=== PATIENT | female | born 1960 | race Caucasian/White ===

== ENCOUNTER 2016-07-23 17:23 | Emergency (ER) | payer MEDICARE, OTHER ==
[2016-07-23 17:39] VITALS: BP 138/80; PULSE 83; RESP 18; TEMP 99
--- NOTE | 2016-07-23 18:42 | ED ---
General Adult HPI - General Chief complaint: Back Pain/Injury Stated complaint: HEADACHE Time Seen by Provider: 07/23/16 18:29 Source: patient, RN notes reviewed Mode of arrival: ambulatory Limitations: no limitations - History of Present Illness Initial comments: This is a 56-year-old female presents with pain to the right side neck 3 days. Patient is requesting pain medication as she is out of her current prescriptions. Patient denies any fall or trauma to the head. Patient denies any headache, nausea/vomiting. Patient isn't on any anticoagulants. Patient states she is due for surgery on July 2015 to of the lumbar spine. Patient states pain is reproducible and constant. Patient denies any recent fever, chills, shortness breath, chest pain, abdominal pain, nausea/vomiting/ diarrhea, back pain, numbness, tingling, hematuria, or visual changes, or any other complaints. - Related Data Home Medications Medication Instructions Recorded Confirmed Gabapentin [Gabapentin] 800 mg PO Q8H 05/05/16 07/23/16 Hydrochlorothiazide [Hydrodiuril] 25 mg PO DAILY 05/05/16 07/23/16 QUEtiapine [SEROquel] 100 mg PO HS 05/05/16 07/23/16 oxyCODONE HCL 30 mg PO Q8H PRN 05/05/16 07/23/16 traMADol HCL [Tramadol HCl] 50 mg PO Q8H PRN 05/05/16 07/23/16 Previous Rx's Medication Instructions Recorded Hydrocortisone Cream 1 applic TOPICAL TID #1 cream..g. 05/17/16 [Hydrocortisone 1% Cream] Hydrocodone/Acetaminophen [[place] 1 each PO Q6HR PRN #20 tab 05/25/16 5-325] diphenhydrAMINE [Benadryl] 50 mg PO HS PRN #5 capsule 06/22/16 predniSONE 50 mg PO DAILY #5 tab 06/22/16 Allergies Allergy/AdvReac Type Severity Reaction Status Date / Time latex AdvReac Itching Verified 07/23/16 17:37 propoxyphene napsylate AdvReac Nausea Verified 07/23/16 17:37 [From Darvocet-N 100] Review of Systems ROS Statement: Those systems with pertinent positive or pertinent negative responses have been documented in the HPI. ROS Other: All systems not noted in ROS Statement are negative. Past Medical History Past Medical History: Hypertension, Liver Disease, Musculoskeletal Disorder, Neurologic Disorder Additional Past Medical History / Comment(s): hep c, back pain, sciatica, neuropathy, History of Any Multi-Drug Resistant Organisms: None Reported Date of last positivie culture/infection: 2006 MDRO Source:: face Past Surgical History: Orthopedic Surgery Additional Past Surgical History / Comment(s): lt ankle, D&C Past Anesthesia/Blood Transfusion Reactions: No Reported Reaction Past Psychological History: Anxiety, Bipolar, Depression, Schizoaffective Disorder, Schizophrenia Smoking Status: Current every day smoker Past Alcohol Use History: Occasional Additional Past Alcohol Use History / Comment(s): quit drinking due to new meds for Hep C Past Drug Use History: None Reported General Exam - General Exam Comments Initial Comments: General: The patient is awake and alert, in no distress, and does not appear acutely ill. Head: Normocephalic atraumatic. There is reproducible pain to the right side occipital aspect of the skull where the neck muscles insert. Eye: Pupils are equal, round and reactive to light, extra-ocular movements are intact. No nystagmus. There is normal conjunctiva bilaterally. No signs of icterus. Ears: TMs pink and pearly with intact cone of light bilaterally. Normal external ear canals Nose: Nasal turbinates are erythematous and edematous with dried blood present in the left turbinate due to epistaxis digitorum. Mouth and throat: There are moist mucous membranes and no oral lesions. Neck: The neck is supple, there is no tenderness or JVD. Cardiovascular: There is a regular rate and rhythm. No murmur, rub or gallop is appreciated. Respiratory: Lungs are clear to auscultation, respirations are non-labored, breath sounds are equal. No wheezes, stridor, rales, or rhonchi. Musculoskeletal: Normal ROM, no tenderness. Strength 5/5. Sensation intact. Radial pulses equal bilaterally 2+. Neurological: A&O x 3. CN II-XII intact, There are no obvious motor or sensory deficits. Coordination appears grossly intact. Speech is normal. Skin: Skin is warm and dry and no rashes or lesions are noted. Psychiatric: Cooperative, appropriate mood & affect, normal judgment. Limitations: no limitations Course Vital Signs 07/23/16 17:37 Temperature 99.0 F Pulse Rate 83 Respiratory 18 Rate Blood Pressure 138/80 O2 Sat by Pulse 97 Oximetry Medical Decision Making - Medical Decision Making This is a 56-year-old female presents with neck pain. Patient states she has chronic neck and back pain. Patient states she is due for surgery on July 2016 on the lumbar spine and she has run out of pain meds. On physical exam patient is neurologically intact. Head is Normocephalic atraumatic. There is reproducible pain to the right side occipital aspect of the skull where the neck muscles insert. Patient is requesting pain medications because she is currently out of her prescriptions. I discussed with the patient that Tylenol or Motrin [id number] can be used for pain along with heating pads. Discussed the patient is to follow-up with her family physician for these types of medications. At this time patient stated she would not stay for discharge instructions if she is not getting any stronger pain medication. Patient eloped. Disposition Clinical Impression: Chronic pain Disposition: Left Against Medical Advice Referrals: Efren Luong MD [Primary Care Provider] - 1-2 days Time of Disposition: 19:15
== END 2016-07-23 18:45 | disposition left against medical advice (07) ==
LOC: EC 17:23
DX: G89.29 Other chronic pain (principal); M54.5 Low back pain; M54.2 Cervicalgia; Z79.899 Other long term (current) drug therapy; Z88.5 Allergy status to narcotic agent; Z91.040 Latex allergy status; I10 Essential (primary) hypertension; F41.9 Anxiety disorder, unspecified; F31.9 Bipolar disorder, unspecified; F20.9 Schizophrenia, unspecified; F17.200 Nicotine dependence, unspecified, uncomplicated
CPT/HCPCS: 99282

== ENCOUNTER 2016-08-07 22:22 | Emergency (ER) | payer MEDICARE, OTHER ==
[2016-08-07 22:28] VITALS: BP 144/85; PULSE 95; RESP 20; TEMP 99
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
--- NOTE | 2016-08-07 22:58 | XR ---
EXAMINATION TYPE: XR forearm RT DATE OF EXAM: 08/07/2016 10:48 PM COMPARISON: NONE HISTORY: Forearm and elbow pain TECHNIQUE: 2 views FINDINGS: The radius appears intact. There is irregular coronary process of the ulna that is suspicio us for a nondisplaced evulsion 8mm chip fracture. There is no dislocation. Wrist joint is intact. IMPRESSION: Possible chip fracture of the coronoid process of the ulna. No dislocation.
--- NOTE | 2016-08-07 22:59 | XR ---
EXAMINATION TYPE: XR elbow complete RT DATE OF EXAM: 08/07/2016 10:48 PM COMPARISON: NONE HISTORY: Forearm and elbow pain TECHNIQUE: 3 views FINDINGS: I see no displaced fracture. There is no sign of elbow joint effusion. On the lateral view there is some lucency over the coronary process of the ulna. IMPRESSION: Possible nondisplaced chip fracture of the coronoid process of the ulna. If there is pers istent clinical indication recommend additional lateral views to project the coronoid process to mariann hudson.
== END 2016-08-07 23:32 | disposition home or self-care (01) ==
LOC: EC 22:22
DX: M25.521 Pain in right elbow (principal); W19.XXXA Unspecified fall, initial encounter; I10 Essential (primary) hypertension; G62.9 Polyneuropathy, unspecified; F20.9 Schizophrenia, unspecified; F32.9 Major depressive disorder, single episode, unspecified; F31.9 Bipolar disorder, unspecified; F17.200 Nicotine dependence, unspecified, uncomplicated; B19.20 Unspecified viral hepatitis C without hepatic coma; Z79.899 Other long term (current) drug therapy; Z88.5 Allergy status to narcotic agent; Z91.040 Latex allergy status
CPT/HCPCS: 29105; 99284

== ENCOUNTER 2016-09-10 21:24 | Emergency (ER) | payer MEDICARE, OTHER ==
[2016-09-10] MEDS ORDERED: HYDROcodone/APAP 5-325MG 1 EACH TAB PO STA (23:22)
[2016-09-10] MEDS ORDERED: diphenhydrAMINE 25 MG CAP PO STA (23:22)
--- NOTE | 2016-09-10 23:27 | ED ---
General Adult HPI - General Chief complaint: Skin/Abscess/Foreign Body Stated complaint: itchy skin Source: patient, RN notes reviewed, old records reviewed Mode of arrival: ambulatory Limitations: no limitations - History of Present Illness Initial comments: Chief complaint history of present is a 56-year-old female was called emergency room because of itchy skin, there is ongoing for several days. Appears to be scabies. - Related Data Home Medications Medication Instructions Recorded Confirmed Gabapentin [Gabapentin] 800 mg PO Q8H 05/05/16 09/10/16 Hydrochlorothiazide [Hydrodiuril] 25 mg PO DAILY 05/05/16 09/10/16 QUEtiapine [SEROquel] 100 mg PO HS 05/05/16 09/10/16 oxyCODONE HCL 30 mg PO Q8H PRN 05/05/16 09/10/16 predniSONE [Deltasone] 20 mg PO DAILY 09/10/16 09/10/16 Previous Rx's Medication Instructions Recorded diphenhydrAMINE [Benadryl] 50 mg PO HS PRN #5 capsule 06/22/16 Permethrin 5% Cream [Elimite] 1 applic TOPICAL ONCE #60 cream..g. 09/10/16 diphenhydrAMINE [Benadryl] 25 mg PO QID PRN #16 capsule 09/10/16 Allergies Allergy/AdvReac Type Severity Reaction Status Date / Time latex Allergy Itching Verified 09/10/16 22:52 tramadol Allergy Itching Verified 09/10/16 22:52 Review of Systems ROS Statement: Those systems with pertinent positive or pertinent negative responses have been documented in the HPI. Review of systems. No headache or chest pain or shortness of breath no GI/ problems. The patient complaining of itchiness to her skin. She has jacobs that appear to be typical of scabies on her hands arms abdomen and lower extremities. All systems reviewed Past medical problems significant for chronic liver disease, hep C, chronic back pain. Hypertension. She's had left ankle surgery and D&C. ALLERGIES latex and tramadol. Family history noncontributory. Patient advised not to smoke. ROS Other: All systems not noted in ROS Statement are negative. Past Medical History Past Medical History: Hypertension, Liver Disease, Musculoskeletal Disorder, Neurologic Disorder Additional Past Medical History / Comment(s): hep c, back pain, sciatica, neuropathy, History of Any Multi-Drug Resistant Organisms: None Reported Date of last positivie culture/infection: 2006 MDRO Source:: face Past Surgical History: Orthopedic Surgery Additional Past Surgical History / Comment(s): lt ankle, D&C Past Anesthesia/Blood Transfusion Reactions: No Reported Reaction Past Psychological History: Anxiety, Bipolar, Depression, Schizoaffective Disorder, Schizophrenia Smoking Status: Current every day smoker Past Alcohol Use History: Occasional Additional Past Alcohol Use History / Comment(s): quit drinking due to new meds for Hep C Past Drug Use History: None Reported General Exam - General Exam Comments Initial Comments: General: The patient is awake and alert, complains of having itchy skin. And a painful right elbow. Vital signs show temperature 98.2 pulse 86 respiratory rate 16 pulse ox 90% room air blood pressure 140/80. The patient's systolic of 140 was noted patient will be following up with her family physician in next 1-4 weeks. Eye: Pupils are equal, , extra-ocular movements are intact; there is normal conjunctiva bilaterally. No signs of icterus. Ears, nose, mouth and throat: There are moist mucous membranes Neck: The neck is supple, there is no tenderness Cardiovascular: No complaint chest pain. Heart rate 86 blood pressure 140/80. Plan of palpitations. Respiratory: Lungs are clear to auscultation, respirations are non-labored, breath sounds are equal. No wheezes, stridor, rales, or rhonchi. Gastrointestinal: Soft, non-distended, non-tender abdomen without masses or organomegaly noted. There is no rebound or guarding present. No CVA tenderness. Bowel sounds are unremarkable. Patient has what appears to be scabies on her lower abdomen. Back: There is no tenderness to palpation in the midline. There is no obvious deformity. No rashes noted. Patient has chronic back pain. States she had 4 injections in her low back in the past several weeks. Musculoskeletal: Normal ROM, no tenderness, There is no pedal edema. There is no calf tenderness or swelling. Sensation intact. Patient has tenderness to the right elbow. She has near normal range of motion she has a sling to use to support the arm and elbow. Advised to follow-up with family physician. Neurological: CN II-XII intact, There are no obvious motor or sensory deficits. Coordination appears grossly intact. Speech is normal. No focal or lateralizing findings. Skin: Patient is skin rash that appears to be scabies. Psychiatric: History of depression, schizophrenia. No complaints this time. Limitations: no limitations Course Vital Signs 09/10/16 21:51 Temperature 98.2 F Pulse Rate 86 Respiratory 16 Rate Blood Pressure 140/80 O2 Sat by Pulse 98 Oximetry Disposition Clinical Impression: Scabies Disposition: HOME SELF-CARE Condition: Stable Prescriptions: Permethrin 5% Cream [Elimite] 1 applic TOPICAL ONCE #60 cream..g. diphenhydrAMINE [Benadryl] 25 mg PO QID PRN #16 capsule PRN Reason: As needed for itch Time of Disposition: 23:36
[2016-09-10 23:49] VITALS: BP 154/88; PULSE 74; RESP 18; TEMP 98.6
== END 2016-09-10 23:49 | disposition home or self-care (01) ==
LOC: EC 21:24
DX: B86 Scabies (principal); Z79.899 Other long term (current) drug therapy; I10 Essential (primary) hypertension; B19.20 Unspecified viral hepatitis C without hepatic coma; G62.9 Polyneuropathy, unspecified; F20.9 Schizophrenia, unspecified; F32.9 Major depressive disorder, single episode, unspecified; Z79.52 Long term (current) use of systemic steroids; F17.200 Nicotine dependence, unspecified, uncomplicated; Z88.5 Allergy status to narcotic agent; Z91.040 Latex allergy status
CPT/HCPCS: 99282

== ENCOUNTER → 2016-10-20 | Outpatient (CLI) | payer MEDICARE, OTHER ==
--- NOTE | 2016-10-20 08:43 | CT ---
EXAMINATION TYPE: CT elbow RT wo con DATE OF EXAM: 10/20/2016 8:28 AM COMPARISON: Radiographs 08/07/2016 HISTORY: 56-year-old female with right elbow pain, fracture. TECHNIQUE: Contiguous axial scanning of the right elbow without IV contrast. Coronal and sagittal rec onstructions performed. 3-D reconstructions generated on a dedicated independent workstation. CT DLP: 126.5 mGycm Automated exposure control for dose reduction was used. FINDINGS: There is fracture with minimal to no displacement at the coronoid process. The coronoid process is ma rkedly comminuted with the largest fracture fragment measuring up to 1.7 x 0.7 cm but multiple additi onal smaller fracture fragments. Fracture margins are sclerotic and corticated suggesting chronic inj uries. There is degenerative spurring about the ulnotrochlear joint Slivers of bone are seen adjacent to the posterior margin of the lateral epicondyle measuring up to 4 mm. This is along the floor of the sulcus ulnaris. The overlying ulnar nerve is thickened measuring 21 sq mm, axial image 25 of series 11. An additional small corticated bone fragment measuring 3.4 mm in the soft tissues along the proximal common extensor tendon. Punctate 2 mm density at the olecranon process may represent enthesopathy. Tiny 2 mm loose bodies within the coronoid fossa. IMPRESSION: 1. MARKEDLY COMMINUTED NONDISPLACED TO MINIMALLY DISPLACED FRACTURE INVOLVING THE ULNAR CORONOID PROC ESS. THE FRACTURE MARGINS ARE CORTICATED COMPATIBLE WITH A NOW CHRONIC INJURY. 2. ADDITIONAL PARTIAL AVULSION FRACTURE ALONG THE POSTERIOR MARGIN OF THE COMMON FLEXOR ORIGIN AT THE MEDIAL EPICONDYLE. THIS FRACTURE IS ALONG THE FLOOR OF THE SULCUS ULNARIS AND THE OVERLYING ULNAR NE RVE IS THICKENED AND PROBABLY CONTUSED. 3. TINY 3 TO 4 MM REMOTE AVULSION FRACTURE FRAGMENT ALONG THE COMMON EXTENSOR TENDON. 4. MILD SECONDARY ULNAR TROCHLEAR OSTEOARTHROSIS AND TINY 2 MM ANTERIOR LOOSE BODIES.
== END | disposition home or self-care (01) ==
LOC: RADCTMAIN 07:32
PROVIDERS: ATTEND Orthopaedic Surgery Sports Medicine
DX: S52.091D Other fracture of upper end of right ulna, subsequent encounter for closed fracture with routine healing (principal); S52.044D Nondisplaced fracture of coronoid process of right ulna, subsequent encounter for closed fracture with routine healing

== ENCOUNTER 2016-11-09 18:42 | Emergency (ER) | payer MEDICARE, OTHER ==
[2016-11-09] MEDS ORDERED: KETOROLAC 60 MG/2 ML VIAL IM STA (19:46)
[2016-11-09] MEDS ORDERED: HYDROcodone/APAP 5-325MG 1 EACH TAB PO STA (20:05)
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
[2016-11-09 20:29] LABS: Appearance,Urine Cloudy (Clear); Bacteria,Urine Occasional /hpf; Bilirubin,Urine Negative (Negative); Glucose,Urine (UA) Negative (Negative); Ketones,Urine Negative (Negative); Leukocyte Esterase,Urine Moderate (Negative); Nitrite,Urine Negative (Negative); PH, Urine 7.5 (5.0-8.0); Particle Count 4352; Protein,Urine Negative (Negative); Specific Gravity,Urine 1.009 (1.001-1.035); Squamous Epithelial Cell,Urine 6 /hpf (0-4); UA Billing (MACRO vs. MICRO) MICRO; Urobilinogen,Urine <2.0 mg/dL (<2.0); WBC,Urine 4 /hpf (0-5)
[2016-11-10 02:19] VITALS: BP 133/96; PULSE 88; RESP 18; TEMP 99
== END 2016-11-09 21:00 | disposition home or self-care (01) ==
LOC: EC 18:42
DX: M25.521 Pain in right elbow (principal); M54.9 Dorsalgia, unspecified; G89.29 Other chronic pain; M79.605 Pain in left leg; I10 Essential (primary) hypertension; M79.9 Soft tissue disorder, unspecified; G62.9 Polyneuropathy, unspecified; F20.9 Schizophrenia, unspecified; F31.9 Bipolar disorder, unspecified; F41.9 Anxiety disorder, unspecified; F17.200 Nicotine dependence, unspecified, uncomplicated; Z79.891 Long term (current) use of opiate analgesic; Z79.52 Long term (current) use of systemic steroids; Z79.899 Other long term (current) drug therapy; Z91.040 Latex allergy status; Z88.6 Allergy status to analgesic agent
CPT/HCPCS: 81001; 99284

== ENCOUNTER → 2016-12-25 | Outpatient (CLI) | payer MEDICARE, OTHER ==
[2016-12-25 17:33] LABS: Basophils % (A) 0 %; CH 30.9; Eosinophils # (A) 0.1 k/uL (0-0.7); Eosinophils % (A) 1 %; HCT 44.5 % (34.0-46.0); HDW 2.42; HGB 15.2 gm/dL (11.4-16.0); Luc # (Auto) 0.15; Luc % (Auto) 1; Lymphocytes # (A) 2.8 k/uL (1.0-4.8); Lymphocytes % (A) 20 %; MCH 31.1 pg (25.0-35.0); MCHC 34.1 g/dL (31.0-37.0); MCV 91.1 fL (80.0-100.0); Mean Platelet Volume 7.4; Monocytes # (A) 0.7 k/uL (0-1.0); Monocytes % (A) 5 %; Neutrophils # (A) 10.1 k/uL (1.3-7.7); Neutrophils % (A) 73 %; RBC 4.89 m/uL (3.80-5.40); RDW 12.6 % (11.5-15.5); WBC 13.9 k/uL (3.8-10.6); WBC (Perox) 13.39
[2016-12-25 18:18] LABS: ALT 31 U/L (9-52); AST 22 U/L (14-36); Alkaline Phosphatase 81 U/L (38-126); Anion Gap 12 mmol/L; Blood Urea Nitrogen 11 mg/dL (7-17); Calcium 10.2 mg/dL (8.4-10.2); Carbon Dioxide 20 mmol/L (22-30); Chloride 109 mmol/L (98-107); Glucose 93 mg/dL (74-99); Non-African American GFR(MDRD) >60 (>60 ml/min/1.73 sqM); Potassium 4.2 mmol/L (3.5-5.1); Sodium 141 mmol/L (137-145); Total Bilirubin 1.2 mg/dL (0.2-1.3); Total Protein 7.7 g/dL (6.3-8.2)
[2016-12-26 14:57] LABS: Hepatits C Virus RNA, Quant <12 IU/mL (<12); LOG HCV IU/mL <1.08 (<1.08)
== END ==
LOC: LABWHC1 16:45
PROVIDERS: ATTEND Internal Medicine Gastroenterology
DX: B18.2 Chronic viral hepatitis C (principal)
CPT/HCPCS: 36415; 80053; 85025; 87522

== ENCOUNTER 2017-01-11 21:44 | Emergency (ER) | payer MEDICARE, OTHER ==
[2017-01-11 22:03] VITALS: BP 128/79; PULSE 87; RESP 20; TEMP 99.9
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
[2017-01-11] MEDS ORDERED: HYDROcodone/APAP 5-325MG 1 EACH TAB PO STA (22:28)
--- NOTE | 2017-01-11 22:35 | XR ---
EXAM: XR Lumbar Spine, 2 or 3 Views CLINICAL HISTORY: Reason: Pain TECHNIQUE: Frontal and lateral views of the lumbar spine. COMPARISON: None. FINDINGS: Vertebrae: Mild posterior facet hypertrophy seen predominantly involving the lower lumbar spine consistent with degenerative changes. Mild/moderate spondylosis involving the lower thoracic spine. No acute fracture. Normal alignment. Disc spaces: No acute findings. No significant narrowing. Soft tissues: Unremarkable. IMPRESSION: No acute findings. Degenerative changes, as above.
--- NOTE | 2017-01-11 22:47 | XR ---
EXAM: XR Left Hip With Pelvis When Performed, 2 or 3 Views CLINICAL HISTORY: Left hip pain. TECHNIQUE: Two or three views of the left hip, with pelvis when performed. COMPARISON: None FINDINGS: Bones/joints: Minimal narrowing of both femoroacetabular joints is seen with associated subchondral sclerosis, likely representing minimal osteoarthropathy of both hips. No evidence for acute fracture or dislocation. Soft tissues: Unremarkable. IMPRESSION: Minimal osteoarthropathy of both hips. No radiographic evidence of acute fracture or dislocation.
== END 2017-01-11 23:01 | disposition home or self-care (01) ==
LOC: EC 21:44
DX: S70.02XA Contusion of left hip, initial encounter (principal); I10 Essential (primary) hypertension; F32.9 Major depressive disorder, single episode, unspecified; F41.9 Anxiety disorder, unspecified; F20.9 Schizophrenia, unspecified; F17.200 Nicotine dependence, unspecified, uncomplicated; Z79.52 Long term (current) use of systemic steroids; Z79.891 Long term (current) use of opiate analgesic; Z79.899 Other long term (current) drug therapy; Z88.6 Allergy status to analgesic agent; Z91.040 Latex allergy status; V18.4XXA Pedal cycle driver injured in noncollision transport accident in traffic accident, initial encounter; Y93.55 Activity, bike riding; Y92.89 Other specified places as the place of occurrence of the external cause
CPT/HCPCS: 72100; 73502; 99283

== ENCOUNTER 2017-01-20 11:44 | Emergency (ER) | payer MEDICARE, OTHER ==
[2017-01-20 11:58] VITALS: BP 137/71; PULSE 76; RESP 18; TEMP 97.7
[2017-01-20] MEDS ORDERED: KETOROLAC 60 MG/2 ML VIAL IM STA (12:15)
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
== END 2017-01-20 12:21 | disposition left against medical advice (07) ==
LOC: EC 11:44
DX: S70.12XA Contusion of left thigh, initial encounter (principal); Z76.5 Malingerer [conscious simulation]; I10 Essential (primary) hypertension; F31.9 Bipolar disorder, unspecified; F25.9 Schizoaffective disorder, unspecified; F41.9 Anxiety disorder, unspecified; F17.200 Nicotine dependence, unspecified, uncomplicated; Z79.52 Long term (current) use of systemic steroids; Z91.040 Latex allergy status; Z53.29 Procedure and treatment not carried out because of patient's decision for other reasons; Z88.6 Allergy status to analgesic agent; Z79.891 Long term (current) use of opiate analgesic; Z79.899 Other long term (current) drug therapy; V18.4XXA Pedal cycle driver injured in noncollision transport accident in traffic accident, initial encounter
CPT/HCPCS: 99282

== ENCOUNTER 2017-01-28 15:08 | Emergency (ER) | payer MEDICARE, OTHER ==
[2017-01-28 15:13] VITALS: BP 117/65; PULSE 80; RESP 20; TEMP 99.5
[2017-01-28] MEDS ORDERED: HYDROcodone/APAP 5-325MG 1 EACH TAB PO STA (15:24)
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
== END 2017-01-28 15:40 | disposition home or self-care (01) ==
LOC: EC 15:08
DX: M54.5 Low back pain (principal); Z76.0 Encounter for issue of repeat prescription; F41.9 Anxiety disorder, unspecified; F31.9 Bipolar disorder, unspecified; F20.9 Schizophrenia, unspecified; I10 Essential (primary) hypertension; G62.9 Polyneuropathy, unspecified; F17.200 Nicotine dependence, unspecified, uncomplicated; Z88.5 Allergy status to narcotic agent; Z91.040 Latex allergy status; Z79.891 Long term (current) use of opiate analgesic; Z79.899 Other long term (current) drug therapy
CPT/HCPCS: 99283

== ENCOUNTER 2017-02-16 01:53 | Emergency (ER) | payer MEDICARE, OTHER ==
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
[2017-02-16] MEDS ORDERED: MORPHINE SULFATE 10 MG/ML SYRINGE IM STA (02:40)
[2017-02-16 03:00] VITALS: BP 124/80; PULSE 77; RESP 16; TEMP 97.3
== END 2017-02-16 03:00 | disposition home or self-care (01) ==
LOC: EC 01:53
DX: M54.5 Low back pain (principal); G89.29 Other chronic pain; I10 Essential (primary) hypertension; F31.9 Bipolar disorder, unspecified; F41.9 Anxiety disorder, unspecified; F17.200 Nicotine dependence, unspecified, uncomplicated; Z91.040 Latex allergy status; Z88.6 Allergy status to analgesic agent; Z79.891 Long term (current) use of opiate analgesic; Z79.52 Long term (current) use of systemic steroids; Z79.899 Other long term (current) drug therapy
CPT/HCPCS: 99283; 96372; J2270

== ENCOUNTER 2017-03-07 17:01 | Emergency (ER) | payer MEDICARE, OTHER ==
[2017-03-07 17:06] VITALS: BP 143/95; PULSE 78; RESP 20; TEMP 98.2
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
[2017-03-07] MEDS ORDERED: MORPHINE SULFATE 10 MG/ML SYRINGE IM STA (17:46)
== END 2017-03-07 18:00 | disposition home or self-care (01) ==
LOC: EC 17:01
DX: G89.29 Other chronic pain (principal); M54.9 Dorsalgia, unspecified; I10 Essential (primary) hypertension; G62.9 Polyneuropathy, unspecified; F31.9 Bipolar disorder, unspecified; F25.9 Schizoaffective disorder, unspecified; F41.9 Anxiety disorder, unspecified; F17.200 Nicotine dependence, unspecified, uncomplicated; Z88.5 Allergy status to narcotic agent; Z91.040 Latex allergy status; Z79.891 Long term (current) use of opiate analgesic; Z79.899 Other long term (current) drug therapy
CPT/HCPCS: 99283; 96372; J2270

== ENCOUNTER 2017-03-29 14:13 | Emergency (ER) | payer MEDICARE, OTHER ==
[2017-03-29 14:22] VITALS: BP 182/91; PULSE 73; RESP 18; TEMP 99.2
[2017-03-29] MEDS ORDERED: KETOROLAC 60 MG/2 ML VIAL IM STA (16:14)
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
== END 2017-03-29 16:34 | disposition home or self-care (01) ==
LOC: EC 14:13
DX: M54.5 Low back pain (principal); M79.605 Pain in left leg; G89.29 Other chronic pain; F31.9 Bipolar disorder, unspecified; F41.9 Anxiety disorder, unspecified; F25.9 Schizoaffective disorder, unspecified; I10 Essential (primary) hypertension; G62.9 Polyneuropathy, unspecified; F17.200 Nicotine dependence, unspecified, uncomplicated; Z98.890 Other specified postprocedural states; Z91.040 Latex allergy status; Z88.6 Allergy status to analgesic agent; Z79.891 Long term (current) use of opiate analgesic; Z79.899 Other long term (current) drug therapy
CPT/HCPCS: 99283 ×2; 96372 ×2; J1885

== ENCOUNTER 2017-04-09 21:47 | Emergency (ER) | payer MEDICARE, OTHER ==
[2017-04-09 21:59] VITALS: BP 132/79; PULSE 114; RESP 20; TEMP 100.6
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
== END 2017-04-09 22:54 | disposition left against medical advice (07) ==
LOC: EC 21:47
DX: G89.29 Other chronic pain (principal); M54.5 Low back pain; F20.9 Schizophrenia, unspecified; F31.9 Bipolar disorder, unspecified; F41.9 Anxiety disorder, unspecified; F17.200 Nicotine dependence, unspecified, uncomplicated; Z79.899 Other long term (current) drug therapy; Z88.5 Allergy status to narcotic agent; Z91.040 Latex allergy status
CPT/HCPCS: 99282

== ENCOUNTER 2017-08-03 14:01 | Emergency (ER) | payer MEDICARE, OTHER ==
[2017-08-03] MEDS ORDERED: KETOROLAC 60 MG/2 ML VIAL IM STA (15:54)
[2017-08-03] MEDS ORDERED: ORPHENADRINE 30 MG/ML 2 ML VIAL IM STA (15:54)
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
[2017-08-03 16:30] VITALS: BP 133/85; PULSE 72; RESP 18; TEMP 98.6
== END 2017-08-03 16:25 | disposition home or self-care (01) ==
LOC: EC 14:01
DX: G89.29 Other chronic pain (principal); Z76.5 Malingerer [conscious simulation]; Z76.0 Encounter for issue of repeat prescription; F41.9 Anxiety disorder, unspecified; F20.9 Schizophrenia, unspecified; F17.200 Nicotine dependence, unspecified, uncomplicated; Z79.899 Other long term (current) drug therapy; Z91.040 Latex allergy status; Z88.6 Allergy status to analgesic agent
CPT/HCPCS: 99283; 96372 ×2; J2360; J1885

== ENCOUNTER 2017-08-17 22:21 | Emergency (ER) | payer MEDICARE, OTHER ==
[2017-08-17 22:29] VITALS: BP 157/100; PULSE 84; RESP 18; TEMP 98.2
[2017-08-17] MEDS ORDERED: KETOROLAC 60 MG/2 ML VIAL IM STA (22:40)
--- NOTE | 2017-08-17 22:45 | ED ---
Back Pain HPI - General Chief Complaint: Back Pain/Injury Stated Complaint: Back Pain Time Seen by Provider: 08/17/17 22:35 Source: patient, RN notes reviewed Mode of arrival: ambulatory Limitations: no limitations - History of Present Illness Initial Comments: This is a 57 year old female who presents with a chief complaint of chronic back pain. She states she recently had her pain medications "taken away." She states that she wants her pain relieved. She denies any acute injury. Patient denies any bowel bladder retention. Denies any abdominal pain. Denies any injury. Patient states this is chronic pain in nature. - Related Data Home Medications Medication Instructions Recorded Confirmed QUEtiapine FUMARATE [SEROquel] 200 mg PO HS 03/29/17 08/03/17 Gabapentin 800 mg PO TID 08/03/17 08/03/17 Sertraline [Zoloft] 200 mg PO DAILY 08/03/17 08/03/17 traMADol HCL [Ultram] 50 mg PO QID 08/03/17 08/03/17 Allergies Allergy/AdvReac Type Severity Reaction Status Date / Time latex Allergy Itching Verified 08/17/17 22:29 Review of Systems ROS Statement: Those systems with pertinent positive or pertinent negative responses have been documented in the HPI. ROS Other: All systems not noted in ROS Statement are negative. Past Medical History Past Medical History: Hypertension, Liver Disease, Musculoskeletal Disorder, Neurologic Disorder Additional Past Medical History / Comment(s): hep c, back pain, sciatica, neuropathy, History of Any Multi-Drug Resistant Organisms: None Reported Date of last positivie culture/infection: 2006 MDRO Source:: face Past Surgical History: Orthopedic Surgery Additional Past Surgical History / Comment(s): lt ankle, D&C Past Anesthesia/Blood Transfusion Reactions: No Reported Reaction Past Psychological History: Anxiety, Bipolar, Depression, Schizoaffective Disorder, Schizophrenia Smoking Status: Current every day smoker Past Alcohol Use History: Occasional Past Drug Use History: None Reported General Exam Limitations: no limitations General appearance: alert, in no apparent distress Head exam: Present: atraumatic, normocephalic, normal inspection Eye exam: Present: normal appearance, PERRL, EOMI. Absent: scleral icterus, conjunctival injection, periorbital swelling Respiratory exam: Present: normal lung sounds bilaterally. Absent: respiratory distress, wheezes, rales, rhonchi, stridor Cardiovascular Exam: Present: regular rate, normal rhythm, normal heart sounds. Absent: systolic murmur, diastolic murmur, rubs, gallop, clicks Extremities exam: Present: normal inspection, full ROM, normal capillary refill. Absent: tenderness, pedal edema, joint swelling, calf tenderness Back exam: Present: normal inspection, full ROM. Absent: tenderness, paraspinal tenderness, vertebral tenderness Neurological exam: Present: alert, oriented X3, CN II-XII intact, reflexes normal. Absent: motor sensory deficit Psychiatric exam: Present: normal affect, normal mood Skin exam: Present: warm, dry, intact, normal color. Absent: rash Course Vital Signs 08/17/17 22:27 Temperature 98.2 F Pulse Rate 84 Respiratory 18 Rate Blood Pressure 157/100 O2 Sat by Pulse 98 Oximetry Medical Decision Making - Medical Decision Making This 57 year old female presented to the ED with a chief complaint of chronic pain that is no longer being treated. The patient requested medication to relieve her pain. I informed the patient that she will be given an injection of Toradol in the ED and she will not be receiving a prescription for any pain medication. The patient verbalized understanding. Patient has no red flag symptoms. Patient will be discharged Disposition Clinical Impression: Chronic pain, Chronic back pain, Drug-seeking behavior Disposition: HOME SELF-CARE Condition: Stable Instructions: Chronic Back Pain (ED) Additional Instructions: Please return to the emergency department if experiencing new or worsening symptoms. Referrals: None,Stated [Primary Care Provider] - 1-2 days Time of Disposition: 22:52
== END 2017-08-17 23:26 | disposition home or self-care (01) ==
LOC: EC 22:21
DX: M54.9 Dorsalgia, unspecified (principal); G89.29 Other chronic pain; Z76.5 Malingerer [conscious simulation]; F31.9 Bipolar disorder, unspecified; F41.9 Anxiety disorder, unspecified; F25.9 Schizoaffective disorder, unspecified; F17.200 Nicotine dependence, unspecified, uncomplicated; Z91.040 Latex allergy status; Z79.891 Long term (current) use of opiate analgesic; Z79.899 Other long term (current) drug therapy
CPT/HCPCS: 99283; 96372; J1885

== ENCOUNTER 2017-09-02 16:54 | Emergency (ER) | payer MEDICARE, OTHER ==
[2017-09-02] MEDS ORDERED: ACETAMINOPHEN TAB 500 MG TAB PO STA (18:28)
--- NOTE | 2017-09-02 18:31 | ED ---
Extremity Problem HPI - General Chief complaint: Extremity Problem,Nontraumatic Stated complaint: Cellulitis on arm Time Seen by Provider: 09/02/17 18:10 Source: patient, RN notes reviewed Mode of arrival: ambulatory Limitations: no limitations - History of Present Illness Initial comments: This a 57-year-old female presents emergency Department chief complaint of pain. Patient states that she had hepatitis a vaccination a few days ago and complains of discomfort to her left arm. She states is always happens after injections. Patient was noted have a fever today states that she's been having a cough, runny nose and congestion. Patient states she is sick. With left ear pain. Patient denies any headache, dizziness, neck pain. Denies nausea and diarrhea constipation. Patient is has chronic pain does not have any current pain medication. Patient states she is out of her medications from [facility] and orthopedics. - Related Data Home Medications Medication Instructions Recorded Confirmed QUEtiapine FUMARATE [SEROquel] 200 mg PO HS 03/29/17 09/02/17 Fluticasone Nasal [place] [Flonase 1 spr EA NOSTRIL DAILY 09/02/17 09/02/17 Nasal [place]] Previous Rx's Medication Instructions Recorded traMADol HCl [Ultram] 50 mg PO Q8HR PRN #10 tab 09/02/17 Allergies Allergy/AdvReac Type Severity Reaction Status Date / Time latex Allergy Itching Verified 09/02/17 18:13 Review of Systems ROS Statement: Those systems with pertinent positive or pertinent negative responses have been documented in the HPI. ROS Other: All systems not noted in ROS Statement are negative. Past Medical History Past Medical History: Hypertension, Liver Disease, Musculoskeletal Disorder, Neurologic Disorder Additional Past Medical History / Comment(s): hep c, back pain, sciatica, neuropathy, History of Any Multi-Drug Resistant Organisms: None Reported, MRSA Date of last positivie culture/infection: 2006 MDRO Source:: face Past Surgical History: Orthopedic Surgery Additional Past Surgical History / Comment(s): lt ankle, D&C Past Anesthesia/Blood Transfusion Reactions: No Reported Reaction Past Psychological History: Anxiety, Bipolar, Depression, Schizoaffective Disorder, Schizophrenia Smoking Status: Current every day smoker Past Alcohol Use History: Occasional Past Drug Use History: None Reported General Exam Limitations: no limitations General appearance: alert, in no apparent distress Head exam: Present: atraumatic, normocephalic, normal inspection Eye exam: Present: normal appearance, PERRL, EOMI. Absent: scleral icterus, conjunctival injection, periorbital swelling ENT exam: Present: normal exam, normal oropharynx, mucous membranes moist, TM's normal bilaterally, normal external ear exam Neck exam: Present: normal inspection, full ROM. Absent: tenderness, meningismus, lymphadenopathy Respiratory exam: Present: normal lung sounds bilaterally. Absent: respiratory distress, wheezes, rales, rhonchi, stridor Cardiovascular Exam: Present: regular rate, normal rhythm, normal heart sounds. Absent: systolic murmur, diastolic murmur, rubs, gallop, clicks GI/Abdominal exam: Present: soft, normal bowel sounds. Absent: distended, tenderness, guarding, rebound, rigid Extremities exam: Present: normal inspection, full ROM, normal capillary refill. Absent: tenderness, pedal edema, joint swelling, calf tenderness Back exam: Present: normal inspection, full ROM. Absent: tenderness Neurological exam: Present: alert, oriented X3, CN II-XII intact, reflexes normal. Absent: motor sensory deficit Skin exam: Present: warm, dry, intact, normal color. Absent: rash Course Vital Signs 09/02/17 09/02/17 17:25 19:17 Temperature 100.1 F H 98.7 F Pulse Rate 74 Respiratory 18 Rate Blood Pressure 181/65 O2 Sat by Pulse 97 Oximetry Medical Decision Making - Medical Decision Making 57-year-old female presented started for URI symptoms fever and chronic pain. Patient has no evidence of bacterial infection. Most likely viral infection. Patient be given Gen. for pain and discharged. - Lab Data Lab Results 09/02/17 Range/Units 18:40 Influenza Type A RNA Not Detected (Not Detectd) Influenza Type B (PCR) Not Detected (Not Detectd) Disposition Clinical Impression: Chronic pain, Pain at injection site, Viral infection Disposition: HOME SELF-CARE Condition: Stable Instructions: Chronic Pain (ED), Viral Syndrome (ED) Additional Instructions: Please return to the Emergency Department if symptoms worsen or any other concerns. Prescriptions: traMADol HCl [Ultram] 50 mg PO Q8HR PRN #10 tab PRN Reason: Pain Referrals: None,Stated [Primary Care Provider] - 1-2 days Time of Disposition: 19:33
--- NOTE | 2017-09-02 18:48 | XR ---
EXAMINATION TYPE: XR chest 2V DATE OF EXAM: 09/02/2017 COMPARISON: Prior chest x-ray March 06, 2015. HISTORY: Cough and fever. TECHNIQUE: Frontal and lateral views of the chest are obtained. FINDINGS: There is no focal air space opacity, pleural effusion, or pneumothorax seen. The cardiac silhouette size is within normal limits. The osseous structures are intact. IMPRESSION: No suspicious acute pulmonary process.
[2017-09-02 19:51] VITALS: BP 130/80; PULSE 75; RESP 20; TEMP 98.3
== END 2017-09-02 19:45 | disposition home or self-care (01) ==
LOC: EC 16:54
DX: G89.29 Other chronic pain (principal); M79.602 Pain in left arm; B34.9 Viral infection, unspecified; F20.9 Schizophrenia, unspecified; F31.9 Bipolar disorder, unspecified; F17.200 Nicotine dependence, unspecified, uncomplicated; Z79.51 Long term (current) use of inhaled steroids; Z79.899 Other long term (current) drug therapy; Z91.040 Latex allergy status; Z86.14 Personal history of Methicillin resistant Staphylococcus aureus infection
CPT/HCPCS: 71046; 87502; 99283

== ENCOUNTER 2017-09-18 23:05 | Emergency (ER) | payer MEDICARE, OTHER ==
[2017-09-19] MEDS ORDERED: ACET/COD 300 MG/30 MG STARTER PACK 6 TAB BTL PO STA (01:19)
--- NOTE | 2017-09-19 01:53 | XR ---
EXAMINATION TYPE: XR KUB DATE OF EXAM: 09/19/2017 COMPARISON: NONE HISTORY: Back pain TECHNIQUE: 2 views FINDINGS: Bowel gas pattern is normal. There is no sign of intestinal obstruction or pneumoperitoneum . There is some retained fecal material in the large bowel. There is no evidence of a mass. Lung base s are clear of consolidation. There are no pathologic calcifications over the kidneys. IMPRESSION: Nonacute abdomen. Mild constipation.
--- NOTE | 2017-09-19 01:55 | XR ---
EXAMINATION TYPE: XR lumbar spine 2 or 3V DATE OF EXAM: 09/19/2017 COMPARISON: 01/11/2017 HISTORY: Back pain TECHNIQUE: 3 views FINDINGS: The lumbar vertebra have fairly normal spacing and alignment. Posterior elements are intact . Abdominal aorta is atheromatous. There is no compression fracture. Posterior elements are intact. T here is minimal spurring of the endplates. IMPRESSION: Minimal spurring. Otherwise negative exam. No change.
[2017-09-19 02:18] LABS: Appearance,Urine Clear (Clear); Bilirubin,Urine Negative (Negative); Blood,Urine Negative (Negative); Color,Urine Light Yellow; Glucose,Urine (UA) Negative (Negative); Ketones,Urine Negative (Negative); Leukocyte Esterase,Urine Large (Negative); Mucus,Urine Rare /hpf; Nitrite,Urine Negative (Negative); PH, Urine 6.5 (5.0-8.0); Protein,Urine Negative (Negative); RBC,Urine 3 /hpf (0-5); Specific Gravity,Urine 1.009 (1.001-1.035); Squamous Epithelial Cell,Urine 5 /hpf (0-4); Urobilinogen,Urine <2.0 mg/dL (<2.0); WBC,Urine 11 /hpf (0-5)
[2017-09-19 02:28] LABS: Amphetamine Screen,Urine Not Detected (NotDetected); Barbiturate Screen,Urine Not Detected (NotDetected); Benzodiazepines Screen,Urine Not Detected (NotDetected); Cocaine Screen,Urine Detected (NotDetected); Methadone Screen, Urine Not Detected (NotDetected); Opiate Screen,Urine Not Detected (NotDetected); Oxycodone Screen, Urine Not Detected (NotDetected); Phencyclidine Screen,Urine Not Detected (NotDetected); Tricyclic Antidepressant,Urine Not Detected (NotDetected); Urn Cannabinoid Scrn Not Detected (NotDetected)
--- NOTE | 2017-09-19 02:28 | ED ---
Back Pain HPI - General Chief Complaint: Back Pain/Injury Stated Complaint: Leg Pain Time Seen by Provider: 09/19/17 00:49 Source: patient, RN notes reviewed, old records reviewed Limitations: no limitations - History of Present Illness Initial Comments: Pt is a 57 year old female, well known to ED presents with lower back pain radiating down left leg and buttock. One week onset. Denies falls and trauma. History of DDD. Denies saddle anesthesia, urinary symptoms. Worse with movement. She also reports little bowel movement and feels bloated. MD Complaint: back pain, other (down left leg and buttock) Onset/Timin -: week(s) Radiation: buttocks, left leg Severity: moderate Quality: sharp (with movement), tingling Improves With: immobilization Worsens With: sitting upright Context: turning/twisting, bending Associated Symptoms: denies other symptoms Treatments Prior to Arrival: cold therapy, heat therapy, acetaminophen - Related Data Home Medications Medication Instructions Recorded Confirmed QUEtiapine FUMARATE [SEROquel] 200 mg PO HS 03/29/17 09/02/17 Fluticasone Nasal [place] [Flonase 1 spr EA NOSTRIL DAILY 09/02/17 09/02/17 Nasal [place]] Previous Rx's Medication Instructions Recorded traMADol HCl [Ultram] 50 mg PO Q8HR PRN #10 tab 09/02/17 Cyclobenzaprine [Flexeril] 10 mg PO TID #12 tab 09/19/17 Naproxen 500 mg PO BID #15 tablet 09/19/17 Allergies Allergy/AdvReac Type Severity Reaction Status Date / Time latex Allergy Itching Verified 09/18/17 23:22 Review of Systems ROS Statement: Those systems with pertinent positive or pertinent negative responses have been documented in the HPI. ROS Other: All systems not noted in ROS Statement are negative. Past Medical History Past Medical History: Hypertension, Liver Disease, Musculoskeletal Disorder, Neurologic Disorder Additional Past Medical History / Comment(s): hep c, back pain, sciatica, neuropathy, History of Any Multi-Drug Resistant Organisms: None Reported, MRSA Date of last positivie culture/infection: 2006 MDRO Source:: face Past Surgical History: Orthopedic Surgery Additional Past Surgical History / Comment(s): lt ankle, D&C Past Anesthesia/Blood Transfusion Reactions: No Reported Reaction Past Psychological History: Anxiety, Bipolar, Depression, Schizoaffective Disorder, Schizophrenia Smoking Status: Current every day smoker Past Alcohol Use History: Occasional Past Drug Use History: None Reported General Exam - General Exam Comments Initial Comments: Well appearing 57 year old female, no distress. Limitations: no limitations General appearance: alert, in no apparent distress Head exam: Present: atraumatic, normocephalic, normal inspection Eye exam: Present: normal appearance, PERRL, EOMI. Absent: scleral icterus, conjunctival injection, periorbital swelling ENT exam: Present: normal exam, mucous membranes moist Neck exam: Present: normal inspection. Absent: tenderness, meningismus, lymphadenopathy Respiratory exam: Present: normal lung sounds bilaterally. Absent: respiratory distress, wheezes, rales, rhonchi, stridor GI/Abdominal exam: Present: soft, normal bowel sounds. Absent: distended, tenderness, guarding, rebound, rigid Extremities exam: Present: normal inspection, full ROM, normal capillary refill. Absent: tenderness, pedal edema, joint swelling, calf tenderness Back exam: Present: normal inspection, tenderness, paraspinal tenderness, vertebral tenderness (lumbar and left lumbar paraspinal tenderness) Neurological exam: Present: alert, oriented X3, CN II-XII intact Psychiatric exam: Present: normal affect, normal mood Course Vital Signs 09/18/17 09/19/17 23:18 03:00 Temperature 98.3 F 97.5 F L Pulse Rate 86 68 Respiratory 20 18 Rate Blood Pressure 131/74 168/81 O2 Sat by Pulse 100 99 Oximetry Medical Decision Making - Medical Decision Making Pt is a 57 year old female, well known to ED presents with lower back pain radiating down left leg and buttock. Patient also complains of constipation. KUB shows constipation. PAtietn is not acute tender on abdominal exam. Does have lumbar muscle spasm. Discharged with muscle relaxer and pain medicine. Discussed PCP follow up. - Lab Data Lab Results 09/19/17 Range/Units 01:58 Urine Color Light Yellow Urine Appearance Clear (Clear) Urine pH 6.5 (5.0-8.0) Ur Specific [place] 1.009 (1.001-1.035) Urine Protein Negative (Negative) Urine Glucose (UA) Negative (Negative) Urine Ketones Negative (Negative) Urine Blood Negative (Negative) Urine Nitrite Negative (Negative) Urine Bilirubin Negative (Negative) Urine Urobilinogen <2.0 (<2.0) mg/dL Ur Leukocyte Esterase Large H (Negative) Urine RBC 3 (0-5) /hpf Urine WBC 11 H (0-5) /hpf Ur Squamous Epith Cells 5 H (0-4) /hpf Urine Mucus Rare H (None) /hpf Urine Opiates Screen Not Detected (NotDetected) Ur Oxycodone Screen Not Detected (NotDetected) Urine Methadone Screen Not Detected (NotDetected) Ur Propoxyphene Screen Not Detected (NotDetected) Ur Barbiturates Screen Not Detected (NotDetected) U Tricyclic Antidepress Not Detected (NotDetected) Ur Phencyclidine Scrn Not Detected (NotDetected) Ur Amphetamines Screen Not Detected (NotDetected) U Methamphetamines Scrn Not Detected (NotDetected) U Benzodiazepines Scrn Not Detected (NotDetected) Urine Cocaine Screen Detected H (NotDetected) U Marijuana (THC) Screen Not Detected (NotDetected) - Radiology Data Radiology results: report reviewed KUB and lumbar spine are negative for acute disease. KUB shows constipation. Disposition Clinical Impression: Constipation, Sciatica, Chronic back pain Disposition: HOME SELF-CARE Condition: Good Instructions: Chronic Back Pain (ED) Additional Instructions: Patient advised to follow-up with primary care provider. Take the medications as prescribed. Return to the emergency department if any alarming signs or symptoms occur. Prescriptions: Cyclobenzaprine [Flexeril] 10 mg PO TID #12 tab Naproxen 500 mg PO BID #15 tablet Referrals: Naty Pickens MD [Primary Care Provider] - 1-2 days Time of Disposition: 02:26
[2017-09-19 03:03] VITALS: BP 168/81; PULSE 68; RESP 18; TEMP 97.5
== END 2017-09-19 03:00 | disposition home or self-care (01) ==
LOC: EC 23:05
DX: M54.40 Lumbago with sciatica, unspecified side (principal); K59.00 Constipation, unspecified; F31.9 Bipolar disorder, unspecified; F25.9 Schizoaffective disorder, unspecified; F41.9 Anxiety disorder, unspecified; F17.200 Nicotine dependence, unspecified, uncomplicated; Z86.14 Personal history of Methicillin resistant Staphylococcus aureus infection; Z86.19 Personal history of other infectious and parasitic diseases; Z79.51 Long term (current) use of inhaled steroids; Z79.899 Other long term (current) drug therapy; Z91.040 Latex allergy status
CPT/HCPCS: 72100; 74018; 80306; 81001; 99284

== ENCOUNTER 2017-09-23 13:08 | Emergency (ER) | payer MEDICARE, OTHER ==
--- NOTE | 2017-09-23 14:30 | ED ---
General Adult HPI - General Chief complaint: Back Pain/Injury Stated complaint: Back Pain Time Seen by Provider: 09/23/17 14:06 Source: patient, RN notes reviewed Mode of arrival: ambulatory Limitations: no limitations - History of Present Illness Initial comments: 57-year-old female presents the emergency department for a chief complaint of low back pain. Patient has been seen multiple times in the past month for the same complaint. Patient has not had a recent fall or injury to the low back. Patient states his pain is not new but has been ongoing for years. Patient is specifically asking for Tylenol 3 or Reyno. Patient refuses Toradol because she says it does not work. Patient also refuses x-ray. Patient says she just wants pain medications to get her through to see of primary care provider. She has no tenderness along the spine but states she has pain laterally on the low back. Patient is currently not seeing anyone else for this. Patient denies bladder or bowel dysfunction or any other acute changes. Patient states she has sciatica on the left leg. Patient denies any shooting pains through either leg.. - Related Data Home Medications Medication Instructions Recorded Confirmed QUEtiapine FUMARATE [SEROquel] 200 mg PO HS 03/29/17 09/02/17 Fluticasone Nasal [place] [Flonase 1 spr EA NOSTRIL DAILY 09/02/17 09/02/17 Nasal [place]] Previous Rx's Medication Instructions Recorded traMADol HCl [Ultram] 50 mg PO Q8HR PRN #10 tab 09/02/17 Cyclobenzaprine [Flexeril] 10 mg PO TID #12 tab 09/19/17 Naproxen 500 mg PO BID #15 tablet 09/19/17 Allergies Allergy/AdvReac Type Severity Reaction Status Date / Time latex Allergy Itching Verified 09/23/17 13:33 Review of Systems ROS Statement: Those systems with pertinent positive or pertinent negative responses have been documented in the HPI. ROS Other: All systems not noted in ROS Statement are negative. Past Medical History Past Medical History: Hypertension, Liver Disease, Musculoskeletal Disorder, Neurologic Disorder Additional Past Medical History / Comment(s): hep c, back pain, sciatica, neuropathy, History of Any Multi-Drug Resistant Organisms: None Reported, MRSA Date of last positivie culture/infection: 2006 MDRO Source:: face Past Surgical History: Orthopedic Surgery Additional Past Surgical History / Comment(s): lt ankle, D&C Past Anesthesia/Blood Transfusion Reactions: No Reported Reaction Past Psychological History: Anxiety, Bipolar, Depression, Schizoaffective Disorder, Schizophrenia Smoking Status: Current every day smoker Past Alcohol Use History: Occasional Past Drug Use History: None Reported General Exam Limitations: no limitations Head exam: Present: atraumatic, normocephalic, normal inspection Respiratory exam: Present: normal lung sounds bilaterally. Absent: respiratory distress, wheezes, rales, rhonchi, stridor Cardiovascular Exam: Present: regular rate, normal rhythm, normal heart sounds. Absent: systolic murmur, diastolic murmur, rubs, gallop, clicks Back exam: Present: normal inspection, full ROM. Absent: tenderness, CVA tenderness (R), CVA tenderness (L), muscle spasm, paraspinal tenderness, vertebral tenderness Neurological exam: Present: alert, oriented X3, CN II-XII intact Course Vital Signs 09/23/17 13:30 Temperature 98.2 F Pulse Rate 87 Respiratory 18 Rate Blood Pressure 125/73 O2 Sat by Pulse 98 Oximetry Medical Decision Making - Medical Decision Making 57-year-old female presents to the emergency department for chief complaint of lower back pain. Patient states this is a chronic problem and has been ongoing for years. Patient denies any acute injuries or changes. Patient has no changes in bladder or bowel function. Patient has no shooting pains or numbness in the extremities. Patient is walking in a normal gait. Exam is unremarkable and patient has full range of motion of the lower back. She has equal sensation in lower extremities bilaterally. Patient has been seen here 4 times in the past month for the same issue. Patient has drug-seeking behaviors and only wants Tylenol 3 or Reyno. I told her I cannot write her a prescription for that and she asked if I could give her a Reyno here in the ER. I told her I could give her Toradol or ibuprofen and she became irritated said that wouldn't work. Patient was given Flexeril 5 days ago when she was seen in the ER as well as naproxen script and patient is adamant she only wants Tylenol 3 or Reyno. After I told her she could not have these patient immediately left. Disposition Clinical Impression: Chronic back pain Disposition: HOME SELF-CARE Condition: Good Instructions: Chronic Back Pain (ED) Additional Instructions: Please return to the emergency department if you have any changes in bladder or bowel function. Please return if you notice any worsening symptoms. Please follow-up with a primary care provider in one to 2 days. Referrals: None,Stated [Primary Care Provider] - 1-2 days Time of Disposition: 14:48
[2017-09-23 14:52] VITALS: BP 129/70; PULSE 76; RESP 16; TEMP 97.8
== END 2017-09-23 14:50 | disposition home or self-care (01) ==
LOC: EC 13:08
DX: G89.29 Other chronic pain (principal); M54.5 Low back pain; Z76.5 Malingerer [conscious simulation]; F31.9 Bipolar disorder, unspecified; F20.9 Schizophrenia, unspecified; Z79.899 Other long term (current) drug therapy; Z86.69 Personal history of other diseases of the nervous system and sense organs; F17.200 Nicotine dependence, unspecified, uncomplicated; Z86.14 Personal history of Methicillin resistant Staphylococcus aureus infection
CPT/HCPCS: 99283

== ENCOUNTER → 2017-09-24 | Outpatient (CLI) | payer MEDICARE, OTHER ==
--- NOTE | 2017-09-25 08:37 | MM ---
Reason for exam: screening (asymptomatic). Last mammogram was performed 10 years and 1 month ago. History: Family history of premenopausal breast cancer in sister. Physical Findings: A clinical breast exam by your physician is recommended on an annual basis and results should be correlated with mammographic findings. MG 3D Screening Mammo W/Cad Bilateral CC and MLO view(s) were taken. Prior study comparison: August 18, 2007, workup left diagnostic mammogram. August 04, 2007, bilateral screening mammogram w/CAD. The breast tissue is heterogeneously dense. This may lower the sensitivity of mammography. Finding: There are typically benign round, regional calcifications in both breasts. There is no dominant lesion. Benign left axillary lymph nodes redemonstrated. ASSESSMENT: Benign, BI-RAD 2 RECOMMENDATION: Routine screening mammogram of both breasts in 1 year.
== END | disposition home or self-care (01) ==
LOC: RADMAMWWP 09:57
PROVIDERS: ATTEND Family Medicine
DX: Z12.31 Encounter for screening mammogram for malignant neoplasm of breast (principal)
CPT/HCPCS: 77063; 77067

== ENCOUNTER 2017-10-24 18:08 | Emergency (ER) | payer MEDICARE, OTHER ==
[2017-10-24 18:41] VITALS: BP 150/69; PULSE 81; RESP 18; TEMP 98.7
[2017-10-24] MEDS ORDERED: predniSONE 20 MG TAB PO STA (19:16)
[2017-10-24] MEDS ORDERED: KETOROLAC 30 MG/ML 1 ML VIAL IM STA (19:24)
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
== END 2017-10-24 20:03 | disposition home or self-care (01) ==
LOC: EC 18:08
DX: M54.32 Sciatica, left side (principal); F25.0 Schizoaffective disorder, bipolar type; F25.1 Schizoaffective disorder, depressive type; F17.200 Nicotine dependence, unspecified, uncomplicated; Z86.14 Personal history of Methicillin resistant Staphylococcus aureus infection; Z79.899 Other long term (current) drug therapy; Z79.51 Long term (current) use of inhaled steroids; Z91.040 Latex allergy status; Z53.29 Procedure and treatment not carried out because of patient's decision for other reasons
CPT/HCPCS: 99282; 96372; J1885; J7512

== ENCOUNTER 2017-10-28 02:24 | Emergency (ER) | payer MEDICARE, OTHER ==
--- NOTE | 2017-10-28 03:02 | ED ---
General Adult HPI - General Chief complaint: Extremity Injury, Lower Stated complaint: Leg injury Time Seen by Provider: 10/28/17 02:44 Source: patient, RN notes reviewed Mode of arrival: ambulatory Limitations: no limitations - History of Present Illness Initial comments: Patient is a pleasant 57-year-old female presenting to the emergency Department with right calf pain. Patient states onset was an hour or 2 ago. Patient walked down a step and felt a pop in her right calf. Patient is having discomfort in that area since that time. Patient has an walking on her tiptoes to help with discomfort. No history of similar symptoms previously. No other area of injury or concern. - Related Data Home Medications Medication Instructions Recorded Confirmed Gabapentin [Neurontin] 800 mg PO TID 10/28/17 10/28/17 Ziprasidone [Geodon] 40 mg PO HS 10/28/17 10/28/17 Previous Rx's Medication Instructions Recorded traMADol HCl [Ultram] 50 mg PO Q8HR PRN #10 tab 09/02/17 Allergies Allergy/AdvReac Type Severity Reaction Status Date / Time latex Allergy Itching Verified 10/24/17 18:42 Review of Systems ROS Statement: Those systems with pertinent positive or pertinent negative responses have been documented in the HPI. ROS Other: All systems not noted in ROS Statement are negative. Constitutional: Denies: fever Eyes: Denies: eye pain ENT: Denies: ear pain Respiratory: Denies: cough Cardiovascular: Denies: chest pain Endocrine: Denies: fatigue Gastrointestinal: Denies: abdominal pain Genitourinary: Denies: dysuria Musculoskeletal: Denies: back pain Skin: Denies: rash Neurological: Denies: weakness Past Medical History Past Medical History: Hypertension, Liver Disease, Musculoskeletal Disorder, Neurologic Disorder Additional Past Medical History / Comment(s): hep c, back pain, sciatica, neuropathy, History of Any Multi-Drug Resistant Organisms: None Reported, MRSA Date of last positivie culture/infection: 2006 MDRO Source:: face Past Surgical History: Orthopedic Surgery Additional Past Surgical History / Comment(s): lt ankle, D&C Past Anesthesia/Blood Transfusion Reactions: No Reported Reaction Past Psychological History: Anxiety, Bipolar, Depression, Schizoaffective Disorder, Schizophrenia Smoking Status: Current every day smoker Past Alcohol Use History: Occasional Past Drug Use History: None Reported General Exam Limitations: no limitations General appearance: alert, in no apparent distress Head exam: Present: atraumatic Eye exam: Present: normal appearance Neck exam: Present: normal inspection. Absent: tenderness Respiratory exam: Present: normal lung sounds bilaterally Cardiovascular Exam: Present: regular rate, normal rhythm Expanded Peripheral pulses: 2+: Posterior Tibialis (R), Dorsalis Pedis (R) GI/Abdominal exam: Present: soft. Absent: tenderness Extremities exam: Present: other (Patient does have some discomfort of the right With palpation. There is dorsiflexion of the foot with squeezing of the calf. Achilles tendon does appear intact. Distally the extremity is neurovascularly intact.) Neurological exam: Present: alert Psychiatric exam: Present: normal affect, normal mood Skin exam: Present: normal color. Absent: erythema Course Vital Signs 10/28/17 10/28/17 10/28/17 02:36 04:02 04:51 Temperature 97.9 F 97.8 F 97.8 F Pulse Rate 93 81 69 Respiratory 20 16 16 Rate Blood Pressure 177/105 133/67 130/76 O2 Sat by Pulse 98 98 97 Oximetry Procedures - Orthopedic Splinting/Casting Injury #1 Side: right Lower Extremity Injury Location: long leg Lower Extremity Immobilizer: posterior splint (Examined postplacement with good alignment and neurovascularly intact.) Medical Decision Making - Medical Decision Making Patient reevaluated and updated. OCL placed secondary to some risk of partial tear of the right calf. Patient is updated regarding concerns and need for follow-up with orthopedics. Prescription written for crutches. Patient recommended nonweightbearing - Radiology Data Radiology results: image reviewed (X-ray right tib-fib reveals no acute process) Disposition Clinical Impression: Strain of calf muscle Disposition: HOME SELF-CARE Condition: Stable Instructions: Muscle Strain (ED) Additional Instructions: Nonweightbearing right leg, prescription written for crutches. Please follow- up with primary care physician and orthopedics in the next day or 2 for recheck and further evaluation. [id number] Tylenol as needed. Ice to affected area. Is patient prescribed a controlled substance at d/c from ED?: No Referrals: Lisa Macdonald MD [STAFF PHYSICIAN] - 1-2 days Ralph Santana DO [Doctor of Osteopathic Medicine] - 1-2 days Time of Disposition: 05:15
--- NOTE | 2017-10-28 03:54 | XR ---
EXAMINATION TYPE: XR tibia fibula RT DATE OF EXAM: 10/28/2017 COMPARISON: NONE HISTORY: Leg pain TECHNIQUE: 2 views FINDINGS: Knee joint and ankle joint appear intact. I see no fracture nor dislocation. Joint spaces a re normal. IMPRESSION: Negative right tibia and fibula exam.
[2017-10-28 04:04] VITALS: RESP 16; TEMP 97.8
[2017-10-28 04:54] VITALS: BP 130/76; PULSE 69
== END 2017-10-28 05:27 | disposition home or self-care (01) ==
LOC: EC 02:24
DX: S86.911A Strain of unspecified muscle(s) and tendon(s) at lower leg level, right leg, initial encounter (principal); G62.9 Polyneuropathy, unspecified; F25.9 Schizoaffective disorder, unspecified; F31.9 Bipolar disorder, unspecified; F41.9 Anxiety disorder, unspecified; F17.200 Nicotine dependence, unspecified, uncomplicated; Z86.14 Personal history of Methicillin resistant Staphylococcus aureus infection; Z91.040 Latex allergy status; Z79.899 Other long term (current) drug therapy; X50.9XXA Other and unspecified overexertion or strenuous movements or postures, initial encounter; Y93.01 Activity, walking, marching and hiking
CPT/HCPCS: 29505; 99283

== ENCOUNTER 2017-11-01 19:10 | Emergency (ER) | payer MEDICARE, OTHER ==
[2017-11-01 19:23] VITALS: RESP 18
[2017-11-01] MEDS ORDERED: Acetaminophen-Codeine 300-30mg TAB PO STA (19:51)
--- NOTE | 2017-11-01 20:52 | US ---
EXAMINATION TYPE: US venous doppler duplex LE RT DATE OF EXAM: 11/01/2017 8:43 PM COMPARISON: NONE CLINICAL HISTORY: Pain. Edema right lower leg SIDE PERFORMED: right TECHNIQUE: The lower extremity deep venous system is examined utilizing real time linear array sonog loree with graded compression, doppler sonography and color-flow sonography. VESSELS IMAGED: External Iliac Vein (EIV) Common Femoral Vein Deep Femoral Vein Greater Saphenous Vein * Femoral Vein Popliteal Vein Small Saphenous Vein * Proximal Calf Veins (* superficial vessels) Right Leg: No evidence of DVT as visualized IMPRESSION: 1. Normal right lower extremity ultrasound. No evidence of deep venous thrombosis bilateral
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
[2017-11-01 21:25] VITALS: BP 126/79; PULSE 70; TEMP 98
== END 2017-11-01 21:24 | disposition home or self-care (01) ==
LOC: EC 19:10
DX: S86.911A Strain of unspecified muscle(s) and tendon(s) at lower leg level, right leg, initial encounter (principal); G62.9 Polyneuropathy, unspecified; Z86.14 Personal history of Methicillin resistant Staphylococcus aureus infection; Z86.19 Personal history of other infectious and parasitic diseases; F31.9 Bipolar disorder, unspecified; F41.9 Anxiety disorder, unspecified; F25.9 Schizoaffective disorder, unspecified; F17.200 Nicotine dependence, unspecified, uncomplicated; Z79.899 Other long term (current) drug therapy; Z91.040 Latex allergy status; X58.XXXA Exposure to other specified factors, initial encounter; Y93.01 Activity, walking, marching and hiking
CPT/HCPCS: 99283

== ENCOUNTER 2017-11-09 05:12 | Emergency (ER) | payer MEDICARE, OTHER ==
[2017-11-09 05:21] VITALS: BP 115/58; PULSE 73; RESP 20; TEMP 97.4
--- NOTE | 2017-11-09 05:32 | ED ---
General Adult HPI - General Chief complaint: Recheck/Abnormal Lab/Rx Stated complaint: Med refill Time Seen by Provider: 11/09/17 05:19 Source: patient, RN notes reviewed, old records reviewed Mode of arrival: ambulatory Limitations: no limitations - History of Present Illness Initial comments: 57 yo female presents for evaluation of right lower extremity pain. Patient does have chronic pain history. She is presenting today for medication refill. She states she is out of her gabapentin and tramadol. She has been taking these medications for chronic pain including chronic right lower extremity pain. She states she was in the emergency department approximately one week ago with some swelling in her right lower extremity. She did receive an ultrasound at that time. She states today her swelling is significantly improved compared to one week ago. No dyspnea. No chest pain. She states she has an appointment with a pain specialist in approximately one week. Her primary care physician will not refill her pain medications. Denies any new injury. Denies fever or chills. Denies chest pain or abdominal pain. - Related Data Home Medications Medication Instructions Recorded Confirmed Gabapentin [Neurontin] 800 mg PO TID 10/28/17 11/09/17 Ziprasidone [Geodon] 40 mg PO HS 10/28/17 11/09/17 predniSONE 40 mg PO DAILY 11/09/17 11/09/17 Previous Rx's Medication Instructions Recorded traMADol HCl [Ultram] 50 mg PO Q8HR PRN #10 tab 09/02/17 Ibuprofen [Motrin] 600 mg PO Q8HR PRN #20 tab 11/01/17 Gabapentin 800 mg PO TID #21 tab 11/09/17 traMADol HCL [Ultram] 50 mg PO Q8HR PRN 3 Days #21 tab 11/09/17 Allergies Allergy/AdvReac Type Severity Reaction Status Date / Time latex Allergy Itching Verified 11/09/17 05:20 Review of Systems ROS Statement: Those systems with pertinent positive or pertinent negative responses have been documented in the HPI. ROS Other: All systems not noted in ROS Statement are negative. Past Medical History Past Medical History: Hypertension, Liver Disease, Musculoskeletal Disorder, Neurologic Disorder Additional Past Medical History / Comment(s): hep c, back pain, sciatica, neuropathy, History of Any Multi-Drug Resistant Organisms: None Reported, MRSA Date of last positivie culture/infection: 2006 MDRO Source:: face Past Surgical History: Orthopedic Surgery Additional Past Surgical History / Comment(s): lt ankle, D&C Past Anesthesia/Blood Transfusion Reactions: No Reported Reaction Past Psychological History: Anxiety, Bipolar, Depression, Schizoaffective Disorder, Schizophrenia Smoking Status: Current every day smoker Past Alcohol Use History: Occasional Past Drug Use History: None Reported General Exam Limitations: no limitations General appearance: alert, in no apparent distress Head exam: Present: atraumatic, normocephalic Eye exam: Present: normal appearance, PERRL, EOMI ENT exam: Present: normal exam Neck exam: Present: normal inspection. Absent: tenderness, meningismus Respiratory exam: Present: normal lung sounds bilaterally. Absent: respiratory distress Cardiovascular Exam: Present: regular rate, normal rhythm GI/Abdominal exam: Present: soft. Absent: distended, tenderness Extremities exam: Present: tenderness, calf tenderness, other (Slight increase in calf circumference on the right compared to the left. Distal pulses intact. Range of motion at the ankle and knee are within normal limits. No external signs of trauma.) Course Vital Signs 11/09/17 05:17 Temperature 97.4 F L Pulse Rate 73 Respiratory 20 Rate Blood Pressure 115/58 O2 Sat by Pulse 97 Oximetry Medical Decision Making - Medical Decision Making 51 sexual female presenting for medication refill. Patient does have a discrepancy in calf circumference on the right compared to the left. Right is slightly increased. There is no signs of infection. No external signs of trauma. Range of motion at the knee and ankle is within normal limits. Distal pulses are intact. Patient states the swelling noted in her right leg is significantly improved from 1 week ago. At that time she did receive an ultrasound that was negative for DVT. Patient is prescribed one week of her pain medications including tramadol and gabapentin. She will maintain her appointment with her new pain specialist. Disposition Clinical Impression: Encounter for medication refill, Chronic pain Disposition: HOME SELF-CARE Condition: Good Instructions: Chronic Pain (ED) Prescriptions: Gabapentin 800 mg PO TID #21 tab traMADol HCL [Ultram] 50 mg PO Q8HR PRN 3 Days #21 tab PRN Reason: Pain Is patient prescribed a controlled substance at d/c from ED?: No Referrals: [facility] [Primary Care Provider] - 1-2 days Time of Disposition: 05:31
== END 2017-11-09 05:35 | disposition home or self-care (01) ==
LOC: EC 05:12
DX: G89.29 Other chronic pain (principal); M79.604 Pain in right leg; Z76.0 Encounter for issue of repeat prescription; M79.89 Other specified soft tissue disorders; G62.9 Polyneuropathy, unspecified; F20.9 Schizophrenia, unspecified; F31.9 Bipolar disorder, unspecified; F41.9 Anxiety disorder, unspecified; F17.200 Nicotine dependence, unspecified, uncomplicated; Z79.52 Long term (current) use of systemic steroids; Z79.899 Other long term (current) drug therapy; Z91.040 Latex allergy status; Z86.14 Personal history of Methicillin resistant Staphylococcus aureus infection; Z87.39 Personal history of other diseases of the musculoskeletal system and connective tissue
CPT/HCPCS: 99282

== ENCOUNTER 2017-11-28 19:15 | Emergency (ER) | payer MEDICARE, OTHER ==
--- NOTE | 2017-11-28 19:54 | ED ---
Psych HPI - General Chief Complaint: Psychiatric Symptoms Stated Complaint: Mental health Time Seen by Provider: 11/28/17 19:40 Source: patient, RN notes reviewed Mode of arrival: ambulatory - History of Present Illness Initial Comments: This is a 57-year-old female history depression who is here tonight with multiple complaints including feeling depressed he does admit to drinking alcohol yesterday but none today she states yesterday she is walking on a railroad track and yelling at anything and everything. Just states she has chronic left leg pain she ran her pain medication and is feeling shaky states she is low been short of breath she is a smoker. No other complaints or modifying factors at this time MD Complaint: feels depressed, other - Related Data Home Medications Medication Instructions Recorded Confirmed Gabapentin [Neurontin] 800 mg PO TID 10/28/17 11/09/17 Ziprasidone [Geodon] 40 mg PO HS 10/28/17 11/09/17 predniSONE 40 mg PO DAILY 11/09/17 11/09/17 Previous Rx's Medication Instructions Recorded traMADol HCl [Ultram] 50 mg PO Q8HR PRN #10 tab 09/02/17 Ibuprofen [Motrin] 600 mg PO Q8HR PRN #20 tab 11/01/17 Gabapentin 800 mg PO TID #21 tab 11/09/17 traMADol HCL [Ultram] 50 mg PO Q8HR PRN 3 Days #21 tab 11/09/17 Ibuprofen 800 mg PO Q6HR PRN #20 tablet 11/28/17 Allergies Allergy/AdvReac Type Severity Reaction Status Date / Time latex Allergy Itching Verified 11/28/17 19:27 Review of Systems ROS Statement: Those systems with pertinent positive or pertinent negative responses have been documented in the HPI. ROS Other: All systems not noted in ROS Statement are negative. Past Medical History Past Medical History: Hypertension, Liver Disease, Musculoskeletal Disorder, Neurologic Disorder Additional Past Medical History / Comment(s): hep c, back pain, sciatica, neuropathy, History of Any Multi-Drug Resistant Organisms: None Reported, MRSA Date of last positivie culture/infection: 2006 MDRO Source:: face Past Surgical History: Orthopedic Surgery Additional Past Surgical History / Comment(s): lt ankle, D&C Past Anesthesia/Blood Transfusion Reactions: No Reported Reaction Past Psychological History: Anxiety, Bipolar, Depression, Schizoaffective Disorder, Schizophrenia Smoking Status: Current every day smoker Past Alcohol Use History: Occasional Past Drug Use History: None Reported General Exam - General Exam Comments Initial Comments: This is a well-developed well-nourished awake alert oriented 3 female Limitations: no limitations General appearance: alert, in no apparent distress Head exam: Present: atraumatic, normocephalic, normal inspection Eye exam: Present: normal appearance, PERRL, EOMI. Absent: scleral icterus, conjunctival injection, periorbital swelling ENT exam: Present: normal exam, mucous membranes moist Neck exam: Present: normal inspection. Absent: tenderness, meningismus, lymphadenopathy Respiratory exam: Present: normal lung sounds bilaterally. Absent: respiratory distress, wheezes, rales, rhonchi, stridor Cardiovascular Exam: Present: regular rate, normal rhythm, normal heart sounds. Absent: systolic murmur, diastolic murmur, rubs, gallop, clicks GI/Abdominal exam: Present: soft, normal bowel sounds. Absent: distended, tenderness, guarding, rebound, rigid Extremities exam: Present: normal inspection, full ROM, normal capillary refill. Absent: tenderness, pedal edema, joint swelling, calf tenderness Back exam: Present: normal inspection Neurological exam: Present: alert, oriented X3, CN II-XII intact Psychiatric exam: Present: depressed, flat affect Skin exam: Present: warm, dry, intact, normal color. Absent: rash Course Vital Signs 11/28/17 19:23 Temperature 98.0 F Pulse Rate 74 Respiratory 20 Rate Blood Pressure 128/56 O2 Sat by Pulse 97 Oximetry Medical Decision Making - Medical Decision Making The patient was evaluated by psychiatric service and will be discharged. She currently is not a risk to herself or anyone else. She did get 1 shot of Toradol prior to discharge for her chronic pain. Disposition Clinical Impression: Adjustment reaction, Chronic back pain Disposition: HOME SELF-CARE Condition: Good Instructions: Anxiety (ED), Mood Disorders (ED), Chronic Back Pain (ED) Prescriptions: Ibuprofen 800 mg PO Q6HR PRN #20 tablet PRN Reason: Pain Is patient prescribed a controlled substance at d/c from ED?: No Referrals: [facility] [Primary Care Provider] - 1-2 days
[2017-11-28] MEDS ORDERED: KETOROLAC 60 MG/2 ML VIAL IM STA (21:40)
[2017-11-28] MEDS ORDERED: HYDROmorphone 0.5 MG/0.5 ML SYRINGE IM STA (21:40)
[2017-11-28] MEDS ORDERED: HYDROcodone/APAP 5-325MG 1 EACH TAB PO STA (21:48)
--- NOTE | 2017-11-28 21:59 | ED ---
Disposition Clinical Impression: Adjustment reaction, Chronic back pain Disposition: HOME SELF-CARE Condition: Good Instructions: Mood Disorders (ED), Chronic Back Pain (ED), Anxiety (ED) Prescriptions: Acetaminophen with Codeine [Tylenol w/codeine #3] 1 tab PO Q6H PRN 3 Days #12 tab PRN Reason: Pain Ibuprofen 800 mg PO Q6HR PRN #20 tablet PRN Reason: Pain Is patient prescribed a controlled substance at d/c from ED?: Yes When asked, does pt state using other controlled substances?: No If prescribed controlled substance>3 days was MAPS reviewed?: Prescribed <3 Days If Rx opioid, was Start Talking consent form obtained?: Yes Referrals: [facility] [Primary Care Provider] - 1-2 days
[2017-11-28 22:31] VITALS: BP 134/70; PULSE 78; RESP 18; TEMP 98.2
== END 2017-11-28 22:30 | disposition home or self-care (01) ==
LOC: EC 19:15
DX: F43.20 Adjustment disorder, unspecified (principal); G89.29 Other chronic pain; M54.9 Dorsalgia, unspecified; M79.605 Pain in left leg; G62.9 Polyneuropathy, unspecified; F25.0 Schizoaffective disorder, bipolar type; D25.1 Intramural leiomyoma of uterus; F17.200 Nicotine dependence, unspecified, uncomplicated; Z79.52 Long term (current) use of systemic steroids; Z79.899 Other long term (current) drug therapy; Z91.040 Latex allergy status; Z53.20 Procedure and treatment not carried out because of patient's decision for unspecified reasons
CPT/HCPCS: 82075; 99284

== ENCOUNTER 2017-12-03 22:25 | Emergency (ER) | payer MEDICARE, OTHER ==
--- NOTE | 2017-12-03 22:40 | ED ---
General Adult HPI - General Chief complaint: Headache Stated complaint: Headache Time Seen by Provider: 12/03/17 22:39 Source: patient Mode of arrival: ambulatory Limitations: no limitations - History of Present Illness Initial comments: Rachel is a 57-year-old female who presents the emergency department today for evaluation of headache as well as concern for urinary tract infection. The patient reports that a couple of weeks ago she can't recall the exact day she had a fall in which she struck the back of her head. She reports that since that time she's been having a mild headache. She states that over the past 2 days she's been feeling a more intense headache worse on the left than the right. She also describes a feeling of feeling that there is fluid in her ear and a sore throat. She denies any fevers, chills. She states that the headache began yesterday, she took a Tylenol 3 which she had at home. The headache resolved she was able to sleep through the night and felt well this morning. 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 When she discussed her symptoms with her friends they advised her to come to the ER for further evaluation. In addition the patient reports that she has had some vaginal discomfort and urinary frequency and urgency recently. Patient denies any chest pain, shortness breath or change in bowel habits. She reports a normal diet and normal activity level. She lives in a nursing home with multiple other people. She has no known sick contacts. - Related Data Home Medications Medication Instructions Recorded Confirmed Ziprasidone [Geodon] 40 mg PO HS 10/28/17 12/03/17 Albuterol Inhaler [Ventolin Hfa 1 - 2 puff INHALATION RT-Q6H PRN 12/03/17 Inhaler] Ergocalciferol [Vitamin D2] 50,000 unit PO MO 12/03/17 12/03/17 traMADol HCl [Ultram] 50 mg PO TID PRN 12/03/17 12/03/17 Previous Rx's Medication Instructions Recorded Sulfamethox-Tmp 800-160Mg [Bactrim 1 tab PO Q12HR #14 tab 12/04/17 DS 800-160 mg] Allergies Allergy/AdvReac Type Severity Reaction Status Date / Time ketorolac [From Toradol] Allergy Unknown Verified 12/03/17 22:46 latex Allergy Itching Verified 12/03/17 22:46 Review of Systems ROS Statement: Those systems with pertinent positive or pertinent negative responses have been documented in the HPI. ROS Other: All systems not noted in ROS Statement are negative. Constitutional: Denies: fever Eyes: Denies: vision change ENT: Reports: ear pain, throat pain Respiratory: Denies: cough, dyspnea Cardiovascular: Denies: chest pain, palpitations Endocrine: Denies: fatigue Gastrointestinal: Denies: abdominal pain Genitourinary: Reports: urgency, dysuria, frequency Musculoskeletal: Denies: back pain Skin: Denies: rash Neurological: Reports: headache. Denies: numbness, paresthesias, abnormal gait Past Medical History Past Medical History: Hypertension, Liver Disease, Musculoskeletal Disorder, Neurologic Disorder Additional Past Medical History / Comment(s): hep c, back pain, sciatica, neuropathy, History of Any Multi-Drug Resistant Organisms: MRSA Date of last positivie culture/infection: 2006 MDRO Source:: face Past Surgical History: Orthopedic Surgery Additional Past Surgical History / Comment(s): lt ankle, D&C Past Anesthesia/Blood Transfusion Reactions: No Reported Reaction Past Psychological History: Anxiety, Bipolar, Depression, Schizoaffective Disorder, Schizophrenia Smoking Status: Current every day smoker Past Alcohol Use History: Occasional Past Drug Use History: None Reported General Exam Limitations: no limitations General appearance: alert, in no apparent distress Head exam: Present: atraumatic, normocephalic Eye exam: Present: normal appearance, PERRL, EOMI ENT exam: Present: other (Intervention less, wearing upper dentures, no lower dentures, normal mucous membranes, noted to have some posterior nasal drip, TMs are bulging bilaterally with minimal erythema, consistent with fluid but no infection.) Neck exam: Present: normal inspection, full ROM. Absent: meningismus, lymphadenopathy, thyromegaly Respiratory exam: Present: normal lung sounds bilaterally. Absent: respiratory distress Cardiovascular Exam: Present: regular rate GI/Abdominal exam: Present: soft. Absent: distended, tenderness Extremities exam: Present: normal inspection Back exam: Present: normal inspection Neurological exam: Present: alert, oriented X3, CN II-XII intact Psychiatric exam: Present: normal affect Skin exam: Present: warm, dry, intact Course Vital Signs 12/03/17 22:25 Temperature 98.2 F Pulse Rate 75 Respiratory 18 Rate Blood Pressure 120/75 O2 Sat by Pulse 98 Oximetry Medical Decision Making - Medical Decision Making The patient was seen and evaluated, history was obtained from the patient Vital signs are no Sirs criteria Patient with recent head trauma and persistent headache as well as worsening headache over the past 24 hours. Imaging and labs were ordered. Patient asking for Pepsi and a sandwich immediately upon arrival - these were given to the patient CT head was unremarkable, labs are unremarkable, these results were discussed with the patient. Patient is tolerating by mouth intake and resting comfortably. She forgot to provide a urine sample, she is asking for another sandwich. She was given a sandwich and a glass of water. Patient was able to provide a urine sample which confirms a urinary tract infection, Rocephin was ordered as well as a urine culture. I will discharge the patient home on oral antibiotics. She was again reassessed, she reports feeling much better after eating and drinking and getting medications. She is resting comfortably and is agreeable to plan for discharge home with oral antibiotics for her urinary tract infection. All questions pertaining care were answered the best my ability patient was discharged home in stable condition. - Lab Data Result diagrams: 12/03/17 23:05 12/03/17 23:05 Lab Results 12/03/17 12/03/17 12/04/17 Range/Units 23:05 23:05 00:40 WBC 8.2 (3.8-10.6) k/uL RBC 4.55 (3.80-5.40) m/uL Hgb 14.0 (11.4-16.0) gm/dL Hct 41.7 (34.0-46.0) % MCV 91.7 (80.0-100.0) fL MCH 30.9 (25.0-35.0) pg MCHC 33.6 (31.0-37.0) g/dL RDW 12.3 (11.5-15.5) % Plt Count 292 (150-450) k/uL Neutrophils % 44 % Lymphocytes % 42 % Monocytes % 6 % Eosinophils % 5 % Basophils % 1 % Neutrophils # 3.6 (1.3-7.7) k/uL Lymphocytes # 3.5 (1.0-4.8) k/uL Monocytes # 0.5 (0-1.0) k/uL Eosinophils # 0.4 (0-0.7) k/uL Basophils # 0.1 (0-0.2) k/uL Sodium 144 (137-145) mmol/L Potassium 4.0 (3.5-5.1) mmol/L Chloride 106 (98-107) mmol/L Carbon Dioxide 24 (22-30) mmol/L Anion Gap 14 mmol/L BUN 15 (7-17) mg/dL Creatinine 0.70 (0.52-1.04) mg/dL Est GFR (CKD-EPI)AfAm >90 (>60 ml/min/1.73 sqM) Est GFR (CKD-EPI)NonAf >90 (>60 ml/min/1.73 sqM) Glucose 98 (74-99) mg/dL Calcium 9.3 (8.4-10.2) mg/dL Total Bilirubin 0.2 (0.2-1.3) mg/dL AST 22 (14-36) U/L ALT 31 (9-52) U/L Alkaline Phosphatase 88 (38-126) U/L Total Protein 6.5 (6.3-8.2) g/dL Albumin 4.2 (3.5-5.0) g/dL Urine Color Light Yellow Urine Appearance Cloudy H (Clear) Urine pH 6.0 (5.0-8.0) Ur Specific [place] 1.011 (1.001-1.035) Urine Protein Negative (Negative) Urine Glucose (UA) Negative (Negative) Urine Ketones Negative (Negative) Urine Blood Negative (Negative) Urine Nitrite Negative (Negative) Urine Bilirubin Negative (Negative) Urine Urobilinogen <2.0 (<2.0) mg/dL Ur Leukocyte Esterase Large H (Negative) Urine RBC 5 (0-5) /hpf Urine WBC 62 H (0-5) /hpf Ur Squamous Epith Cells 17 H (0-4) /hpf Urine Mucus Rare H (None) /hpf Disposition Clinical Impression: UTI (urinary tract infection), Headache Disposition: HOME SELF-CARE Condition: Good Instructions: Acute Headache (ED) Prescriptions: Sulfamethox-Tmp 800-160Mg [Bactrim DS 800-160 mg] 1 tab PO Q12HR #14 tab Is patient prescribed a controlled substance at d/c from ED?: No Referrals: [facility] [Primary Care Provider] - 1-2 days
[2017-12-03] MEDS ORDERED: SODIUM CHLORIDE 0.9% 1,000 ML IV ONE (22:52)
[2017-12-03] MEDS ORDERED: METOCLOPRAMIDE 5 MG/ML 2 ML VIAL IVP STA (22:52)
[2017-12-03] MEDS ORDERED: diphenhydrAMINE 50 MG/ML 1 ML VIAL IVP STA (22:52)
[2017-12-03 23:23] LABS: Basophils # (A) 0.1 k/uL (0-0.2); Basophils % (A) 1 %; Eosinophils # (A) 0.4 k/uL (0-0.7); Eosinophils % (A) 5 %; HCT 41.7 % (34.0-46.0); Lymphocytes # (A) 3.5 k/uL (1.0-4.8); Lymphocytes % (A) 42 %; MCH 30.9 pg (25.0-35.0); MCHC 33.6 g/dL (31.0-37.0); MCV 91.7 fL (80.0-100.0); Mean Platelet Volume 6.8; Monocytes # (A) 0.5 k/uL (0-1.0); Monocytes % (A) 6 %; Neutrophils # (A) 3.6 k/uL (1.3-7.7); Neutrophils % (A) 44 %; Platelet Count 292 k/uL (150-450); RBC 4.55 m/uL (3.80-5.40); RDW 12.3 % (11.5-15.5); WBC 8.2 k/uL (3.8-10.6)
[2017-12-03 23:42] LABS: ALT 31 U/L (9-52); AST 22 U/L (14-36); Albumin 4.2 g/dL (3.5-5.0); Alkaline Phosphatase 88 U/L (38-126); Anion Gap 14 mmol/L; Blood Urea Nitrogen 15 mg/dL (7-17); Calcium 9.3 mg/dL (8.4-10.2); Carbon Dioxide 24 mmol/L (22-30); Chloride 106 mmol/L (98-107); Glucose 98 mg/dL (74-99); Sodium 144 mmol/L (137-145); Total Bilirubin 0.2 mg/dL (0.2-1.3); Total Protein 6.5 g/dL (6.3-8.2)
--- NOTE | 2017-12-03 23:52 | CT ---
EXAMINATION TYPE: CT brain nona moore DATE OF EXAM: 12/03/2017 COMPARISON: Head CT scan 05/18/1716 HISTORY: DUMONT with nausea and vomiting for [address] DLP: 1436.50 mGycm Automated exposure control for dose reduction was used. TECHNIQUE: CT scan of the head and cervical spine are performed without contrast. FINDINGS: Ventricles and sulci appear normal. There is no mass effect nor midline shift. There is n o sign of intracranial hemorrhage. The calvarium is intact. There is mild straightening of the cervical vertebra. There is spurring of the endplates anteriorly f rom C3 to C7. Posterior elements are intact. There is no evidence of a fracture. Skull base is intact . IMPRESSION: Negative CT scan of the brain. No change. Mild spondylotic changes in the cervical spine. No fracture.
[2017-12-04 00:54] LABS: Appearance,Urine Cloudy (Clear); Bilirubin,Urine Negative (Negative); Blood,Urine Negative (Negative); Color,Urine Light Yellow; Glucose,Urine (UA) Negative (Negative); Ketones,Urine Negative (Negative); Leukocyte Esterase,Urine Large (Negative); Mucus,Urine Rare /hpf; Nitrite,Urine Negative (Negative); Protein,Urine Negative (Negative); RBC,Urine 5 /hpf (0-5); Specific Gravity,Urine 1.011 (1.001-1.035); Squamous Epithelial Cell,Urine 17 /hpf (0-4); Urobilinogen,Urine <2.0 mg/dL (<2.0); WBC,Urine 62 /hpf (0-5)
[2017-12-04 02:39] VITALS: BP 123/66; PULSE 70; RESP 16; TEMP 97.7
== END 2017-12-04 03:01 | disposition home or self-care (01) ==
LOC: EC 22:25
DX: N39.0 Urinary tract infection, site not specified (principal); R51 Headache; R11.10 Vomiting, unspecified; N89.8 Other specified noninflammatory disorders of vagina; F20.9 Schizophrenia, unspecified; F31.9 Bipolar disorder, unspecified; F41.9 Anxiety disorder, unspecified; F17.200 Nicotine dependence, unspecified, uncomplicated; Z86.14 Personal history of Methicillin resistant Staphylococcus aureus infection; Z86.19 Personal history of other infectious and parasitic diseases; Z79.899 Other long term (current) drug therapy; Z91.040 Latex allergy status; Z88.6 Allergy status to analgesic agent
CPT/HCPCS: 36415; 80053; 85025; 81001; 87086; 72125; 70450; 99284; 96374; 96375; 96361 ×3; J1200; J2765

== ENCOUNTER 2018-01-02 01:39 | Emergency (ER) | payer MEDICARE, OTHER ==
[2018-01-02 01:45] VITALS: BP 156/93; PULSE 72; RESP 18; TEMP 98.4
--- NOTE | 2018-01-02 02:07 | ED ---
ENT HPI - General Chief complaint: ENT Stated complaint: ear, jaw and back pain Time Seen by Provider: 01/02/18 01:54 Source: patient, RN notes reviewed Mode of arrival: ambulatory Limitations: no limitations - History of Present Illness Initial comments: This is a 57-year-old female who presents to the emergency department with chief complaint of mouth pain, left ear pain and chronic back pain. Patient states that "a while ago" she had a tooth removed. She states that she has been having left lower mouth and left ear pain. She also states that she has a history of scoliosis that has been causing her pain as well. Denies any recent falls, injuries or trauma. Denies any fevers or chills, chest pain or shortness of breath, abdominal pain, nausea or vomiting. Patient r states that she has been taking ibuprofen with minimal relief and requests to have Tylenol with Codeine. She states that she was taking Ultram, Creswell and Neurontin but that her doctor has no longer been filling them for her. - Related Data Home Medications Medication Instructions Recorded Confirmed Ziprasidone [Geodon] 40 mg PO HS 10/28/17 12/19/17 Albuterol Inhaler [Ventolin Hfa 1 - 2 puff INHALATION RT-Q6H PRN 12/03/17 Inhaler] Ergocalciferol [Vitamin D2] 50,000 unit PO MO 12/03/17 12/19/17 traMADol HCl [Ultram] 50 mg PO TID PRN 12/03/17 12/19/17 Lisinopril [Zestril] 5 mg PO DAILY 12/19/17 12/19/17 Previous Rx's Medication Instructions Recorded traMADol HCL [Ultram] 50 mg PO Q8H PRN 2 Days #5 tab 12/19/17 Allergies Allergy/AdvReac Type Severity Reaction Status Date / Time ketorolac [From Toradol] Allergy Unknown Verified 01/02/18 01:46 latex Allergy Itching Verified 01/02/18 01:46 Review of Systems ROS Statement: Those systems with pertinent positive or pertinent negative responses have been documented in the HPI. ROS Other: All systems not noted in ROS Statement are negative. Past Medical History Past Medical History: Hypertension, Liver Disease, Musculoskeletal Disorder, Neurologic Disorder Additional Past Medical History / Comment(s): hep c, back pain, sciatica, neuropathy, History of Any Multi-Drug Resistant Organisms: MRSA Date of last positivie culture/infection: 2006 MDRO Source:: face Past Surgical History: Orthopedic Surgery Additional Past Surgical History / Comment(s): lt ankle, D&C Past Anesthesia/Blood Transfusion Reactions: No Reported Reaction Past Psychological History: Anxiety, Bipolar, Depression, Schizoaffective Disorder, Schizophrenia Smoking Status: Current every day smoker Past Alcohol Use History: Occasional Past Drug Use History: None Reported General Exam - General Exam Comments Initial Comments: General: Awake and alert, well-developed; in no apparent distress. HEENT: Head atraumatic, normocephalic. Pupils are equal, round and reactive to light. Extraocular movements intact. Oropharynx moist without erythema or exudate. Entire lower dentition is missing. Gumline is non-tender on palpation. No masses or areas of fluctuance noted. Bilateral TMs are pearly without effusion. No tenderness along the jaw. No facial swelling. Neck: Supple. Normal ROM. Cardiovascular: Regular rate and rhythm. No murmurs, rubs or gallops. Chest symmetrical. Respiratory: Lungs clear to auscultation bilaterally. No wheezes, rales or rhonchi. Normal respiratory effort with no use of accessory muscles. Musculoskeletal: Normal ROM, no tenderness bilateral upper and lower extremities. Ambulating normally. Skin: [place], warm and dry without rashes or lesions. Neurological: Alert and oriented x3. CN II-XII grossly intact. Speech is fluent and answers are appropriate. No focal neuro deficits. Limitations: no limitations Course Vital Signs 01/02/18 01:41 Temperature 98.4 F Pulse Rate 72 Respiratory 18 Rate Blood Pressure 156/93 O2 Sat by Pulse 100 Oximetry Medical Decision Making - Medical Decision Making This is a 57-year-old female who presents to the emergency department with chief complaint of dental pain, ear pain and chronic back pain. Patient denies any recent falls, injuries or trauma. She states that "a while ago" she had a left lower molar removed and has been experiencing pain since then. She states that her doctor is no longer prescribing her Creswell, Ultram or Neurontin. She states that ibuprofen is not helping with the pain. On physical examination, bilateral TMs are pearly without effusion. Entire lower dentition is missing and no abscesses are noted. Tissue appears healthy. Vital signs are stable and patient is in no acute distress. Patient requests Tylenol with Codeine. Patient becomes very angry when I refused to write her a prescription for controlled substances. She will be discharged home at this time. Disposition Clinical Impression: Pain Disposition: HOME SELF-CARE Condition: Good Instructions: Chronic Pain (ED) Additional Instructions: Please follow up with primary care provider within 1-2 days. Return to emergency department if symptoms should worsen or any concerns arise. Is patient prescribed a controlled substance at d/c from ED?: No Referrals: [facility] [Primary Care Provider] - 1-2 days Time of Disposition: 02:07
== END 2018-01-02 02:21 | disposition home or self-care (01) ==
LOC: EC 01:39
DX: M54.9 Dorsalgia, unspecified (principal); H92.02 Otalgia, left ear; R68.84 Jaw pain; K08.89 Other specified disorders of teeth and supporting structures; I10 Essential (primary) hypertension; F20.9 Schizophrenia, unspecified; F31.9 Bipolar disorder, unspecified; F41.9 Anxiety disorder, unspecified; F17.200 Nicotine dependence, unspecified, uncomplicated; Z86.14 Personal history of Methicillin resistant Staphylococcus aureus infection; Z86.19 Personal history of other infectious and parasitic diseases; Z79.899 Other long term (current) drug therapy; Z88.6 Allergy status to analgesic agent; Z91.040 Latex allergy status
CPT/HCPCS: 99283

== ENCOUNTER 2018-01-17 20:55 | Emergency (ER) | payer MEDICARE, OTHER ==
[2018-01-17 21:02] VITALS: BP 137/73; PULSE 84; RESP 18; TEMP 98.6
[2018-01-17 21:43] LABS: Appearance,Urine Cloudy (Clear); Bacteria,Urine Occasional /hpf; Bilirubin,Urine Negative (Negative); Blood,Urine Trace (Negative); Color,Urine Yellow; Glucose,Urine (UA) Negative (Negative); Ketones,Urine Negative (Negative); Leukocyte Esterase,Urine Large (Negative); Mucus,Urine Rare /hpf; Nitrite,Urine Negative (Negative); Protein,Urine Negative (Negative); RBC,Urine 8 /hpf (0-5); Specific Gravity,Urine 1.011 (1.001-1.035); Squamous Epithelial Cell,Urine 3 /hpf (0-4); Urobilinogen,Urine <2.0 mg/dL (<2.0); WBC,Urine 114 /hpf (0-5)
[2018-01-17] MEDS ORDERED: Acetaminophen-Codeine 300-30mg TAB PO STA (21:57)
[2018-01-17] MEDS ORDERED: CIPROFLOXACIN HCL 500 MG TAB PO STA (21:58)
--- NOTE | 2018-01-17 22:14 | ED ---
General Adult HPI - General Chief complaint: Urogenital Stated complaint: Back Pain Time Seen by Provider: 01/17/18 21:32 Source: patient, RN notes reviewed Mode of arrival: ambulatory Limitations: no limitations - History of Present Illness Initial comments: 57-year-old female presents to the emergency department for a chief complaint of pain with urination times one week. Patient states the pain as a burning pain and she is urinating more frequently. Patient also complains of suprapubic pain. Patient denies any back pain besides her chronic sciatic pain. Patient denies any fevers or chills at home. Patient denies any nausea or vomiting. Patient has no other complaints at this time including shortness of breath, chest pain, abdominal pain, nausea or vomiting, headache, or visual changes. - Related Data Home Medications Medication Instructions Recorded Confirmed Ziprasidone [Geodon] 40 mg PO HS 10/28/17 12/19/17 Albuterol Inhaler [Ventolin Hfa 1 - 2 puff INHALATION RT-Q6H PRN 12/03/17 Inhaler] Ergocalciferol [Vitamin D2] 50,000 unit PO MO 12/03/17 12/19/17 traMADol HCl [Ultram] 50 mg PO TID PRN 12/03/17 12/19/17 Lisinopril [Zestril] 5 mg PO DAILY 12/19/17 12/19/17 Previous Rx's Medication Instructions Recorded traMADol HCL [Ultram] 50 mg PO Q8H PRN 2 Days #5 tab 12/19/17 Ciprofloxacin HCl [Cipro] 500 mg PO Q12HR #20 tablet 01/17/18 Allergies Allergy/AdvReac Type Severity Reaction Status Date / Time ketorolac [From Toradol] Allergy Unknown Verified 01/17/18 21:03 latex Allergy Itching Verified 01/17/18 21:03 Review of Systems ROS Statement: Those systems with pertinent positive or pertinent negative responses have been documented in the HPI. ROS Other: All systems not noted in ROS Statement are negative. Past Medical History Past Medical History: Hypertension, Liver Disease, Musculoskeletal Disorder, Neurologic Disorder Additional Past Medical History / Comment(s): hep c, back pain, sciatica, neuropathy, History of Any Multi-Drug Resistant Organisms: MRSA Date of last positivie culture/infection: 2006 MDRO Source:: face Past Surgical History: Orthopedic Surgery Additional Past Surgical History / Comment(s): lt ankle, D&C Past Anesthesia/Blood Transfusion Reactions: No Reported Reaction Past Psychological History: Anxiety, Bipolar, Depression, Schizoaffective Disorder, Schizophrenia Smoking Status: Current every day smoker Past Alcohol Use History: Occasional Past Drug Use History: None Reported General Exam Limitations: no limitations General appearance: alert, in no apparent distress Head exam: Present: atraumatic, normocephalic, normal inspection Eye exam: Present: normal appearance ENT exam: Present: normal exam, mucous membranes moist Neck exam: Present: normal inspection, full ROM. Absent: tenderness, meningismus, lymphadenopathy Respiratory exam: Present: normal lung sounds bilaterally. Absent: respiratory distress, wheezes, rales, rhonchi, stridor Cardiovascular Exam: Present: regular rate, normal rhythm, normal heart sounds. Absent: systolic murmur, diastolic murmur, rubs, gallop, clicks GI/Abdominal exam: Present: soft, tenderness (suprapubic tenderness), normal bowel sounds. Absent: distended, guarding, rebound, rigid Back exam: Absent: CVA tenderness (R), CVA tenderness (L) Course Vital Signs 01/17/18 21:00 Temperature 98.6 F Pulse Rate 84 Respiratory 18 Rate Blood Pressure 137/73 O2 Sat by Pulse 96 Oximetry Medical Decision Making - Medical Decision Making 57-year-old female since to the emergency department for a chief complaint of frequency and burning with urination. Patient denies back pain besides her chronic sciatic pain. Patient denies fevers or chills at home. On exam patient has suprapubic tenderness. Urine shows large leuk esterase with 114 white blood cells Culture was sent. Patient will be treated with Cipro per Dr. Lu. Patient was given a Tylenol 3 here for pain. She will take Motrin for pain at home. Patient will follow up with primary care in 1-2 days. She' ll return to the emergency Department if she has any worsening symptoms. - Lab Data Lab Results 01/17/18 Range/Units Unknown Urine Color Yellow Urine Appearance Cloudy H (Clear) Urine pH 6.0 (5.0-8.0) Ur Specific [place] 1.011 (1.001-1.035) Urine Protein Negative (Negative) Urine Glucose (UA) Negative (Negative) Urine Ketones Negative (Negative) Urine Blood Trace H (Negative) Urine Nitrite Negative (Negative) Urine Bilirubin Negative (Negative) Urine Urobilinogen <2.0 (<2.0) mg/dL Ur Leukocyte Esterase Large H (Negative) Urine RBC 8 H (0-5) /hpf Urine WBC 114 H (0-5) /hpf Ur Squamous Epith Cells 3 (0-4) /hpf Urine Bacteria Occasional H (None) /hpf Urine Mucus Rare H (None) /hpf Disposition Clinical Impression: Urinary tract infection Disposition: HOME SELF-CARE Condition: Good Instructions: Urinary Tract Infection in Women (ED) Additional Instructions: Please take antibiotic as directed. Take Motrin or Tylenol for pain. Follow up with primary care in 1-2 days. Return to the emergency department if you have any worsening symptoms. Prescriptions: Ciprofloxacin HCl [Cipro] 500 mg PO Q12HR #20 tablet Is patient prescribed a controlled substance at d/c from ED?: No Referrals: [facility] [Primary Care Provider] - 1-2 days Time of Disposition: 22:15
== END 2018-01-17 22:22 | disposition home or self-care (01) ==
LOC: EC 20:55
DX: N39.0 Urinary tract infection, site not specified (principal); R10.9 Unspecified abdominal pain; I10 Essential (primary) hypertension; F20.9 Schizophrenia, unspecified; F31.9 Bipolar disorder, unspecified; F41.9 Anxiety disorder, unspecified; F17.200 Nicotine dependence, unspecified, uncomplicated; Z86.19 Personal history of other infectious and parasitic diseases; Z86.14 Personal history of Methicillin resistant Staphylococcus aureus infection; Z79.899 Other long term (current) drug therapy; Z88.6 Allergy status to analgesic agent; Z91.040 Latex allergy status
CPT/HCPCS: 81001; 87086; 99283

== ENCOUNTER 2018-01-28 23:50 | Emergency (ER) | payer MEDICARE, OTHER ==
[2018-01-28 23:54] VITALS: TEMP 98.4
[2018-01-29] MEDS ORDERED: HYDROcodone/APAP 5-325MG 1 EACH TAB PO STA (02:18)
[2018-01-29] MEDS ORDERED: ORPHENADRINE 30 MG/ML 2 ML VIAL IM STA (02:18)
--- NOTE | 2018-01-29 02:20 | ED ---
Back Pain HPI - General Chief Complaint: Back Pain/Injury Stated Complaint: Back Pain, poss med refill Time Seen by Provider: 01/29/18 01:52 Source: patient Limitations: no limitations - History of Present Illness Initial Comments: 57 year-old female patient presents the emergency department today for evaluation of right lower back pain. Patient states that she has history of a torn muscle to the area and has had problems ever since. Patient states that she is out of her home pain medication and she is unable to control the pain with ibuprofen. Patient states that the pain does radiate down her right leg. Patient denies any saddle anesthesia, loss of bowel or bladder function, or numbness or tingling to the lower extremities. Denies any new symptoms, states this is her usual chronic pain. Denies any recent injury. Patient denies any recent rash, fever, chills, shortness breath, chest pain, abdominal pain, nausea , vomiting, diarrhea, constipation, dizziness, weakness, hematuria, dysuria, urinary urgency, urinary frequency, headache, visual changes, or any other complaints. - Related Data Home Medications Medication Instructions Recorded Confirmed Ziprasidone [Geodon] 40 mg PO HS 10/28/17 01/28/18 Ergocalciferol [Vitamin D2] 50,000 unit PO MO 12/03/17 01/28/18 Lisinopril [Zestril] 5 mg PO DAILY 12/19/17 01/28/18 Previous Rx's Medication Instructions Recorded Ciprofloxacin HCl [Cipro] 500 mg PO Q12HR #20 tablet 01/17/18 Clotrimazole Cream [Lotrimin Cream] 1 applic TOPICAL BID #15 gm 01/29/18 Allergies Allergy/AdvReac Type Severity Reaction Status Date / Time ketorolac [From Toradol] Allergy Unknown Verified 01/28/18 23:55 latex Allergy Itching Verified 01/28/18 23:55 Review of Systems ROS Statement: Those systems with pertinent positive or pertinent negative responses have been documented in the HPI. ROS Other: All systems not noted in ROS Statement are negative. Past Medical History Past Medical History: Hypertension, Liver Disease, Musculoskeletal Disorder, Neurologic Disorder Additional Past Medical History / Comment(s): hep c, back pain, sciatica, neuropathy, History of Any Multi-Drug Resistant Organisms: MRSA Date of last positivie culture/infection: 2006 MDRO Source:: face Past Surgical History: Orthopedic Surgery Additional Past Surgical History / Comment(s): lt ankle, D&C Past Anesthesia/Blood Transfusion Reactions: No Reported Reaction Past Psychological History: Anxiety, Bipolar, Depression, Schizoaffective Disorder, Schizophrenia Smoking Status: Current every day smoker Past Alcohol Use History: Occasional Past Drug Use History: None Reported General Exam Limitations: no limitations General appearance: alert, in no apparent distress, other (This is a well- developed, well-nourished adult female patient in no acute distress. Vital signs upon presentation are temperature 98.4F, pulse 76, respirations 18, blood pressure 177/77, pulse ox 100% on room air.) Eye exam: Present: normal appearance, PERRL, EOMI. Absent: scleral icterus, conjunctival injection, periorbital swelling ENT exam: Present: normal exam, normal oropharynx, mucous membranes moist Respiratory exam: Present: normal lung sounds bilaterally. Absent: respiratory distress, wheezes, rales, rhonchi, stridor Cardiovascular Exam: Present: regular rate, normal rhythm, normal heart sounds. Absent: systolic murmur, diastolic murmur, rubs, gallop, clicks GI/Abdominal exam: Present: soft, normal bowel sounds. Absent: distended, tenderness, guarding, rebound, rigid Back exam: Present: normal inspection, tenderness (Right lower back tenderness.) . Absent: vertebral tenderness Neurological exam: Present: alert, oriented X3, CN II-XII intact, other ( Strength in all 4 extremities is 5/5.) Psychiatric exam: Present: normal affect, normal mood Skin exam: Present: warm, dry, intact, normal color, rash (Patient has fungal infection noted around toes on the feet bilaterally.) Course Vital Signs 01/28/18 01/29/18 23:53 02:49 Temperature 98.4 F Pulse Rate 76 56 L Respiratory 18 20 Rate Blood Pressure 177/77 130/81 O2 Sat by Pulse 100 100 Oximetry Medical Decision Making - Medical Decision Making 57 year-old female patient presented to the emergency department today for evaluation of right lower back pain that is chronic for her. Physical examination is unremarkable other than she does have a fungal infection noted on the toes. We will give oral pain medication here in the department and an injection of nor flex. She will be discharged home to follow-up with her primary care physician for any further pain medication needs or prescriptions. She'll be given a prescription for Lotrimin for the feet. She is instructed to return here immediately for any new, worsening, or concerning symptoms. She verbalizes understanding and agrees this plan Disposition Clinical Impression: Chronic back pain Disposition: HOME SELF-CARE Condition: Good Instructions: Chronic Back Pain (ED) Additional Instructions: Follow-up with your primary care physician for recheck in 1-2 days. All further prescriptions and pain medications must come from them. Return for any new, worsening, or concerning symptoms. Prescriptions: Clotrimazole Cream [Lotrimin Cream] 1 applic TOPICAL BID #15 gm Is patient prescribed a controlled substance at d/c from ED?: No Referrals: [facility] [Primary Care Provider] - 1-2 days Time of Disposition: 02:19
[2018-01-29 02:50] VITALS: BP 130/81; PULSE 56; RESP 20
== END 2018-01-29 02:50 | disposition home or self-care (01) ==
LOC: EC 23:50
DX: G89.29 Other chronic pain (principal); M54.5 Low back pain; B35.3 Tinea pedis; M79.604 Pain in right leg; I10 Essential (primary) hypertension; F31.9 Bipolar disorder, unspecified; F20.9 Schizophrenia, unspecified; F17.200 Nicotine dependence, unspecified, uncomplicated; Z79.899 Other long term (current) drug therapy; Z88.6 Allergy status to analgesic agent; Z91.040 Latex allergy status; Z86.14 Personal history of Methicillin resistant Staphylococcus aureus infection
CPT/HCPCS: 99283; 96372; J2360

== ENCOUNTER 2018-02-20 15:49 | Emergency (ER) | payer MEDICARE, OTHER ==
[2018-02-20] MEDS ORDERED: IBUPROFEN 600 MG TAB PO STA (16:39)
[2018-02-20] MEDS ORDERED: ACETAMINOPHEN TAB 500 MG TAB PO STA (16:39)
--- NOTE | 2018-02-20 16:42 | ED ---
ENT HPI - General Chief complaint: ENT Stated complaint: throat pain Time Seen by Provider: 02/20/18 16:09 Source: patient, RN notes reviewed, old records reviewed Mode of arrival: ambulatory Limitations: no limitations - History of Present Illness Initial comments: Patient's age 7-year-old female well-known to the emergency department for chronic pain issues presents emergency department if she went sore throat, upper respiratory congestion and ear pain. She also states she's been having chronic pain in her back. She is requesting narcotics. Patient states that she has had no fevers or chills. She denies any nausea or vomiting. Denies any significant coughing or shortness of breath. Patient also reports she's had a rash over bilateral ankles, groin axil and hands. Patient states is pruritic. Worse at night. - Related Data Home Medications Medication Instructions Recorded Confirmed Ziprasidone [Geodon] 40 mg PO HS 10/28/17 02/20/18 Ergocalciferol [Vitamin D2] 50,000 unit PO MO 12/03/17 02/20/18 Lisinopril [Zestril] 5 mg PO DAILY 12/19/17 02/20/18 Previous Rx's Medication Instructions Recorded Clotrimazole Cream [Lotrimin Cream] 1 applic TOPICAL BID #15 gm 01/29/18 Fluticasone Nasal [place] [Flonase 1 spray EA NOSTRIL DAILY #1 bottle 02/20/18 Nasal [place]] Permethrin 5% Cream [Elimite] 1 applic TOPICAL ONCE #60 cream..g. 02/20/18 methylPREDNISolone Dose Pack 4 mg PO DIRECTED #21 package 02/20/18 [Medrol Dose Pack] Allergies Allergy/AdvReac Type Severity Reaction Status Date / Time ketorolac [From Toradol] Allergy Unknown Verified 02/20/18 15:53 latex Allergy Itching Verified 02/20/18 15:53 Review of Systems ROS Statement: Those systems with pertinent positive or pertinent negative responses have been documented in the HPI. ROS Other: All systems not noted in ROS Statement are negative. Past Medical History Past Medical History: Hypertension, Liver Disease, Musculoskeletal Disorder, Neurologic Disorder Additional Past Medical History / Comment(s): hep c, back pain, sciatica, neuropathy, History of Any Multi-Drug Resistant Organisms: MRSA Date of last positivie culture/infection: 2007 MDRO Source:: face Past Surgical History: Orthopedic Surgery Additional Past Surgical History / Comment(s): lt ankle, D&C Past Anesthesia/Blood Transfusion Reactions: No Reported Reaction Past Psychological History: Anxiety, Bipolar, Depression, Schizoaffective Disorder, Schizophrenia Smoking Status: Current every day smoker Past Alcohol Use History: Occasional Past Drug Use History: None Reported General Exam - General Exam Comments Initial Comments: 57-year-old female. Alert and oriented. No distress. Limitations: no limitations General appearance: alert, in no apparent distress Head exam: Present: atraumatic, normocephalic, normal inspection Eye exam: Present: normal appearance, PERRL, EOMI. Absent: scleral icterus, conjunctival injection, periorbital swelling ENT exam: Present: normal exam, mucous membranes moist. Absent: normal oropharynx (Erythematous oropharynx. No significant exudates noted.) Neck exam: Present: normal inspection. Absent: tenderness, meningismus, lymphadenopathy Extremities exam: Present: normal inspection Back exam: Present: normal inspection Neurological exam: Present: alert, oriented X3, CN II-XII intact Psychiatric exam: Present: normal affect, normal mood Skin exam: Present: warm, dry, intact, normal color, rash (Erythematous papules over hands, ankles and feet and groin. Excoriations. Papules and linear pattern consistent with scabies.) Course Vital Signs 02/20/18 02/20/18 15:51 16:53 Temperature 98.7 F 98.6 F Pulse Rate 61 64 Respiratory 18 16 Rate Blood Pressure 127/93 122/78 O2 Sat by Pulse 99 98 Oximetry Medical Decision Making - Medical Decision Making 7-year-old female presents with upper respiratory congestion, sore throat. Evidence of postnasal drainage. Patient was given Flonase nasal spray. Chest is complaining of a rash. Rashes linear excoriations and multiple erythematous papules over the ankles hands and groin. Consistent with scabies. She is living in a custodial at this time. Patient advised to apply permethrin cream sleep and change her sheets. Rinse in the cream off in the morning. Patient doesn't plane of extreme itching as well. We'll put the Patient on steroid Dosepak. Is also up with upper respiratory congestion. Discussed return parameters. Patient's history plan will comply. Return parameters were discussed. I also discussed I'll not write her for any narcotic pain medication. Given Motrin Tylenol this time for pain. Disposition Clinical Impression: Scabies, Drug-seeking behavior, Upper respiratory infection Disposition: HOME SELF-CARE Condition: Good Instructions: Scabies (ED), Upper Respiratory Infection (ED) Additional Instructions: Patient advised to apply the cream over her body from head to toe, where the cream overnight and sleeping clean sheets. Wash the sheets in the morning. Repeat treatment in one week to treat for scabies. Wash all clothing and bedding in hot water. Patient should take the steroids as prescribed help with itching as well as a upper respiratory infection. Also use the nasal spray to help with sinus congestion. Prescriptions: Fluticasone Nasal [place] [Flonase Nasal [place]] 1 spray EA NOSTRIL DAILY #1 bottle methylPREDNISolone Dose Pack [Medrol Dose Pack] 4 mg PO DIRECTED #21 package Permethrin 5% Cream [Elimite] 1 applic TOPICAL ONCE #60 cream..g. Is patient prescribed a controlled substance at d/c from ED?: No Referrals: [facility] [Primary Care Provider] - 1-2 days Time of Disposition: 16:40
[2018-02-20 16:54] VITALS: BP 122/78; PULSE 64; RESP 16; TEMP 98.6
== END 2018-02-20 16:53 | disposition home or self-care (01) ==
LOC: EC 15:49
DX: J06.9 Acute upper respiratory infection, unspecified (principal); B86 Scabies; Z76.5 Malingerer [conscious simulation]; I10 Essential (primary) hypertension; F31.9 Bipolar disorder, unspecified; F20.9 Schizophrenia, unspecified; F41.9 Anxiety disorder, unspecified; F17.200 Nicotine dependence, unspecified, uncomplicated; Z86.14 Personal history of Methicillin resistant Staphylococcus aureus infection; Z86.19 Personal history of other infectious and parasitic diseases; Z79.899 Other long term (current) drug therapy; Z91.040 Latex allergy status; Z88.6 Allergy status to analgesic agent
CPT/HCPCS: 99283

== ENCOUNTER → 2018-04-20 | Outpatient (CLI) | payer MEDICARE, OTHER ==
--- NOTE | 2018-04-20 14:53 | XR ---
EXAMINATION TYPE: XR spine complete AP and Lat DATE OF EXAM: 04/20/2018 COMPARISON: NONE HISTORY: Chronic back pain TECHNIQUE: Frontal and lateral views of the cervical, thoracic and lumbar spine. Odontoid view of the cervical spine was also obtained as well as swimmer's view of the thoracic spine. FINDINGS: Cervical spine: There is straightening of the usual cervical lordosis and slight reversal of the usua l lordotic cervical curvature. Intervertebral disc space narrowing is seen at C3-C4 and small anterio r osteophytes are seen throughout the cervical spine. Multilevel uncovertebral hypertrophy is also se en relating to moderate degenerative disc disease. Vertebral body heights and alignment are maintaine d. Thoracic spine: Moderate multilevel degenerative disc disease is also seen of the thoracic spine as t here is bridging anterior osteophytes, endplate sclerosis and multilevel intervertebral disc space na rrowing. No compression deformities are seen. Alignment is maintained. Visualized central portions of the ribs appear grossly unremarkable. Lumbar spine: Vertebral body heights and alignment are maintained of the lumbar spine. Mild multileve l degenerative changes are seen as small anterior osteophytes and multilevel facet arthropathy. Ather osclerosis is noted of the abdominal aorta incidentally. Facet arthropathy is most superior L5-S1. IMPRESSION: 1. Moderate arthropathy of the cervical and thoracic spine as well as at the lumbosacral junction wit h mild multilevel degenerative changes of the remainder of the lumbar spine. MR could assess for disc herniation or spinal canal stenosis and assess degree of neural foraminal narrowing. 2. No evidence of vertebral body height loss or malalignment.
== END | disposition home or self-care (01) ==
LOC: RADXRMAIN 14:11
PROVIDERS: ATTEND Nurse Practitioner
DX: M47.817 Spondylosis without myelopathy or radiculopathy, lumbosacral region (principal); M47.812 Spondylosis without myelopathy or radiculopathy, cervical region; M47.814 Spondylosis without myelopathy or radiculopathy, thoracic region; G89.4 Chronic pain syndrome
CPT/HCPCS: 72082

== ENCOUNTER 2018-05-23 16:06 | Emergency (ER) | payer MEDICARE, OTHER ==
[2018-05-23 16:10] VITALS: BP 149/87; PULSE 70; RESP 18; TEMP 98.2
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
[2018-05-23] MEDS ORDERED: traMADol 50 MG TAB PO STA (16:57)
== END 2018-05-23 17:02 | disposition home or self-care (01) ==
LOC: EC 16:06
DX: M54.42 Lumbago with sciatica, left side (principal); J06.9 Acute upper respiratory infection, unspecified; I10 Essential (primary) hypertension; G62.9 Polyneuropathy, unspecified; F31.9 Bipolar disorder, unspecified; F41.9 Anxiety disorder, unspecified; F20.9 Schizophrenia, unspecified; F17.200 Nicotine dependence, unspecified, uncomplicated; Z86.19 Personal history of other infectious and parasitic diseases; Z86.14 Personal history of Methicillin resistant Staphylococcus aureus infection; Z79.51 Long term (current) use of inhaled steroids; Z79.899 Other long term (current) drug therapy; Z91.040 Latex allergy status; Z88.6 Allergy status to analgesic agent
CPT/HCPCS: 99283

== ENCOUNTER 2018-06-08 16:11 | Emergency (ER) | payer MEDICARE, OTHER ==
[2018-06-08 16:32] VITALS: BP 143/89; PULSE 91; RESP 20; TEMP 99.1
[2018-06-08] MEDS ORDERED: Acetaminophen-Codeine 300-30mg TAB PO STA (16:53)
--- NOTE | 2018-06-08 16:54 | ED ---
General Adult HPI - General Chief complaint: Extremity Injury, Lower Stated complaint: LEFT LEG INJURY Source: patient, RN notes reviewed, old records reviewed Mode of arrival: ambulatory Limitations: no limitations - History of Present Illness Initial comments: 37 year old female patient with past medical history of hepatitis C, sciatica, chronic pain presents to ED with acute exacerbation of left-sided sciatica. Patient states that she has had a long history of back pain and sciatica related issues. Patient has an appointment with [facility] . She seek short-term analgesia until follow-up. Patient states that this pain is the same as pain she has had in the past. Patient denies acute fall, trauma. Patient states that the pain radiates down her left leg similar to her pain in the past. Patient denies any new symptoms. Patient denies IV drug use, back pain, nausea vomiting diarrhea. Systemic: Pt denies fatigue, myalgia, fever/chills, rash. Pt denies weakness, night sweats, weight loss. Neuro: Pt denies headache, visual disturbances, syncope or pre-syncope. HEENT: Pt denies ocular discharge or irritation, otalgia, rhinorrhea, pharyngitis or notable lymphadenopathy. Cardiopulmonary: Pt denies chest pain, SOB, heart palpitations, dyspnea on exertion. Abdominal/GI: Pt denies abdominal pain, n/v/d. : Pt denies dysuria, burning w/ urination, frequency/urgency. Denies new onset urinary or bowel incontinence. MSK: Pt denies myalgia, loss of strength or function in extremities. Neuro: Pt denies new onset weakness, paresthesias. - Related Data Home Medications Medication Instructions Recorded Confirmed Albuterol Inhaler [Ventolin Hfa 1 - 2 puff INHALATION RT-Q4H PRN 05/23/18 Inhaler] Budesonide [Pulmicort Flexhaler] 2 puff INHALATION RT-BID 05/23/18 05/23/18 Clotrimazole/Betamethasone Dip 1 applic TOPICAL BID 05/23/18 05/23/18 [Lotrisone Cream] Gabapentin [Neurontin] 400 mg PO TID 05/23/18 05/23/18 Lisinopril [Zestril] 10 mg PO DAILY 05/23/18 05/23/18 Loratadine [Claritin] 10 mg PO DAILY 05/23/18 05/23/18 Nystatin 100,000 Unit/gm Powd 1 applic TOPICAL BID 05/23/18 05/23/18 [Mycostatin Powder] QUEtiapine FUMARATE [SEROquel] 200 mg PO HS 05/23/18 05/23/18 Sertraline [Zoloft] 100 mg PO DAILY 05/23/18 05/23/18 Previous Rx's Medication Instructions Recorded Amoxicillin/Potassium Clav 1 each PO Q12HR #20 tab 05/23/18 [Augmentin 875-125 Tablet] traMADol HCL [Ultram] 50 mg PO Q6HR PRN 3 Days #12 tab 05/23/18 Acetaminophen Tab [Tylenol Tab] 500 mg PO Q6H 5 Days #20 tablet 06/08/18 Allergies Allergy/AdvReac Type Severity Reaction Status Date / Time ketorolac [From Toradol] Allergy Unknown Verified 06/07/18 17:50 latex Allergy Itching Verified 06/07/18 17:50 Review of Systems ROS Statement: Those systems with pertinent positive or pertinent negative responses have been documented in the HPI. ROS Other: All systems not noted in ROS Statement are negative. Past Medical History Past Medical History: Hypertension, Liver Disease, Musculoskeletal Disorder, Neurologic Disorder Additional Past Medical History / Comment(s): hep c, back pain, sciatica, neuropathy, History of Any Multi-Drug Resistant Organisms: MRSA Date of last positivie culture/infection: 2006 MDRO Source:: face Past Surgical History: Orthopedic Surgery Additional Past Surgical History / Comment(s): lt ankle, D&C Past Anesthesia/Blood Transfusion Reactions: No Reported Reaction Past Psychological History: Anxiety, Bipolar, Depression, Schizoaffective Disorder, Schizophrenia Smoking Status: Current every day smoker Past Alcohol Use History: Occasional Past Drug Use History: None Reported General Exam - General Exam Comments Initial Comments: Constitutional: NAD, AOX3, Pt has pleasant affect. HEENT: NC/AT, trachea midline, neck supple, no lymphadenopathy. Posterior pharynx non erythematous, without exudates. External ears appear normal, without discharge. Mucous membranes moist. Eyes PERRLA, EOM intact. There is no scleral icterus. No pallor noted. Cardiopulmonary: RRR, no murmurs, rubs or gallops, no JVD noted. Lungs CTAB in anterior and posterior carrillo. No peripheral edema. Abdominal exam: Abdomen soft and non-distended. Abdomen non-tender to palpation in all 4 quadrants. Bowel sounds active in LLQ. No hepatosplenomegaly. No ecchymosis Neuro: CN II-XII grossly intact. No nuchal rigidity. MSK: Sensation intact in lower extremities bilaterally. Psoas and quadriceps strength 5 out of 5 bilaterally. Positive left straight leg raise, sciatica pain reproducible. Right straight leg raise negative. Patellar and achillies reflexes 2 out of 4 bilaterally. No erythema, drainage, focal tenderness noted in lower extremities bilaterally, examined hips knees and ankles, long bones bilaterally. No posterior calf tenderness bilaterally, homans sign negative bilaterally. Posterior tibialis, dorsalis pedis and radial pulse +2 bilaterally. Sensation intact in upper and lower extremities. Full active ROM in upper and lower extremities. Patient ambulatory without difficulty, heel to toe walking intact. Limitations: no limitations Course Vital Signs 06/08/18 16:27 Temperature 99.1 F Pulse Rate 91 Respiratory 20 Rate Blood Pressure 143/89 O2 Sat by Pulse 99 Oximetry Medical Decision Making - Medical Decision Making 37 year old female patient with past medical history of hepatitis C, sciatica, chronic pain presents to ED with acute exacerbation of left-sided sciatica. Patient states that she has had a long history of back pain and sciatica related issues. Patient has an appointment with [facility] . She seek short-term analgesia until follow-up. Patient states that this pain is the same as pain she has had in the past. Patient denies acute fall, trauma. Patient is seen regularly at Hospital for this issue. Physical exam did not display any acute pathology. MSK exam displayed Sensation intact in lower extremities bilaterally. Psoas and quadriceps strength 5 out of 5 bilaterally. Positive left straight leg raise, sciatica pain reproducible. Right straight leg raise negative. Patellar and achillies reflexes 2 out of 4 bilaterally. No erythema, drainage, focal tenderness noted in lower extremities bilaterally, examined hips knees and ankles, long bones bilaterally. No posterior calf tenderness bilaterally, homans sign negative bilaterally. Posterior tibialis, dorsalis pedis and radial pulse +2 bilaterally. Sensation intact in upper and lower extremities. Full active ROM in upper and lower extremities. Patient ambulatory without difficulty, heel to toe walking intact. No acute pathology noted in Examination of neurologic, cardiopulmonary , HEENT, abdominal systems examined. Patient given 1 Tylenol 3 in ED for acute pain. Patient to be discharged with Tylenol for continued analgesic. Patient to follow up with [facility] orthopedics on as scheduled. Patient to follow-up with primary care provider in 1-2 days. Patient to return to ED if new signs or symptoms develop including worsening pain, nausea vomiting diarrhea , headache, changes, chest pain, shortness breath, any other new symptoms. Case discussed with Dr. Juarez. Pt not driving home. Disposition Clinical Impression: Chronic pain Disposition: HOME SELF-CARE Condition: Good Instructions: Sciatica (ED) Additional Instructions: Patient to adhere to previously discussed treatment plan and will take medication(s) as directed. Patient to follow up with PCP in 1-2 days. Patient to return to ED if symptoms do not improve. Prescriptions: Acetaminophen Tab [Tylenol Tab] 500 mg PO Q6H 5 Days #20 tablet Is patient prescribed a controlled substance at d/c from ED?: No Referrals: [facility] [Primary Care Provider] - 1-2 days Time of Disposition: 17:19
== END 2018-06-08 17:25 | disposition home or self-care (01) ==
LOC: EC 16:11
DX: G89.29 Other chronic pain (principal); M54.30 Sciatica, unspecified side; I10 Essential (primary) hypertension; G62.9 Polyneuropathy, unspecified; F41.9 Anxiety disorder, unspecified; F31.9 Bipolar disorder, unspecified; F25.9 Schizoaffective disorder, unspecified; F17.200 Nicotine dependence, unspecified, uncomplicated; Z79.51 Long term (current) use of inhaled steroids; Z79.899 Other long term (current) drug therapy; Z88.6 Allergy status to analgesic agent; Z91.040 Latex allergy status
CPT/HCPCS: 99283

== ENCOUNTER 2018-06-22 15:41 | Emergency (ER) | payer MEDICARE, OTHER ==
[2018-06-22 15:54] VITALS: BP 158/83; PULSE 85; RESP 18; TEMP 98.1
[2018-06-22] MEDS ORDERED: IBUPROFEN 600 MG STARTER PACK 4 TAB BTL PO STA (17:12)
[2018-06-22] MEDS ORDERED: predniSONE 50 MG TAB PO STA (17:12)
[2018-06-22] MEDS ORDERED: CYCLOBENZAPRINE 10MG STARTER 3 TAB BTL PO STA (17:12)
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
== END 2018-06-22 17:30 | disposition home or self-care (01) ==
LOC: EC 15:41
DX: G89.29 Other chronic pain (principal); M79.605 Pain in left leg; J39.8 Other specified diseases of upper respiratory tract; I10 Essential (primary) hypertension; F20.9 Schizophrenia, unspecified; F31.9 Bipolar disorder, unspecified; F41.9 Anxiety disorder, unspecified; F17.200 Nicotine dependence, unspecified, uncomplicated; Z86.14 Personal history of Methicillin resistant Staphylococcus aureus infection; Z86.19 Personal history of other infectious and parasitic diseases; Z79.51 Long term (current) use of inhaled steroids; Z79.899 Other long term (current) drug therapy; Z88.6 Allergy status to analgesic agent; Z91.040 Latex allergy status
CPT/HCPCS: 99283; J7512

== ENCOUNTER 2018-06-26 03:27 | Emergency (ER) | payer MEDICARE, OTHER ==
[2018-06-26 03:46] VITALS: RESP 16
[2018-06-26] MEDS ORDERED: IBUPROFEN 600 MG TAB PO STA (05:06)
[2018-06-26] MEDS ORDERED: DIPH,PERTUS(ACELL)TETVAC-LF 0.5 ML VIAL IM ONE (05:06)
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
--- NOTE | 2018-06-26 05:33 | CT ---
EXAM: CT Head Without Intravenous Contrast CLINICAL HISTORY: ITS.REASON CT Reason: Pain TECHNIQUE: Axial computed tomography images of the head/brain without intravenous contrast. This CT exam was performed using one or more of the following dose reduction techniques: automated exposure control, adjustment of the mA and/or kV according to patient size, and/or use of iterative reconstruction technique. COMPARISON: No relevant prior studies available. FINDINGS: Brain: No hemorrhage. No edema. Ventricles: Unremarkable. No ventriculomegaly. Bones/joints: No acute fracture. Soft tissues: Unremarkable. Sinuses: No fluid levels. Mastoid air cells: Unremarkable as visualized. No mastoid effusion. IMPRESSION: No acute intracranial findings
[2018-06-26] MEDS ORDERED: TOPICAL SKIN ADHESIVE 1 EACH AMP TOPICAL ONE (06:30)
[2018-06-26] MEDS ORDERED: HYDROcodone/APAP 5-325MG 1 EACH TAB PO STA (07:30)
[2018-06-26 07:41] VITALS: BP 148/82; PULSE 88; TEMP 97.3
== END 2018-06-26 07:41 | disposition home or self-care (01) ==
LOC: EC 03:27
DX: S01.111A Laceration without foreign body of right eyelid and periocular area, initial encounter (principal); S09.90XA Unspecified injury of head, initial encounter; I10 Essential (primary) hypertension; G62.9 Polyneuropathy, unspecified; F31.9 Bipolar disorder, unspecified; F41.9 Anxiety disorder, unspecified; F20.9 Schizophrenia, unspecified; F17.200 Nicotine dependence, unspecified, uncomplicated; Z86.19 Personal history of other infectious and parasitic diseases; Z86.14 Personal history of Methicillin resistant Staphylococcus aureus infection; Z23 Encounter for immunization; Z79.51 Long term (current) use of inhaled steroids; Z79.899 Other long term (current) drug therapy; Z88.6 Allergy status to analgesic agent; Z91.040 Latex allergy status; Y09 Assault by unspecified means; Y92.009 Unspecified place in unspecified non-institutional (private) residence as the place of occurrence of the external cause
CPT/HCPCS: 12011; 70450; 90471; 90715; 99284

== ENCOUNTER → 2018-08-02 | Outpatient (CLI) | payer MEDICARE, OTHER ==
[2018-08-03 15:44] LABS: C. trachomatis,PCR Negative (Neg,Equiv); Chlamydia trachomatis Source Urine; N. gonorrhoeae,PCR Negative (Neg,Equiv); Neisseria Source Urine
== END | disposition home or self-care (01) ==
LOC: LABWHC1 09:25
PROVIDERS: ATTEND Internal Medicine Infectious Disease
DX: A74.9 Chlamydial infection, unspecified (principal)
CPT/HCPCS: 87491; 87591

== ENCOUNTER 2018-08-04 20:47 | Emergency (ER) | payer MEDICARE, OTHER ==
[2018-08-04 20:59] VITALS: RESP 18
[2018-08-04] MEDS ORDERED: traMADol 50 MG TAB PO STA ×2 (21:26→23:16)
[2018-08-04] MEDS ORDERED: diphenhydrAMINE 50 MG/ML 1 ML VIAL IVP STA (21:26)
[2018-08-04] MEDS ORDERED: METOCLOPRAMIDE 5 MG/ML 2 ML VIAL IVP STA (21:26)
[2018-08-04] MEDS ORDERED: SODIUM CHLORIDE 0.9% 1,000 ML IV STA (21:26)
--- NOTE | 2018-08-04 22:37 | ED ---
General Adult HPI - General Source: patient, RN notes reviewed, old records reviewed Mode of arrival: ambulatory Limitations: no limitations <Natanael Cole - Last Filed: 08/04/18 23:22> <Dea Wilson - Last Filed: 08/05/18 01:07> - General Chief complaint: Recheck/Abnormal Lab/Rx Stated complaint: Dizzy, head pressure Time Seen by Provider: 08/04/18 21:09 - History of Present Illness Initial comments: 58-year-old female patient with past medical history of hypertension, chronic back pain, migraine headaches presents to ED with headache in occipital lobe waxing and waning for 4 days. Patient reports that this headache is typical the headache she has had in the past. Patient states that she is out of her pain medication, gabapentin, tramadol and will not be refilled for approximately 1 week. Patient states that this that is why she believes she is having a headache right now. Patient denies any trauma to head or neck. Patient denies thunderclap headache, worst headache of life, acute onset. Patient denies any changes in vision. Patient denies any neck stiffness or cervical spinal tenderness. Patient denies nausea vomiting diarrhea fever or chills. Pt denies any chest pain, shortness of breath or abdomial pain. Systemic: Pt denies fatigue, myalgia, fever/chills, rash. Pt denies weakness, night sweats, weight loss. Neuro: Pt denies visual disturbances, syncope or pre-syncope. HEENT: Pt denies ocular discharge or irritation, otalgia, rhinorrhea, pharyngitis or notable lymphadenopathy. Cardiopulmonary: Pt denies chest pain, SOB, heart palpitations, dyspnea on exertion. Abdominal/GI: Pt denies abdominal pain, n/v/d. : Pt denies dysuria, burning w/ urination, frequency/urgency. Denies new onset urinary or bowel incontinence. MSK: Pt denies myalgia, loss of strength or function in extremities. Neuro: Pt denies new onset weakness, paresthesias. (Natanael Cole) - Related Data Home Medications Medication Instructions Recorded Confirmed Albuterol Inhaler [Ventolin Hfa 1 - 2 puff INHALATION RT-Q4H PRN 05/23/18 Inhaler] Budesonide [Pulmicort Flexhaler] 2 puff INHALATION RT-BID 05/23/18 05/23/18 Clotrimazole/Betamethasone Dip 1 applic TOPICAL BID 05/23/18 05/23/18 [Lotrisone Cream] Gabapentin [Neurontin] 400 mg PO TID 05/23/18 05/23/18 Lisinopril [Zestril] 10 mg PO DAILY 05/23/18 05/23/18 Loratadine [Claritin] 10 mg PO DAILY 05/23/18 05/23/18 Nystatin 100,000 Unit/gm Powd 1 applic TOPICAL BID 05/23/18 05/23/18 [Mycostatin Powder] QUEtiapine FUMARATE [SEROquel] 200 mg PO HS 05/23/18 05/23/18 Sertraline [Zoloft] 100 mg PO DAILY 05/23/18 05/23/18 Previous Rx's Medication Instructions Recorded Amoxicillin/Potassium Clav 1 each PO Q12HR #20 tab 05/23/18 [Augmentin 875-125 Tablet] traMADol HCL [Ultram] 50 mg PO Q6HR PRN 3 Days #12 tab 05/23/18 Acetaminophen Tab [Tylenol Tab] 500 mg PO Q6H 5 Days #20 tablet 06/08/18 Cyclobenzaprine [Flexeril] 10 mg PO TID #15 tab 06/22/18 Ibuprofen [Motrin] 600 mg PO Q8HR PRN #30 tab 06/22/18 predniSONE 50 mg PO DAILY #5 tablet 06/22/18 Allergies Allergy/AdvReac Type Severity Reaction Status Date / Time ketorolac [From Toradol] Allergy Unknown Verified 08/04/18 21:00 latex Allergy Itching Verified 08/04/18 21:00 Review of Systems ROS Other: All systems not noted in ROS Statement are negative. <Natanael Cole - Last Filed: 08/04/18 23:22> ROS Other: All systems not noted in ROS Statement are negative. <Dea Wilson - Last Filed: 08/05/18 01:07> ROS Statement: Those systems with pertinent positive or pertinent negative responses have been documented in the HPI. Past Medical History Past Medical History: Hypertension, Liver Disease, Musculoskeletal Disorder, Neurologic Disorder Additional Past Medical History / Comment(s): hep c, back pain, sciatica, neuropathy, History of Any Multi-Drug Resistant Organisms: MRSA Date of last positivie culture/infection: 2006 MDRO Source:: face Past Surgical History: Orthopedic Surgery Additional Past Surgical History / Comment(s): lt ankle, D&C Past Anesthesia/Blood Transfusion Reactions: No Reported Reaction Past Psychological History: Anxiety, Bipolar, Depression, Schizoaffective Disorder, Schizophrenia Smoking Status: Current every day smoker Past Alcohol Use History: Abuse, Daily, Occasional Past Drug Use History: None Reported <Natanael Cole - Last Filed: 08/04/18 23:22> General Exam Limitations: no limitations <Natanael Cole - Last Filed: 08/04/18 23:22> <Dae Wilson - Last Filed: 08/05/18 01:07> - General Exam Comments Initial Comments: Constitutional: NAD, AOX3, Pt has pleasant affect. HEENT: NC/AT, trachea midline, neck supple, no lymphadenopathy. Posterior pharynx non erythematous, without exudates. External ears appear normal, without discharge. Mucous membranes moist. Eyes PERRLA, EOM intact. There is no scleral icterus. No pallor noted. Cardiopulmonary: RRR, no murmurs, rubs or gallops, no JVD noted. Lungs CTAB in anterior and posterior carrillo. No peripheral edema. Abdominal exam: Abdomen soft and non-distended. Abdomen non-tender to palpation in all 4 quadrants. Bowel sounds active in LLQ. No hepatosplenomegaly. No ecchymosis Neuro: CN II-XII intact. No nuchal rigidity. MSK: No posterior calf tenderness bilaterally, homans sign negative bilaterally. Posterior tibialis and radial pulse +2 bilaterally. Sensation intact in upper and lower extremities. Full active ROM in upper and lower extremities, 5/5 stregnth. (Natanael Cole) Vital Signs 08/04/18 08/04/18 20:56 23:22 Temperature 98.8 F 97.6 F Pulse Rate 86 64 Respiratory 18 18 Rate Blood Pressure 142/90 152/95 O2 Sat by Pulse 98 97 Oximetry Medical Decision Making <Natanael Cole - Last Filed: 08/04/18 23:22> <Dea Wilson - Last Filed: 08/05/18 01:07> - Medical Decision Making 58-year-old female patient with past medical history of hypertension, chronic back pain, migraine headaches presents to ED with headache in occipital lobe waxing and waning for 4 days. Patient denies any trauma to head or neck. Patient denies any neck stiffness or cervical spinal tenderness. Pt denies all other complaints. Patient vital signs stable, afebrile. Physical exam displayed no acute pathology. Normal neurologic exam. Headache resolved with administration of IV fluids, Benadryl, tramadol. Patient to follow with primary care provider in 1-2 days. Patient to return to ED if new signs symptoms develop or condition worsens in any way. Case discussed in depth with Dr. Wilson. (Natanael Cole) I was available for consultation in the emergency department. The history and physical exam were done by the midlevel provider. I was consulted for this patient's care. I reviewed the case with the midlevel provider and based on their presentation of the patient, I agree with the assessment, medical decision making and plan of care as documented. (Dea Wilson) Disposition Is patient prescribed a controlled substance at d/c from ED?: No Time of Disposition: 22:57 <Natanael Cole - Last Filed: 08/04/18 23:22> <Dea Wilson - Last Filed: 08/05/18 01:07> Clinical Impression: Headache Disposition: HOME SELF-CARE Condition: Stable Instructions (If sedation given, give patient instructions): Acute Headache (ED ) Additional Instructions: Patient to adhere to previously discussed treatment plan and will take medication(s) as directed. Patient to follow up with PCP in 1-2 days. Patient to return to ED if symptoms do not improve. Referrals: [facility] [Primary Care Provider] - 1-2 days
[2018-08-04 23:23] VITALS: BP 152/95; PULSE 64; TEMP 97.6
== END 2018-08-04 23:23 | disposition home or self-care (01) ==
LOC: EC 20:47
DX: R51 Headache (principal); I10 Essential (primary) hypertension; G62.9 Polyneuropathy, unspecified; F20.9 Schizophrenia, unspecified; F31.9 Bipolar disorder, unspecified; F41.9 Anxiety disorder, unspecified; F17.200 Nicotine dependence, unspecified, uncomplicated; Z88.6 Allergy status to analgesic agent; Z91.040 Latex allergy status; Z79.51 Long term (current) use of inhaled steroids; Z79.52 Long term (current) use of systemic steroids; Z79.899 Other long term (current) drug therapy; Z86.14 Personal history of Methicillin resistant Staphylococcus aureus infection
CPT/HCPCS: 99284; 96374; 96375; 96361; J1200; J2765

== ENCOUNTER 2018-08-22 11:18 | Emergency (ER) | payer MEDICARE, OTHER ==
[2018-08-22] MEDS ORDERED: DEXAMETHASONE SOD PHOSPHATE 10 MG/ML 1 ML VIAL IM STA (12:28)
[2018-08-22] MEDS ORDERED: Acetaminophen-Codeine 300-30mg TAB PO STA (12:28)
[2018-08-22] MEDS ORDERED: ACET/COD 300 MG/30 MG STARTER PACK 6 TAB BTL PO STA (12:28)
[2018-08-22 12:32] LABS: Amorphous Sediment,Urine Occasional /hpf; Appearance,Urine Cloudy (Clear); Bacteria,Urine Rare /hpf; Bilirubin,Urine Negative (Negative); Blood,Urine Negative (Negative); Color,Urine Yellow; Glucose,Urine (UA) Negative (Negative); Ketones,Urine Negative (Negative); Leukocyte Esterase,Urine Large (Negative); Mucus,Urine Occasional /hpf; Nitrite,Urine Negative (Negative); Protein,Urine Trace (Negative); RBC,Urine 2 /hpf (0-5); Squamous Epithelial Cell,Urine 10 /hpf (0-4); Urobilinogen,Urine <2.0 mg/dL (<2.0); WBC,Urine 8 /hpf (0-5)
[2018-08-22] MEDS ORDERED: cefTRIAXone 250 MG VIAL IM STA (13:23)
[2018-08-22] MEDS ORDERED: metroNIDAZOLE 500 MG TAB PO STA (13:23)
[2018-08-22] MEDS ORDERED: AZITHROMYCIN 500 MG TAB PO STA (13:23)
--- NOTE | 2018-08-22 13:23 | ED ---
Female Urogenital HPI - General Chief complaint: Urogenital Stated complaint: Pinched nerve Time Seen by Provider: 08/22/18 11:53 Source: patient, RN notes reviewed, old records reviewed Mode of arrival: ambulatory Limitations: no limitations - History of Present Illness Initial comments: This is a 58-year-old female the ER for evaluation with dysuria think she has STI STD. Patient also complaining of back pain history of chronic back pain. States she is having trouble seeing a pain management doctor. Patient has had multiple recent falls, or falls are always mechanical in nature she said most recently she did fall on the ice on her back to land on her back. No current fevers. Denies any nausea vomiting. Denies any recent IV drug abuse. No loss of bowel or bladder incontinence. No neurological complaints MD Complaint: dysuria, possible STD -: days(s) Location: suprapubic Radiation: suprapubic Severity: mild Severity scale (1-10): 2 Quality: cramping, aching Consistency: constant Improves with: none Worsens with: urination Patient : No Associated Symptoms: other (Back pain) - Related Data Home Medications Medication Instructions Recorded Confirmed Albuterol Inhaler [Ventolin Hfa 1 - 2 puff INHALATION RT-Q4H PRN 05/23/18 Inhaler] Budesonide [Pulmicort Flexhaler] 2 puff INHALATION RT-BID 05/23/18 05/23/18 Clotrimazole/Betamethasone Dip 1 applic TOPICAL BID 05/23/18 05/23/18 [Lotrisone Cream] Gabapentin [Neurontin] 400 mg PO TID 05/23/18 05/23/18 Lisinopril [Zestril] 10 mg PO DAILY 05/23/18 05/23/18 Loratadine [Claritin] 10 mg PO DAILY 05/23/18 05/23/18 Nystatin 100,000 Unit/gm Powd 1 applic TOPICAL BID 05/23/18 05/23/18 [Mycostatin Powder] QUEtiapine FUMARATE [SEROquel] 200 mg PO HS 05/23/18 05/23/18 Sertraline [Zoloft] 100 mg PO DAILY 05/23/18 05/23/18 Previous Rx's Medication Instructions Recorded Amoxicillin/Potassium Clav 1 each PO Q12HR #20 tab 05/23/18 [Augmentin 875-125 Tablet] traMADol HCL [Ultram] 50 mg PO Q6HR PRN 3 Days #12 tab 05/23/18 Acetaminophen Tab [Tylenol Tab] 500 mg PO Q6H 5 Days #20 tablet 06/08/18 Cyclobenzaprine [Flexeril] 10 mg PO TID #15 tab 06/22/18 Ibuprofen [Motrin] 600 mg PO Q8HR PRN #30 tab 06/22/18 predniSONE 50 mg PO DAILY #5 tablet 06/22/18 Allergies Allergy/AdvReac Type Severity Reaction Status Date / Time ketorolac [From Toradol] Allergy Unknown Verified 08/04/18 21:00 latex Allergy Itching Verified 08/04/18 21:00 Review of Systems ROS Statement: Those systems with pertinent positive or pertinent negative responses have been documented in the HPI. ROS Other: All systems not noted in ROS Statement are negative. Past Medical History Past Medical History: Hypertension, Liver Disease, Musculoskeletal Disorder, Neurologic Disorder Additional Past Medical History / Comment(s): hep c, back pain, sciatica, neuropathy, History of Any Multi-Drug Resistant Organisms: MRSA Date of last positivie culture/infection: 2006 MDRO Source:: face Past Surgical History: Orthopedic Surgery Additional Past Surgical History / Comment(s): lt ankle, D&C Past Anesthesia/Blood Transfusion Reactions: No Reported Reaction Past Psychological History: Anxiety, Bipolar, Depression, Schizoaffective Disorder, Schizophrenia Smoking Status: Current every day smoker Past Alcohol Use History: Abuse, Daily, Occasional Past Drug Use History: None Reported General Exam Limitations: no limitations General appearance: alert, in no apparent distress Head exam: Present: atraumatic, normocephalic, normal inspection Eye exam: Present: normal appearance, PERRL, EOMI. Absent: scleral icterus, conjunctival injection, periorbital swelling ENT exam: Present: normal exam, mucous membranes moist Neck exam: Present: normal inspection. Absent: tenderness, meningismus, lymphadenopathy Respiratory exam: Present: normal lung sounds bilaterally. Absent: respiratory distress, wheezes, rales, rhonchi, stridor Cardiovascular Exam: Present: regular rate, normal rhythm, normal heart sounds. Absent: systolic murmur, diastolic murmur, rubs, gallop, clicks GI/Abdominal exam: Present: soft, normal bowel sounds. Absent: distended, tenderness, guarding, rebound, rigid Extremities exam: Present: normal inspection, full ROM, normal capillary refill. Absent: tenderness, pedal edema, joint swelling, calf tenderness Back exam: Present: normal inspection Neurological exam: Present: alert, oriented X3, CN II-XII intact Psychiatric exam: Present: normal affect, normal mood Skin exam: Present: warm, dry, intact, normal color. Absent: rash Course Vital Signs 08/22/18 11:40 Temperature 98.4 F Pulse Rate 71 Respiratory 16 Rate Blood Pressure 148/71 O2 Sat by Pulse 97 Oximetry - Reevaluation(s) Reevaluation #1: 08/22/18 13:22 Medical records reviewed, patient well-known to this facility for multiple ER visits Reevaluation #2: 08/22/18 13:22 Patient has pain control currently Medical Decision Making - Medical Decision Making 58 female the ER for evaluation. Patient does have x-ray today which is negative. Urine does show possibility of UTI, we'll treat with antibiotics. Patient can be discharged home - Lab Data Lab Results 08/22/18 Range/Units 12:12 Urine Color Yellow Urine Appearance Cloudy H (Clear) Urine pH 7.0 (5.0-8.0) Ur Specific [place] 1.020 (1.001-1.035) Urine Protein Trace H (Negative) Urine Glucose (UA) Negative (Negative) Urine Ketones Negative (Negative) Urine Blood Negative (Negative) Urine Nitrite Negative (Negative) Urine Bilirubin Negative (Negative) Urine Urobilinogen <2.0 (<2.0) mg/dL Ur Leukocyte Esterase Large H (Negative) Urine RBC 2 (0-5) /hpf Urine WBC 8 H (0-5) /hpf Ur Squamous Epith Cells 10 H (0-4) /hpf Amorphous Sediment Occasional H (None) /hpf Urine Bacteria Rare H (None) /hpf Urine Mucus Occasional H (None) /hpf - Radiology Data Radiology results: report reviewed (X-ray LS-spine is negative for acute disease ), image reviewed Disposition Clinical Impression: Chronic back pain, Urinary tract infection, Vaginal Discharge Disposition: HOME SELF-CARE Condition: Good Instructions (If sedation given, give patient instructions): Urinary Tract Infection in Women (ED), Acute Low Back Pain (ED) Is patient prescribed a controlled substance at d/c from ED?: No Referrals: [facility] [Primary Care Provider] - 1-2 days
--- NOTE | 2018-08-22 14:04 | XR ---
EXAMINATION TYPE: XR lumbar spine 2 or 3V DATE OF EXAM: 08/22/2018 COMPARISON: 04/20/2018 HISTORY: Chronic low back pain TECHNIQUE: Three-view lumbar spine FINDINGS: There 5 lumbar-type vertebral bodies. The pedicles are intact. Mild posterior degenerative disc height loss is present L3-4 L4-5 and diffusely through L5-S1. Vertebral body heights are preserv ed. Vascular calcification is within the aorta. IMPRESSION: 1. Mild degenerative disc changes lower lumbar spine.
[2018-08-22 14:09] VITALS: BP 128/87; PULSE 67; RESP 18; TEMP 98.1
[2018-08-24 10:35] LABS: C. trachomatis,PCR Negative (Neg,Equiv); Chlamydia trachomatis Source Urine
[2018-08-24 15:58] LABS: N. gonorrhoeae,PCR Negative (Neg,Equiv); Neisseria Source Urine
== END 2018-08-22 14:08 | disposition home or self-care (01) ==
LOC: EC 11:18
DX: N39.0 Urinary tract infection, site not specified (principal); N89.8 Other specified noninflammatory disorders of vagina; G89.29 Other chronic pain; M54.9 Dorsalgia, unspecified; I10 Essential (primary) hypertension; G62.9 Polyneuropathy, unspecified; F31.9 Bipolar disorder, unspecified; F20.9 Schizophrenia, unspecified; F17.200 Nicotine dependence, unspecified, uncomplicated; Z79.51 Long term (current) use of inhaled steroids; Z79.899 Other long term (current) drug therapy; Z91.040 Latex allergy status; Z88.6 Allergy status to analgesic agent; W00.0XXA Fall on same level due to ice and snow, initial encounter
CPT/HCPCS: 81001; 87491; 87591; 87086; 72100; 99284; 96372 ×2; J1100; J0696

== ENCOUNTER 2018-10-09 13:01 | Emergency (ER) | payer MEDICARE, OTHER ==
[2018-10-09 13:42] LABS: Appearance,Urine Cloudy (Clear); Bacteria,Urine Rare /hpf; Bilirubin,Urine Negative (Negative); Blood,Urine Negative (Negative); Color,Urine Yellow; Glucose,Urine (UA) Negative (Negative); Ketones,Urine Negative (Negative); Leukocyte Esterase,Urine Moderate (Negative); Mucus,Urine Moderate /hpf; Nitrite,Urine Negative (Negative); PH, Urine 5.5 (5.0-8.0); Protein,Urine Trace (Negative); Specific Gravity,Urine 1.025 (1.001-1.035); Squamous Epithelial Cell,Urine 7 /hpf (0-4)
[2018-10-09] MEDS ORDERED: cefTRIAXone 1,000 MG VIAL (IM USE) IM STA (13:48)
[2018-10-09] MEDS ORDERED: traMADol 50 MG TAB PO STA (13:51)
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
--- NOTE | 2018-10-09 14:44 | XR ---
EXAMINATION TYPE: XR lumbar spine 2 or 3V DATE OF EXAM: 10/09/2018 COMPARISON: 08/22/2018 HISTORY: Back pain TECHNIQUE: 3 views FINDINGS: Vertebra have normal alignment. Posterior elements are intact. Abdominal aorta is atheromat ous. Sacroiliac joints appear intact. There is no compression fracture. There is minor spurring of the endplates. IMPRESSION: Minor degenerative disc changes. No fracture. No change compared to old exam.
[2018-10-09] MEDS ORDERED: AZITHROMYCIN 500 MG TAB PO STA (14:50)
[2018-10-09 15:07] VITALS: BP 141/70; PULSE 78; RESP 16; TEMP 97.6
== END 2018-10-09 15:06 | disposition home or self-care (01) ==
LOC: EC 13:01
DX: M54.5 Low back pain (principal); N39.0 Urinary tract infection, site not specified; G89.29 Other chronic pain; I10 Essential (primary) hypertension; G62.9 Polyneuropathy, unspecified; F41.9 Anxiety disorder, unspecified; F25.0 Schizoaffective disorder, bipolar type; F25.1 Schizoaffective disorder, depressive type; F17.200 Nicotine dependence, unspecified, uncomplicated; Z87.39 Personal history of other diseases of the musculoskeletal system and connective tissue; Z86.14 Personal history of Methicillin resistant Staphylococcus aureus infection; Z79.51 Long term (current) use of inhaled steroids; Z79.899 Other long term (current) drug therapy; Z88.6 Allergy status to analgesic agent; Z91.040 Latex allergy status; W50.1XXA Accidental kick by another person, initial encounter
CPT/HCPCS: 81001; 72100; 99284; 96372; J0696

== ENCOUNTER 2018-11-19 11:44 | Emergency (ER) | payer MEDICARE, OTHER ==
[2018-11-19 12:00] VITALS: RESP 18; TEMP 98.8
[2018-11-19] MEDS ORDERED: ONDANSETRON ODT 4 MG TAB PO STA (12:19)
[2018-11-19] MEDS ORDERED: ACETAMINOPHEN TAB 325 MG TAB PO STA (12:20)
--- NOTE | 2018-11-19 12:36 | ED ---
Female Urogenital HPI - General Chief complaint: Urogenital Stated complaint: Brown to urinate Time Seen by Provider: 11/19/18 12:02 Source: patient Mode of arrival: ambulatory Limitations: no limitations - History of Present Illness Initial comments: Patient is a 58-year-old female presents emergency department with vaginal irritation. Patient reports she was at the [facility] 2 weeks ago for similar symptoms and was prescribed Keflex for 10 days. Patient reports the symptoms have not improved in after finishing the antibiotic course. Patient reports but a great vaginal discharge with a "fishy" odor. Patient also reports irritation during urination. Patient also reports increased frequency and urgency as well as incomplete emptying. Patient reports mild suprapubic pain. Patient denies a fever, or CVA tenderness. Patient does report unprotected sex and is concerned about STIs. - Related Data Home Medications Medication Instructions Recorded Confirmed Albuterol Inhaler [Ventolin Hfa 1 - 2 puff INHALATION RT-Q4H PRN 05/23/18 05/23/18 Inhaler] Budesonide [Pulmicort Flexhaler] 2 puff INHALATION RT-BID 05/23/18 05/23/18 Clotrimazole/Betamethasone Dip 1 applic TOPICAL BID 05/23/18 05/23/18 [Lotrisone Cream] Gabapentin [Neurontin] 400 mg PO TID 05/23/18 05/23/18 Lisinopril [Zestril] 10 mg PO DAILY 05/23/18 05/23/18 Loratadine [Claritin] 10 mg PO DAILY 05/23/18 05/23/18 Nystatin 100,000 Unit/gm Powd 1 applic TOPICAL BID 05/23/18 05/23/18 [Mycostatin Powder] QUEtiapine FUMARATE [SEROquel] 200 mg PO HS 05/23/18 05/23/18 Sertraline [Zoloft] 100 mg PO DAILY 05/23/18 05/23/18 Previous Rx's Medication Instructions Recorded Amoxicillin/Potassium Clav 1 each PO Q12HR #20 tab 05/23/18 [Augmentin 875-125 Tablet] traMADol HCL [Ultram] 50 mg PO Q6HR PRN 3 Days #12 tab 05/23/18 Acetaminophen Tab [Tylenol Tab] 500 mg PO Q6H 5 Days #20 tablet 12/11/18 Cyclobenzaprine [Flexeril] 10 mg PO TID #15 tab 06/22/18 Ibuprofen [Motrin] 600 mg PO Q8HR PRN #30 tab 06/22/18 predniSONE 50 mg PO DAILY #5 tablet 06/22/18 Cephalexin [Keflex] 500 mg PO Q12HR 10 Days cap 10/09/18 predniSONE 50 mg PO DAILY #5 tab 10/09/18 metroNIDAZOLE [Flagyl] 500 mg PO BID #14 tab 11/19/18 Allergies Allergy/AdvReac Type Severity Reaction Status Date / Time ketorolac [From Toradol] Allergy Unknown Verified 10/09/18 13:11 latex Allergy Itching Verified 10/09/18 13:11 Review of Systems ROS Statement: Those systems with pertinent positive or pertinent negative responses have been documented in the HPI. ROS Other: All systems not noted in ROS Statement are negative. Past Medical History Past Medical History: Hypertension, Liver Disease, Musculoskeletal Disorder, Neurologic Disorder Additional Past Medical History / Comment(s): hep c, back pain, sciatica, neuropathy, History of Any Multi-Drug Resistant Organisms: MRSA Date of last positivie culture/infection: 2006 MDRO Source:: face Past Surgical History: Orthopedic Surgery Additional Past Surgical History / Comment(s): lt ankle, D&C Past Anesthesia/Blood Transfusion Reactions: No Reported Reaction Past Psychological History: Anxiety, Bipolar, Depression, Schizoaffective Disorder, Schizophrenia Smoking Status: Current every day smoker Past Alcohol Use History: Abuse, Daily, Occasional Past Drug Use History: None Reported General Exam Limitations: no limitations General appearance: alert, in no apparent distress Head exam: Present: atraumatic, normocephalic, normal inspection Eye exam: Present: normal appearance. Absent: scleral icterus, conjunctival injection Neck exam: Present: normal inspection Respiratory exam: Present: wheezes (Smoker's wheeze) Cardiovascular Exam: Present: regular rate GI/Abdominal exam: Present: soft, tenderness (Mild suprapubic) Speculum exam: Present: erythema, vaginal discharge (thin white discharge). Absent: vaginal bleeding, foreign body Back exam: Present: normal inspection. Absent: tenderness, CVA tenderness (R), CVA tenderness (L) Neurological exam: Present: alert, oriented X3 Psychiatric exam: Present: normal affect, normal mood Skin exam: Present: warm Course Vital Signs 11/19/18 11:58 Temperature 98.8 F Pulse Rate 78 Respiratory 18 Rate Blood Pressure 121/71 O2 Sat by Pulse 97 Oximetry Medical Decision Making - Medical Decision Making Patient is a 58-year-old female presenting to emergency Department with vaginal irritation. Based on physical examination I suspect the patient to have bacterial vaginosis and I will treat her with a 7 a course of Flagyl. Also patient was concerned for STIs's ongoing treat prophylactically for gonorrhea and chlamydia. I sent gonorrhea and chlamydia cultures, as well as Trichomonas. Patient advised to follow-up primary care. Patient advised to return to emergency department if symptoms worsen. Case discussed with physician. - Lab Data Lab Results 11/19/18 11/19/18 Range/Units 12:35 12:35 Urine Color Yellow Urine Appearance Cloudy H (Clear) Urine pH 6.0 (5.0-8.0) Ur Specific [place] 1.022 (1.001-1.035) Urine Protein 1+ H (Negative) Urine Glucose (UA) Negative (Negative) Urine Ketones Negative (Negative) Urine Blood Small H (Negative) Urine Nitrite Negative (Negative) Urine Bilirubin Negative (Negative) Urine Urobilinogen <2.0 (<2.0) mg/dL Ur Leukocyte Esterase Large H (Negative) Urine RBC 102 H (0-5) /hpf Urine WBC >182 H (0-5) /hpf Ur Squamous Epith Cells 2 (0-4) /hpf Urine Bacteria Occasional H (None) /hpf Urine Mucus Many H (None) /hpf Urine HCG, Qual Not Detected (Not Detectd) Disposition Clinical Impression: Bacterial vaginosis Disposition: HOME SELF-CARE Condition: Stable Instructions (If sedation given, give patient instructions): Urinary Tract Infection in Women (ED) Additional Instructions: Please take prescribed medication as directed. Please return to the emergency department if symptoms worsen. please follow up with primary care. Prescriptions: metroNIDAZOLE [Flagyl] 500 mg PO BID #14 tab Is patient prescribed a controlled substance at d/c from ED?: No Referrals: [facility] [Primary Care Provider] - 1-2 days Time of Disposition: 13:36
[2018-11-19 12:49] LABS: Appearance,Urine Cloudy (Clear); Bacteria,Urine Occasional /hpf; Bilirubin,Urine Negative (Negative); Blood,Urine Small (Negative); Color,Urine Yellow; Glucose,Urine (UA) Negative (Negative); Ketones,Urine Negative (Negative); Leukocyte Esterase,Urine Large (Negative); Mucus,Urine Many /hpf; Nitrite,Urine Negative (Negative); Protein,Urine 1+ (Negative); RBC,Urine 102 /hpf (0-5); Specific Gravity,Urine 1.022 (1.001-1.035); Squamous Epithelial Cell,Urine 2 /hpf (0-4); Urobilinogen,Urine <2.0 mg/dL (<2.0); WBC,Urine >182 /hpf (0-5)
[2018-11-19] MEDS ORDERED: cefTRIAXone 250 MG VIAL IM STA (13:10)
[2018-11-19] MEDS ORDERED: AZITHROMYCIN 250 MG TAB PO STA (13:10)
[2018-11-19 13:57] VITALS: BP 145/78; PULSE 81
[2018-11-21 14:23] LABS: C. trachomatis,PCR Negative (Neg,Equiv); Chlamydia trachomatis Source Vagina
[2018-11-21 14:29] LABS: N. gonorrhoeae,PCR Negative (Neg,Equiv); Neisseria Source Vagina
== END 2018-11-19 13:56 | disposition home or self-care (01) ==
LOC: EC 11:44
DX: N76.0 Acute vaginitis (principal); R35.0 Frequency of micturition; R10.9 Unspecified abdominal pain; I10 Essential (primary) hypertension; G62.9 Polyneuropathy, unspecified; F31.9 Bipolar disorder, unspecified; F20.9 Schizophrenia, unspecified; F41.9 Anxiety disorder, unspecified; F17.200 Nicotine dependence, unspecified, uncomplicated; Z86.19 Personal history of other infectious and parasitic diseases; Z86.14 Personal history of Methicillin resistant Staphylococcus aureus infection; Z79.51 Long term (current) use of inhaled steroids; Z79.899 Other long term (current) drug therapy; Z88.6 Allergy status to analgesic agent; Z91.040 Latex allergy status
CPT/HCPCS: 81001; 81025; 87808; 87491; 87591; 87070; 87205; 99283; 96372; J0696

== ENCOUNTER 2018-12-31 04:09 | Emergency (ER) | payer MEDICARE, OTHER ==
[2018-12-31] MEDS ORDERED: predniSONE 20 MG TAB PO STA (04:28)
[2018-12-31] MEDS ORDERED: DIAZEPAM 5 MG/ML 2 ML INJ IM ONE (04:28)
--- NOTE | 2018-12-31 05:03 | CT ---
EXAM: CT Head Without Intravenous Contrast CLINICAL HISTORY: Pain. TECHNIQUE: Axial computed tomography images of the head/brain without intravenous contrast. Coronal and sagittal reformations provided. CTDI is 49.27 mGy and DLP is 1070.4 mGy-cm. This CT exam was performed using one or more of the following dose reduction techniques: automated exposure control, adjustment of the mA and/or kV according to patient size, and/or use of iterative reconstruction technique. COMPARISON: CT dated 06/26/2018. FINDINGS: Brain: No evidence of acute infarct.. No acute intracranial hemorrhage. No significant white matter disease. No edema. No mass effect or midline shift. Ventricles: Unremarkable. No ventriculomegaly. Bones/joints: Unremarkable. No acute fracture. Soft tissues: Unremarkable. Sinuses: Opacity in a single small right posterior ethmoid air cell. Mild mucosal thickening in maxillary sinuses. Paranasal sinuses otherwise clear. Mastoid air cells: Unremarkable as visualized. No mastoid effusion. IMPRESSION: No evidence of acute intracranial abnormality.
--- NOTE | 2018-12-31 06:16 | ED ---
Back Pain [facility] - General Chief Complaint: Back Pain/Injury Stated Complaint: Lower Back Pain Time Seen by Provider: 12/31/18 04:28 Source: patient, family Limitations: no limitations - History of Present Illness Initial Comments: This patient is a 58-year-old woman with history of chronic sciatic type back pain. Patient states that over the past few days this is been flaring up, resulting in it being moderately severe tonight. In addition she has not been able sleep well. Patient states that her primary physician had recently stopped a number of her medications, including tramadol and gabapentin that she had been taking for this condition. MD Complaint: back pain -: days(s) Similar Symptoms Previously: Yes Place: home Severity: moderate Quality: burning, aching Consistency: constant Improves With: immobilization Worsens With: movement - Related Data Home Medications Medication Instructions Recorded Confirmed Albuterol Inhaler [Ventolin Hfa 1 - 2 puff INHALATION RT-Q4H PRN 05/23/18 05/23/18 Inhaler] Budesonide [Pulmicort Flexhaler] 2 puff INHALATION RT-BID 05/23/18 05/23/18 Clotrimazole/Betamethasone Dip 1 applic TOPICAL BID 05/23/18 05/23/18 [Lotrisone Cream] Gabapentin [Neurontin] 400 mg PO TID 05/23/18 05/23/18 Lisinopril [Zestril] 10 mg PO DAILY 05/23/18 05/23/18 Loratadine [Claritin] 10 mg PO DAILY 05/23/18 05/23/18 Nystatin 100,000 Unit/gm Powd 1 applic TOPICAL BID 05/23/18 05/23/18 [Mycostatin Powder] QUEtiapine FUMARATE [SEROquel] 200 mg PO HS 05/23/18 05/23/18 Sertraline [Zoloft] 100 mg PO DAILY 05/23/18 05/23/18 Previous Rx's Medication Instructions Recorded Amoxicillin/Potassium Clav 1 each PO Q12HR #20 tab 05/23/18 [Augmentin 875-125 Tablet] traMADol HCL [Ultram] 50 mg PO Q6HR PRN 3 Days #12 tab 05/23/18 Acetaminophen Tab [Tylenol Tab] 500 mg PO Q6H 5 Days #20 tablet 06/08/18 Cyclobenzaprine [Flexeril] 10 mg PO TID #15 tab 06/22/18 Ibuprofen [Motrin] 600 mg PO Q8HR PRN #30 tab 06/22/18 predniSONE 50 mg PO DAILY #5 tablet 06/22/18 Cephalexin [Keflex] 500 mg PO Q12HR 10 Days cap 10/09/18 predniSONE 50 mg PO DAILY #5 tab 10/09/18 metroNIDAZOLE [Flagyl] 500 mg PO BID #14 tab 11/19/18 Gabapentin [Neurontin] 300 mg PO TID #21 cap 12/31/18 predniSONE 20 mg PO BID #8 tab 12/31/18 Allergies Allergy/AdvReac Type Severity Reaction Status Date / Time ketorolac [From Toradol] Allergy Unknown Verified 12/31/18 04:14 latex Allergy Itching Verified 12/31/18 04:14 Review of Systems ROS Statement: Those systems with pertinent positive or pertinent negative responses have been documented in the HPI. ROS Other: All systems not noted in ROS Statement are negative. Constitutional: Denies: fever, chills Respiratory: Denies: cough, dyspnea Cardiovascular: Denies: chest pain, palpitations, edema Gastrointestinal: Denies: abdominal pain, nausea, vomiting Genitourinary: Denies: dysuria, hematuria Musculoskeletal: Reports: as per HPI, back pain Skin: Denies: rash Neurological: Denies: headache, weakness, numbness Psychiatric: Reports: anxiety. Denies: depression, homicidal thoughts, suicidal thoughts Past Medical History Past Medical History: Hypertension, Liver Disease, Musculoskeletal Disorder, Neurologic Disorder Additional Past Medical History / Comment(s): hep c, back pain, sciatica, neuropathy, History of Any Multi-Drug Resistant Organisms: MRSA Date of last positivie culture/infection: 2006 MDRO Source:: face Past Surgical History: Orthopedic Surgery Additional Past Surgical History / Comment(s): lt ankle, D&C Past Anesthesia/Blood Transfusion Reactions: No Reported Reaction Past Psychological History: Anxiety, Bipolar, Depression, Schizoaffective Disorder, Schizophrenia Smoking Status: Current every day smoker Past Alcohol Use History: Abuse, Daily, Occasional Past Drug Use History: None Reported General Exam Limitations: no limitations General appearance: alert, in no apparent distress, anxious Head exam: Present: atraumatic, normocephalic Eye exam: Present: normal appearance. Absent: scleral icterus, conjunctival injection ENT exam: Present: normal oropharynx Neck exam: Present: normal inspection, full ROM Respiratory exam: Present: normal lung sounds bilaterally. Absent: respiratory distress, wheezes, rales, rhonchi, stridor Cardiovascular Exam: Present: regular rate, normal rhythm, normal heart sounds. Absent: systolic murmur, diastolic murmur, rubs, gallop GI/Abdominal exam: Present: soft. Absent: distended, tenderness, guarding, rebound, rigid, mass Extremities exam: Present: normal inspection, normal capillary refill. Absent: pedal edema, calf tenderness Back exam: Present: normal inspection. Absent: CVA tenderness (R), CVA tenderness (L), paraspinal tenderness, vertebral tenderness Neurological exam: Present: alert, reflexes normal. Absent: motor sensory deficit Psychiatric exam: Present: anxious. Absent: homicidal ideation, suicidal ideation Skin exam: Present: warm, dry, intact, normal color. Absent: rash Course Vital Signs 12/31/18 12/31/18 04:10 06:25 Temperature 98.2 F 98.0 F Pulse Rate 58 L 70 Respiratory 20 18 Rate Blood Pressure 127/83 107/77 O2 Sat by Pulse 99 98 Oximetry Medical Decision Making - Medical Decision Making Patient is a 58-year-old woman presenting with exacerbation of chronic back pain. The patient also had a little bit of anxiety and I suspect that this pertains to stopping tramadol and gabapentin that she had been on for years. Given the symptoms, patient has received analgesia here which is helping a bit. Will also give a course of steroids and put the patient back briefly on gabapentin though at a lower dose to help to minimize withdrawal type symptoms. Patient to follow-up. Discussed return parameters Disposition Clinical Impression: Chronic back pain Disposition: HOME SELF-CARE Condition: Good Instructions (If sedation given, give patient instructions): Chronic Back Pain (DC) Prescriptions: Gabapentin [Neurontin] 300 mg PO TID #21 cap predniSONE 20 mg PO BID #8 tab Is patient prescribed a controlled substance at d/c from ED?: No Referrals: [facility] [Primary Care Provider] - 1-2 days
[2018-12-31 06:26] VITALS: BP 107/77; PULSE 70; RESP 18; TEMP 98
== END 2018-12-31 06:43 | disposition home or self-care (01) ==
LOC: EC 04:09
DX: M54.5 Low back pain (principal); G89.29 Other chronic pain; I10 Essential (primary) hypertension; F41.9 Anxiety disorder, unspecified; G62.9 Polyneuropathy, unspecified; F32.9 Major depressive disorder, single episode, unspecified; F20.9 Schizophrenia, unspecified; F17.200 Nicotine dependence, unspecified, uncomplicated; Z79.51 Long term (current) use of inhaled steroids; Z79.899 Other long term (current) drug therapy; Z88.6 Allergy status to analgesic agent; Z91.040 Latex allergy status; Z86.19 Personal history of other infectious and parasitic diseases; Z86.14 Personal history of Methicillin resistant Staphylococcus aureus infection
CPT/HCPCS: 99283; 96372; 70450; J3360; J7512

== ENCOUNTER 2019-01-20 19:59 | Emergency (ER) | payer MEDICARE, OTHER ==
[2019-01-20 20:06] VITALS: RESP 16; TEMP 98.3
[2019-01-20] MEDS ORDERED: traMADol 50 MG TAB PO STA (20:35)
[2019-01-20] MEDS ORDERED: diphenhydrAMINE 50 MG CAP PO STA (20:37)
[2019-01-20] MEDS ORDERED: ONDANSETRON ODT 4 MG TAB PO STA (20:39)
[2019-01-20 21:17] LABS: Appearance,Urine Clear (Clear); Bacteria,Urine Rare /hpf; Bilirubin,Urine Negative (Negative); Blood,Urine Negative (Negative); Color,Urine Yellow; Glucose,Urine (UA) Negative (Negative); Ketones,Urine Negative (Negative); Leukocyte Esterase,Urine Moderate (Negative); Mucus,Urine Occasional /hpf; Nitrite,Urine Negative (Negative); PH, Urine 5.5 (5.0-8.0); Protein,Urine Trace (Negative); Specific Gravity,Urine 1.029 (1.001-1.035); Squamous Epithelial Cell,Urine 5 /hpf (0-4); Urobilinogen,Urine <2.0 mg/dL (<2.0); WBC,Urine 6 /hpf (0-5)
[2019-01-20] MEDS ORDERED: ACETAMINOPHEN TAB 500 MG TAB PO STA (22:13)
[2019-01-20] MEDS ORDERED: cefTRIAXone 1,000 MG VIAL (IM USE) IM STA (22:13)
--- NOTE | 2019-01-20 22:46 | ED ---
General Adult HPI - General Chief complaint: Recheck/Abnormal Lab/Rx Stated complaint: Allergic reaction Time Seen by Provider: 01/20/19 20:07 Source: patient Mode of arrival: ambulatory Limitations: no limitations - History of Present Illness Initial comments: Patient is a 58-year-old female presenting to emergency department with multiple chief complaints. Patient reports chronic left hip pain that has exacerbated over the last 2-3 weeks. Patient reports the pain is exacerbated with ambulation and she is using a crutch for it. Patient states that she is using Neurontin and tramadol to control the pain and hip. Patient also reports a left-sided headache. Patient does report a history of chronic headaches. Patient reports dysuria but denies urgency or frequency. Patient also states that she has developed vaginal discharge with foul odor. Patient is concerned for STDs due to unprotected sex. Patient has not seen a casting wheel operator for an extended period of time. Patient also reports pruritus in bilateral eyes but denies any discharge or conjunctival injections. Patient reports a "popping"sensation in bilateral ears. Patient also reports exposure to multiple "bugs" which is causing her itching. Patient reports she is homeless and [facility]. Patient denies chest pain, chest tightness, shortness of breath, fever, abdominal pain, back pain, nausea or vomiting. Patient is a smoker. - Related Data Home Medications Medication Instructions Recorded Confirmed Albuterol Inhaler [Ventolin Hfa 1 - 2 puff INHALATION RT-Q4H PRN 05/23/18 05/23/18 Inhaler] Budesonide [Pulmicort Flexhaler] 2 puff INHALATION RT-BID 05/23/18 05/23/18 Clotrimazole/Betamethasone Dip 1 applic TOPICAL BID 05/23/18 05/23/18 [Lotrisone Cream] Gabapentin [Neurontin] 400 mg PO TID 05/23/18 05/23/18 Lisinopril [Zestril] 10 mg PO DAILY 05/23/18 05/23/18 Loratadine [Claritin] 10 mg PO DAILY 05/23/18 05/23/18 Nystatin 100,000 Unit/gm Powd 1 applic TOPICAL BID 05/23/18 05/23/18 [Mycostatin Powder] QUEtiapine FUMARATE [SEROquel] 200 mg PO HS 05/23/18 05/23/18 Sertraline [Zoloft] 100 mg PO DAILY 05/23/18 05/23/18 Previous Rx's Medication Instructions Recorded Amoxicillin/Potassium Clav 1 each PO Q12HR #20 tab 05/23/18 [Augmentin 875-125 Tablet] traMADol HCL [Ultram] 50 mg PO Q6HR PRN 3 Days #12 tab 05/23/18 Acetaminophen Tab [Tylenol Tab] 500 mg PO Q6H 5 Days #20 tablet 06/08/18 Cyclobenzaprine [Flexeril] 10 mg PO TID #15 tab 06/22/18 Ibuprofen [Motrin] 600 mg PO Q8HR PRN #30 tab 06/22/18 predniSONE 50 mg PO DAILY #5 tablet 06/22/18 Cephalexin [Keflex] 500 mg PO Q12HR 10 Days cap 10/09/18 predniSONE 50 mg PO DAILY #5 tab 10/09/18 metroNIDAZOLE [Flagyl] 500 mg PO BID #14 tab 11/19/18 Gabapentin [Neurontin] 300 mg PO TID #21 cap 12/31/18 predniSONE 20 mg PO BID #8 tab 12/31/18 Cetirizine HCl [Zyrtec] 10 mg PO DAILY #30 tab 01/20/19 Ketotifen 0.025% Ophth Soln 1 drop BOTH EYES BID #1 bottle 01/20/19 [Zaditor] metroNIDAZOLE [Flagyl] 500 mg PO TID #30 tab 01/20/19 Allergies Allergy/AdvReac Type Severity Reaction Status Date / Time ketorolac [From Toradol] Allergy Unknown Verified 01/20/19 20:00 latex Allergy Itching Verified 01/20/19 20:00 Review of Systems ROS Statement: Those systems with pertinent positive or pertinent negative responses have been documented in the HPI. ROS Other: All systems not noted in ROS Statement are negative. Past Medical History Past Medical History: Hypertension, Liver Disease, Musculoskeletal Disorder, Neurologic Disorder Additional Past Medical History / Comment(s): hep c, back pain, sciatica, neuropathy, History of Any Multi-Drug Resistant Organisms: MRSA Date of last positivie culture/infection: 2006 MDRO Source:: face Past Surgical History: Orthopedic Surgery Additional Past Surgical History / Comment(s): lt ankle, D&C Past Anesthesia/Blood Transfusion Reactions: No Reported Reaction Past Psychological History: Anxiety, Bipolar, Depression, Schizoaffective Disorder, Schizophrenia Smoking Status: Current every day smoker Past Alcohol Use History: Abuse, Daily, Occasional Past Drug Use History: None Reported General Exam Limitations: no limitations General appearance: alert, in no apparent distress, obese Head exam: Present: atraumatic, normocephalic, normal inspection Eye exam: Present: normal appearance, PERRL, EOMI. Absent: conjunctival injection Pupils: Present: normal accommodation ENT exam: Present: normal exam, normal oropharynx (No enlarged tonsils or exudates.), mucous membranes moist, TM's normal bilaterally, normal external ear exam Neck exam: Present: normal inspection Respiratory exam: Present: normal lung sounds bilaterally Cardiovascular Exam: Present: regular rate, normal rhythm, normal heart sounds GI/Abdominal exam: Present: soft Extremities exam: Present: normal inspection, normal capillary refill, other (+2 dorsalis pedis and posterior tibialis bilaterally). Absent: full ROM (Lateral range of motion in the left leg with hip flexion and extension.) Back exam: Present: normal inspection, full ROM Neurological exam: Present: alert, oriented X3 Psychiatric exam: Present: normal affect, normal mood Skin exam: Present: warm, intact, normal color. Absent: rash (The rashes or bug bites noted), urticaria Course Vital Signs 01/20/19 20:00 Temperature 98.3 F Pulse Rate 86 Respiratory 16 Rate Blood Pressure 158/91 O2 Sat by Pulse 97 Oximetry Medical Decision Making - Medical Decision Making Patient is a 58-year-old female presenting to emergency department with multiple chief complaint. Patient was given tramadol which alleviated her leg pain and headache. UA is indicative of a mild UTI. Lab results pending for Trichomonas, gonorrhea and chlamydia. Patient will be treated prophylactically for STDs. Patient was given Rocephin and azithromycin in the ED. Patient also given Benadryl for possible ALLERGIC reaction to bug exposure. Patient will be discharged with a 7 day course of Flagyl. Patient advised not to drink alcohol while taking the medication and advised to inform the other sex partner to get treated. Patient will also be discharged with said adore for possible ALLERGIC conjunctivitis. Patient is also going to be discharged with Zyrtec for possible ALLERGY like reactions causing her ear symptoms. Patient advised to follow-up with primary care and to follow-up with a casting wheel operator due to recurrent UTIs. Patient advised to follow-up with orthopedics for hip pain management. Smoking cessation discussed for over 5 minutes. Strict return parameters were thoroughly discussed with patient was understanding and agreeable. Case discussed with physician. - Lab Data Lab Results 01/20/19 Range/Units 21:00 Urine Color Yellow Urine Appearance Clear (Clear) Urine pH 5.5 (5.0-8.0) Ur Specific M[place]ie 1.029 (1.001-1.035) Urine Protein Trace H (Negative) Urine Glucose (UA) Negative (Negative) Urine Ketones Negative (Negative) Urine Blood Negative (Negative) Urine Nitrite Negative (Negative) Urine Bilirubin Negative (Negative) Urine Urobilinogen <2.0 (<2.0) mg/dL Ur Leukocyte Esterase Moderate H (Negative) Urine WBC 6 H (0-5) /hpf Ur Squamous Epith Cells 5 H (0-4) /hpf Urine Bacteria Rare H (None) /hpf Urine Mucus Occasional H (None) /hpf Disposition Clinical Impression: Hip pain, chronic, Drug-seeking behavior, Allergic conjunctivitis Disposition: HOME SELF-CARE Condition: Stable Instructions (If sedation given, give patient instructions): Cervicitis (ED), Chlamydia (ED), Sexually Transmitted Diseases (ED), Safe Sex (ED), Trichomoniasis (ED), Hip Pain (ED) Additional Instructions: Please take prescribed medication as directed. Please follow with primary care and gynecology. Please return to emergency department if symptoms worsen. Prescriptions: metroNIDAZOLE [Flagyl] 500 mg PO TID #30 tab Ketotifen 0.025% Ophth Soln [Zaditor] 1 drop BOTH EYES BID #1 bottle Cetirizine HCl [Zyrtec] 10 mg PO DAILY #30 tab Is patient prescribed a controlled substance at d/c from ED?: No Referrals: [facility] [Primary Care Provider] - 1-2 days Time of Disposition: 22:46
[2019-01-21 00:42] VITALS: BP 148/78; PULSE 71
== END 2019-01-20 23:35 | disposition home or self-care (01) ==
LOC: EC 19:59
DX: H10.10 Acute atopic conjunctivitis, unspecified eye (principal); M25.552 Pain in left hip; G89.29 Other chronic pain; M79.606 Pain in leg, unspecified; R51 Headache; I10 Essential (primary) hypertension; G62.9 Polyneuropathy, unspecified; F41.9 Anxiety disorder, unspecified; F25.9 Schizoaffective disorder, unspecified; F17.200 Nicotine dependence, unspecified, uncomplicated; Z71.6 Tobacco abuse counseling; Z76.5 Malingerer [conscious simulation]; Z79.51 Long term (current) use of inhaled steroids; Z79.899 Other long term (current) drug therapy; Z91.040 Latex allergy status; Z88.6 Allergy status to analgesic agent
CPT/HCPCS: 81001; 87491; 87591; 99283; 96372; J0696

== ENCOUNTER → 2019-05-31 | Outpatient (CLI) | payer MEDICARE, OTHER ==
--- NOTE | 2019-05-31 21:35 | MR ---
EXAMINATION TYPE: MR pelvis wo con DATE OF EXAM: 05/31/2019 COMPARISON: Correlation 09/19/2017 abdominal radiograph HISTORY: 58-year-old female with pain, Complete Proximal Hamstring Tendon Rupture, injury 2017 TECHNIQUE: Multiplanar, multisequence images of the pelvis were obtained without IV contrast. FINDINGS: There is a 2.8 cm wide by 1.0 cm thick and 3.5 cm craniocaudal oval lesion fragment from the left isc hial tuberosity. The left hamstrings tendon arises from this bone fragment. No significant retraction is identified. On the right, there is extensive partial tear of the conjoined tendon origin from the distal tuberosi ty and a smaller partial tear of the semimembranosus origin. No retracted tear. Rectus femoris origins are intact as are the gluteal and iliopsoas insertions. Uterus is visualized. No abnormal fluid collection in the pelvis or pelvic lymphadenopathy. The sacrum and bilateral SI joints as well as the pubic symphysis are intact. There is degenerative subchondral signal change within the roof of the acetabulum. No hip joint effus ion on either side. No evidence for hip fracture or AVN. The left sciatic nerve is slightly asymmetrically thickened compared to the right side as it courses directly adjacent to the chronic avulsion fragment from the left ischial tuberosity. IMPRESSION: 1. Chronic, avulsion fracture from the left ischial tuberosity corresponding to the attachment of the left hamstrings tendon. Given the lack of significant retraction, suspect a fibrous union. A degener ative pseudoarthrosis may be forming given interposed increased signal. 2. On the right, there is extensive partial tear of the conjoined tendon origin of the hamstrings and a smaller partial tear of the semimembranosus origin. 3. The left sciatic nerve shows minimal asymmetric thickening as it courses along the lateral aspect of the ischial tuberosity. Findings suggest some possible irritation due to the adjacent osseous frag ment. 4. At least mild bilateral hip OA which could be better evaluated radiographically.
== END | disposition home or self-care (01) ==
LOC: RADMRIMAIN 12:50
PROVIDERS: ATTEND Orthopaedic Surgery
DX: S72.8X2A Other fracture of left femur, initial encounter for closed fracture (principal); S76.812A Strain of other specified muscles, fascia and tendons at thigh level, left thigh, initial encounter; M16.0 Bilateral primary osteoarthritis of hip; T14.8XXA Other injury of unspecified body region, initial encounter; R93.7 Abnormal findings on diagnostic imaging of other parts of musculoskeletal system
CPT/HCPCS: 72195

== ENCOUNTER 2019-06-16 01:27 | Emergency (ER) | payer MEDICARE, OTHER ==
[2019-06-16 01:35] VITALS: BP 117/72; PULSE 95; RESP 16; TEMP 97.4
[2019-06-16] MEDS ORDERED: GABAPENTIN 300 MG CAP PO STA (01:45)
[2019-06-16] MEDS ORDERED: HYDROcodone/APAP 5-325MG 1 EACH TAB PO STA (01:46)
--- NOTE | 2019-06-16 01:51 | ED ---
General Adult HPI - General Chief complaint: Back Pain/Injury Stated complaint: pain Time Seen by Provider: 06/16/19 01:38 Source: patient, RN notes reviewed, old records reviewed Mode of arrival: ambulatory Limitations: no limitations - History of Present Illness Initial comments: 58-year-old female presenting for evaluation of left buttock pain. Patient has a known hamstring injury and is following with his local orthopedic physician and physicians at [facility]. She has been told she may possibly need a repair of this but does not have a scheduled surgery at this time. Patient denies any new injury or fall. States her pain is been chronic for greater than 1 year and unchanged from baseline. She normally takes gabapentin but she has been out of this medication for several days. She has an appointment with her primary care physician within the next week. She states she missed the bus and thought that she would come to the emergency department for evaluation and she did not have a ride home. - Related Data Home Medications Medication Instructions Recorded Confirmed Albuterol Inhaler [Ventolin Hfa 1 - 2 puff INHALATION RT-Q4H PRN 05/23/18 05/23/18 Inhaler] Budesonide [Pulmicort Flexhaler] 2 puff INHALATION RT-BID 05/23/18 05/23/18 Clotrimazole/Betamethasone Dip 1 applic TOPICAL BID 05/23/18 05/23/18 [Lotrisone Cream] Gabapentin [Neurontin] 400 mg PO TID 05/23/18 05/23/18 Lisinopril [Zestril] 10 mg PO DAILY 05/23/18 05/23/18 Loratadine [Claritin] 10 mg PO DAILY 05/23/18 05/23/18 Nystatin 100,000 Unit/gm Powd 1 applic TOPICAL BID 05/23/18 05/23/18 [Mycostatin Powder] QUEtiapine FUMARATE [SEROquel] 200 mg PO HS 05/23/18 05/23/18 Sertraline [Zoloft] 100 mg PO DAILY 05/23/18 05/23/18 Previous Rx's Medication Instructions Recorded Amoxicillin/Potassium Clav 1 each PO Q12HR #20 tab 05/23/18 [Augmentin 875-125 Tablet] traMADol HCL [Ultram] 50 mg PO Q6HR PRN 3 Days #12 tab 05/23/18 Acetaminophen Tab [Tylenol Tab] 500 mg PO Q6H 5 Days #20 tablet 06/08/18 Cyclobenzaprine [Flexeril] 10 mg PO TID #15 tab 06/22/18 Ibuprofen [Motrin] 600 mg PO Q8HR PRN #30 tab 06/22/18 predniSONE 50 mg PO DAILY #5 tablet 06/22/18 Cephalexin [Keflex] 500 mg PO Q12HR 10 Days cap 10/09/18 predniSONE 50 mg PO DAILY #5 tab 10/09/18 metroNIDAZOLE [Flagyl] 500 mg PO BID #14 tab 11/19/18 Gabapentin [Neurontin] 300 mg PO TID #21 cap 12/31/18 predniSONE 20 mg PO BID #8 tab 12/31/18 Cetirizine HCl [Zyrtec] 10 mg PO DAILY #30 tab 01/20/19 Ketotifen 0.025% Ophth Soln 1 drop BOTH EYES BID #1 bottle 01/20/19 [Zaditor] metroNIDAZOLE [Flagyl] 500 mg PO TID #30 tab 01/20/19 Allergies Allergy/AdvReac Type Severity Reaction Status Date / Time ketorolac [From Toradol] Allergy Unknown Verified 06/16/19 01:35 latex Allergy Itching Verified 06/16/19 01:35 Review of Systems ROS Statement: Those systems with pertinent positive or pertinent negative responses have been documented in the HPI. ROS Other: All systems not noted in ROS Statement are negative. Past Medical History Past Medical History: Hypertension, Liver Disease, Musculoskeletal Disorder, Neurologic Disorder Additional Past Medical History / Comment(s): hep c, back pain, sciatica, neuropathy, History of Any Multi-Drug Resistant Organisms: MRSA Date of last positivie culture/infection: 2006 MDRO Source:: face Past Surgical History: Orthopedic Surgery Additional Past Surgical History / Comment(s): lt ankle, D&C Past Anesthesia/Blood Transfusion Reactions: No Reported Reaction Past Psychological History: Anxiety, Bipolar, Depression, Schizoaffective Disorder, Schizophrenia Smoking Status: Current every day smoker Past Alcohol Use History: Abuse, Daily, Occasional Past Drug Use History: None Reported General Exam Limitations: no limitations General appearance: alert, in no apparent distress Head exam: Present: atraumatic, normocephalic Eye exam: Present: normal appearance, PERRL ENT exam: Present: normal exam Neck exam: Present: normal inspection. Absent: tenderness, meningismus Respiratory exam: Present: normal lung sounds bilaterally. Absent: respiratory distress, wheezes Cardiovascular Exam: Present: regular rate, normal rhythm GI/Abdominal exam: Present: soft. Absent: distended, tenderness, guarding Extremities exam: Present: normal inspection, full ROM (good range of motion both lower extremities, negative straight leg test bilaterally, 5 out of 5 strength), normal capillary refill. Absent: joint swelling Back exam: Present: normal inspection, full ROM Neurological exam: Present: alert, oriented X3 Psychiatric exam: Present: normal affect, normal mood Skin exam: Present: warm, dry, intact Course Vital Signs 06/16/19 01:31 Temperature 97.4 F L Pulse Rate 95 Respiratory 16 Rate Blood Pressure 117/72 O2 Sat by Pulse 95 Oximetry Medical Decision Making - Medical Decision Making 58-year-old female with chronic back pain and known hamstring injury, rupture with chronic unchanged pain complaint out of her medication. Given the gabapentin and [place] in the emergency department. Patient not driving, stable for outpatient follow-up Disposition Clinical Impression: Chronic back pain Disposition: HOME SELF-CARE Condition: Fair Instructions (If sedation given, give patient instructions): Hamstring Injury (ED), Chronic Pain (ED) Additional Instructions: please continue outpatient follow-up regarding chronic pain and hamstring injury. Is patient prescribed a controlled substance at d/c from ED?: No Referrals: [facility] [Primary Care Provider] - 1-2 days Time of Disposition: 01:50
== END 2019-06-16 02:10 | disposition home or self-care (01) ==
LOC: EC 01:27
DX: G89.29 Other chronic pain (principal); M54.9 Dorsalgia, unspecified; I10 Essential (primary) hypertension; F41.9 Anxiety disorder, unspecified; F31.9 Bipolar disorder, unspecified; F25.9 Schizoaffective disorder, unspecified; G62.9 Polyneuropathy, unspecified; F17.200 Nicotine dependence, unspecified, uncomplicated; Z79.51 Long term (current) use of inhaled steroids; Z79.899 Other long term (current) drug therapy; Z88.5 Allergy status to narcotic agent; Z91.040 Latex allergy status
CPT/HCPCS: 99283

== ENCOUNTER → 2019-08-16 | Outpatient (CLI) | payer MEDICARE, OTHER ==
--- NOTE | 2019-08-16 10:39 | CT ---
EXAMINATION TYPE: CT chest wo con DATE OF EXAM: 08/16/2019 COMPARISON: None HISTORY: wheezing, cough CT DLP: 308.7 mGycm. Automated Exposure Control for Dose Reduction was Utilized. TECHNIQUE: CT scan of the thorax is performed without IV contrast. FINDINGS: Lack of intravenous contrast could compromise sensitivity. LUNGS: The lungs are grossly clear, there is no concerning parenchymal mass or nodule identified. T here is no pleural effusion or pneumothorax seen. The tracheobronchial tree is patent. MEDIASTINUM: Lack of IV contrast is noted to limit evaluation for mediastinal and especially hilar ad enopathy. There are no definitive greater than 1 cm hilar or mediastinal lymph nodes. No cardiomega ly or pericardial effusion is seen. There are coronary artery calcifications. OTHER: Hypertrophic changes noted in the thoracic spine. IMPRESSION: Evan artery disease. Noncontrast exam. No evident pneumonia or significant air trapping , no bronchial wall thickening.
== END | disposition home or self-care (01) ==
LOC: RADCTMAIN 08:23
PROVIDERS: ATTEND Internal Medicine Pulmonary Disease
DX: I77.89 Other specified disorders of arteries and arterioles (principal); E66.9 Obesity, unspecified
CPT/HCPCS: 71250

== ENCOUNTER 2019-09-09 | Emergency (ER) | payer MEDICARE, OTHER | END 2019-09-09 07:10 | disposition home or self-care (01) | CPT/HCPCS: 99284 ==

== ENCOUNTER 2019-09-09 14:47 | Inpatient (IN) | payer MEDICARE, MEDICAID ==
--- NOTE | 2019-09-09 15:23 | ED ---
General Adult HPI - General Chief complaint: Psychiatric Symptoms Stated complaint: Mental health eval Time Seen by Provider: 09/09/19 14:53 Source: patient, RN notes reviewed Mode of arrival: ambulatory Limitations: no limitations - History of Present Illness Initial comments: Patient is a pleasant 59-year-old female presenting to the emergency Department with depression. Patient does have history of depression. Patient has had some suicidal and homicidal thoughts. Patient does have thoughts of getting a gun. Patient will not identify an exact person for homicidal thoughts. Patient does have history of similar symptoms previously. Patient occasionally drinks alcohol, none today. No street drug use. Patient does take opioids provided to her by [facility]. No new physical complaints. - Related Data Home Medications Medication Instructions Recorded Confirmed Albuterol Inhaler [Ventolin Hfa 1 - 2 puff INHALATION RT-Q4H PRN 05/23/18 05/23/18 Inhaler] Budesonide [Pulmicort Flexhaler] 2 puff INHALATION RT-BID 05/23/18 05/23/18 Clotrimazole/Betamethasone Dip 1 applic TOPICAL BID 05/23/18 05/23/18 [Lotrisone Cream] Gabapentin [Neurontin] 400 mg PO TID 05/23/18 05/23/18 Lisinopril [Zestril] 10 mg PO DAILY 05/23/18 05/23/18 Loratadine [Claritin] 10 mg PO DAILY 05/23/18 05/23/18 Nystatin 100,000 Unit/gm Powd 1 applic TOPICAL BID 05/23/18 05/23/18 [Mycostatin Powder] QUEtiapine FUMARATE [SEROquel] 200 mg PO HS 05/23/18 05/23/18 Sertraline [Zoloft] 100 mg PO DAILY 05/23/18 05/23/18 Previous Rx's Medication Instructions Recorded Amoxicillin/Potassium Clav 1 each PO Q12HR #20 tab 05/23/18 [Augmentin 875-125 Tablet] traMADol HCL [Ultram] 50 mg PO Q6HR PRN 3 Days #12 tab 05/23/18 Acetaminophen Tab [Tylenol Tab] 500 mg PO Q6H 5 Days #20 tablet 06/08/18 Cyclobenzaprine [Flexeril] 10 mg PO TID #15 tab 06/22/18 Ibuprofen [Motrin] 600 mg PO Q8HR PRN #30 tab 06/22/18 predniSONE 50 mg PO DAILY #5 tablet 06/22/18 Cephalexin [Keflex] 500 mg PO Q12HR 10 Days cap 10/09/18 predniSONE 50 mg PO DAILY #5 tab 10/09/18 metroNIDAZOLE [Flagyl] 500 mg PO BID #14 tab 11/19/18 Gabapentin [Neurontin] 300 mg PO TID #21 cap 12/31/18 predniSONE [Deltasone] 20 mg PO BID #8 tab 12/31/18 Cetirizine HCl [Zyrtec] 10 mg PO DAILY #30 tab 01/20/19 Ketotifen 0.025% Ophth Soln 1 drop BOTH EYES BID #1 bottle 01/20/19 [Zaditor] metroNIDAZOLE [Flagyl] 500 mg PO TID #30 tab 01/20/19 Allergies Allergy/AdvReac Type Severity Reaction Status Date / Time ketorolac [From Toradol] Allergy Unknown Verified 09/09/19 14:51 latex Allergy Itching Verified 09/09/19 14:51 Review of Systems ROS Statement: Those systems with pertinent positive or pertinent negative responses have been documented in the HPI. ROS Other: All systems not noted in ROS Statement are negative. Constitutional: Denies: fever Eyes: Denies: eye pain ENT: Denies: ear pain Respiratory: Denies: cough, dyspnea Cardiovascular: Denies: chest pain Endocrine: Denies: fatigue Gastrointestinal: Denies: abdominal pain Genitourinary: Denies: dysuria Musculoskeletal: Denies: back pain Skin: Denies: rash Psychiatric: Reports: depression, homicidal thoughts, suicidal thoughts. Denies: auditory hallucinations, visual hallucinations Past Medical History Past Medical History: Hypertension, Liver Disease, Musculoskeletal Disorder, Neurologic Disorder Additional Past Medical History / Comment(s): hep c, back pain, sciatica, neur opathy, History of Any Multi-Drug Resistant Organisms: MRSA Date of last positivie culture/infection: 2006 MDRO Source:: face Past Surgical History: Orthopedic Surgery Additional Past Surgical History / Comment(s): lt ankle, D&C Past Anesthesia/Blood Transfusion Reactions: No Reported Reaction Past Psychological History: Anxiety, Bipolar, Depression, Schizoaffective Disorder, Schizophrenia Smoking Status: Current every day smoker Past Alcohol Use History: Abuse, Daily, Occasional Past Drug Use History: Opiates General Exam Limitations: no limitations General appearance: alert, in no apparent distress Head exam: Present: normocephalic Eye exam: Present: normal appearance Neck exam: Present: normal inspection Respiratory exam: Present: normal lung sounds bilaterally Cardiovascular Exam: Present: regular rate, normal rhythm GI/Abdominal exam: Present: soft. Absent: tenderness Extremities exam: Present: normal inspection Neurological exam: Present: alert Psychiatric exam: Present: depressed Skin exam: Present: normal color Course Vital Signs 09/09/19 14:48 Temperature 98.0 F Pulse Rate 75 Respiratory 16 Rate Blood Pressure 149/84 O2 Sat by Pulse 98 Oximetry Medical Decision Making - Medical Decision Making Patient seen by mental health services, who will admit. - Lab Data Lab Results 09/09/19 Range/Units 15:35 Urine Opiates Screen Not Detected (NotDetected) Ur Oxycodone Screen Not Detected (NotDetected) Urine Methadone Screen Not Detected (NotDetected) Ur Propoxyphene Screen Not Detected (NotDetected) Ur Barbiturates Screen Not Detected (NotDetected) U Tricyclic Antidepress Not Detected (NotDetected) Ur Phencyclidine Scrn Not Detected (NotDetected) Ur Amphetamines Screen Not Detected (NotDetected) U Methamphetamines Scrn Not Detected (NotDetected) U Benzodiazepines Scrn Not Detected (NotDetected) Urine Cocaine Screen Detected H (NotDetected) U Marijuana (THC) Screen Not Detected (NotDetected) Disposition Clinical Impression: Depression, Suicidal ideation Disposition: TRANSFER TO PSYCH HOSP/UNIT Is patient prescribed a controlled substance at d/c from ED?: No Referrals: [facility] [Primary Care Provider] - 1-2 days Decision Time: 17:21
[2019-09-09 16:00] LABS: Amphetamine Screen,Urine Not Detected (NotDetected); Barbiturate Screen,Urine Not Detected (NotDetected); Benzodiazepines Screen,Urine Not Detected (NotDetected); Cocaine Screen,Urine Detected (NotDetected); Methadone Screen, Urine Not Detected (NotDetected); Opiate Screen,Urine Not Detected (NotDetected); Oxycodone Screen, Urine Not Detected (NotDetected); Phencyclidine Screen,Urine Not Detected (NotDetected); Tricyclic Antidepressant,Urine Not Detected (NotDetected); Urn Cannabinoid Scrn Not Detected (NotDetected)
[2019-09-09] MEDS ORDERED: ZIPRASIDONE 20 MG VIAL IM PRN (17:59)
[2019-09-09] MEDS ORDERED: LORazepam 1 MG TAB PO PRN (17:59)
[2019-09-09] MEDS ORDERED: MAGNESIUM HYDROXIDE 2,400 MG/10 ML CUP PO PRN (17:59)
[2019-09-09] MEDS ORDERED: ALBUTEROL INHALER 60 PUFF/8 GM INHALER INHALATION PRN (19:00)
[2019-09-09] MEDS: CYCLOBENZAPRINE 10 MG TAB PO SCH (20:36)
[2019-09-09] MEDS: GABAPENTIN 300 MG CAP PO SCH (20:37)
[2019-09-09] MEDS ORDERED: QUEtiapine 200 MG TAB PO SCH (21:00)
[2019-09-09] MEDS: NYSTATIN 100,000 UNIT/GM POWD 15 GM TOPICAL SCH (22:04)
[2019-09-09] MEDS: FLUTICASONE 110 MCG INHALER (BULK) INHALATION SCH (22:04)
--- NOTE | 2019-09-10 03:30 | P.PN ---
Progress Note - Text Progress Note Date: 09/10/19 patient was sleeping and could not be evaluated at this time 09/09/19 @[id number]
[2019-09-10] MEDS: FLUTICASONE 110 MCG INHALER (BULK) INHALATION SCH ×2 (08:44→21:03)
[2019-09-10] MEDS: NICOTINE 14MG/24HR PATCH TRANSDERM SCH (08:46)
[2019-09-10] MEDS: CYCLOBENZAPRINE 10 MG TAB PO SCH ×3 (08:46→21:05)
[2019-09-10] MEDS: LISINOPRIL 10 MG TAB PO SCH (08:46)
[2019-09-10] MEDS: GABAPENTIN 300 MG CAP PO SCH (08:46)
[2019-09-10] MEDS: LORATADINE 10 MG TAB PO SCH (08:46)
[2019-09-10] MEDS: NYSTATIN 100,000 UNIT/GM POWD 15 GM TOPICAL SCH ×2 (08:47→21:05)
[2019-09-10] MEDS ORDERED: SERTRALINE 100 MG TAB PO SCH (09:00)
[2019-09-10 09:15] LABS: Basophils % (A) 0 %; Eosinophils # (A) 0.3 k/uL (0-0.7); Eosinophils % (A) 4 %; HGB 14.2 gm/dL (11.4-16.0); Lymphocytes # (A) 3.1 k/uL (1.0-4.8); Lymphocytes % (A) 43 %; MCH 29.6 pg (25.0-35.0); MCHC 32.3 g/dL (31.0-37.0); MCV 91.7 fL (80.0-100.0); Mean Platelet Volume 7.5; Monocytes # (A) 0.3 k/uL (0-1.0); Monocytes % (A) 5 %; Neutrophils # (A) 3.4 k/uL (1.3-7.7); Neutrophils % (A) 46 %; Platelet Count 340 k/uL (150-450); WBC 7.2 k/uL (3.8-10.6)
[2019-09-10 09:25] LABS: Albumin 4.4 g/dL (3.5-5.0); Calcium 9.5 mg/dL (8.4-10.2); Potassium 3.9 mmol/L (3.5-5.1); Total Bilirubin 0.8 mg/dL (0.2-1.3)
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
[2019-09-10] MEDS ORDERED: CIPROFLOXACIN HCL 500 MG TAB PO STA (13:53)
[2019-09-10 19:02] LABS: Hemoglobin A1C 5.2 % (4.0-6.0)
[2019-09-10] MEDS: QUEtiapine 100 MG TAB PO SCH (21:03)
[2019-09-10] MEDS: GABAPENTIN 100 MG CAP PO SCH (21:03)
[2019-09-10] MEDS: CIPROFLOXACIN HCL 250 MG TAB PO SCH (21:03)
[2019-09-11] MEDS ORDERED: NITROGLYCERIN SL TABS 0.4 MG TAB SUBLINGUAL PRN (02:37)
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
[2019-09-11] MEDS ORDERED: SERTRALINE 50 MG TAB PO SCH (09:00)
[2019-09-11] MEDS ORDERED: NYSTAT-TRIAMCIN 100,000-0.1 UNIT/GM-% OINT 30 GM TUBE TOPICAL SCH (09:00)
--- NOTE | 2019-09-11 09:06 | XR ---
EXAM TYPE: LUMBAR SPINE X RAY SERIES COMPARISON: None HISTORY: Pain TECHNIQUE: 3 views are submitted. FINDINGS: Alignment is anatomic. The pedicles are intact. The transverse processes are intact. There is no s pondylolisthesis. Hypertrophic and degenerative change the spine. Multilevel facet arthropathy. Athe rosclerotic change aorta. IMPRESSION: 1. Multilevel degenerative disc disease..
--- NOTE | 2019-09-11 09:07 | XR ---
EXAMINATION TYPE: XR Hip Complete RT DATE OF EXAM: 09/11/2019 COMPARISON: 08/20/2019 HISTORY: Pain TECHNIQUE: 2 views submitted FINDINGS: There is no evidence of erosive change or acute fracture. Calcifications in the pelvis. Small spur al fátima the greater trochanter. IMPRESSION: 1. No evidence of acute fracture or dislocation. 2. Small spur along the greater trochanter can be associated with trochanteric bursitis. Correlate [facility] MRI as clinically warranted.
[2019-09-11] MEDS: NICOTINE 14MG/24HR PATCH TRANSDERM SCH (09:14)
[2019-09-11] MEDS: GABAPENTIN 100 MG CAP PO SCH ×2 (09:14→21:27)
[2019-09-11] MEDS: LISINOPRIL 10 MG TAB PO SCH (09:15)
[2019-09-11] MEDS: DULoxetine HCL 20 MG CAPSULE.DR PO SCH (09:16)
[2019-09-11] MEDS: CIPROFLOXACIN HCL 250 MG TAB PO SCH ×2 (09:16→21:27)
[2019-09-11] MEDS: FLUTICASONE 110 MCG INHALER (BULK) INHALATION SCH ×2 (09:17→21:26)
[2019-09-11] MEDS: CYCLOBENZAPRINE 10 MG TAB PO SCH ×3 (09:17→21:29)
[2019-09-11] MEDS: LORATADINE 10 MG TAB PO SCH (09:18)
[2019-09-11] MEDS: NYSTATIN 100,000 UNIT/GM OINT 30 GM TUBE TOPICAL SCH ×4 (09:20→21:29)
[2019-09-11] MEDS: TRIAMCINOLONE ACET 0.1% OINTMENT 15 GM TUBE TOPICAL SCH ×5 (09:23→21:29)
--- NOTE | 2019-09-11 13:50 | P.PN ---
Progress Note - Text Progress Note Date: 09/11/19 Interval history: Patient was seen wandering the hallways and was directable and agreeable to s jay jay with financial writer. Patient continues to be talkative and endorsing multiple complaints including pain and other medical problems. She spoke about falling on her hip down some stairs several weeks ago and was asking about pain medications. Patient was also speaking about her "STD" in referring to her bladder infection. She states that now she is on antibiotics. She also spoke about needing to get a sleep study done in the hospital. She claims that her mood has been mildly improving however appears to be anxious. She states that she slept throughout the night on her Seroquel. She states that she has been going to some groups and participate. At this time patient denies any suicidal or homicidal ideations intent or plan. Denies any Auditory or visual hallucinations. Patient denies any side effects from the medications and has been compliant with meds. Mental status exam: General Appearance: Patient appears to be overweight, stated age is alert, difficult to redirect and talkative. Mildly improving hygiene. Behavior: No agitated behavior. Patient is calm and directable Speech: Patient's speech is fluent and nonpressured. Soft tone and talkative. Mood/Affect: Mood is improving mildly, affect is congruent and constricted. Suicidality/Homicidality: Patient denies having any suicidal or homicidal ideation intent or plan. Perceptions: Patient denies any auditory or visual hallucinations. Though content/process: Distractible, tangential/circumstantial and rambles. Memory and concentration: AOX3, grossly intact for the purposes of this session Judgment and insight: improving mildly Assessment/Plan: Continue with current diagnosis. Patient continues to meet criteria for inpatient psychiatric admission for symptom stabilization and safety.Patient will be maintained on current psychotropic medication regimen. Monitor for medication compliance and for any psychotropic medication side effects. Will continue to monitor ongoing response to treatment. Encouraged p articipation in milieu.
[2019-09-11] MEDS: QUEtiapine 100 MG TAB PO SCH (21:27)
[2019-09-11 21:56] LABS: Appearance,Urine Clear (Clear); Bacteria,Urine Rare /hpf; Bilirubin,Urine Negative (Negative); Blood,Urine Negative (Negative); Color,Urine Colorless; Glucose,Urine (UA) Negative (Negative); Ketones,Urine Negative (Negative); Leukocyte Esterase,Urine Moderate (Negative); Nitrite,Urine Negative (Negative); Protein,Urine Negative (Negative); RBC,Urine 4 /hpf (0-5); Specific Gravity,Urine 1.006 (1.001-1.035); Squamous Epithelial Cell,Urine 5 /hpf (0-4); Urobilinogen,Urine <2.0 mg/dL (<2.0); WBC,Urine 8 /hpf (0-5)
[2019-09-11 22:05] LABS: Amphetamine Screen,Urine Not Detected (NotDetected); Barbiturate Screen,Urine Not Detected (NotDetected); Benzodiazepines Screen,Urine Not Detected (NotDetected); Cocaine Screen,Urine Not Detected (NotDetected); Methadone Screen, Urine Not Detected (NotDetected); Opiate Screen,Urine Not Detected (NotDetected); Oxycodone Screen, Urine Not Detected (NotDetected); Phencyclidine Screen,Urine Not Detected (NotDetected); Tricyclic Antidepressant,Urine Not Detected (NotDetected); Urn Cannabinoid Scrn Not Detected (NotDetected)
[2019-09-12] MEDS: ACETAMINOPHEN TAB 325 MG TAB PO PRN (06:35)
[2019-09-12] MEDS: DULoxetine HCL 20 MG CAPSULE.DR PO SCH (09:09)
[2019-09-12] MEDS: CIPROFLOXACIN HCL 250 MG TAB PO SCH ×2 (09:09→21:42)
[2019-09-12] MEDS: NICOTINE 14MG/24HR PATCH TRANSDERM SCH (09:09)
[2019-09-12] MEDS: CYCLOBENZAPRINE 10 MG TAB PO SCH ×3 (09:09→21:43)
[2019-09-12] MEDS: LISINOPRIL 10 MG TAB PO SCH (09:10)
[2019-09-12] MEDS: LORATADINE 10 MG TAB PO SCH (09:10)
[2019-09-12] MEDS: NYSTATIN 100,000 UNIT/GM OINT 30 GM TUBE TOPICAL SCH ×4 (09:10→21:43)
[2019-09-12] MEDS: TRIAMCINOLONE ACET 0.1% OINTMENT 15 GM TUBE TOPICAL SCH ×4 (09:11→21:43)
[2019-09-12] MEDS: GABAPENTIN 100 MG CAP PO SCH ×2 (09:11→21:43)
[2019-09-12] MEDS: FLUTICASONE 110 MCG INHALER (BULK) INHALATION SCH ×2 (10:41→21:40)
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
[2019-09-12] MEDS ORDERED: diphenhydrAMINE 25 MG CAP PO PRN (16:54)
[2019-09-12] MEDS: methylPREDNISolone 4 MG TAB TAPER PO SCH (17:26)
[2019-09-12] MEDS: QUEtiapine 100 MG TAB PO SCH (21:41)
[2019-09-13] MEDS: NICOTINE 14MG/24HR PATCH TRANSDERM SCH (08:51)
[2019-09-13] MEDS: FLUTICASONE 110 MCG INHALER (BULK) INHALATION SCH ×2 (08:52→20:59)
[2019-09-13] MEDS: CIPROFLOXACIN HCL 250 MG TAB PO SCH (08:52)
[2019-09-13] MEDS: DULoxetine HCL 20 MG CAPSULE.DR PO SCH (08:53)
[2019-09-13] MEDS: methylPREDNISolone 4 MG TAB TAPER PO SCH (08:53)
[2019-09-13] MEDS: CYCLOBENZAPRINE 10 MG TAB PO SCH ×3 (08:53→21:03)
[2019-09-13] MEDS: GABAPENTIN 100 MG CAP PO SCH ×2 (08:53→21:05)
[2019-09-13] MEDS: LISINOPRIL 10 MG TAB PO SCH (08:54)
[2019-09-13] MEDS: LORATADINE 10 MG TAB PO SCH (08:54)
[2019-09-13] MEDS: NYSTATIN 100,000 UNIT/GM OINT 30 GM TUBE TOPICAL SCH ×4 (08:54→21:03)
[2019-09-13] MEDS: TRIAMCINOLONE ACET 0.1% OINTMENT 15 GM TUBE TOPICAL SCH ×4 (09:39→22:30)
--- NOTE | 2019-09-13 14:55 | P.PN ---
Subjective Progress Note Date: 09/13/19 Principal diagnosis: Major depressive disorder, recurrent, without psychotic features, lack of housing, cocaine use disorder, alcohol disorder, opiate use disorder, tobacco use. I reviewed the medical record, interviewed the patient and discuss her treatment and treatment plan during team meeting. She was somatically preoccupied. She complained about pain in her foot, ankle and hip. She asked about treatment of her foot and back pain. She was ambivalent about returning to substance abuse treatment. She stated that she has been at [facility] "6 times". She also complained about the need to conduct a telephone interview with [facility]. She alleged that her caser up at [facility] performed screening for substance abuse treatment before she was admitted to the hospital. She believes that she would better served by obtaining treatment for her medical conditions rather than reentering ssubstance abuse treatment. She has no residential options other than a custodial but will be able to afford one once she receives a Social Security check. She talked about circumstances where she lost apartments; either because of her alcohol or drug use or that of her friends and acquaintances. Objective - Vital Signs Vital signs: Vital Signs Temp 98.3 F 09/13/19 05:50 Pulse 79 09/13/19 05:50 Resp 14 09/13/19 05:50 BP 121/82 09/13/19 05:50 Pulse Ox 95 09/12/19 09:06 - Exam She presented as a short casually groomed 59-year-old female who looked much older than her stated age. She made eye contact and attended to the interview. She had a distressed facial expression. She was alert and oriented to person, place and time. Showed psychomotor retardation but no abnormal movements. She walks slowly with the aid of a wheeled walker. Her speech was spontaneous with decreased rate and rhythm. Her affect was depressed and not reactive. She denied suicidal ideation or wishes. She denied homicidal ideation. She did not express clear feelings of hopelessness, helplessness or worthlessness. She ruminated about her medical conditions, chronic pain and residential problems. She did not express ideas reference, paranoid ideation or delusions. Her thinking was concrete but her associations were coherent and logical. She denied hallucinations did not appear to be responding to internal stimuli. - Labs CBC & Chem 7: 09/10/19 08:49 09/10/19 08:49 Assessment and Plan Assessment: She has subjective feelings of depression". I suicidality. She is somatically preoccupied and minimizes the need for substance abuse treatment. Plan: Continue current medications. Continue safety precautions. Continue discussion about residential substance abuse treatment. encourage participation in therapeutic groups and activities. Evaluate clinical status response to treatment daily basis.
[2019-09-13] MEDS: QUEtiapine 100 MG TAB PO SCH (21:03)
[2019-09-14] MEDS: IBUPROFEN 600 MG TAB PO PRN (03:09)
[2019-09-14] MEDS: GABAPENTIN 100 MG CAP PO SCH ×2 (08:28→20:34)
[2019-09-14] MEDS: NICOTINE 14MG/24HR PATCH TRANSDERM SCH (08:28)
[2019-09-14] MEDS: FLUTICASONE 110 MCG INHALER (BULK) INHALATION SCH ×2 (08:28→20:33)
[2019-09-14] MEDS: CYCLOBENZAPRINE 10 MG TAB PO SCH ×3 (08:28→17:23)
[2019-09-14] MEDS: methylPREDNISolone 4 MG TAB TAPER PO SCH (08:29)
[2019-09-14] MEDS: LISINOPRIL 10 MG TAB PO SCH (08:29)
[2019-09-14] MEDS: NYSTATIN 100,000 UNIT/GM OINT 30 GM TUBE TOPICAL SCH ×5 (08:29→17:23)
[2019-09-14] MEDS: LORATADINE 10 MG TAB PO SCH (08:29)
[2019-09-14] MEDS: TRIAMCINOLONE ACET 0.1% OINTMENT 15 GM TUBE TOPICAL SCH ×4 (08:30→17:23)
[2019-09-14] MEDS: DULoxetine HCL 30 MG CAPSULE.DR PO SCH (08:32)
--- NOTE | 2019-09-14 11:33 | P.PN ---
Subjective Progress Note Date: 09/14/19 Principal diagnosis: Major depressive disorder, recurrent, without psychotic features, lack of housing, cocaine use disorder, alcohol disorder, opiate use disorder, tobacco use. I reviewed the medical record, interviewed the patient and discuss her treatment and treatment plan during team meeting. She would not get out of bed for the interview. She is "considering" residential substance abuse treatment but will not call [facility]. She alleged that her centrifugal casting machine tender at [facility] completed the prescreening for substance abuse treatment. She also stated that if her centrifugal casting machine tender finds her a residence and she won't go to substance abuse treatment. We discuss his situation during treatment team and recommended the social problems specialist to contact her centrifugal casting machine tender to clarify with the treatment plan. Objective - Vital Signs Vital signs: Vital Signs Temp 98.8 F 09/14/19 03:08 Pulse 64 09/14/19 03:08 Resp 15 09/14/19 03:08 BP 127/75 09/14/19 03:08 Pulse Ox 95 09/12/19 09:06 - Exam She was casually groomed and dressed. She is walking slowly with the aid of a walker. She made intermittent eye contact. She had an angry facial expression. Her speech was spontaneous with normal rate, rhythm and volume. She did not express feelings of hopelessness, helplessness or worthlessness. She denied suicidal ideation or wishes. She was not paranoid did not express ideas reference or paranoid ideation or delusional thoughts. She denied hallucinations and did not appear to be responding to internal stimuli. - Labs CBC & Chem 7: 09/10/19 08:49 09/10/19 08:49 Assessment and Plan Assessment: She is angry and uncooperative. She is avoiding prescreening for substance abuse services. I suspect that she wants to remain in the hospital until she secures suitable housing rather than go to a custodial. Plan: Continue current medications. Continue safety precautions. Continue discussion about residential substance abuse treatment. drafting layout worker to clarify the services promise and/or recommended by her [facility] centrifugal casting machine tender. If she doesn't call [facility] today then I would recommend discharged to a custodial no later than Thursday.
[2019-09-14] MEDS: ACETAMINOPHEN TAB 325 MG TAB PO PRN (16:50)
[2019-09-14] MEDS: QUEtiapine 100 MG TAB PO SCH (20:33)
[2019-09-15] MEDS: LORATADINE 10 MG TAB PO SCH (08:41)
[2019-09-15] MEDS: CYCLOBENZAPRINE 10 MG TAB PO SCH ×3 (08:41→21:13)
[2019-09-15] MEDS: FLUTICASONE 110 MCG INHALER (BULK) INHALATION SCH ×2 (08:44→21:12)
[2019-09-15] MEDS: NICOTINE 14MG/24HR PATCH TRANSDERM SCH (08:44)
[2019-09-15] MEDS: GABAPENTIN 100 MG CAP PO SCH ×2 (08:45→21:13)
[2019-09-15] MEDS: LISINOPRIL 10 MG TAB PO SCH (08:45)
[2019-09-15] MEDS: DULoxetine HCL 30 MG CAPSULE.DR PO SCH (08:45)
[2019-09-15] MEDS: methylPREDNISolone 4 MG TAB TAPER PO SCH (08:45)
[2019-09-15] MEDS: TRIAMCINOLONE ACET 0.1% OINTMENT 15 GM TUBE TOPICAL SCH ×4 (08:47→21:13)
[2019-09-15] MEDS: NYSTATIN 100,000 UNIT/GM OINT 30 GM TUBE TOPICAL SCH ×4 (08:47→21:17)
--- NOTE | 2019-09-15 15:14 | P.PN ---
Subjective Progress Note Date: 09/15/19 Principal diagnosis: Major depressive disorder, recurrent, without psychotic features, lack of housing, cocaine use disorder, alcohol disorder, opiate use disorder, tobacco use. I reviewed the medical record, interviewed the patient and discuss her treatment and treatment plan during team meeting. She is feeling better that she has decided to enter substance abuse treatment. She told me that she has admission date scheduled for next Thursday. However, the social work administrator called [facility] who informed her that the admission date will be next Thursday. She attends most therapeutic groups and activities. She slept 6 hours last night (she consistently sleeps 6 hours per night). Objective - Vital Signs Vital signs: Vital Signs Temp 98.7 F 09/15/19 12:50 Pulse 62 09/15/19 08:49 Resp 16 09/15/19 08:49 BP 108/53 09/15/19 08:49 Pulse Ox 95 09/12/19 09:06 - Exam She was casually groomed and dressed. She was not using the walker today. She made eye contact. She had a blunted but bright facial expression. Her speech was spontaneous with normal rate, rhythm and volume. She did not express feelings of hopelessness, helplessness or worthlessness. She denied suicidal ideation or wishes. She was not paranoid did not express ideas reference or paranoid ideation or delusional thoughts. She denied hallucinations and did not appear to be responding to internal stimuli. - Labs CBC & Chem 7: 09/10/19 08:49 09/10/19 08:49 Assessment and Plan Assessment: She is much less angry and uncooperative than on admission. Her affect appears brighter and she is taking steps to engage in outpatient services. We will probably not be looking for inpatient until her admission to [facility]. Plan: Continue current medications. Continue safety precautions. Since we will not be able to keep him in hospital until her admission today to [facility], discuss where she would live in the interim. spout worker to clarify the services promise and/or recommended by her [facility] snowboard instructor. If she doesn't call [facility] today then I would recommend discharged to a jail no later than Thursday.
[2019-09-15] MEDS: ACETAMINOPHEN TAB 325 MG TAB PO PRN (15:46)
[2019-09-15] MEDS: QUEtiapine 100 MG TAB PO SCH (21:13)
[2019-09-16] MEDS: LISINOPRIL 10 MG TAB PO SCH (08:54)
[2019-09-16] MEDS: LORATADINE 10 MG TAB PO SCH (08:54)
[2019-09-16] MEDS: CYCLOBENZAPRINE 10 MG TAB PO SCH ×3 (08:54→20:48)
[2019-09-16] MEDS: DULoxetine HCL 30 MG CAPSULE.DR PO SCH (08:54)
[2019-09-16] MEDS: NICOTINE 14MG/24HR PATCH TRANSDERM SCH (08:54)
[2019-09-16] MEDS: NYSTATIN 100,000 UNIT/GM OINT 30 GM TUBE TOPICAL SCH ×4 (08:55→20:48)
[2019-09-16] MEDS: FLUTICASONE 110 MCG INHALER (BULK) INHALATION SCH ×3 (08:55→21:18)
[2019-09-16] MEDS: methylPREDNISolone 4 MG TAB TAPER PO SCH (08:55)
[2019-09-16] MEDS: TRIAMCINOLONE ACET 0.1% OINTMENT 15 GM TUBE TOPICAL SCH ×5 (08:55→20:48)
[2019-09-16] MEDS: GABAPENTIN 100 MG CAP PO SCH ×2 (08:56→20:47)
--- NOTE | 2019-09-16 13:06 | P.PN ---
Subjective Progress Note Date: 09/16/19 Principal diagnosis: Major depressive disorder, recurrent, without psychotic features, lack of housing, cocaine use disorder, alcohol disorder, opiate use disorder, tobacco use. I reviewed the medical record, interviewed the patient and discuss her treatment and treatment plan during team meeting. She was somatically preoccupied. She primarily complained about her medical problems the most distressing of which appears to be chronic hip pain. I redirected her during the interview to focus on the reason for this hospitalization. She was unaware that her admission today to [facility] was on 09/23/2019. When I informed her that we may not be a little keeper in the hospital until has missed days became distressed. She alleged that she has no housing alternatives and will not "return to the streets." Objective - Vital Signs Vital signs: Vital Signs Temp 98.7 F 09/16/19 01:31 Pulse 68 09/16/19 08:55 Resp 14 09/16/19 01:31 BP 121/58 09/16/19 08:55 Pulse Ox 97 09/15/19 15:43 - Exam She was casually groomed and dressed. She was using the walker today. She made eye contact. She had an eye blunted but angry facial expression. She smiled i nfrequently. Her speech was spontaneous with normal rate, rhythm and volume. She feels helpless about her housing situation. She denied suicidal ideation or wishes. She was not paranoid did not express ideas reference or paranoid ideation or delusional thoughts. She denied hallucinations and did not appear to be responding to internal stimuli. - Labs CBC & Chem 7: 09/10/19 08:49 09/10/19 08:49 Assessment and Plan Assessment: She remains somatically preoccupied but is able to be redirected towards the reasons for this hospitalization. She remains angry but cooperative. She is very concerned about her housing situation. Plan: Continue current medications. Continue safety precautions. tension worker to explore alternatives to remain in the hospital and termination date to [facility].
[2019-09-16 13:42] VITALS: BMI 33.5
[2019-09-16] MEDS: IBUPROFEN 600 MG TAB PO PRN (16:32)
[2019-09-16] MEDS: QUEtiapine 100 MG TAB PO SCH (20:48)
[2019-09-17] MEDS: FLUTICASONE 110 MCG INHALER (BULK) INHALATION SCH ×2 (08:38→21:19)
[2019-09-17] MEDS: CYCLOBENZAPRINE 10 MG TAB PO SCH ×3 (08:41→21:17)
[2019-09-17] MEDS: GABAPENTIN 100 MG CAP PO SCH ×2 (08:42→21:21)
[2019-09-17] MEDS: LORATADINE 10 MG TAB PO SCH (08:42)
[2019-09-17] MEDS: DULoxetine HCL 30 MG CAPSULE.DR PO SCH (08:42)
[2019-09-17] MEDS: LISINOPRIL 10 MG TAB PO SCH (08:42)
[2019-09-17] MEDS: methylPREDNISolone 4 MG TAB TAPER PO SCH (08:43)
[2019-09-17] MEDS: NICOTINE 14MG/24HR PATCH TRANSDERM SCH (08:44)
[2019-09-17] MEDS: NYSTATIN 100,000 UNIT/GM OINT 30 GM TUBE TOPICAL SCH ×3 (08:44→16:53)
[2019-09-17] MEDS: TRIAMCINOLONE ACET 0.1% OINTMENT 15 GM TUBE TOPICAL SCH ×4 (08:44→21:18)
--- NOTE | 2019-09-17 11:13 | P.PN ---
Progress Note - Text Interval history: The patient is found in the hallway she refuses to speak with me. She indicates that Dr. Flores is her doctor and she does not wish to have any change medications. I informed her that I do not need to change her medications but simply wanted to meet with her to assess her clinical status. She again refused. At that point she walked away and return to her room. Mental status exam: The patient is an overweight female she has a disheveled appearance she is dressed in her own clothing she was uncooperative with the interview she made brief eye contact she has spontaneous speech. She maintained a constricted affect. She does not appear irritable or aggressive. She would not tolerate any questions. She demonstrates no physical impairment or distress. She was ambulating without use of implement. She demonstrated no involuntary movements. Plan: The patient will continue on her current medication. It's likely that the Cymbalta will be titrated during the course of the hospitalization. I did review the previous progress notes it appears that she is awaiting placement at [facility] and is homeless. She is encouraged to participate in the milieu vital signs reviewed.
[2019-09-17] MEDS: IBUPROFEN 600 MG TAB PO PRN (14:55)
[2019-09-17] MEDS: QUEtiapine 100 MG TAB PO SCH (21:21)
[2019-09-17] MEDS: MAG HYDROX/AL HYDROX/SIMETH 30 ML CUP PO PRN (21:21)
[2019-09-18] MEDS: CYCLOBENZAPRINE 10 MG TAB PO SCH ×3 (08:55→20:19)
[2019-09-18] MEDS: FLUTICASONE 110 MCG INHALER (BULK) INHALATION SCH ×2 (08:55→20:58)
[2019-09-18] MEDS: GABAPENTIN 100 MG CAP PO SCH ×3 (08:56→21:40)
[2019-09-18] MEDS: TRIAMCINOLONE ACET 0.1% OINTMENT 15 GM TUBE TOPICAL SCH ×4 (08:56→21:40)
[2019-09-18] MEDS: NYSTATIN 100,000 UNIT/GM OINT 30 GM TUBE TOPICAL SCH ×4 (08:56→21:40)
[2019-09-18] MEDS: LORATADINE 10 MG TAB PO SCH (08:56)
[2019-09-18] MEDS: NICOTINE 14MG/24HR PATCH TRANSDERM SCH (08:56)
[2019-09-18] MEDS: LISINOPRIL 10 MG TAB PO SCH (08:57)
[2019-09-18] MEDS: DULoxetine HCL 30 MG CAPSULE.DR PO SCH (08:57)
[2019-09-18] MEDS: methylPREDNISolone 4 MG TAB TAPER PO SCH (08:57)
--- NOTE | 2019-09-18 11:15 | P.PN ---
Progress Note - Text Interval history: The patient is found in the [facility] she follows me to an interview room. She indicates that her mood is better. She states things have improve while she is in the hospital. She is somatically preoccupied and is concerned about where she will go if discharge prior to her placement date at [facility]. She requests that the Neurontin be titrated as she used to take a much higher dose in the past. We reviewed the Cymbalta and she is amenable to having me titrate the dose of that medication further. During the course of the conversation she denies having any auditory or visual hallucinations but states sometimes when she watches the TV she feels that the person is staring at her waiting for her to do something. She states that has been a phenomenon for several years and not a new finding. She indicates that she slept last night appetite is stable. Mental status exam: The patient is an overweight female appearing her stated age. She is dressed in her own clothing she has a disheveled appearance hygiene is adequate. She is ambulating with a walker. She demonstrates no ataxia as she ambulates down the hallway using the walker. Eye contact is appropriate speech is fluent spontaneous she is verbose she is preoccupied with her current and previous somatic issues. She is reporting no suicidal or homicidal ideation intent or plan. She is endorsing possible ideas of reference. She endorses no auditory or visual hallucination specifically she denies having any command auditory hallucinations. She does not appear tangential and she demonstrates no loose associations or flight of ideas in conversation. She is directable area she demonstrates no verbal or physical aggressiveness she demonstrates no involuntary repetitive movements. Insight and judgment limited. Plan: The patient will continue on her current medication however I will titrate the Cymbalta to 60 mg daily starting tomorrow we will titrate her Neurontin to 200 mg 3 times daily at her request for pain management. We will monitor for any symptoms of psychosis specifically ideas of reference. She is on 100 mg of Seroquel we'll consider titrating this further she states that she has been on higher doses the past but was sedating. Vital signs reviewed. She is encouraged to participate in the milieu.
[2019-09-18] MEDS: IBUPROFEN 600 MG TAB PO PRN (13:28)
[2019-09-18 14:55] LABS: Appearance,Urine Clear (Clear); Bacteria,Urine Rare /hpf; Bilirubin,Urine Negative (Negative); Blood,Urine Negative (Negative); Color,Urine Light Yellow; Glucose,Urine (UA) Negative (Negative); Ketones,Urine Negative (Negative); Leukocyte Esterase,Urine Trace (Negative); Mucus,Urine Rare /hpf; Nitrite,Urine Negative (Negative); PH, Urine 5.5 (5.0-8.0); Protein,Urine Negative (Negative); RBC,Urine 1 /hpf (0-5); Specific Gravity,Urine 1.015 (1.001-1.035); Squamous Epithelial Cell,Urine 1 /hpf (0-4); Urobilinogen,Urine <2.0 mg/dL (<2.0); WBC,Urine <1 /hpf (0-5)
[2019-09-18] MEDS: QUEtiapine 100 MG TAB PO SCH (21:39)
[2019-09-19] MEDS: FLUTICASONE 110 MCG INHALER (BULK) INHALATION SCH ×2 (08:24→21:44)
[2019-09-19] MEDS: CYCLOBENZAPRINE 10 MG TAB PO SCH ×3 (08:24→21:45)
[2019-09-19] MEDS: NICOTINE 14MG/24HR PATCH TRANSDERM SCH (08:24)
[2019-09-19] MEDS: LISINOPRIL 10 MG TAB PO SCH ×2 (08:25→08:28)
[2019-09-19] MEDS: NYSTATIN 100,000 UNIT/GM OINT 30 GM TUBE TOPICAL SCH ×4 (08:25→23:12)
[2019-09-19] MEDS: GABAPENTIN 100 MG CAP PO SCH ×3 (08:25→21:45)
[2019-09-19] MEDS: LORATADINE 10 MG TAB PO SCH (08:25)
[2019-09-19] MEDS: DULoxetine HCL 60 MG CAPSULE.DR PO SCH (08:25)
[2019-09-19] MEDS: TRIAMCINOLONE ACET 0.1% OINTMENT 15 GM TUBE TOPICAL SCH ×4 (08:25→23:12)
--- NOTE | 2019-09-19 13:08 | P.PN ---
Subjective Progress Note Date: 09/19/19 Principal diagnosis: Major depressive disorder, recurrent, without psychotic features, lack of housing, cocaine use disorder, alcohol disorder, opiate use disorder, tobacco use. I reviewed the medical record, interviewed the patient and discuss her treatment and treatment plan during team meeting. She feels that her head is "foggy" since we increased the dose of Cymbalta and Neurontin. She is frustrated by her continued hospitalization. She understands that under normal circumstances we would have discharged her to a custodial pending her admission to [facility]. She no longer feels comfortable on the unit and complained about behavior of the more disturbed patients. She again complained of hip and leg pain that is moderately from the current medications. She is also concerned about her low blood pressure. Objective - Vital Signs Vital signs: Vital Signs Temp 98.3 F 09/19/19 07:18 Pulse 63 09/19/19 07:18 Resp 18 09/19/19 07:18 BP 124/56 09/19/19 07:18 Pulse Ox 97 09/19/19 07:18 Intake & Output 09/18/19 09/19/19 09/19/19 18:59 06:59 18:59 Weight 84.8 kg - Exam She presented as a moderately obese 59-year-old female who was guarded but pleasant. She made eye contact and attended to the interview. She had a sad facial expression. He was alert and oriented to person, place and time. She made eye contact and attended to the interview. She showed no abnormality of psychomotor activity. Her gait was slow and she walked with the aid of a wheeled walker. She had no abnormal movements. Her affect was depressed. She denied suicidal ideation, wishes or homicidal ideation. She denied feeling hopeless or worthless but feels helpless over her continued hospitalization. She did not express paranoid ideation, ideas reference or delusional thoughts. She denied hallucinations did not appear to be responding to internal stimuli. Her thinking was concrete but organized and goal directed. - Labs CBC & Chem 7: 09/10/19 08:49 09/10/19 08:49 Labs: Abnormal Lab Results - Last 24 Hours (Table) 09/18/19 Range/Units 13:45 Ur Leukocyte Esterase Trace H (Negative) Urine Bacteria Rare H (None) /hpf Urine Mucus Rare H (None) /hpf Assessment and Plan Assessment: She remains somatically preoccupied but is able to be redirected towards the reasons for this hospitalization. She was much less angry than on admission. She is very concerned about her housing situation. Plan: Continue duloxetine 60 mg daily, Neurontin 200 mg 3 times a day, Seroquel 100 mg at bedtime. Discontinue Zestril blood pressure remains normal to low. safety precautions. Since the shelters are full she remained in hospital until admission to [facility].
[2019-09-19] MEDS: MAG HYDROX/AL HYDROX/SIMETH 30 ML CUP PO PRN (16:14)
[2019-09-19] MEDS: QUEtiapine 100 MG TAB PO SCH (21:45)
[2019-09-20] MEDS: GABAPENTIN 100 MG CAP PO SCH ×3 (07:39→20:56)
[2019-09-20] MEDS: NICOTINE 14MG/24HR PATCH TRANSDERM SCH (07:39)
[2019-09-20] MEDS: DULoxetine HCL 60 MG CAPSULE.DR PO SCH (07:40)
[2019-09-20] MEDS: LORATADINE 10 MG TAB PO SCH (07:40)
[2019-09-20] MEDS: FLUTICASONE 110 MCG INHALER (BULK) INHALATION SCH ×2 (08:48→20:53)
[2019-09-20] MEDS: CYCLOBENZAPRINE 10 MG TAB PO SCH ×3 (08:49→20:53)
[2019-09-20] MEDS: LISINOPRIL 10 MG TAB PO SCH (08:52)
[2019-09-20] MEDS: NYSTATIN 100,000 UNIT/GM OINT 30 GM TUBE TOPICAL SCH ×4 (08:56→20:53)
[2019-09-20] MEDS: TRIAMCINOLONE ACET 0.1% OINTMENT 15 GM TUBE TOPICAL SCH ×4 (08:56→20:53)
[2019-09-20 08:58] VITALS: RESP 16
--- NOTE | 2019-09-20 13:22 | P.PN ---
Subjective Progress Note Date: 09/20/19 Principal diagnosis: Major depressive disorder, recurrent, without psychotic features, lack of housing, cocaine use disorder, alcohol use disorder severe, opiate use disorder, tobacco use. I reviewed the medical record, interviewed the patient and discuss her treatment and treatment plan during team meeting. She learned that [facility] is not accepting new admissions due to the COVID 19 epidemic. With much encouragement by the social worker assistant, she spoke to [facility] and scheduled admission to [facility] for alcohol rehabilitation treatment. She is scheduled to be admitted to [facility] tomorrow and [facility]. She remains somatically preoccupied and was only concerned about health problems including her chronic hip pain and urinary symptoms. I declined her request to prescribe her another course of antibiotics for her self diagnosed urinary tract infection. A urine sample from 09/18/2019 was negative for WBC and had rare urine bacteria. Objective - Vital Signs Vital signs: Vital Signs Temp 98.7 F 09/20/19 06:05 Pulse 77 09/20/19 08:57 Resp 16 09/20/19 08:57 BP 101/59 09/20/19 08:57 Pulse Ox 97 09/19/19 07:18 - Exam She presented as an angry appearing 59-year-old woman who walks slowly with a differential a walker. She made eye contact and attended to the interview. She had no prominent physical abnormalities. She had a angry appearing facial expression. She was alert and oriented to person, place and time. She showed psychomotor retardation but no abnormal pump and's. Her gait was slow but steady. His speech was spontaneous with normal rate, rhythm and volume. She had no articulation difficulties. Affect was dysphoric but stable and appropriate. She denied suicidal ideation and wishes. She denied homicidal ideation. She denied feeling hopeless, helpless or worthless. She was not ruminative a did not express obsessions, paranoid ideation, ideas reference or delusions. Her thinking was concrete. Associations were coherent and logical. She she did not appear to be responding to internal stimuli. - Labs CBC & Chem 7: 09/10/19 08:49 09/10/19 08:49 Assessment and Plan Assessment: She is much less distressed admission and remains angry about her social situation. She is ambivalent about substance abuse treatment. Plan: Continue current treatment and treatment plan. Continue current medications. Discharge tomorrow morning.
[2019-09-20] MEDS: IBUPROFEN 600 MG TAB PO PRN (16:26)
[2019-09-20] MEDS: QUEtiapine 100 MG TAB PO SCH ×3 (20:56→23:33)
[2019-09-20 23:36] VITALS: TEMP 97.7
[2019-09-21] MEDS: LISINOPRIL 10 MG TAB PO SCH (07:51)
[2019-09-21] MEDS: IBUPROFEN 600 MG TAB PO PRN (07:51)
[2019-09-21] MEDS: GABAPENTIN 100 MG CAP PO SCH (07:51)
[2019-09-21] MEDS: DULoxetine HCL 60 MG CAPSULE.DR PO SCH (07:51)
[2019-09-21] MEDS: NICOTINE 14MG/24HR PATCH TRANSDERM SCH (07:51)
[2019-09-21] MEDS: NYSTATIN 100,000 UNIT/GM OINT 30 GM TUBE TOPICAL SCH (07:55)
[2019-09-21] MEDS: LORATADINE 10 MG TAB PO SCH (07:55)
[2019-09-21] MEDS: FLUTICASONE 110 MCG INHALER (BULK) INHALATION SCH (07:55)
[2019-09-21] MEDS: TRIAMCINOLONE ACET 0.1% OINTMENT 15 GM TUBE TOPICAL SCH (07:55)
[2019-09-21] MEDS: CYCLOBENZAPRINE 10 MG TAB PO SCH (07:55)
[2019-09-21 08:03] VITALS: BP 123/68; PULSE 64
--- NOTE | 2019-09-21 11:03 | P.DS ---
Providers Date of admission: 09/09/19 17:52 Attending physician: Rian Flores MD Consults: 09/09/19 17:59 Consult Physician Routine Consulting Provider: [facility] Consult Reason/Comments: medical management Do you want consulting provider notified?: Yes Primary care physician: [facility] Diagnosis(es) (1) Suicidal ideation Status: Resolved Priority: Low (2) Depression Status: Chronic Priority: Low (3) Alcohol use disorder, severe, dependence Status: Chronic Priority: High (4) Cocaine use disorder, severe, dependence Status: Chronic Priority: Medium (5) Opioid use disorder Status: Chronic Priority: Medium (6) Tobacco use He is not interested in smoking cessation. He declined a prescription for nicotine replacement therapy. Brief intervention provided Status: Chronic Priority: Medium (7) Unspecified personality disorder Status: Chronic Priority: Medium Hospital Course: She is a 51-year-old single female who was a history of alcohol, cocaine and opiate use disorder. She presented to unit with nonspecific suicidal and homicidal ideation in the contents of homelessness. She was dismissed from the [facility] where she lived for 8 months due to her alcohol use problems. She lived briefly in a prison afterwards but was again dismissed from the program because her substance use problems. She complained that the evictions were unjustified. She really presented to the emergency room she alleged that she had thoughts of buying a gun and shooting herself. She minimized probate and use of alcohol and crack cocaine. Her UDS was positive for cocaine and her breath alcohol was 0.00. She reported several psychiatric hospitalizations in the past. This is the first admission to this facility. She used to follow up with Dr. Castle at [facility] but has not kept her appointments. She alleged she had 1 suicide attempt in the past by overdose indications. We admitted her to psychiatric unit under care of this va underwriter. We provided the comprehensive biopsychosocial assessment. The sr. consultant mapping supervisor completed initial physical exam and medical history and diagnosis right hip pain, UTI prior partially treated as an outpatient, and a history of liver disease and hepatitis C. The sr. consultant recommended use of a walker, Motrin for pain control, UA and culture, continue Cipro prescribed outpatient and nystatin ointment. She participated intermittently in therapeutic groups and activities. She posed no management problem had no episodes of behavioral dyscontrol. We continued to Cymbalta 20 mg daily and titrated to to 60 mg per day. We continued Seroquel 100 mg at bedtime for sleep and depression augmentation. At her request we restarted and increased Neurontin to 200 mg 3 times a day. She was ambivalent about substance abuse treatment until she recognized that there are no other residential options in the community at the present time. She was somatically preoccupied throughout the hospitalization and complained of various physical ailments more than her psychological concerns. She eventually contacted [facility] and arrange for admission to [facility]. However, because of the COVID 19 epidemic [facility] is not accepting admissions at the present time. She recently spoke with [facility] and arrange admission to [facility]. The mental health social worker assisted her with transportation to [facility]. At the time of discharge she presented as a short moderately obese 59-year-old female who walked with the aid of a wheeled walker. She made eye contact and attended to the interview. She had no distinguishing features or prominent physical maladies. She had an angry facial expression. She was alert and oriented to person, place and time. She showed no abnormality of psychomotor activity. Her speech was spontaneous with decreased rate but normal volume and rhythm. She had no articulation difficulties. Her affect was blunted, angry but not inappropriate. She denied suicidal ideation, homicidal ideation or wishes. She denied feeling hopeless, helpless or worthless. She did not express ideas reference, paranoid ideation or delusions. Her thinking was concrete. Associations were coherent and logical. She denied hallucinations and did not appear to be responding to internal stimuli. Patient Condition at Discharge: Stable Plan - Discharge Summary New Discharge Prescriptions: New DULoxetine HCL [Cymbalta] 60 mg PO DAILY #30 capsule. Fluticasone Propionate 110 Mcg [Flovent 110 Mcg Inhaler (Bulk)] 2 puff INHALATION RT-BID 30 Days #1 puff Ibuprofen [Motrin] 600 mg PO TID PRN tab PRN Reason: Breakthrough Pain Gabapentin [Neurontin] 200 mg PO TID #180 cap QUEtiapine [SEROquel] 100 mg PO HS #30 tab Lisinopril [Zestril] 10 mg PO DAILY #30 tab Continue Cholecalciferol [Vitamin D3 (25 Mcg = 1000 Iu)] 1,000 unit PO DAILY Discontinued QUEtiapine FUMARATE [SEROquel] 200 mg PO HS predniSONE [Deltasone] 20 mg PO DAILY Nystatin 100,000 Unit/gm Powd [Mycostatin Powder] 1 applic TOPICAL BID Ketoconazole 2% Shampoo [Nizoral] 1 applic TOPICAL Q3D amLODIPine [Norvasc] 10 mg PO DAILY Gabapentin [Gralise] 600 mg PO TID Ciprofloxacin HCl [Cipro] 250 mg PO Q12HR Discharge Medication List Cholecalciferol [Vitamin D3 (25 Mcg = 1000 Iu)] 1,000 unit PO DAILY 09/10/19 [History] DULoxetine HCL [Cymbalta] 60 mg PO DAILY #30 capsule. 09/20/19 [Rx] Fluticasone Propionate 110 Mcg [Flovent 110 Mcg Inhaler (Bulk)] 2 puff INHALATION RT-BID 30 Days #1 puff 09/20/19 [Rx] Gabapentin [Neurontin] 200 mg PO TID #180 cap 09/20/19 [Rx] Ibuprofen [Motrin] 600 mg PO TID PRN tab 09/20/19 [Rx] Lisinopril [Zestril] 10 mg PO DAILY #30 tab 09/20/19 [Rx] QUEtiapine [SEROquel] 100 mg PO HS #30 tab 09/20/19 [Rx] Follow up Appointment(s)/Referral(s): [facility] [NON-STAFF] - 09[facility]21/19 9:00 am [facility] [address] [place] [id number] ) [facility] [Primary Care Provider] - 1-2 days Patient Instructions/Handouts: How to Stop Smoking (DC), Depression (DC), Generalized Anxiety Disorder (GEN) Activity/Diet/Wound Care/Special Instructions: Activity and diet as tolerated. Avoid the use of street drugs and alcohol. Take all medications as prescribed. When you are in need of refills on your medications please contact your medical provider and/or outpatient psychiatrist to have this done. Please go to scheduled outpatient appointment for aftercare treatment. If symptoms return or become worse, call the crisis line at and/or go to the nearest emergency room for evaluation. Discharge Disposition: HOME SELF-CARE
== END 2019-09-21 08:20 | disposition home or self-care (01) | DRG 885 ==
LOC: EC 14:47 → 3MHU 17:52
PROVIDERS: ADMIT Psychiatry & Neurology Psychiatry; ATTEND Psychiatry & Neurology Psychiatry
DX: F33.2 Major depressive disorder, recurrent severe without psychotic features (principal); F14.20 Cocaine dependence, uncomplicated; R45.851 Suicidal ideations; T74.21XA Adult sexual abuse, confirmed, initial encounter; F11.10 Opioid abuse, uncomplicated; E66.9 Obesity, unspecified; Z68.33 Body mass index [BMI] 33.0-33.9, adult; F10.20 Alcohol dependence, uncomplicated; F17.210 Nicotine dependence, cigarettes, uncomplicated; F41.9 Anxiety disorder, unspecified; F60.9 Personality disorder, unspecified; G89.29 Other chronic pain; I10 Essential (primary) hypertension; J45.909 Unspecified asthma, uncomplicated; N30.90 Cystitis, unspecified without hematuria; R45.850 Homicidal ideations; Z59.0 Homelessness; Z79.899 Other long term (current) drug therapy; Z91.5 Personal history of self-harm; B35.3 Tinea pedis; Z86.14 Personal history of Methicillin resistant Staphylococcus aureus infection; M54.30 Sciatica, unspecified side
CPT/HCPCS: 72100; 73502; 80053; 80061; 80306; 81001; 82075; 82105; 83036; 84443; 85025; 99284

== ENCOUNTER 2019-10-07 01:39 | Emergency (ER) | payer MEDICARE, OTHER ==
[2019-10-07 01:48] VITALS: TEMP 97.6
[2019-10-07] MEDS ORDERED: SODIUM CHLORIDE 0.9% 1,000 ML IV STA (01:57)
[2019-10-07] MEDS ORDERED: ONDANSETRON 4 MG/2 ML VIAL IVP STA (01:57)
--- NOTE | 2019-10-07 02:33 | ED ---
General Adult HPI - General Source: patient Mode of arrival: wheelchair Limitations: no limitations <Heike Lynch - Last Filed: 10/07/19 02:48> <Josué Juarez - Last Filed: 10/07/19 03:57> - General Chief complaint: Shortness of Breath Stated complaint: Shortness of Breath Time Seen by Provider: 10/07/19 01:52 - History of Present Illness Initial comments: 59-year-old female patient presents to the emergency department today for evaluation of shortness of breath, nausea, vomiting, and diarrhea. Patient states she's had symptoms for the last 2-3 days. States that she did "smoke something I shouldn't have". She believes she was poisoned. Patient does admit to drinking alcohol on a daily basis. States she has had a few beers today. Patient denies any chest pain but states that she is having some trouble breathing. States she does have a cough but this is chronic for her. Denies any sputum production or hemoptysis. She denies any abdominal pain or back pain. States that she's had several episodes of diarrhea and a lot of gas today. Denies any hematochezia or melena. Patient denies any recent rash, fever, chills, cough, chest pain, numbness, tingling, dizziness, weakness, hematuria, dysuria, urinary urgency, urinary frequency, headache, visual changes, or any other complaints. (Heike Lynch) - Related Data Home Medications Medication Instructions Recorded Confirmed Cholecalciferol [Vitamin D3 (25 1,000 unit PO DAILY 09/10/19 09/10/19 Mcg = 1000 Iu)] Previous Rx's Medication Instructions Recorded DULoxetine HCL [Cymbalta] 60 mg PO DAILY #30 capsule. 09/20/19 Fluticasone Propionate 110 Mcg 2 puff INHALATION RT-BID 30 Days 09/20/19 [Flovent 110 Mcg Inhaler (Bulk)] #1 puff Gabapentin [Neurontin] 200 mg PO TID #180 cap 09/20/19 Ibuprofen [Motrin] 600 mg PO TID PRN tab 09/20/19 Lisinopril [Zestril] 10 mg PO DAILY #30 tab 09/20/19 QUEtiapine [SEROquel] 100 mg PO HS #30 tab 09/20/19 Allergies Allergy/AdvReac Type Severity Reaction Status Date / Time ketorolac [From Toradol] Allergy Unknown Verified 10/07/19 01:47 latex Allergy Itching Verified 10/07/19 01:47 Review of Systems ROS Other: All systems not noted in ROS Statement are negative. <Hekie Lynch - Last Filed: 10/07/19 02:48> ROS Other: All systems not noted in ROS Statement are negative. <Josué Juarez - Last Filed: 10/07/19 03:57> ROS Statement: Those systems with pertinent positive or pertinent negative responses have been documented in the HPI. Past Medical History Past Medical History: Hypertension, Liver Disease, Musculoskeletal Disorder, Neurologic Disorder Additional Past Medical History / Comment(s): hep c, back pain, sciatica, neuro kavin, History of Any Multi-Drug Resistant Organisms: MRSA Date of last positivie culture/infection: 2006 MDRO Source:: face Past Surgical History: Orthopedic Surgery Additional Past Surgical History / Comment(s): lt ankle, D&C Past Anesthesia/Blood Transfusion Reactions: No Reported Reaction Past Psychological History: Anxiety, Bipolar, Depression, Schizoaffective Disorder, Schizophrenia Smoking Status: Current every day smoker Past Alcohol Use History: Abuse, Daily, Occasional Past Drug Use History: Opiates <SyedHeike M - Last Filed: 10/07/19 02:48> General Exam Limitations: no limitations General appearance: alert, in no apparent distress, other (This is a well- developed, well-nourished adult female patient in no acute distress. Vital sig ns upon presentation are temperature 97.6F, pulse 94, respirations 20, blood pressure 122/78, pulse ox 97% on room air.) Eye exam: Present: normal appearance, PERRL, EOMI. Absent: scleral icterus, conjunctival injection, periorbital swelling ENT exam: Present: normal exam, normal oropharynx, mucous membranes moist Respiratory exam: Present: normal lung sounds bilaterally. Absent: respiratory distress, wheezes, rales, rhonchi, stridor Cardiovascular Exam: Present: regular rate, normal rhythm, normal heart sounds. Absent: systolic murmur, diastolic murmur, rubs, gallop, clicks GI/Abdominal exam: Present: soft, normal bowel sounds. Absent: distended, tenderness, guarding, rebound, rigid Neurological exam: Present: alert, oriented X3, CN II-XII intact Psychiatric exam: Present: normal affect, normal mood Skin exam: Present: warm, dry, intact, normal color. Absent: rash <Heike Lynch - Last Filed: 10/07/19 02:48> Course Vital Signs 10/07/19 01:43 Temperature 97.6 F Pulse Rate 94 Respiratory 20 Rate Blood Pressure 122/78 O2 Sat by Pulse 97 Oximetry EKG Findings - EKG Comments: EKG Findings:: EKG obtained at 02 100 shows normal sinus rhythm with a left bundle branch block. Ventricular rate of 76, VA interval 152, QR bahai 134, QT 478, QTC 537. <Heike Lynch - Last Filed: 10/07/19 02:48> Medical Decision Making - Lab Data Result diagrams: 10/07/19 02:25 <Heike Lynch - Last Filed: 10/07/19 02:48> - Lab Data Result diagrams: 10/07/19 02:25 10/07/19 02:25 <Josué Juarez - Last Filed: 10/07/19 03:57> - Medical Decision Making Care signed out to Dr. Juarez @ 0300. (Heike Lynch) - Lab Data Lab Results 10/07/19 10/07/19 10/07/19 Range/Units 02:25 02:25 02:25 WBC 11.3 H (3.8-10.6) k/uL RBC 5.29 (3.80-5.40) m/uL Hgb 16.0 (11.4-16.0) gm/dL Hct 47.2 H (34.0-46.0) % MCV 89.3 (80.0-100.0) fL MCH 30.3 (25.0-35.0) pg MCHC 33.9 (31.0-37.0) g/dL RDW 12.1 (11.5-15.5) % Plt Count 375 (150-450) k/uL Neutrophils % 69 % Lymphocytes % 20 % Monocytes % 6 % Eosinophils % 3 % Basophils % 0 % Neutrophils # 7.8 H (1.3-7.7) k/uL Lymphocytes # 2.3 (1.0-4.8) k/uL Monocytes # 0.7 (0-1.0) k/uL Eosinophils # 0.3 (0-0.7) k/uL Basophils # 0.0 (0-0.2) k/uL Sodium 134 L (137-145) mmol/L Potassium 3.7 (3.5-5.1) mmol/L Chloride 97 L (98-107) mmol/L Carbon Dioxide 26 (22-30) mmol/L Anion Gap 11 mmol/L BUN 10 (7-17) mg/dL Creatinine 0.82 (0.52-1.04) mg/dL Est GFR (CKD-EPI)AfAm >90 (>60 ml/min/1.73 sqM) Est GFR (CKD-EPI)NonAf 79 (>60 ml/min/1.73 sqM) Glucose 126 H (74-99) mg/dL Calcium 10.6 H (8.4-10.2) mg/dL Total Bilirubin 1.1 (0.2-1.3) mg/dL AST 39 H (14-36) U/L ALT 33 (4-34) U/L Alkaline Phosphatase 86 (38-126) U/L Troponin I <0.012 (0.000-0.034) ng/mL Total Protein 8.0 (6.3-8.2) g/dL Albumin 5.0 (3.5-5.0) g/dL Amylase 55 (30-110) U/L Lipase 79 (23-300) U/L Serum Alcohol <10 mg/dL Disposition <Heike Lynch - Last Filed: 10/07/19 02:48> Is patient prescribed a controlled substance at d/c from ED?: No <Josué Juarez - Last Filed: 10/07/19 03:57> Clinical Impression: Acute bronchitis, Gastroenteritis Disposition: HOME SELF-CARE Condition: Good Instructions (If sedation given, give patient instructions): Acute Bronchitis (ED), Gastroenteritis (ED) Referrals: [facility] [Primary Care Provider] - 1-2 days
[2019-10-07 02:38] LABS: Basophils % (A) 0 %; Eosinophils # (A) 0.3 k/uL (0-0.7); Eosinophils % (A) 3 %; HCT 47.2 % (34.0-46.0); Lymphocytes # (A) 2.3 k/uL (1.0-4.8); Lymphocytes % (A) 20 %; MCH 30.3 pg (25.0-35.0); MCHC 33.9 g/dL (31.0-37.0); MCV 89.3 fL (80.0-100.0); Mean Platelet Volume 7.5; Monocytes # (A) 0.7 k/uL (0-1.0); Monocytes % (A) 6 %; Neutrophils # (A) 7.8 k/uL (1.3-7.7); Neutrophils % (A) 69 %; Platelet Count 375 k/uL (150-450); RBC 5.29 m/uL (3.80-5.40); RDW 12.1 % (11.5-15.5); WBC 11.3 k/uL (3.8-10.6)
[2019-10-07 02:49] LABS: ALT 33 U/L (4-34); AST 39 U/L (14-36); African American GFR (CKD) >90 (>60 ml/min/1.73 sqM); Alcohol <10 mg/dL; Alkaline Phosphatase 86 U/L (38-126); Amylase 55 U/L (30-110); Anion Gap 11 mmol/L; Blood Urea Nitrogen 10 mg/dL (7-17); Calcium 10.6 mg/dL (8.4-10.2); Carbon Dioxide 26 mmol/L (22-30); Chloride 97 mmol/L (98-107); Glucose 126 mg/dL (74-99); Non-African American GFR(CKD) 79 (>60 ml/min/1.73 sqM); Potassium 3.7 mmol/L (3.5-5.1); Sodium 134 mmol/L (137-145); Total Bilirubin 1.1 mg/dL (0.2-1.3)
--- NOTE | 2019-10-07 03:49 | XR ---
EXAMINATION TYPE: XR chest 1V DATE OF EXAM: 10/07/2019 COMPARISON: NONE HISTORY: Cough and short of breath TECHNIQUE: FINDINGS: Heart and mediastinum are normal. Lungs are clear. Diaphragm is normal. Bony thorax appears normal. Pulmonary vascularity is normal. IMPRESSION Normal chest.
[2019-10-07 03:59] VITALS: BP 94/45; PULSE 67; RESP 17
[2019-10-07] MEDS ORDERED: LORazepam 2 MG/ML INJ IV STA (04:00)
== END 2019-10-07 05:01 | disposition home or self-care (01) ==
LOC: EC 01:39
DX: J20.9 Acute bronchitis, unspecified (principal); K52.9 Noninfective gastroenteritis and colitis, unspecified; I10 Essential (primary) hypertension; F17.200 Nicotine dependence, unspecified, uncomplicated; Z88.5 Allergy status to narcotic agent; Z91.040 Latex allergy status
CPT/HCPCS: 36415; 93005; 80053; 82150; 83690; 84484; 85025; 71045; 99285; 96374; 96375; 96361 ×2; G0480; J2060; J2405; 80320

== ENCOUNTER 2019-10-24 20:28 | Emergency (ER) | payer MEDICARE, OTHER ==
[2019-10-24] MEDS ORDERED: FLUCONAZOLE 150 MG TAB PO STA (21:05)
[2019-10-24] MEDS ORDERED: NYSTATIN 100,000UNIT/GM CREAM 30 GM TUBE TOPICAL STA (21:06)
--- NOTE | 2019-10-24 21:06 | ED ---
Female Urogenital HPI - General Chief complaint: Urogenital Stated complaint: Urogenital Time Seen by Provider: 10/24/19 20:48 Source: patient, RN notes reviewed, old records reviewed Mode of arrival: ambulatory Limitations: no limitations - History of Present Illness Initial comments: This is a 51-year-old female DF for evaluation recurrent Maureen vulvovaginal for secondary recurrent urinary tract infections placed on antibiotics. Patient also has promiscuous sexual history concern for STD. No bowel pain no fevers no nausea vomiting or diarrhea no other complaints MD Complaint: dysuria, pelvic pain, possible STD -: week(s) Location: labia, perineum Radiation: non-radiating Severity: moderate Severity scale (1-10): 7 Quality: burning Consistency: constant Improves with: none Worsens with: urination, intercourse, movement Patient : No Associated Symptoms: vaginal discharge, rash - Related Data Home Medications Medication Instructions Recorded Confirmed Cholecalciferol [Vitamin D3 (25 1,000 unit PO DAILY 09/10/19 09/10/19 Mcg = 1000 Iu)] Previous Rx's Medication Instructions Recorded DULoxetine HCL [Cymbalta] 60 mg PO DAILY #30 capsule. 09/20/19 Fluticasone Propionate 110 Mcg 2 puff INHALATION RT-BID 30 Days 09/20/19 [Flovent 110 Mcg Inhaler (Mhu)] #1 puff Gabapentin [Neurontin] 200 mg PO TID #180 cap 09/20/19 Ibuprofen [Motrin] 600 mg PO TID PRN tab 09/20/19 Lisinopril [Zestril] 10 mg PO DAILY #30 tab 09/20/19 QUEtiapine [SEROquel] 100 mg PO HS #30 tab 09/20/19 Fluconazole [Diflucan] 150 mg PO DAILY #1 tab 10/24/19 Allergies Allergy/AdvReac Type Severity Reaction Status Date / Time ketorolac [From Toradol] Allergy Unknown Verified 10/24/19 20:46 latex Allergy Itching Verified 10/24/19 20:46 Review of Systems ROS Statement: Those systems with pertinent positive or pertinent negative responses have been documented in the HPI. ROS Other: All systems not noted in ROS Statement are negative. Past Medical History Past Medical History: Hypertension, Liver Disease, Musculoskeletal Disorder, Neurologic Disorder Additional Past Medical History / Comment(s): hep c, back pain, sciatica, neuropathy, History of Any Multi-Drug Resistant Organisms: MRSA Date of last positivie culture/infection: 2006 MDRO Source:: face Past Surgical History: Orthopedic Surgery Additional Past Surgical History / Comment(s): lt ankle, D&C Past Anesthesia/Blood Transfusion Reactions: No Reported Reaction Past Psychological History: Anxiety, Bipolar, Depression, Schizoaffective Disorder, Schizophrenia Smoking Status: Current every day smoker Past Alcohol Use History: Daily, Occasional Past Drug Use History: Opiates General Exam Limitations: no limitations General appearance: alert, in no apparent distress Head exam: Present: atraumatic, normocephalic, normal inspection Eye exam: Present: normal appearance, PERRL, EOMI. Absent: scleral icterus, conjunctival injection, periorbital swelling ENT exam: Present: normal exam, mucous membranes moist Neck exam: Present: normal inspection. Absent: tenderness, meningismus, lymphadenopathy Respiratory exam: Present: normal lung sounds bilaterally. Absent: respiratory distress, wheezes, rales, rhonchi, stridor Cardiovascular Exam: Present: regular rate, normal rhythm, normal heart sounds. Absent: systolic murmur, diastolic murmur, rubs, gallop, clicks GI/Abdominal exam: Present: soft, normal bowel sounds. Absent: distended, tenderness, guarding, rebound, rigid External exam: Present: erythema, swelling Extremities exam: Present: normal inspection, full ROM, normal capillary refill. Absent: tenderness, pedal edema, joint swelling, calf tenderness Back exam: Present: normal inspection Neurological exam: Present: alert, oriented X3, CN II-XII intact Psychiatric exam: Present: normal affect, normal mood Skin exam: Present: warm, dry, intact, normal color. Absent: rash Course Vital Signs 10/24/19 10/24/19 20:40 22:20 Temperature 98.3 F 98.5 F Pulse Rate 71 60 Respiratory 18 17 Rate Blood Pressure 135/91 114/63 O2 Sat by Pulse 97 96 Oximetry - Reevaluation(s) Reevaluation #1: medical record is reveiwed patient given appropriate medicaiton Medical Decision Making - Medical Decision Making 59 female DF for evaluation. Patient presents today for evaluation regards to vaginosis vaginitis candidiasis of the vagina. Patient given appropriate treatment at the [facility] and patient can be discharged home - Lab Data Lab Results 10/24/19 10/24/19 Range/Units 21:26 21:26 Urine Color Yellow Urine Appearance Clear (Clear) Urine pH 6.0 (5.0-8.0) Ur Specific [place] 1.030 (1.001-1.035) Urine Protein Negative (Negative) Urine Glucose (UA) Negative (Negative) Urine Ketones Negative (Negative) Urine Blood Negative (Negative) Urine Nitrite Negative (Negative) Urine Bilirubin Negative (Negative) Urine Urobilinogen <2.0 (<2.0) mg/dL Ur Leukocyte Esterase Moderate H (Negative) Urine RBC 2 (0-5) /hpf Urine WBC 3 (0-5) /hpf Ur Squamous Epith Cells 6 H (0-4) /hpf Urine Mucus Rare H (None) /hpf Chlamydia Source Urine Chlamydia DNA (PCR) Negative (Neg,Equiv) N. gonorrhoeae Source Urine N.gonorrhoeae DNA Probe Negative (Neg,Equiv) Disposition Clinical Impression: Candidiasis of vagina Disposition: HOME SELF-CARE Condition: Good Instructions (If sedation given, give patient instructions): Yeast Infection (ED), Vaginitis (ED) Prescriptions: Fluconazole [Diflucan] 150 mg PO DAILY #1 tab Is patient prescribed a controlled substance at d/c from ED?: No Referrals: [facility] [Primary Care Provider] - 1-2 days
[2019-10-24 21:36] LABS: Appearance,Urine Clear (Clear); Bilirubin,Urine Negative (Negative); Blood,Urine Negative (Negative); Color,Urine Yellow; Glucose,Urine (UA) Negative (Negative); Ketones,Urine Negative (Negative); Leukocyte Esterase,Urine Moderate (Negative); Mucus,Urine Rare /hpf; Nitrite,Urine Negative (Negative); Protein,Urine Negative (Negative); RBC,Urine 2 /hpf (0-5); Squamous Epithelial Cell,Urine 6 /hpf (0-4); Urobilinogen,Urine <2.0 mg/dL (<2.0); WBC,Urine 3 /hpf (0-5)
[2019-10-24] MEDS ORDERED: ACETAMINOPHEN TAB 325 MG TAB PO STA (21:47)
[2019-10-24 22:23] VITALS: BP 114/63; PULSE 60; RESP 17; TEMP 98.5
[2019-10-24] MEDS ORDERED: IBUPROFEN 600 MG TAB PO STA (22:25)
[2019-10-26 14:55] LABS: C. trachomatis,PCR Negative (Neg,Equiv); Chlamydia trachomatis Source Urine; N. gonorrhoeae,PCR Negative (Neg,Equiv); Neisseria Source Urine
== END 2019-10-24 22:32 | disposition home or self-care (01) ==
LOC: EC 20:28
DX: B37.3 Candidiasis of vulva and vagina (principal); I10 Essential (primary) hypertension; F17.200 Nicotine dependence, unspecified, uncomplicated; Z91.040 Latex allergy status; Z88.6 Allergy status to analgesic agent
CPT/HCPCS: 81001; 87491; 87591; 99284

== ENCOUNTER 2020-03-07 23:56 | Emergency (ER) | payer MEDICARE, OTHER ==
[2020-03-08 00:05] VITALS: BP 148/86; PULSE 77; RESP 20; TEMP 98.2
[2020-03-08] MEDS ORDERED: methylPREDNISolone SOD SUCCI 125 MG/2 ML VIAL IM ONE (00:25)
[2020-03-08] MEDS ORDERED: CEPHALEXIN 500MG STARTER PACK 4 CAP BTL PO STA (00:26)
[2020-03-08] MEDS ORDERED: diphenhydrAMINE 50 MG CAP PO STA (00:26)
--- NOTE | 2020-03-08 00:36 | ED ---
General Adult HPI - General Chief complaint: Skin/Abscess/Foreign Body Stated complaint: Rash on groin, big toe infection Time Seen by Provider: 03/08/20 00:10 Source: patient, RN notes reviewed, old records reviewed Mode of arrival: ambulatory Limitations: no limitations - History of Present Illness Initial comments: Patient is a 59-year-old female who presents emergency department today for evaluation for concern for infected left great toenail. She reports she's noticed some redness and swelling to this toenail the past week. Patient reports that she's had been treated for chlamydia infection and was given a dose of azithromycin. She states that she thinks that she's having a reaction to this antibiotic she has pruritic rash over her back and groin. She states that she's not had any Benadryl. Patient reports no recent fevers or chills. - Related Data Home Medications Medication Instructions Recorded Confirmed Cholecalciferol [Vitamin D3 (25 1,000 unit PO DAILY 09/10/19 09/10/19 Mcg = 1000 Iu)] Previous Rx's Medication Instructions Recorded DULoxetine HCL [Cymbalta] 60 mg PO DAILY #30 capsule. 09/20/19 Fluticasone Propionate 110 Mcg 2 puff INHALATION RT-BID 30 Days 09/20/19 [Flovent 110 Mcg Inhaler (Mhu)] #1 puff Gabapentin [Neurontin] 200 mg PO TID #180 cap 09/20/19 Ibuprofen [Motrin] 600 mg PO TID PRN tab 09/20/19 QUEtiapine [SEROquel] 100 mg PO HS #30 tab 09/20/19 lisinopriL [Zestril] 10 mg PO DAILY #30 tab 09/20/19 Fluconazole [Diflucan] 150 mg PO DAILY #1 tab 10/24/19 Cephalexin [Keflex] 500 mg PO Q6HR 7 Days #28 cap 03/08/20 Permethrin 5% Cream [Elimite] 1 applic TOPICAL WEEKLY #1 tube 03/08/20 diphenhydrAMINE [Benadryl] 25 mg PO TID PRN #20 capsule 03/08/20 Allergies Allergy/AdvReac Type Severity Reaction Status Date / Time ketorolac [From Toradol] Allergy Unknown Verified 03/08/20 00:05 latex Allergy Itching Verified 09/10/20 00:05 Review of Systems ROS Statement: Those systems with pertinent positive or pertinent negative responses have been documented in the HPI. ROS Other: All systems not noted in ROS Statement are negative. Past Medical History Past Medical History: Hypertension, Liver Disease, Musculoskeletal Disorder, Neurologic Disorder Additional Past Medical History / Comment(s): hep c, back pain, sciatica, neuropathy, History of Any Multi-Drug Resistant Organisms: MRSA Date of last positivie culture/infection: 2006 MDRO Source:: face Past Surgical History: Orthopedic Surgery Additional Past Surgical History / Comment(s): lt ankle, D&C Past Anesthesia/Blood Transfusion Reactions: No Reported Reaction Past Psychological History: Anxiety, Bipolar, Depression, Schizoaffective Disorder, Schizophrenia Smoking Status: Never smoker Past Alcohol Use History: Daily, Occasional Past Drug Use History: Opiates General Exam - General Exam Comments Initial Comments: 51-year-old female presents return to a alert and oriented 3. No acute distress. Limitations: no limitations General appearance: alert, in no apparent distress Head exam: Present: atraumatic, normocephalic, normal inspection Eye exam: Present: normal appearance ENT exam: Present: normal exam, mucous membranes moist Neck exam: Present: normal inspection. Absent: tenderness, meningismus, lymphadenopathy Respiratory exam: Present: normal lung sounds bilaterally. Absent: respiratory distress, wheezes, rales, rhonchi, stridor Cardiovascular Exam: Present: regular rate, normal rhythm, normal heart sounds. Absent: systolic murmur, diastolic murmur, rubs, gallop, clicks GI/Abdominal exam: Present: soft, normal bowel sounds. Absent: distended, tenderness, guarding, rebound, rigid Extremities exam: Present: normal inspection, full ROM, normal capillary refill, other (Patient has evidence of an infected erythematous left great toenail on the medial portion. There is induration and erythema surrounding the nail.). Absent: tenderness, pedal edema, joint swelling, calf tenderness Back exam: Present: normal inspection Neurological exam: Present: alert, oriented X3, CN II-XII intact Psychiatric exam: Present: normal affect, normal mood Skin exam: Present: warm, dry, intact, normal color, rash (Patient has macular papular rash over her back. She also has evidence of small papule-like lesions over her hand and feet. Some of this is consistent with scabies versus drug eruption.) Course Vital Signs 03/07/20 23:57 Temperature 98.2 F Pulse Rate 77 Respiratory 20 Rate Blood Pressure 148/86 O2 Sat by Pulse 98 Oximetry Medical Decision Making - Medical Decision Making 51-year-old female presents return today for multiple complaints me complaints are concerning for left great toenail infection which she has evidence of an ingrown toenail. There is a small amount of pus that was draining from the site. Patient will be started on Keflex. Discussed using Epsom salts soaks. She also reportedly was treated for chlamydia and started on azithromycin antibiotic. Patient rash's has some mild appearance of hives on her back. She also has evidence of pruritic papular lesions on hands and feet and an hairline MS concern for possible scabies infection. I discussed with the Patient needs to be treated this time with Benadryl helped stop itching. The Patient on Keflex for the toe infection. She is given IM Solu-Medrol in the ER. Discussed using Benadryl, and will start the Patient to use permethrin cream in one week if symptoms continue to persist. Disposition Clinical Impression: Acute maculopapular rash, Pruritic erythematous rash, Ingrown toenail Disposition: HOME SELF-CARE Condition: Good Instructions (If sedation given, give patient instructions): Ingrown Nail (ED), Scabies (ED), Urticaria (ED) Additional Instructions: Please use medication as discussed. Please follow up with family doctor if symptoms have not improved over the next two days. Please return to the emergency room if your symptoms increase or worsen or for any other concerns. Patient should do Epsom salt soaks of the toe. Also recommended washing all bedding and clothing in hot water. Apply permethrin cream at night before bed and sleeping clean sheets. Wash this off in the morning. repeat treatment in one week. Prescriptions: diphenhydrAMINE [Benadryl] 25 mg PO TID PRN #20 capsule PRN Reason: Itching Permethrin 5% Cream [Elimite] 1 applic TOPICAL WEEKLY #1 tube Cephalexin [Keflex] 500 mg PO Q6HR 7 Days #28 cap Is patient prescribed a controlled substance at d/c from ED?: No Referrals: [facility] [Primary Care Provider] - 1-2 days Time of Disposition: 00:35
== END 2020-03-08 01:01 | disposition home or self-care (01) ==
LOC: EC 23:56
DX: L60.0 Ingrowing nail (principal); L29.8 Other pruritus; R21 Rash and other nonspecific skin eruption; I10 Essential (primary) hypertension; Z91.040 Latex allergy status; Z88.6 Allergy status to analgesic agent
CPT/HCPCS: 99283; 96372; J2930

== ENCOUNTER 2020-04-17 09:38 | Emergency (ER) | payer MEDICARE, OTHER ==
[2020-04-17] MEDS ORDERED: ASPIRIN-ACET-CAFF 250-250-65MG 1 EACH TAB PO STA (09:55)
--- NOTE | 2020-04-17 09:55 | ED ---
General Adult HPI - General Chief complaint: Fever Stated complaint: fever/body aches Time Seen by Provider: 04/17/20 09:45 Source: patient, RN notes reviewed, old records reviewed Mode of arrival: ambulatory Limitations: no limitations - History of Present Illness Initial comments: This is a 59-year-old female who presents emergency Department complaining that last night she thinks she had a fever. Patient states she has a mild headache and has body aches. Patient states she has not taken any medicine for she has never to home. Patient states she has no chest pain no shortness of breath. Patient denies any cough. Patient denies any back pain. Patient is abdominal pain patient denies nausea vomiting diarrhea. Patient has no other complaints at this time. - Related Data Home Medications Medication Instructions Recorded Confirmed Gabapentin 600 mg PO TID 04/17/20 04/17/20 Ketoconazole 2% Shampoo [Nizoral] 1 applic TOPICAL Q3D 04/17/20 04/17/20 Oxybutynin Chloride [Ditropan] 5 mg PO BID 04/17/20 04/17/20 amLODIPine [Norvasc] 10 mg PO DAILY 04/17/20 04/17/20 predniSONE [Deltasone] 20 mg PO DAILY 04/17/20 04/17/20 Previous Rx's Medication Instructions Recorded QUEtiapine [SEROquel] 100 mg PO HS #30 tab 09/20/19 Allergies Allergy/AdvReac Type Severity Reaction Status Date / Time ketorolac [From Toradol] Allergy Unknown Verified 04/17/20 10:28 latex Allergy Itching Verified 04/17/20 10:28 Review of Systems ROS Statement: Those systems with pertinent positive or pertinent negative responses have been documented in the HPI. ROS Other: All systems not noted in ROS Statement are negative. Past Medical History Past Medical History: Hypertension, Liver Disease, Musculoskeletal Disorder, Neurologic Disorder Additional Past Medical History / Comment(s): hep c, back pain, sciatica, neuropathy, History of Any Multi-Drug Resistant Organisms: MRSA Date of last positivie culture/infection: 2006 MDRO Source:: face Past Surgical History: Orthopedic Surgery Additional Past Surgical History / Comment(s): lt ankle, D&C Past Anesthesia/Blood Transfusion Reactions: No Reported Reaction Past Psychological History: Anxiety, Bipolar, Depression, Schizoaffective Disorder, Schizophrenia Smoking Status: Never smoker Past Alcohol Use History: Daily, Occasional Past Drug Use History: Opiates General Exam - General Exam Comments Initial Comments: GENERAL: Patient is well-developed and well-nourished. Patient is nontoxic and well- hydrated and is in no acute distress. ENT: Neck is soft and supple. No significant lymphadenopathy is noted. Oropharynx is clear. Moist mucous membranes. Neck has full range of motion without eliciting any pain. EYES: The sclera were anicteric and conjunctiva were pink and moist. Extraocular movements were intact and pupils were equal round and reactive to light. Eyelids were unremarkable. PULMONARY: Unlabored respirations. Good breath sounds bilaterally. No audible rales rhonchi or wheezing was noted. CARDIOVASCULAR: There is a regular rate and rhythm without any murmurs gallops or rubs. ABDOMEN: Soft and nontender with normal bowel sounds. SKIN: Skin is clear with no lesions or rashes and otherwise unremarkable. NEUROLOGIC: Patient is alert and oriented x3. Cranial nerves II through XII are grossly intact. Motor and sensory are also intact. Normal speech, volume and content. Symmetrical smile. MUSCULOSKELETAL: Normal extremities with adequate strength and full range of motion. LYMPHATICS: No significant lymphadenopathy is noted PSYCHIATRIC: Normal psychiatric evaluation. Limitations: no limitations Course Vital Signs 04/17/20 04/17/20 04/17/20 09:43 09:51 10:28 Temperature 98.4 F 98.1 F Pulse Rate 91 72 Respiratory 16 14 14 Rate Blood Pressure 135/89 115/84 O2 Sat by Pulse 99 98 Oximetry Medical Decision Making - Lab Data Lab Results 04/17/20 Range/Units 09:59 Urine Color Light Yellow Urine Appearance Cloudy H (Clear) Urine pH 6.5 (5.0-8.0) Ur Specific [place] 1.011 (1.001-1.035) Urine Protein Negative (Negative) Urine Glucose (UA) Negative (Negative) Urine Ketones Negative (Negative) Urine Blood Negative (Negative) Urine Nitrite Negative (Negative) Urine Bilirubin Negative (Negative) Urine Urobilinogen <2.0 (<2.0) mg/dL Ur Leukocyte Esterase Small H (Negative) Urine RBC 1 (0-5) /hpf Urine WBC 2 (0-5) /hpf Ur Squamous Epith Cells 7 H (0-4) /hpf Urine Mucus Rare H (None) /hpf Disposition Clinical Impression: Myalgia Disposition: HOME SELF-CARE Instructions (If sedation given, give patient instructions): Fever in Adults (ED) Is patient prescribed a controlled substance at d/c from ED?: No Referrals: [facility] [Primary Care Provider] - 1-2 days Time of Disposition: 10:57
[2020-04-17 09:58] VITALS: RESP 14
[2020-04-17 10:21] LABS: Appearance,Urine Cloudy (Clear); Bilirubin,Urine Negative (Negative); Blood,Urine Negative (Negative); Color,Urine Light Yellow; Glucose,Urine (UA) Negative (Negative); Ketones,Urine Negative (Negative); Leukocyte Esterase,Urine Small (Negative); Mucus,Urine Rare /hpf; Nitrite,Urine Negative (Negative); PH, Urine 6.5 (5.0-8.0); Protein,Urine Negative (Negative); RBC,Urine 1 /hpf (0-5); Specific Gravity,Urine 1.011 (1.001-1.035); Squamous Epithelial Cell,Urine 7 /hpf (0-4); Urobilinogen,Urine <2.0 mg/dL (<2.0); WBC,Urine 2 /hpf (0-5)
[2020-04-17 10:32] VITALS: BP 115/84; PULSE 72; TEMP 98.1
== END 2020-04-17 11:07 | disposition home or self-care (01) ==
LOC: EC 09:38
DX: M79.10 Myalgia, unspecified site (principal); Z20.828 Contact with and (suspected) exposure to other viral communicable diseases; R50.9 Fever, unspecified; I10 Essential (primary) hypertension; B19.20 Unspecified viral hepatitis C without hepatic coma; G62.9 Polyneuropathy, unspecified; Z79.899 Other long term (current) drug therapy; Z79.52 Long term (current) use of systemic steroids; Z91.040 Latex allergy status; Z88.6 Allergy status to analgesic agent; Z86.14 Personal history of Methicillin resistant Staphylococcus aureus infection
CPT/HCPCS: 99284 ×2; 81001; U0003

== ENCOUNTER 2020-05-22 01:27 | Emergency (ER) | payer MEDICARE, OTHER ==
[2020-05-22 01:41] VITALS: BP 122/76; PULSE 84; RESP 18; TEMP 98.4
--- NOTE | 2020-05-22 03:14 | ED ---
General Adult HPI <Josué Juarez Bobo - Last Filed: 05/22/20 07:33> - General Source: police, EMS, RN notes reviewed, old records reviewed Mode of arrival: EMS Limitations: no limitations <Natanael Cole - Last Filed: 05/22/20 19:15> - General Chief complaint: Psychiatric Symptoms Stated complaint: ETOH Time Seen by Provider: 05/22/20 01:28 - History of Present Illness Initial comments: 59-year-old female patient to ED for psychiatric complaints. Patient reports that she has been doing drugs today alcohol crack cocaine is having some suicidal ideations. Denies any other acute complaints. Systemic: Pt denies fatigue, fever/chills, rash. Pt denies weakness, night sweats, weight loss. Neuro: Pt denies headache, visual disturbances, syncope or pre-syncope. HEENT: Pt denies ocular discharge or irritation, otalgia, rhinorrhea, pharyngitis or notable lymphadenopathy. Cardiopulmonary: Pt denies chest pain, SOB, heart palpitations, dyspnea on exertion. Abdominal/GI: Pt denies abdominal pain, n/v/d. : Pt denies dysuria, burning w/ urination, frequency/urgency. Denies new onset urinary or bowel incontinence. MSK: Pt denies loss of strength or function in extremities. Neuro: Pt denies new onset weakness, paresthesias. (Natanael Cole) - Related Data Home Medications Medication Instructions Recorded Confirmed Gabapentin 600 mg PO TID 04/17/20 04/17/20 Ketoconazole 2% Shampoo [Nizoral] 1 applic TOPICAL Q3D 04/17/20 04/17/20 Oxybutynin Chloride [Ditropan] 5 mg PO BID 04/17/20 04/17/20 amLODIPine [Norvasc] 10 mg PO DAILY 04/17/20 04/17/20 predniSONE [Deltasone] 20 mg PO DAILY 04/17/20 04/17/20 Previous Rx's Medication Instructions Recorded QUEtiapine [SEROquel] 100 mg PO HS #30 tab 09/20/19 Allergies Allergy/AdvReac Type Severity Reaction Status Date / Time ketorolac [From Toradol] Allergy Unknown Verified 04/17/20 10:28 latex Allergy Itching Verified 04/17/20 10:28 Review of Systems ROS Other: All systems not noted in ROS Statement are negative. <YoselynsimónrafiJosué Bobo - Last Filed: 05/22/20 07:33> ROS Other: All systems not noted in ROS Statement are negative. <Natanael Cole - Last Filed: 05/22/20 19:15> ROS Statement: Those systems with pertinent positive or pertinent negative responses have been documented in the HPI. Past Medical History Past Medical History: Hypertension, Liver Disease, Musculoskeletal Disorder, Neurologic Disorder Additional Past Medical History / Comment(s): hep c, back pain, sciatica, neuropathy, History of Any Multi-Drug Resistant Organisms: MRSA Date of last positivie culture/infection: 2006 MDRO Source:: face Past Surgical History: Orthopedic Surgery Additional Past Surgical History / Comment(s): lt ankle, D&C Past Anesthesia/Blood Transfusion Reactions: No Reported Reaction Past Psychological History: Anxiety, Bipolar, Depression, Schizoaffective Disorder, Schizophrenia Smoking Status: Never smoker Past Alcohol Use History: Daily, Occasional Past Drug Use History: Cocaine, Heroin, Marijuana, Methamphetamine, Opiates <Natanael Cole - Last Filed: 05/22/20 19:15> General Exam Limitations: no limitations <Natanael Cole - Last Filed: 05/22/20 19:15> - General Exam Comments Initial Comments: Constitutional: NAD, AOX3, Pt has pleasant affect. HEENT: NC/AT, trachea midline, neck supple, no lymphadenopathy. External ears appear normal, without discharge. Mucous membranes moist. Eyes PERRLA, EOM intact. There is no scleral icterus. No pallor noted. Cardiopulmonary: RRR, no murmurs, rubs or gallops, no JVD noted. Lungs CTAB in anterior and posterior carrillo. No peripheral edema. Abdominal exam: Abdomen soft and non-distended. Abdomen non-tender to palpation in all 4 quadrants. Bowel sounds active in LLQ. No hepatosplenomegaly. No ecchymosis Neuro: CN II-XII grossly intact. No nuchal rigidity. MSK: Full active ROM in upper and lower extremities, 5/5 stregnth. (Natanael Cole) Course Vital Signs 05/22/20 01:35 Temperature 98.4 F Pulse Rate 84 Respiratory 18 Rate Blood Pressure 122/76 O2 Sat by Pulse 95 Oximetry Medical Decision Making <Natanael Cole - Last Filed: 05/22/20 19:15> - Medical Decision Making 59 year old female patient to ED for drug and alcohol intoxication, suicidal ideation. Patient is denying acute complaints. Signed out to Dr. Juarez pending EPS evaluation (Natanael Cole) - Lab Data Lab Results 05/22/20 Range/Units 05:22 Urine Color Light Yellow Urine Appearance Clear (Clear) Urine pH 5.5 (5.0-8.0) Ur Specific [place] 1.005 (1.001-1.035) Urine Protein Negative (Negative) Urine Glucose (UA) Negative (Negative) Urine Ketones Negative (Negative) Urine Blood Negative (Negative) Urine Nitrite Negative (Negative) Urine Bilirubin Negative (Negative) Urine Urobilinogen <2.0 (<2.0) mg/dL Ur Leukocyte Esterase Negative (Negative) Urine Opiates Screen Not Detected (NotDetected) Ur Oxycodone Screen Not Detected (NotDetected) Urine Methadone Screen Not Detected (NotDetected) Ur Propoxyphene Screen Not Detected (NotDetected) Ur Barbiturates Screen Not Detected (NotDetected) U Tricyclic Antidepress Not Detected (NotDetected) Ur Phencyclidine Scrn Not Detected (NotDetected) Ur Amphetamines Screen Detected H (NotDetected) U Methamphetamines Scrn Detected H (NotDetected) U Benzodiazepines Scrn Not Detected (NotDetected) Urine Cocaine Screen Detected H (NotDetected) U Marijuana (THC) Screen Not Detected (NotDetected) Disposition Is patient prescribed a controlled substance at d/c from ED?: No <Josué Juarez - Last Filed: 05/22/20 07:33> <Natanael Cole - Last Filed: 05/22/20 19:15> Clinical Impression: Drug-seeking behavior, Depression Disposition: HOME SELF-CARE Condition: Good Instructions (If sedation given, give patient instructions): Depression (ED) Referrals: [facility] [Primary Care Provider] - 1-2 days
[2020-05-22 05:28] LABS: Appearance,Urine Clear (Clear); Bilirubin,Urine Negative (Negative); Blood,Urine Negative (Negative); Color,Urine Light Yellow; Glucose,Urine (UA) Negative (Negative); Ketones,Urine Negative (Negative); Leukocyte Esterase,Urine Negative (Negative); Nitrite,Urine Negative (Negative); PH, Urine 5.5 (5.0-8.0); Protein,Urine Negative (Negative); Specific Gravity,Urine 1.005 (1.001-1.035); Urobilinogen,Urine <2.0 mg/dL (<2.0)
[2020-05-22 05:48] LABS: Amphetamine Screen,Urine Detected (NotDetected); Barbiturate Screen,Urine Not Detected (NotDetected); Benzodiazepines Screen,Urine Not Detected (NotDetected); Cocaine Screen,Urine Detected (NotDetected); Methadone Screen, Urine Not Detected (NotDetected); Opiate Screen,Urine Not Detected (NotDetected); Oxycodone Screen, Urine Not Detected (NotDetected); Phencyclidine Screen,Urine Not Detected (NotDetected); Tricyclic Antidepressant,Urine Not Detected (NotDetected); Urn Cannabinoid Scrn Not Detected (NotDetected)
== END 2020-05-22 07:37 | disposition home or self-care (01) ==
LOC: EC 01:27
DX: F32.9 Major depressive disorder, single episode, unspecified (principal); Z76.5 Malingerer [conscious simulation]; F10.129 Alcohol abuse with intoxication, unspecified; I10 Essential (primary) hypertension; Z79.899 Other long term (current) drug therapy; Z88.6 Allergy status to analgesic agent; Z91.040 Latex allergy status; Z86.14 Personal history of Methicillin resistant Staphylococcus aureus infection; Y90.9 Presence of alcohol in blood, level not specified
CPT/HCPCS: 80306; 81003; 82075; 99285

== ENCOUNTER 2020-05-24 06:31 | Inpatient (IN) | payer MEDICARE, OTHER ==
--- NOTE | 2020-05-24 07:07 | ED ---
Psych HPI - General Source: patient, RN notes reviewed Mode of arrival: ambulatory Limitations: no limitations <Ralph Thibodeaux - Last Filed: 05/24/20 07:05> <Arnaldo Marx - Last Filed: 05/24/20 17:05> - General Chief Complaint: Psychiatric Symptoms Stated Complaint: Mental Health, Female Time Seen by Provider: 05/24/20 06:43 - History of Present Illness Initial Comments: This a 59-year-old female presents emergency Department chief complaint of depression, possible urinary tract infection. Patient states that she is currently homeless, depressed has been off her psychiatric medications. She's had some thoughts of suicide but no present thoughts denies any plan to harm herself. Patient does admit to alcohol abuse, recent crack use. Patient states that she has some urinary frequency, dysuria she has no vaginal symptoms including vaginal discharge (Ralph Thibodeaux) - Related Data Home Medications Medication Instructions Recorded Confirmed Gabapentin 600 mg PO TID 04/17/20 04/17/20 Ketoconazole 2% Shampoo [Nizoral] 1 applic TOPICAL Q3D 04/17/20 04/17/20 Oxybutynin Chloride [Ditropan] 5 mg PO BID 04/17/20 04/17/20 amLODIPine [Norvasc] 10 mg PO DAILY 04/17/20 04/17/20 predniSONE [Deltasone] 20 mg PO DAILY 04/17/20 04/17/20 Previous Rx's Medication Instructions Recorded QUEtiapine [SEROquel] 100 mg PO HS #30 tab 09/20/19 Allergies Allergy/AdvReac Type Severity Reaction Status Date / Time ketorolac [From Toradol] Allergy Unknown Verified 05/24/20 06:42 latex Allergy Itching Verified 05/24/20 06:42 Review of Systems ROS Other: All systems not noted in ROS Statement are negative. <Ralph Thibodeaux - Last Filed: 05/24/20 07:05> ROS Other: All systems not noted in ROS Statement are negative. <Arnaldo Marx - Last Filed: 05/24/20 17:05> ROS Statement: Those systems with pertinent positive or pertinent negative responses have been documented in the HPI. Past Medical History Past Medical History: Hypertension, Liver Disease, Musculoskeletal Disorder, Neurologic Disorder Additional Past Medical History / Comment(s): hep c, back pain, sciatica, neuropathy, History of Any Multi-Drug Resistant Organisms: MRSA Date of last positivie culture/infection: 2006 MDRO Source:: face Past Surgical History: Orthopedic Surgery Additional Past Surgical History / Comment(s): lt ankle, D&C Past Anesthesia/Blood Transfusion Reactions: No Reported Reaction Past Psychological History: Anxiety, Bipolar, Depression, Schizoaffective Disorder, Schizophrenia Smoking Status: Never smoker Past Alcohol Use History: Daily, Occasional Past Drug Use History: Cocaine, Heroin, Marijuana, Methamphetamine, Opiates <Ralph Thibodeaux - Last Filed: 05/24/20 07:05> General Exam Limitations: no limitations General appearance: alert, in no apparent distress Head exam: Present: atraumatic, normocephalic, normal inspection Eye exam: Present: normal appearance, PERRL, EOMI. Absent: scleral icterus, conjunctival injection, periorbital swelling ENT exam: Present: normal exam, normal oropharynx, mucous membranes moist, TM's normal bilaterally Neck exam: Present: normal inspection, full ROM. Absent: tenderness, meningismus, lymphadenopathy Respiratory exam: Present: normal lung sounds bilaterally. Absent: respiratory distress, wheezes, rales, rhonchi, stridor Cardiovascular Exam: Present: regular rate, normal rhythm, normal heart sounds. Absent: systolic murmur, diastolic murmur, rubs, gallop, clicks GI/Abdominal exam: Present: soft, normal bowel sounds. Absent: distended, tenderness, guarding, rebound, rigid Back exam: Absent: CVA tenderness (R), CVA tenderness (L) Neurological exam: Present: alert, oriented X3 Psychiatric exam: Present: depressed <Ralph Thibodeaux - Last Filed: 05/24/20 07:05> Course <Arnaldo Marx - Last Filed: 05/24/20 17:05> Vital Signs 05/24/20 05/24/20 05/24/20 06:40 07:42 08:42 Temperature 98.1 F Pulse Rate 79 Respiratory 18 18 18 Rate Blood Pressure 122/58 O2 Sat by Pulse 99 Oximetry 05/24/20 05/24/20 05/24/20 09:00 10:00 11:00 Temperature 98.1 F Pulse Rate 62 Respiratory 18 18 18 Rate Blood Pressure 110/61 O2 Sat by Pulse 100 Oximetry 05/24/20 05/24/20 12:00 13:00 Temperature Pulse Rate Respiratory 18 18 Rate Blood Pressure O2 Sat by Pulse Oximetry - Reevaluation(s) Reevaluation #1: 05/24/20 16:53 I was notified by the ED EPS nurse that she has found psychiatric placement for the patient. She recommends discharge from the ED at this time. Patient is medically stable. (Arnaldo Marx) Medical Decision Making - Lab Data Lab Results 05/24/20 05/24/20 Range/Units 07:05 14:59 Urine Color Yellow Urine Appearance Cloudy H (Clear) Urine pH 6.0 (5.0-8.0) Ur Specific [place] 1.031 (1.001-1.035) Urine Protein Trace H (Negative) Urine Glucose (UA) Negative (Negative) Urine Ketones Negative (Negative) Urine Blood Negative (Negative) Urine Nitrite Negative (Negative) Urine Bilirubin Negative (Negative) Urine Urobilinogen 3.0 (<2.0) mg/dL Ur Leukocyte Esterase Moderate H (Negative) Urine RBC 1 (0-5) /hpf Urine WBC 3 (0-5) /hpf Ur Squamous Epith Cells 7 H (0-4) /hpf Hyaline Casts 1 (0-2) /lpf Urine Mucus Moderate H (None) /hpf Urine Opiates Screen Not Detected (NotDetected) Ur Oxycodone Screen Not Detected (NotDetected) Urine Methadone Screen Not Detected (NotDetected) Ur Propoxyphene Screen Not Detected (NotDetected) Ur Barbiturates Screen Not Detected (NotDetected) U Tricyclic Antidepress Not Detected (NotDetected) Ur Phencyclidine Scrn Not Detected (NotDetected) Ur Amphetamines Screen Detected H (NotDetected) U Methamphetamines Scrn Detected H (NotDetected) U Benzodiazepines Scrn Not Detected (NotDetected) Urine Cocaine Screen Detected H (NotDetected) U Marijuana (THC) Screen Not Detected (NotDetected) Coronavirus (PCR) Not Detected (Not Detectd) Disposition <Ralph Thibodeaux - Last Filed: 05/24/20 07:05> Is patient prescribed a controlled substance at d/c from ED?: No Time of Disposition: 16:54 <Khanpara,Arnaldo - Last Filed: 05/24/20 17:05> Clinical Impression: Depression Disposition: TRANSFER TO PSYCH HOSP/UNIT Condition: Stable
[2020-05-24 07:31] LABS: Appearance,Urine Cloudy (Clear); Bilirubin,Urine Negative (Negative); Blood,Urine Negative (Negative); Color,Urine Yellow; Glucose,Urine (UA) Negative (Negative); Hyaline Casts,Urine 1 /lpf (0-2); Ketones,Urine Negative (Negative); Leukocyte Esterase,Urine Moderate (Negative); Mucus,Urine Moderate /hpf; Nitrite,Urine Negative (Negative); Protein,Urine Trace (Negative); RBC,Urine 1 /hpf (0-5); Specific Gravity,Urine 1.031 (1.001-1.035); Squamous Epithelial Cell,Urine 7 /hpf (0-4); WBC,Urine 3 /hpf (0-5)
[2020-05-24 07:57] LABS: Cocaine Screen,Urine Detected (NotDetected); Phencyclidine Screen,Urine Not Detected (NotDetected); Urn Cannabinoid Scrn Not Detected (NotDetected)
[2020-05-24 07:58] LABS: Amphetamine Screen,Urine Detected (NotDetected); Barbiturate Screen,Urine Not Detected (NotDetected); Benzodiazepines Screen,Urine Not Detected (NotDetected); Methadone Screen, Urine Not Detected (NotDetected); Opiate Screen,Urine Not Detected (NotDetected); Oxycodone Screen, Urine Not Detected (NotDetected); Tricyclic Antidepressant,Urine Not Detected (NotDetected)
[2020-05-24] MEDS ORDERED: MAG HYDROX/AL HYDROX/SIMETH 30 ML CUP PO PRN (16:52)
[2020-05-24] MEDS ORDERED: HALOPERIDOL LACTATE 5 MG/ML 1 ML VIAL IM PRN (16:58)
[2020-05-24] MEDS ORDERED: diphenhydrAMINE 50 MG/ML 1 ML VIAL IM PRN (16:59)
[2020-05-24] MEDS: ACETAMINOPHEN TAB 325 MG TAB PO PRN (17:40)
[2020-05-24] MEDS: NICOTINE 21MG/24HR PATCH TRANSDERM SCH (17:54)
[2020-05-24] MEDS ORDERED: hydrOXYzine pamoate 25 MG CAP PO PRN (22:00)
[2020-05-24] MEDS ORDERED: hydrOXYzine HCL 50 MG/ML 1 ML VIAL IM PRN (22:00)
[2020-05-24] MEDS: MAGNESIUM HYDROXIDE 2,400 MG/10 ML CUP PO PRN (22:28)
--- NOTE | 2020-05-25 03:15 | P.CONS ---
History of Present Illness - Reason for Consult Consult date: 05/25/20 - History of Present Illness The patient was seen and examined with the rehabilitation psychologist. I was never alone with the patient. Patient is a 51-year-old homeless female with a PMH of polysubstance abuse and hypertension who had presented to the emergency room with complaints of depression and suicidal ideation. Patient was admitted to the mental health unit where she was seen and evaluated. The patient reports that she had been walking all day and she is homeless and that her entire body hurts. She also reports vaginal pruritus and burning. She denied chest pain, shortness of breath, fever, chills, nausea, vomiting. Review of Systems Pertinent positives and negatives as discussed in HPI, a complete review of systems was performed and all other systems are negative. Past Medical History Past Medical History: Hypertension, Liver Disease, Musculoskeletal Disorder, Neurologic Disorder Additional Past Medical History / Comment(s): hep c, back pain, sciatica, neuropathy, History of Any Multi-Drug Resistant Organisms: MRSA Year Discovered:: 2006 MDRO Source:: face Past Surgical History: Orthopedic Surgery Additional Past Surgical History / Comment(s): lt ankle, D&C Past Anesthesia/Blood Transfusion Reactions: No Reported Reaction Past Psychological History: Anxiety, Bipolar, Depression, Schizoaffective Disorder, Schizophrenia Smoking Status: Never smoker Past Alcohol Use History: Daily, Occasional Additional Past Alcohol Use History / Comment(s): quit drinking due to new meds for Hep C Past Drug Use History: Cocaine, Heroin, Marijuana, Methamphetamine, Opiates Medications and Allergies Home Medications Medication Instructions Recorded Confirmed Type QUEtiapine [SEROquel] 100 mg PO HS #30 tab 09/20/19 04/17/20 Rx Gabapentin 600 mg PO TID 04/17/20 04/17/20 History Ketoconazole 2% Shampoo [Nizoral] 1 applic TOPICAL Q3D 04/17/20 04/17/20 History Oxybutynin Chloride [Ditropan] 5 mg PO BID 04/17/20 04/17/20 History amLODIPine [Norvasc] 10 mg PO DAILY 04/17/20 04/17/20 History predniSONE [Deltasone] 20 mg PO DAILY 04/17/20 04/17/20 History Allergies Allergy/AdvReac Type Severity Reaction Status Date / Time ketorolac [From Toradol] Allergy Unknown Verified 05/24/20 17:59 latex Allergy Itching Verified 05/24/20 17:59 Physical Exam Vitals: Vital Signs Temp Pulse Pulse Resp BP BP Pulse Ox 05/24/20 18:02 98.1 F 61 20 109/67 05/24/20 16:59 98.1 F 62 18 110/61 100 05/24/20 16:00 18 05/24/20 15:00 18 05/24/20 13:00 18 05/24/20 12:00 18 05/24/20 11:00 98.1 F 62 18 110/61 100 05/24/20 10:00 18 05/24/20 09:00 18 05/24/20 08:42 18 05/24/20 07:42 18 05/24/20 06:40 98.1 F 79 18 122/58 99 Intake and Output 05/24/20 05/24/20 05/25/20 14:59 22:59 06:59 Other: Weight 84.83 kg General: non toxic, no distress, appears at stated age, overweight Derm: no unusual rashes/lesions no unusual ecchymoses, warm, dry Head: atraumatic, normocephalic, symmetric Eyes: EOMI, no lid lag, anicteric sclera, pupils equal round reactive to light ENT: Nose and ears atraumatic, no thrush, no pharyngeal erythema Neck: No thyromegaly, no cervical lymphadenopathy, trachea midline, supple Mouth: no lip lesion, mucus membranes moist Cardiovascular: S1S2 reg, no murmur, positive posterior tibial pulse bilateral, no edema, capillary refill less than 2 seconds Lungs: CTA bilateral, no rhonchi, no rales , no accessory muscle use Abdominal: soft, nontender to palpation, no guarding, no appreciable organomegaly, normal bowel sounds Ext: no gross muscle atrophy, muscle strength 5 out of 5 in all 4 extremities grossly, no contractures, Neuro: CN II-XI grossly intact, light touch intact all 4 extremities, finger to nose within normal limits, Psych: Alert, oriented, appropriate affect Results Labs: Abnormal Lab Results - Last 24 Hours (Table) 05/24/20 Range/Units 07:05 Urine Appearance Cloudy H (Clear) Urine Protein Trace H (Negative) Ur Leukocyte Esterase Moderate H (Negative) Ur Squamous Epith Cells 7 H (0-4) /hpf Urine Mucus Moderate H (None) /hpf Ur Amphetamines Screen Detected H (NotDetected) U Methamphetamines Scrn Detected H (NotDetected) Urine Cocaine Screen Detected H (NotDetected) Assessment and Plan Plan: Vaginal pruritus and dysuria -UA unremarkable -Obtain MEDIA RECONCILIATION SPECIALIST consult Polysubstance abuse -Advised on the importance of cessation Depression and suicidal ideation -As per psychiatry HTN -C/w home meds
[2020-05-25] MEDS: ACETAMINOPHEN TAB 325 MG TAB PO PRN (08:15)
[2020-05-25] MEDS: NICOTINE 21MG/24HR PATCH TRANSDERM SCH (08:43)
[2020-05-25] MEDS: MAGNESIUM HYDROXIDE 2,400 MG/10 ML CUP PO PRN (10:27)
[2020-05-25] MEDS ORDERED: LORazepam 1 MG TAB PO PRN (11:00)
[2020-05-25] MEDS ORDERED: hydrOXYzine pamoate 25 MG CAP PO PRN (11:04)
--- NOTE | 2020-05-25 11:13 | P.HP ---
Psychiatric H&P - . H&P Date: 05/25/20 History & Physical: Allergies Allergy/AdvReac Type Severity Reaction Status Date / Time ketorolac [From Toradol] Allergy Unknown Verified 05/24/20 17:59 latex Allergy Itching Verified 05/24/20 17:59 Vital Signs Temp 97.2 F L 05/25/20 05:49 Pulse 68 05/25/20 05:49 Resp 16 05/25/20 05:49 BP 148/69 05/25/20 05:49 Pulse Ox 100 05/25/20 05:49 Intake & Output 05/24/20 05/25/20 05/25/20 18:59 06:59 18:59 Weight 84.83 kg Laboratory Last Values Urine Color Yellow 05/24/20 07:05 Urine Appearance Cloudy (Clear) H 05/24/20 07:05 Urine pH 6.0 (5.0-8.0) 05/24/20 07:05 Ur Specific Bells 1.031 (1.001-1.035) 05/24/20 07:05 Urine Protein Trace (Negative) H 05/24/20 07:05 Urine Glucose (UA) Negative (Negative) 05/24/20 07:05 Urine Ketones Negative (Negative) 05/24/20 07:05 Urine Blood Negative (Negative) 05/24/20 07:05 Urine Nitrite Negative (Negative) 05/24/20 07:05 Urine Bilirubin Negative (Negative) 05/24/20 07:05 Urine Urobilinogen 3.0 mg/dL (<2.0) 05/24/20 07:05 Ur Leukocyte Esterase Moderate (Negative) H 05/24/20 07:05 Urine RBC 1 /hpf (0-5) 05/24/20 07:05 Urine WBC 3 /hpf (0-5) 05/24/20 07:05 Ur Squamous Epith Cells 7 /hpf (0-4) H 05/24/20 07:05 Hyaline Casts 1 /lpf (0-2) 05/24/20 07:05 Urine Mucus Moderate /hpf (None) H 05/24/20 07:05 Urine Opiates Screen Not Detected (NotDetected) 05/24/20 07:05 Ur Oxycodone Screen Not Detected (NotDetected) 05/24/20 07:05 Urine Methadone Screen Not Detected (NotDetected) 05/24/20 07:05 Ur Propoxyphene Screen Not Detected (NotDetected) 05/24/20 07:05 Ur Barbiturates Screen Not Detected (NotDetected) 05/24/20 07:05 U Tricyclic Antidepress Not Detected (NotDetected) 05/24/20 07:05 Ur Phencyclidine Scrn Not Detected (NotDetected) 05/24/20 07:05 Ur Amphetamines Screen Detected (NotDetected) H 05/24/20 07:05 U Methamphetamines Scrn Detected (NotDetected) H 05/24/20 07:05 U Benzodiazepines Scrn Not Detected (NotDetected) 05/24/20 07:05 Urine Cocaine Screen Detected (NotDetected) H 05/24/20 07:05 U Marijuana (THC) Screen Not Detected (NotDetected) 05/24/20 07:05 Coronavirus (PCR) Not Detected (Not Detectd) 05/24/20 14:59 05/25/20 10:29 IDENTIFYING DATA: Patient is a 59-year-old female who is currently homeless, has 2 kids and collects Social Security disability HPI: Patient presented to the hospital yesterday with thoughts of suicide ideations with no specific plans along with depression and UTI sx including dysuria and frequency. She claimed in the ER that she feeling depressed, is homeless and has been off of her psychiatric medications. Patient also admitted in the ER that she recently had been using alcohol and crack and UDS was positive for methamphetamine and cocaine. Patient was last admitted to the mental health unit in 08/2019. Patient claims the she was hanging out with the wrong people who were giving her "bad drugs". She states that the drugs did not sit well with her and she had a bad reaction to them. She also claims that she has been walking out in the cold and has been feeling more joint pain. She states that she has been drinking heavily approximately 2X 22 ounce cans of beer per day and also claims that she has been using crack regularly for the past few weeks. She states that she tried methamphetamine on Thursday and states that "I'll never do that again". She also claims that she has stopped her medications a few months ago referring to her Cymbalta and her Seroquel. She claims that she left [facility] early and relapsed afterwards. She states that she's been sleeping poorly sleepy and has had nightmares. She admits to minor withdrawal symptoms including anxiety at this time and some tremors. She denies any history of withdrawal seizures or delirium tremens. She does claim that she hears quiet voices however and they are not telling her to do anything. Patient denies any suicidal or homicidal ideations intent or plan. At this time patient denies any visual hallucinations. Patient denies any flight of ideas racing thoughts and increased in goal directed behavior. Patient admits to using cigarettes as well. UDS was positive for cocaine and methamphetamine as mentioned above. PAST PSYCHIATRIC HISTORY: Patient states that she is a history of depression and polysubstance abuse. Her last MHU admission was in 08/2019. She claims that she used to follow up with Dr. Castle at [facility] however has not gone in months. She claims to have 1 overdose in the past when asked about suicide attempts. PMH: Chronic hip pain, hepatitis C, asthma. ALLERGIES: as per EMR CHEMICAL DEPENDENCY HISTORY: as per HPI FAMILY PSYCHIATRIC/SUBSTANCE USE HISTORY: States that her sister and brother were depressed and parents were alcoholics. SOCIAL HISTORY: Patient was born and raised in [place] and currently is residing in [place] and is homeless. She states that she completed up to the 10th grade in school. She states that she is currently collecting Social Security and homeless. She states that she has 2 kids and is currently single. MENTAL STATUS EXAM: General Appearance: Patient appears to be disheveled, stated age is alert, directable, and guarded/evasive. Patient appears to have poor hygiene and grooming Behavior: Patient is seated without any agitated behavior. Speech: Patient's speech is fluent and nonpressured. Soft tone of voice Mood/Affect: Patient reports their mood is depressed, affect is congruent and constricted. Suicidality/Homicidality: Patient denies having any homicidal ideation intent or plan. Denies any suicidal ideations intent or plan Perceptions: Patient denies any visual hallucinations, admits to mild auditory hallucinations. Though content/process: There is no evidence of any delusional thought content and thought process is linear and goal-directed. Rambles at times. Multiple complaints, somatically preoccupied. Memory and concentration: AOX3, grossly intact for the purposes of this session. Can spell "WORLD" backwards Judgment and insight: poor STRENGTHS/WEAKNESSES: strength is that patient is resilient. Weakness is that patient has poor judgment and has poor insight INTELLECT: average IMPRESSIONS: Major depressive disorder, recurrent, severe with psychotic features. Methamphetamine abuse Cocaine use disorder Alcohol abuse Nicotine dependence PLAN: -Patient is admitted under voluntary status to MHU for stabilization of psychiatric symptoms and safety. -Medications : Will start Cymbalta 30 mg daily for mood with plan to titrate up, Seroquel 50 mg daily at bedtime for mood stabilization/insomnia with plan to titrate up as needed. Patient requested to have her Neurontin restarted 200 mg three times a day. -Ativan and Haldol IM PRN for agitation/aggression. Vistaril when necessary for anxiety. -CIWA protocol with Ativan when necessary for alcoholic withdrawal -Thiamine, folic acid and multivitamin for chronic etoh use. -Patient was counselled on substance abuse and desired to cut back on use -Patient was informed of the risks, benefits and side effects of the medication and patient verbally consented to taking the medications. -Internal Medicine consult to perform medical evaluation and physical. Patient has multiple medical conditions and complains of pain in her hip. BOX LOADER consult for vaginal pruritus and dysuria. -NRT - nicotine patch -SW on board for discharge planning. Encourage patient to participate in groups to work on coping skills. Patient states that she is interested in going to rehab upon discharge, specifically to [place]. 05/25/20 11:08
[2020-05-25] MEDS: GABAPENTIN 100 MG CAP PO SCH ×3 (11:43→21:09)
[2020-05-25] MEDS: FOLIC ACID 1 MG TAB PO SCH (11:43)
[2020-05-25] MEDS: MULTIVITAMINS, THERA 1 EACH TAB PO SCH (11:43)
[2020-05-25] MEDS: THIAMINE 100 MG TAB PO SCH (11:44)
[2020-05-25] MEDS: DULoxetine HCL 30 MG CAPSULE.DR PO SCH (11:44)
[2020-05-25] MEDS: CHOLECALCIFEROL 1,000 UNIT TAB PO SCH (11:44)
[2020-05-25 18:18] LABS: Amorphous Sediment,Urine Moderate /hpf; Appearance,Urine Turbid (Clear); Bilirubin,Urine Negative (Negative); Blood,Urine Negative (Negative); Color,Urine Yellow; Glucose,Urine (UA) Negative (Negative); Ketones,Urine Negative (Negative); Leukocyte Esterase,Urine Trace (Negative); Mucus,Urine Rare /hpf; Nitrite,Urine Negative (Negative); PH, Urine 7.5 (5.0-8.0); Protein,Urine Trace (Negative); Specific Gravity,Urine 1.029 (1.001-1.035); Squamous Epithelial Cell,Urine 6 /hpf (0-4); Urobilinogen,Urine <2.0 mg/dL (<2.0); WBC,Urine 2 /hpf (0-5)
[2020-05-25] MEDS ORDERED: SIMETHICONE 80 MG CHEWABLE PO PRN (20:02)
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
[2020-05-25] MEDS: polyethylene glycoL 3350 17 GM POWD.PACK PO SCH (20:33)
[2020-05-25] MEDS: QUEtiapine 50 MG TAB PO SCH (21:06)
[2020-05-25] MEDS: TERCONAZOLE 0.8% VAGINAL CREAM 20 GM TUBE VAGINAL SCH (21:07)
[2020-05-26] MEDS: CHOLECALCIFEROL 1,000 UNIT TAB PO SCH (07:57)
[2020-05-26] MEDS: THIAMINE 100 MG TAB PO SCH (07:57)
[2020-05-26] MEDS: FOLIC ACID 1 MG TAB PO SCH (07:57)
[2020-05-26] MEDS: MULTIVITAMINS, THERA 1 EACH TAB PO SCH (07:57)
[2020-05-26] MEDS: DULoxetine HCL 30 MG CAPSULE.DR PO SCH (07:57)
[2020-05-26] MEDS: GABAPENTIN 100 MG CAP PO SCH ×3 (07:58→21:06)
--- NOTE | 2020-05-26 08:23 | P.PN ---
Subjective Progress Note Date: 05/26/20 As previously noted, the patient complains of vaginal discomfort with itching and burning. Objective - Vital Signs Vital signs: Vital Signs Temp 98.0 F 05/25/20 23:45 Pulse 63 05/25/20 23:45 Resp 18 05/25/20 23:45 BP 93/51 05/25/20 23:45 Pulse Ox 97 05/25/20 16:45 - Exam Exam is deferred - Labs Labs: Abnormal Lab Results - Last 24 Hours (Table) 05/25/20 Range/Units 18:01 Urine Appearance Turbid H (Clear) Urine Protein Trace H (Negative) Ur Leukocyte Esterase Trace H (Negative) Ur Squamous Epith Cells 6 H (0-4) /hpf Amorphous Sediment Moderate H (None) /hpf Urine Mucus Rare H (None) /hpf Assessment and Plan (1) Vaginal discomfort Current Visit: Yes Status: Acute Code(s): N94.9 - UNSP COND ASSOC W FEMALE GENITAL ORGANS AND MENSTRUAL CYCLE SNOMED Code(s): 891078923 (2) Urinary urgency Current Visit: Yes Status: Acute Code(s): R39.15 - URGENCY OF URINATION SNOMED Code(s): 41435508 Plan: Urinalysis is negative for any obvious signs of urinary tract infection. Culture is likely pending but likely also to be negative. I suspect all of her urinary symptoms are secondary to the vaginal irritation for which she has been prescribed Terazol cream. The remainder of the laboratory workup for STDs is pending at this time.
[2020-05-26] MEDS: NICOTINE 21MG/24HR PATCH TRANSDERM SCH ×2 (08:32→17:23)
[2020-05-26 09:48] LABS: ALT 25 U/L (4-34); AST 27 U/L (14-36); African American GFR (CKD) >90 (>60 ml/min/1.73 sqM); Albumin 3.6 g/dL (3.5-5.0); Alkaline Phosphatase 61 U/L (38-126); Anion Gap 7 mmol/L; Blood Urea Nitrogen 14 mg/dL (7-17); Calcium 8.7 mg/dL (8.4-10.2); Carbon Dioxide 25 mmol/L (22-30); Chloride 108 mmol/L (98-107); Cholesterol 154 mg/dL (<200); Glucose 75 mg/dL (74-99); HDL Cholesterol 51 mg/dL (40-60); LDL Cholesterol,Calculated 84 mg/dL (0-99); Non-African American GFR(CKD) 84 (>60 ml/min/1.73 sqM); Potassium 4.4 mmol/L (3.5-5.1); Sodium 140 mmol/L (137-145); Total Bilirubin 0.3 mg/dL (0.2-1.3); Total Protein 6.2 g/dL (6.3-8.2); Triglycerides 95 mg/dL (<150)
[2020-05-26 09:50] LABS: Basophils # (A) 0.1 k/uL (0-0.2); Basophils % (A) 1 %; Eosinophils # (A) 0.6 k/uL (0-0.7); Eosinophils % (A) 9 %; HCT 41.3 % (34.0-46.0); HGB 13.6 gm/dL (11.4-16.0); Lymphocytes % (A) 29 %; MCH 31.1 pg (25.0-35.0); MCHC 32.8 g/dL (31.0-37.0); MCV 94.6 fL (80.0-100.0); Mean Platelet Volume 7.9; Monocytes # (A) 0.4 k/uL (0-1.0); Monocytes % (A) 6 %; Neutrophils # (A) 3.7 k/uL (1.3-7.7); Neutrophils % (A) 53 %; Platelet Count 270 k/uL (150-450); RBC 4.36 m/uL (3.80-5.40); RDW 11.9 % (11.5-15.5)
[2020-05-26] MEDS: MAGNESIUM HYDROXIDE 2,400 MG/10 ML CUP PO PRN (11:36)
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
[2020-05-26 17:21] LABS: Hepatitis A Antibody IgM Non-Reactive (Non-Reactive); Hepatitis B Core IgM Non-Reactive (Non-Reactive); Hepatitis B Surface Antigen Non-Reactive (Non-Reactive); Hepatitis C IgG Antibody Reactive (Non-Reactive)
[2020-05-26] MEDS: ACETAMINOPHEN TAB 325 MG TAB PO PRN (17:21)
[2020-05-26] MEDS: IBUPROFEN 600 MG TAB PO PRN (20:14)
[2020-05-26] MEDS: TERCONAZOLE 0.8% VAGINAL CREAM 20 GM TUBE VAGINAL SCH (21:03)
[2020-05-26] MEDS: polyethylene glycoL 3350 17 GM POWD.PACK PO SCH (21:05)
[2020-05-26] MEDS: OXYBUTYNIN CHLORIDE 5 MG TAB PO SCH (21:06)
[2020-05-26] MEDS: QUEtiapine 50 MG TAB PO SCH (21:06)
[2020-05-27] MEDS: IBUPROFEN 600 MG TAB PO PRN (05:48)
[2020-05-27] MEDS: CHOLECALCIFEROL 1,000 UNIT TAB PO SCH (08:08)
[2020-05-27] MEDS: NICOTINE 21MG/24HR PATCH TRANSDERM SCH (08:08)
[2020-05-27] MEDS: DULoxetine HCL 30 MG CAPSULE.DR PO SCH (08:08)
[2020-05-27] MEDS: FOLIC ACID 1 MG TAB PO SCH (08:08)
[2020-05-27] MEDS: MULTIVITAMINS, THERA 1 EACH TAB PO SCH (08:08)
[2020-05-27] MEDS: GABAPENTIN 100 MG CAP PO SCH ×3 (08:08→21:21)
[2020-05-27] MEDS: OXYBUTYNIN CHLORIDE 5 MG TAB PO SCH ×2 (08:08→22:50)
[2020-05-27] MEDS: THIAMINE 100 MG TAB PO SCH (08:10)
[2020-05-27 13:13] LABS: C. trachomatis,PCR Negative (Neg,Equiv); Chlamydia trachomatis Source Urine; N. gonorrhoeae,PCR Negative (Neg,Equiv); Neisseria Source Urine
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
[2020-05-27] MEDS: MAGNESIUM HYDROXIDE 2,400 MG/10 ML CUP PO PRN (14:55)
[2020-05-27] MEDS: TERCONAZOLE 0.8% VAGINAL CREAM 20 GM TUBE VAGINAL SCH (21:18)
[2020-05-27] MEDS: polyethylene glycoL 3350 17 GM POWD.PACK PO SCH (21:19)
[2020-05-27] MEDS: QUEtiapine 50 MG TAB PO SCH ×3 (21:21→23:52)
[2020-05-28] MEDS: NICOTINE 21MG/24HR PATCH TRANSDERM SCH (08:50)
[2020-05-28] MEDS: CHOLECALCIFEROL 1,000 UNIT TAB PO SCH (08:50)
[2020-05-28] MEDS: GABAPENTIN 100 MG CAP PO SCH ×3 (08:51→20:43)
[2020-05-28] MEDS: OXYBUTYNIN CHLORIDE 5 MG TAB PO SCH ×2 (08:51→20:44)
[2020-05-28] MEDS: DULoxetine HCL 30 MG CAPSULE.DR PO SCH (08:51)
[2020-05-28] MEDS: IBUPROFEN 600 MG TAB PO PRN (08:51)
[2020-05-28] MEDS: FOLIC ACID 1 MG TAB PO SCH (08:51)
[2020-05-28] MEDS: MULTIVITAMINS, THERA 1 EACH TAB PO SCH (08:51)
[2020-05-28] MEDS: THIAMINE 100 MG TAB PO SCH (08:51)
[2020-05-28] MEDS ORDERED: DULoxetine HCL 30 MG CAPSULE.DR PO ONE (10:45)
[2020-05-28] MEDS ORDERED: SALINE NASAL GEL 14.1 GM TUBE TOPICAL PRN (11:30)
--- NOTE | 2020-05-28 11:35 | P.PN ---
Progress Note - Text Progress Note Date: 05/28/20 Interval History: Patient was seen laying down in her bed today and was directable and agreeable to speak with pattern chart writer in the office. She appeared mildly improved hygiene and grooming. She continues to be fairly somatically preoccupied and spoke about her pain and also feelings of constipation and vaginal irritation. She does state that the vaginal cream has been helping thus far was asking about her test results. She states that she is continuing to feel anger and resentment towards the people that she was with prior to coming into the hospital. She states that she is still feeling pain in her body from all of the walking and being outside in the cold. She claims that she has been eating better and states that she is still dealing with the constipation. She claims that her mood has mildly been improving and reports some anxiety today. She claims that she did not sleep well last night.. At this time patient denies any suicidal or homical ideations, intent or plan. Patient denies any auditory, visual hallucinations. Patient denies any side effects from the medications and has been compliant with meds. Mental Status Exam: General Appearance: Patient appears to be disheveled, stated age is alert, directable, and guarded/evasive. Patient appears to have improving hygiene and grooming Behavior: Patient is seated without any agitated behavior. Speech: Patient's speech is fluent and nonpressured. Soft tone of voice Mood/Affect: Patient reports their mood is depressed, improving mildly, affect is congruent and constricted. Suicidality/Homicidality: Patient denies having any homicidal ideation intent or plan. Denies any suicidal ideations intent or plan Perceptions: Patient denies any visual hallucinations, admits to mild auditory hallucinations. Though content/process: There is no evidence of any delusional thought content and thought process is goal-directed. Somatically preoccupied. Memory and concentration: AOX3, grossly intact for the purposes of this session Judgment and insight: poor, improving mildly Assessment Major depressive disorder, recurrent, severe with psychotic features. Methamphetamine abuse Cocaine use disorder Alcohol abuse Nicotine dependence Plan: -Patient continues to meet criteria for inpatient psychiatric admission for symp juana stabilization and safety. Patient has signed adult voluntary form and medication consent and was placed in patient's chart. -Medications: Increase Cymbalta to 60 mg daily for mood with plan to titrate up as needed. Increase Seroquel to 75 mg daily at bedtime for mood stabilization/insomnia. Continue with Neurontin as prescribed. -When necessary Ativan and Haldol for agitation/aggression. -CIWA protocol with Ativan when necessary for alcoholic withdrawal -Appreciate internal medicine and BAND SAW OPERATOR consult and recommendations per patient's vaginal pruritus and also dysuria. continue with Terazol cream as perscribed. chlamydia, gonorrhea and ua are all negative. HCV antibody is positive. -NRT - nicotine patch -SW on board for discharge planning. Encouraged the patient to participate in milieu. Patient states that she is interested in going to rehab upon discharge, specifically to [facility], will ask SW to give patient the number for access line.
[2020-05-28] MEDS: SENNOSIDES-DOCUSATE SODIUM 1 EACH TAB PO SCH ×2 (11:43→20:43)
[2020-05-28 13:34] LABS: HIV 2 AB Non-Reactive (Non-Reactive); HIV AB P24 Non-Reactive (Non-Reactive); HIV P24 AG Non-Reactive (Non-Reactive)
[2020-05-28] MEDS: TERCONAZOLE 0.8% VAGINAL CREAM 20 GM TUBE VAGINAL SCH (20:45)
[2020-05-29] MEDS: polyethylene glycoL 3350 17 GM POWD.PACK PO SCH ×3 (00:03→21:04)
[2020-05-29 06:01] VITALS: RESP 16
[2020-05-29] MEDS: NICOTINE 21MG/24HR PATCH TRANSDERM SCH (07:52)
[2020-05-29] MEDS: GABAPENTIN 100 MG CAP PO SCH (07:53)
[2020-05-29] MEDS: FOLIC ACID 1 MG TAB PO SCH (07:53)
[2020-05-29] MEDS: CHOLECALCIFEROL 1,000 UNIT TAB PO SCH (07:53)
[2020-05-29] MEDS: THIAMINE 100 MG TAB PO SCH (07:53)
[2020-05-29] MEDS: DULoxetine HCL 60 MG CAPSULE.DR PO SCH (07:53)
[2020-05-29] MEDS: OXYBUTYNIN CHLORIDE 5 MG TAB PO SCH (07:54)
[2020-05-29] MEDS: MULTIVITAMINS, THERA 1 EACH TAB PO SCH (07:54)
[2020-05-29] MEDS: SENNOSIDES-DOCUSATE SODIUM 1 EACH TAB PO SCH ×2 (07:55→21:07)
[2020-05-29] MEDS: IBUPROFEN 600 MG TAB PO PRN ×2 (09:04→15:42)
[2020-05-29] MEDS ORDERED: SENNOSIDES-DOCUSATE SODIUM 1 EACH TAB PO STA (09:23)
--- NOTE | 2020-05-29 09:37 | P.PN ---
Progress Note - Text Progress Note Date: 05/29/20 Interval History: Patient was seen wandering near the nurse's desk this morning and was directable and agreeable to speak with parts data writer in the office. She appeared to have improved hygiene and grooming. Patient continues to be somatically preoccupied however claims that she was able to have 2 bowel movements since yesterday and feels less constipated however continues to complain of vague abdominal symptoms. She claims that she has been working on her anger issues and also her impulse contr ol and reflecting back on her substance use. She states that she was drinking fairly heavily prior to coming in the hospital. She states that her mood has gradually been improving on the medications. She states that she did not receive her Seroquel last night and did not sleep well. She states that she is continuing to feel anger and resentment towards the people that she was with prior to coming into the hospital. She claims that she would be willing to go to [facility] for inpatient rehab however believes that [facility] has a spot there. At this time patient denies any suicidal or homical ideations, intent or plan. Patient denies any auditory, visual hallucinations. Patient denies any side effects from the medications and has been compliant with meds. Mental Status Exam: General Appearance: Patient appears to be disheveled, stated age is alert, directable, and attempts to be cooperative. Patient appears to have improving hygiene and grooming Behavior: Patient is seated without any agitated behavior. Speech: Patient's speech is fluent and nonpressured. Soft tone of voice Mood/Affect: Patient reports their mood is depressed, improving mildly, affect is congruent and constricted. Suicidality/Homicidality: Patient denies having any homicidal ideation intent or plan. Denies any suicidal ideations intent or plan Perceptions: Patient denies any visual hallucinations, admits to mild auditory hallucinations. Though content/process: There is no evidence of any delusional thought content and thought process is goal-directed. Somatically preoccupied. Memory and concentration: AOX3, grossly intact for the purposes of this session Judgment and insight: poor, improving mildly Assessment Major depressive disorder, recurrent, severe with psychotic features. Methamphetamine abuse Cocaine use disorder Alcohol abuse Nicotine dependence Plan: -Patient continues to meet criteria for inpatient psychiatric admission for symptom stabilization and safety. Patient has signed adult voluntary form and medication consent and was placed in patient's chart. -Medications: Continue with Cymbalta to 60 mg daily for mood with plan to titrate up as needed. Continue with Seroquel to 75 mg daily at bedtime for mood stabilization/insomnia. Continue with Neurontin as prescribed. -When necessary Ativan and Haldol for agitation/aggression. -CIWA protocol with Ativan when necessary for alcoholic withdrawal -Appreciate internal medicine and CULVERT INSTALLER consult and recommendations per patient's vaginal pruritus and also dysuria. continue with Terazol cream as perscribed. chlamydia, gonorrhea and ua are all negative. HCV antibody is positive. -NRT - nicotine patch -SW on board for discharge planning. Encouraged the patient to participate in milieu. Patient states that she is interested in going to rehab upon discharge, specifically to [facility], will ask PETERSON to follow-up with [facility] to see if patient has a confirmed intake date. Likely discharge tomorrow.
[2020-05-29] MEDS: GABAPENTIN 300 MG CAP PO SCH ×2 (15:42→21:04)
[2020-05-29] MEDS ORDERED: QUEtiapine 25 MG TAB PO SCH (21:00)
[2020-05-29] MEDS: TERCONAZOLE 0.8% VAGINAL CREAM 20 GM TUBE VAGINAL SCH (21:07)
[2020-05-30] MEDS: OXYBUTYNIN CHLORIDE 5 MG TAB PO SCH ×2 (06:23→08:31)
[2020-05-30 07:10] VITALS: BP 103/57; PULSE 58; TEMP 97.4
--- NOTE | 2020-05-30 08:08 | P.DS ---
Providers Date of admission: 05/24/20 16:48 Expected date of discharge: 05/30/20 Attending physician: Chauncey Chen MD Consults: 05/24/20 16:52 Consult Physician Routine Consulting Provider: Peter Mueller Consult Reason/Comments: medical management Do you want consulting provider notified?: Yes 05/25/20 03:01 Consult Physician Routine Consulting Provider: Nikos Lopez Consult Reason/Comments: vaginal pruritis and dysuria Do you want consulting provider notified?: Yes Primary care physician: [facility] Diagnosis(es) (1) Major depressive disorder with psychotic features Current Visit: Yes Status: Acute Priority: High (2) Methamphetamine abuse Current Visit: Yes Status: Acute Priority: Medium (3) Cocaine abuse Current Visit: Yes Status: Acute Priority: Medium (4) Alcohol abuse Current Visit: Yes Status: Acute Priority: Medium (5) Nicotine dependence Current Visit: Yes Status: Acute Priority: Low Hospital Course: Admission HPI: Patient is a 59-year-old female who is currently homeless, has 2 kids and collects Social Security disability. Patient presented to the hospital yesterday with thoughts of suicide ideations with no specific plans along with depression and UTI sx including dysuria and frequency. She claimed in the ER that she feeling depressed, is homeless and has been off of her psychiatric medications. Patient also admitted in the ER that she recently had been using alcohol and crack and UDS was positive for methamphetamine and cocaine. Patient was last admitted to the mental health unit in 08/2019. Patient claims the she was hanging out with the wrong people who were giving her "bad drugs". She states that the drugs did not sit well with her and she had a bad reaction to them. She also claims that she has been walking out in the cold and has been feeling more joint pain. She states that she has been drinking heavily approximately 2X 22 ounce cans of beer per day and also claims that she has been using crack regularly for the past few weeks. She states that she tried methamphetamine on Thursday and states that "I'll never do that again". She also claims that she has stopped her medications a few months ago referring to her Cymbalta and her Seroquel. She claims that she left [facility] early and relapsed afterwards. She states that she's been sleeping poorly sleepy and has had nightmares. She admits to minor withdrawal symptoms including anxiety at this time and some tremors. She denies any history of withdrawal seizures or delirium tremens. She does claim that she hears quiet voices however and they are not telling her to do anything. Patient denies any suicidal or homicidal ideations intent or plan. At this time patient denies any visual hallucinations. Patient denies any flight of ideas racing thoughts and increased in goal directed behavior. Patient admits to using cigarettes as well. UDS was positive for cocaine and methamphetamine as mentioned above. Hospital course: Upon admission to the unit patient was initially irritable, depressed and hearing voices. Patient was however directable and agreeable to commence treatment and signed adult voluntary form. Patient got along well with other patients on the unit and followed unit protocol. Patient was compliant with the medications and denied any side effects throughout hospital course. Patient was started on Seroquel and titrate up the dose of 75 mg daily at bedtime for mood stabilization/insomnia/psychosis. Patient was also started on Cymbalta and titrate up the dose to 60 mg daily for mood. Patient spoke of her stressors and engaged in therapy both group and individual. Patient was also seen by medical team for history and physical exam. Patient was fairly somatically preoccupied throughout hospitalization and complaint of constipation and vaginal pruritus. Patient had chlamydia, gonorrhea and other STD checked and urine analysis which were negative. ASSEMBLER INSTALLER GENERAL consultation recommended Terazol cream for a vaginal pruritus. Patient was also placed on laxatives and Senokot for constipation which improved. Patient was hep C positive for antibodies. Throughout the course of the hospitalization patient gradually improved with regards to mood, anxiety, irritability, sleep and became more future oriented with improved insight and judgment. On the day of discharge patient denied any suicidal or homicidal ideations intent or plan denied any auditory or visual hallucinations. Patient endorsed wanting to live for her health and her future. The patient denied any access to guns or weapons. Patient denied any paranoia and did not endorse any delusions. Patient does have a significant history of substance abuse and was counseled on abstaining from all substances including alcohol and marijuana. Patient was offered rehab and was accepted at [facility], to be dropped off by [facility] after discharge from the hospital. Patient was also counseled on the medications and need for regular compliance and was encouraged to follow-up with their outpatient appointment for mental health and also for primary care. Mental status exam: General Appearance: Patient appears to be overweight, stated age is alert, directable, and cooperative. Patient is in no acute distress and has improved hygiene and grooming Behavior: Patient is calmly seated without any agitated behavior. Speech: Patient's speech is fluent and nonpressured. Mood/Affect: Patient reports their mood is "better", affect is congruent Suicidality/Homicidality: Patient denies having any suicidal or homicidal ideation intent or plan. Perceptions: Patient denies any auditory or visual hallucinations. Though content/process: There is no evidence of any delusional thought content and thought process is linear and goal-directed. Memory and concentration: AOX3, grossly intact for the purposes of this session. Can spell "WORLD" backwards correctly. Judgment and insight: chronically poor, however has improved with guarded prognosis Impression: Major depressive disorder, recurrent, severe with psychotic features Methamphetamine abuse Cocaine abuse Alcohol abuse Nicotine dependence Plan: -Continue with discharge today as patient has improved and stabilized psychiatrically and is not currently an imminent threat to herself and/or others. Patient will remain at chronically elevated risk for harm to self and/or others due to her impulsivity and chronic substance abuse. -Continue medications: Continue with Cymbalta 60 mg daily for mood/anxiety, Seroquel 75 mg daily at bedtime for mood stabilization/insomnia. -Patient was counseled on the need for medication compliance and appropriate follow-up at mental health and also primary care for medical issues. Patient verbalized understanding and agreed. -Social work to help arrange patient's discharge/disposition to [facility] as she will get picked up by [facility] from the hospital. Social work also to arrange for patients follow up appointments with [facility] for psychiatric care along with follow up with primary care provider. Patient will need to follow-up with her ASSEMBLER INSTALLER GENERAL for her vaginal pruritus and also her primary care physician for her hepatitis C positive blood work. -Patient counseled on abstaining from recreational drugs and marijuana and a lcohol. Was informed/educated on the adverse effects on their physical and mental health. Patient verbally agreed and understood. Patient will be going to [facility] for inpatient substance rehab, intake date on the day of discharge from the hospital. -Patient was instructed to return to the hospital or seek immediate medical care if their psychiatric or medical symptoms do worsen or reoccur. Allergies Allergy/AdvReac Type Severity Reaction Status Date / Time ketorolac [From Toradol] Allergy Unknown Verified 05/24/20 17:59 latex Allergy Itching Verified 05/24/20 17:59 Laboratory Results WBC 7.0 k/uL (3.8-10.6) 05/26/20 08:55 RBC 4.36 m/uL (3.80-5.40) 05/26/20 08:55 Hgb 13.6 gm/dL (11.4-16.0) 05/26/20 08:55 Hct 41.3 % (34.0-46.0) 05/26/20 08:55 MCV 94.6 fL (80.0-100.0) 05/26/20 08:55 MCH 31.1 pg (25.0-35.0) 05/26/20 08:55 MCHC 32.8 g/dL (31.0-37.0) 05/26/20 08:55 RDW 11.9 % (11.5-15.5) 05/26/20 08:55 Plt Count 270 k/uL (150-450) 05/26/20 08:55 MPV 7.9 05/26/20 08:55 Neutrophils % 53 % 05/26/20 08:55 Lymphocytes % 29 % 05/26/20 08:55 Monocytes % 6 % 05/26/20 08:55 Eosinophils % 9 % 05/26/20 08:55 Basophils % 1 % 05/26/20 08:55 Neutrophils # 3.7 k/uL (1.3-7.7) 05/26/20 08:55 Lymphocytes # 2.0 k/uL (1.0-4.8) 05/26/20 08:55 Monocytes # 0.4 k/uL (0-1.0) 05/26/20 08:55 Eosinophils # 0.6 k/uL (0-0.7) 05/26/20 08:55 Basophils # 0.1 k/uL (0-0.2) 05/26/20 08:55 Sodium 140 mmol/L (137-145) 05/26/20 08:55 Potassium 4.4 mmol/L (3.5-5.1) 05/26/20 08:55 Chloride 108 mmol/L (98-107) H 05/26/20 08:55 Carbon Dioxide 25 mmol/L (22-30) 05/26/20 08:55 Anion Gap 7 mmol/L 05/26/20 08:55 BUN 14 mg/dL (7-17) 05/26/20 08:55 Creatinine 0.78 mg/dL (0.52-1.04) 05/26/20 08:55 Est GFR (CKD-EPI)AfAm >90 (>60 ml/min/1.73 sqM) 05/26/20 08:55 Est GFR (CKD-EPI)NonAf 84 (>60 ml/min/1.73 sqM) 05/26/20 08:55 Glucose 75 mg/dL (74-99) 05/26/20 08:[address] Glu mg/dL 97 05/26/20 08:55 Hemoglobin A1c 5.0 % (4.0-6.0) 05/26/20 08:55 Calcium 8.7 mg/dL (8.4-10.2) 05/26/20 08:55 Total Bilirubin 0.3 mg/dL (0.2-1.3) 05/26/20 08:55 AST 27 U/L (14-36) 05/26/20 08:55 ALT 25 U/L (4-34) 05/26/20 08:55 Alkaline Phosphatase 61 U/L (38-126) 05/26/20 08:55 Total Protein 6.2 g/dL (6.3-8.2) L 05/26/20 08:55 Albumin 3.6 g/dL (3.5-5.0) 05/26/20 08:55 Triglycerides 95 mg/dL (<150) 05/26/20 08:55 Cholesterol 154 mg/dL (<200) 05/26/20 08:55 LDL Cholesterol, Calc 84 mg/dL (0-99) 05/26/20 08:55 HDL Cholesterol 51 mg/dL (40-60) 05/26/20 08:55 TSH 1.380 mIU/L (0.465-4.680) 05/26/20 08:55 Urine Color Yellow 05/25/20 18:01 Urine Appearance Turbid (Clear) H 05/25/20 18:01 Urine pH 7.5 (5.0-8.0) 05/25/20 18:01 Ur Specific [place] 1.029 (1.001-1.035) 05/25/20 18:01 Urine Protein Trace (Negative) H 05/25/20 18:01 Urine Glucose (UA) Negative (Negative) 05/25/20 18:01 Urine Ketones Negative (Negative) 05/25/20 18:01 Urine Blood Negative (Negative) 05/25/20 18:01 Urine Nitrite Negative (Negative) 05/25/20 18:01 Urine Bilirubin Negative (Negative) 05/25/20 18:01 Urine Urobilinogen <2.0 mg/dL (<2.0) 05/25/20 18:01 Ur Leukocyte Esterase Trace (Negative) H 05/25/20 18:01 Urine RBC 1 /hpf (0-5) 05/24/20 07:05 Urine WBC 2 /hpf (0-5) 05/25/20 18:01 Ur Squamous Epith Cells 6 /hpf (0-4) H 05/25/20 18:01 Amorphous Sediment Moderate /hpf (None) H 05/25/20 18:01 Hyaline Casts 1 /lpf (0-2) 05/24/20 07:05 Urine Mucus Rare /hpf (None) H 05/25/20 18:01 Urine HCG, Qual Not Detected (Not Detectd) 05/25/20 07:05 Urine Opiates Screen Not Detected (NotDetected) 05/24/20 07:05 Ur Oxycodone Screen Not Detected (NotDetected) 05/24/20 07:05 Urine Methadone Screen Not Detected (NotDetected) 05/24/20 07:05 Ur Propoxyphene Screen Not Detected (NotDetected) 05/24/20 07:05 Ur Barbiturates Screen Not Detected (NotDetected) 05/24/20 07:05 U Tricyclic Antidepress Not Detected (NotDetected) 05/24/20 07:05 Ur Phencyclidine Scrn Not Detected (NotDetected) 05/24/20 07:05 Ur Amphetamines Screen Detected (NotDetected) H 05/24/20 07:05 U Methamphetamines Scrn Detected (NotDetected) H 05/24/20 07:05 U Benzodiazepines Scrn Not Detected (NotDetected) 05/24/20 07:05 Urine Cocaine Screen Detected (NotDetected) H 05/24/20 07:05 U Marijuana (THC) Screen Not Detected (NotDetected) 05/24/20 07:05 Chlamydia Source Urine 05/25/20 07:05 Chlamydia DNA (PCR) Negative (Neg,Equiv) 05/25/20 07:05 Coronavirus (PCR) Not Detected (Not Detectd) 05/24/20 14:59 Hepatitis A IgM Ab Non-Reactive (Non-Reactive) 05/26/20 08:55 Hep Bs Antigen Non-Reactive (Non-Reactive) 05/26/20 08:55 Hep Bs Antigen Non-Reactive (Non-Reactive) 05/26/20 08:55 Hep B Core IgM Ab Non-Reactive (Non-Reactive) 05/26/20 08:55 Hep C IgG Ab Reactive (Non-Reactive) A 05/26/20 08:55 Hep C IgG Ab Reactive (Non-Reactive) A 05/26/20 08:55 HIV-1 Antibody Non-Reactive (Non-Reactive) 05/26/20 08:55 HIV Ag/Ab Interpret 05/26/20 08:55 HIV p24 Antibody Non-Reactive (Non-Reactive) 05/26/20 08:55 HIV-2 Antibody Non-Reactive (Non-Reactive) 05/26/20 08:55 HIV P24 Antigen Non-Reactive (Non-Reactive) 05/26/20 08:55 N. gonorrhoeae Source Urine 05/25/20 07:05 N.gonorrhoeae DNA Probe Negative (Neg,Equiv) 05/25/20 07:05 Vital Signs Temp 97.4 F L 05/30/20 06:49 Pulse 58 L 05/30/20 06:49 Resp 16 05/30/20 06:49 BP 103/57 05/30/20 06:49 Pulse Ox 97 05/25/20 16:45 Patient Condition at Discharge: Stable Plan - Discharge Summary Discharge Rx Participant: No New Discharge Prescriptions: New Saline Nasal Gel [[place] Nasal Gel] 1 applic TOPICAL Q4HR PRN gm PRN Reason: Dry Nasal Passages DULoxetine HCL [Cymbalta] 60 mg PO DAILY 30 Days capsule. Oxybutynin Chloride [Ditropan] 5 mg PO BID 30 Days tab Folic Acid 1 mg PO DAILY 30 Days tab Nicotine 21Mg/24Hr Patch [Habitrol] 1 patch TRANSDERM DAILY 14 Days patch Magnesium Hydroxide [Milk of Magnesia Concentrate] 2,400 mg PO DAILY PRN ml PRN Reason: Constipation polyethylene glycoL 3350 [Miralax] 17 gm PO HS 5 Days powd.pack Ibuprofen [Motrin] 600 mg PO TID PRN 14 Days tab PRN Reason: Pain Multivitamins, Thera [Multivitamin (formulary)] 1 each PO DAILY 30 Days tab Sennosides-Docusate Sodium [Senokot-S] 2 each PO BID PRN 30 Days tab PRN Reason: Constipation QUEtiapine [SEROquel] 75 mg PO HS 30 Days tab Terconazole 0.8% Vaginal Cream [Terazol 3] 1 applic VAGINAL HS #2 applic Acetaminophen Tab [Tylenol] 650 mg PO Q4HR PRN 30 Days tab PRN Reason: Pain/Discomfort Thiamine [Vitamin B-1] 100 mg PO DAILY 30 Days tab Cholecalciferol [Vitamin D3 (25 Mcg = 1000 Iu)] 2,000 unit PO DAILY 30 Days tab Continue Gabapentin 600 mg PO TID 14 Days tab Discontinued QUEtiapine [SEROquel] 100 mg PO HS #30 tab predniSONE [Deltasone] 20 mg PO DAILY Oxybutynin Chloride [Ditropan] 5 mg PO BID amLODIPine [Norvasc] 10 mg PO DAILY Ketoconazole 2% Shampoo [Nizoral] 1 applic TOPICAL Q3D Discharge Medication List Acetaminophen Tab [Tylenol] 650 mg PO Q4HR PRN 30 Days tab 05/29/20 [Rx] Cholecalciferol [Vitamin D3 (25 Mcg = 1000 Iu)] 2,000 unit PO DAILY 30 Days tab 05/29/20 [Rx] DULoxetine HCL [Cymbalta] 60 mg PO DAILY 30 Days winifred. 05/29/20 [Rx] Folic Acid 1 mg PO DAILY 30 Days tab 05/29/20 [Rx] Gabapentin 600 mg PO TID 14 Days tab 05/29/20 [Rx] Ibuprofen [Motrin] 600 mg PO TID PRN 14 Days tab 05/29/20 [Rx] Magnesium Hydroxide [Milk of Magnesia Concentrate] 2,400 mg PO DAILY PRN ml 05/29/20 [Rx] Multivitamins, Thera [Multivitamin (formulary)] 1 each PO DAILY 30 Days tab 05/29/20 [Rx] Nicotine 21Mg/24Hr Patch [Habitrol] 1 patch TRANSDERM DAILY 14 Days patch 05/29/20 [Rx] Oxybutynin Chloride [Ditropan] 5 mg PO BID 30 Days tab 05/29/20 [Rx] QUEtiapine [SEROquel] 75 mg PO HS 30 Days tab 05/29/20 [Rx] Saline Nasal Gel [[place] Nasal Gel] 1 applic TOPICAL Q4HR PRN gm 05/29/20 [Rx] Sennosides-Docusate Sodium [Senokot-S] 2 each PO BID PRN 30 Days tab 05/29/20 [Rx] Terconazole 0.8% Vaginal Cream [Terazol 3] 1 applic VAGINAL HS #2 applic 05/29/20 [Rx] Thiamine [Vitamin B-1] 100 mg PO DAILY 30 Days tab 05/29/20 [Rx] polyethylene glycoL 3350 [Miralax] 17 gm PO HS 5 Days powd.pack 05/29/20 [Rx] Follow up Appointment(s)/Referral(s): intake,intake [Other] - 05/30/20 12:00 pm [facility] [Primary Care Provider] - 1-2 days Patient Instructions/Handouts: Depression (DC), Abuse of Alcohol (DC) Activity/Diet/Wound Care/Special Instructions: Activity and diet as tolerated. Avoid the use of street drugs and alcohol. Take all medications as prescribed. When you are in need of refills on your medications please contact your medical provider and/or outpatient psychiatrist to have this done. Please go to scheduled outpatient appointment for aftercare t reatment. If symptoms return or become worse, call the crisis line at and/or go to the nearest emergency room for evaluation. Discharge Disposition: OTHER INSTITUTION NOT DEFINED
[2020-05-30] MEDS: DULoxetine HCL 60 MG CAPSULE.DR PO SCH (08:30)
[2020-05-30] MEDS: SENNOSIDES-DOCUSATE SODIUM 1 EACH TAB PO SCH ×2 (08:30→08:39)
[2020-05-30] MEDS: THIAMINE 100 MG TAB PO SCH (08:30)
[2020-05-30] MEDS: NICOTINE 21MG/24HR PATCH TRANSDERM SCH (08:30)
[2020-05-30] MEDS: CHOLECALCIFEROL 1,000 UNIT TAB PO SCH (08:30)
[2020-05-30] MEDS: FOLIC ACID 1 MG TAB PO SCH (08:30)
[2020-05-30] MEDS: MULTIVITAMINS, THERA 1 EACH TAB PO SCH (08:30)
[2020-05-30] MEDS: GABAPENTIN 300 MG CAP PO SCH (08:31)
== END 2020-05-30 08:35 | DRG 885 ==
LOC: EC 06:31 → 3MHU 16:48
PROVIDERS: ADMIT Psychiatry & Neurology Psychiatry; ATTEND Psychiatry & Neurology Psychiatry
DX: F33.3 Major depressive disorder, recurrent, severe with psychotic symptoms (principal); R45.851 Suicidal ideations; G47.00 Insomnia, unspecified; K59.00 Constipation, unspecified; N89.8 Other specified noninflammatory disorders of vagina; L29.8 Other pruritus; F41.9 Anxiety disorder, unspecified; F17.210 Nicotine dependence, cigarettes, uncomplicated; I10 Essential (primary) hypertension; F14.10 Cocaine abuse, uncomplicated; F15.10 Other stimulant abuse, uncomplicated; F10.10 Alcohol abuse, uncomplicated; F11.11 Opioid abuse, in remission; T43.96XA Underdosing of unspecified psychotropic drug, initial encounter; Z91.128 Patient's intentional underdosing of medication regimen for other reason; Z59.0 Homelessness; Z79.899 Other long term (current) drug therapy; Z20.828 Contact with and (suspected) exposure to other viral communicable diseases; J45.909 Unspecified asthma, uncomplicated; B19.20 Unspecified viral hepatitis C without hepatic coma; M25.559 Pain in unspecified hip; G89.29 Other chronic pain; M54.30 Sciatica, unspecified side; Z86.14 Personal history of Methicillin resistant Staphylococcus aureus infection; G62.9 Polyneuropathy, unspecified; E66.3 Overweight; Z68.34 Body mass index [BMI] 34.0-34.9, adult; R39.15 Urgency of urination; Z88.8 Allergy status to other drugs, medicaments and biological substances; Z91.040 Latex allergy status
CPT/HCPCS: 80053; 80061; 80074; 80306; 81001; 81003; 81025; 82075; 83036; 84443; 85025; 86803; 87340; 87390; 87491; 87591; 87635; 99285

== ENCOUNTER 2020-06-22 10:57 | Inpatient (IN) | payer MEDICARE, MEDICAID ==
[2020-06-22] MEDS ORDERED: ONDANSETRON 4 MG/2 ML VIAL IVP STA (11:10)
[2020-06-22] MEDS ORDERED: SODIUM CHLORIDE 0.9% 1,000 ML IV ONE (11:10)
[2020-06-22] MEDS ORDERED: LORazepam 2 MG/ML INJ IV STA (11:10)
[2020-06-22 11:32] LABS: Basophils # (A) 0.1 k/uL (0-0.2); Basophils % (A) 1 %; Eosinophils # (A) 0.4 k/uL (0-0.7); Eosinophils % (A) 5 %; HCT 46.2 % (34.0-46.0); HGB 15.3 gm/dL (11.4-16.0); Lymphocytes # (A) 1.4 k/uL (1.0-4.8); Lymphocytes % (A) 17 %; MCH 30.3 pg (25.0-35.0); MCHC 33.2 g/dL (31.0-37.0); MCV 91.4 fL (80.0-100.0); Mean Platelet Volume 6.8; Monocytes # (A) 0.4 k/uL (0-1.0); Monocytes % (A) 5 %; Neutrophils # (A) 5.7 k/uL (1.3-7.7); Neutrophils % (A) 71 %; Platelet Count 311 k/uL (150-450); RBC 5.05 m/uL (3.80-5.40); RDW 11.9 % (11.5-15.5); WBC 8.1 k/uL (3.8-10.6)
[2020-06-22 11:42] LABS: ALT 28 U/L (4-34); AST 31 U/L (14-36); African American GFR (CKD) >90 (>60 ml/min/1.73 sqM); Albumin 4.7 g/dL (3.5-5.0); Alkaline Phosphatase 76 U/L (38-126); Anion Gap 8 mmol/L; Blood Urea Nitrogen 11 mg/dL (7-17); Calcium 9.9 mg/dL (8.4-10.2); Carbon Dioxide 23 mmol/L (22-30); Chloride 109 mmol/L (98-107); Glucose 124 mg/dL (74-99); Non-African American GFR(CKD) >90 (>60 ml/min/1.73 sqM); Potassium 4.1 mmol/L (3.5-5.1); Sodium 140 mmol/L (137-145); Total Bilirubin 1.1 mg/dL (0.2-1.3); Total Protein 7.8 g/dL (6.3-8.2)
--- NOTE | 2020-06-22 12:32 | XR ---
EXAMINATION TYPE: AP view pelvis and 2 views right hip DATE OF EXAM: 06/22/2020 COMPARISON: NONE HISTORY: 60-year-old female with pain FINDINGS: Degenerative change in the lower lumbar spine. Mild marginal spurring at the right hip. SI joints appear symmetric and intact as does the pubic symp hysis. No acute fracture, subluxation, dislocation. There is some ossification seen along the inferior aspect of the left hip that is a chronic appearanc e, suspect a sequela of remote injury. This should be correlated clinically. IMPRESSION: 1. Right hip without acute osseous abnormality seen. 2. Some ossification seen along the inferior aspect of the left hip. Suspect sequela of remote injury . This should be corroborated clinically.
--- NOTE | 2020-06-22 13:06 | ED ---
Nausea/Vomiting/Diarrhea HPI - General Source: patient Mode of arrival: ambulatory Limitations: no limitations <Geneva Yu - Last Filed: 06/22/20 13:00> <Sumit Smith - Last Filed: 06/22/20 15:30> - General Chief complaint: Nausea/Vomiting/Diarrhea Stated complaint: DRANK ALCHOL, HIP PAIN R SIDE. Time Seen by Provider: 06/22/20 11:06 - History of Present Illness Initial comments: 10-year-old female recently got out of rehab for alcohol abuse she states she drank after and she would had been given vivitrol. pt states she has had nausea, vomiting since. pt denies abdominal pain, chest pain, dyspnea, fever, cough, congestion or back pain. Denies urinary symptoms. pt states she had right hip pain. pt states that she has no injury but it has been hurting her for month especially with the cold waether. pt denies falls. patient denies knee, back or lower leg pain. patient denies leg swelling. pt states that she is also suicidal because of being homeless. patient has no additional complaints. upon arrival she appears well nontoxic-not actively vomiting. (Geneva Yu) - Related Data Home Medications Medication Instructions Recorded Confirmed Albuterol Inhaler [Ventolin Hfa 2 puff INHALATION RT-QID PRN 06/22/20 06/22/20 Inhaler] Multivitamins, Thera [Multivitamin 1 tab PO DAILY 06/22/20 06/22/20 (formulary)] Nicotine 21Mg/24Hr Patch [Habitrol] 1 patch TRANSDERM DAILY PRN 06/22/20 06/22/20 Sennosides-Docusate Sodium 2 tab PO BID PRN 06/22/20 06/22/20 [Senokot-S] polyethylene glycoL 3350 [Miralax] 17 gm PO DAILY PRN 06/22/20 06/22/20 Previous Rx's Medication Instructions Recorded Acetaminophen Tab [Tylenol] 650 mg PO Q4HR PRN 30 Days tab 05/29/20 Cholecalciferol [Vitamin D3 (25 2,000 unit PO DAILY 30 Days tab 05/29/20 Mcg = 1000 Iu)] DULoxetine HCL [Cymbalta] 60 mg PO DAILY 30 Days capsule. 05/29/20 Folic Acid 1 mg PO DAILY 30 Days tab 05/29/20 Gabapentin 600 mg PO TID 14 Days tab 05/29/20 Ibuprofen [Motrin] 600 mg PO TID PRN 14 Days tab 05/29/20 Magnesium Hydroxide [Milk of 2,400 mg PO DAILY PRN ml 05/29/20 Magnesia Concentrate] Oxybutynin Chloride [Ditropan] 5 mg PO BID 30 Days tab 05/29/20 QUEtiapine [SEROquel] 75 mg PO HS 30 Days tab 05/29/20 Saline Nasal Gel [[place] Nasal Gel] 1 applic TOPICAL Q4HR PRN gm 05/29/20 Thiamine [Vitamin B-1] 100 mg PO DAILY 30 Days tab 05/29/20 Allergies Allergy/AdvReac Type Severity Reaction Status Date / Time ketorolac [From Toradol] Allergy Unknown Verified 06/22/20 11:35 latex Allergy Itching Verified 06/22/20 11:35 Review of Systems ROS Other: All systems not noted in ROS Statement are negative. <Geneva Yu - Last Filed: 06/22/20 13:00> ROS Other: All systems not noted in ROS Statement are negative. <Sumit Smith - Last Filed: 06/22/20 15:30> ROS Statement: Those systems with pertinent positive or pertinent negative responses have been documented in the HPI. Past Medical History Past Medical History: Hypertension, Liver Disease, Musculoskeletal Disorder, Neurologic Disorder Additional Past Medical History / Comment(s): hep c, back pain, sciatica, neuropathy, History of Any Multi-Drug Resistant Organisms: MRSA Date of last positivie culture/infection: 2006 MDRO Source:: face Past Surgical History: Orthopedic Surgery Additional Past Surgical History / Comment(s): lt ankle, D&C Past Anesthesia/Blood Transfusion Reactions: No Reported Reaction Past Psychological History: Anxiety, Bipolar, Depression, Schizoaffective Disorder, Schizophrenia Smoking Status: Never smoker Past Alcohol Use History: Daily, Occasional Past Drug Use History: Cocaine, Heroin, Marijuana, Methamphetamine, Opiates <Geneva Yu - Last Filed: 06/22/20 13:00> General Exam Limitations: no limitations <Geneva Yu - Last Filed: 06/22/20 13:00> - General Exam Comments Initial Comments: General: The patient is awake and alert, in no distress Eye: +3 mm pupils are equal, round and reactive to light, extra-ocular movements are intact. No nystagmus. There is normal conjunctiva bilaterally. No signs of icterus. Ears, nose, mouth and throat: There are moist mucous membranes and no oral lesions. Neck: The neck is supple, there is no tenderness or JVD. Cardiovascular: There is a regular rate and rhythm. No murmur, rub or gallop is appreciated. Respiratory: Lungs are clear to auscultation, respirations are non-labored, breath sounds are equal. No wheezes, stridor, rales, or rhonchi. Gastrointestinal: Soft, non-distended, non-tender abdomen without masses or organomegaly noted. There is no rebound or guarding present. NO CVA tenderness. Musculoskeletal: normal hip inspection, no redness/swelling. can weight bear and ambulate. Normal ROM, no tenderness of knees/ankles. Strength 5/5. Sensation intact. Radial pulses equal bilaterally 2+. Neurological: A&O x 3. CN II-XII intact grossly, There are no obvious motor or sensory deficits. Coordination appears grossly intact. Speech is normal. Skin: Skin is warm and dry and no rashes or lesions are noted. Psychiatric: Cooperative, appropriate mood & affect, normal judgment. (Geneva Yu) Course <Sumit Smith - Last Filed: 06/22/20 15:30> Vital Signs 06/22/20 06/22/20 06/22/20 10:59 12:42 13:30 Temperature 97.8 F 97.3 F L Pulse Rate 74 71 65 Respiratory 18 16 16 Rate Blood Pressure 172/82 125/81 129/62 O2 Sat by Pulse 100 98 97 Oximetry - Reevaluation(s) Reevaluation #1: 06/22/20 15:28 The patient has been evaluated by the EPS service and will be admitted for inpatient treatment of depression and suicidal ideation. (Sumit Smith) Medical Decision Making - Lab Data Result diagrams: 06/22/20 11:19 06/22/20 11:19 <Geneva Yu - Last Filed: 06/22/20 13:00> - Lab Data Result diagrams: 06/22/20 11:19 06/22/20 11:19 <Sumit Smith - Last Filed: 06/22/20 15:30> - Medical Decision Making no abdominal pain. LFTS wnl. vomiting controlled. pt hydrated. complains of suic idal ideations. after labs/imaging. pt vascularly intact. pt clear for EPS evaluation. (Geneva Yu) - Lab Data Lab Results 06/22/20 06/22/20 06/22/20 Range/Units 11:19 11:19 14:39 WBC 8.1 (3.8-10.6) k/uL RBC 5.05 (3.80-5.40) m/uL Hgb 15.3 (11.4-16.0) gm/dL Hct 46.2 H (34.0-46.0) % MCV 91.4 (80.0-100.0) fL MCH 30.3 (25.0-35.0) pg MCHC 33.2 (31.0-37.0) g/dL RDW 11.9 (11.5-15.5) % Plt Count 311 (150-450) k/uL MPV 6.8 Neutrophils % 71 % Lymphocytes % 17 % Monocytes % 5 % Eosinophils % 5 % Basophils % 1 % Neutrophils # 5.7 (1.3-7.7) k/uL Lymphocytes # 1.4 (1.0-4.8) k/uL Monocytes # 0.4 (0-1.0) k/uL Eosinophils # 0.4 (0-0.7) k/uL Basophils # 0.1 (0-0.2) k/uL Sodium 140 (137-145) mmol/L Potassium 4.1 (3.5-5.1) mmol/L Chloride 109 H (98-107) mmol/L Carbon Dioxide 23 (22-30) mmol/L Anion Gap 8 mmol/L BUN 11 (7-17) mg/dL Creatinine 0.72 (0.52-1.04) mg/dL Est GFR (CKD-EPI)AfAm >90 (>60 ml/min/1.73 sqM) Est GFR (CKD-EPI)NonAf >90 (>60 ml/min/1.73 sqM) Glucose 124 H (74-99) mg/dL Calcium 9.9 (8.4-10.2) mg/dL Total Bilirubin 1.1 (0.2-1.3) mg/dL AST 31 (14-36) U/L ALT 28 (4-34) U/L Alkaline Phosphatase 76 (38-126) U/L Total Protein 7.8 (6.3-8.2) g/dL Albumin 4.7 (3.5-5.0) g/dL Urine Opiates Screen Not Detected (NotDetected) Ur Oxycodone Screen Not Detected (NotDetected) Urine Methadone Screen Not Detected (NotDetected) Ur Propoxyphene Screen Not Detected (NotDetected) Ur Barbiturates Screen Not Detected (NotDetected) U Tricyclic Antidepress Not Detected (NotDetected) Ur Phencyclidine Scrn Not Detected (NotDetected) Ur Amphetamines Screen Not Detected (NotDetected) U Methamphetamines Scrn Not Detected (NotDetected) U Benzodiazepines Scrn Detected H (NotDetected) Urine Cocaine Screen Detected H (NotDetected) U Marijuana (THC) Screen Not Detected (NotDetected) Coronavirus (PCR) (Not Detectd) 06/22/20 Range/Units 14:39 WBC (3.8-10.6) k/uL RBC (3.80-5.40) m/uL Hgb (11.4-16.0) gm/dL Hct (34.0-46.0) % MCV (80.0-100.0) fL MCH (25.0-35.0) pg MCHC (31.0-37.0) g/dL RDW (11.5-15.5) % Plt Count (150-450) k/uL MPV Neutrophils % % Lymphocytes % % Monocytes % % Eosinophils % % Basophils % % Neutrophils # (1.3-7.7) k/uL Lymphocytes # (1.0-4.8) k/uL Monocytes # (0-1.0) k/uL Eosinophils # (0-0.7) k/uL Basophils # (0-0.2) k/uL Sodium (137-145) mmol/L Potassium (3.5-5.1) mmol/L Chloride (98-107) mmol/L Carbon Dioxide (22-30) mmol/L Anion Gap mmol/L BUN (7-17) mg/dL Creatinine (0.52-1.04) mg/dL Est GFR (CKD-EPI)AfAm (>60 ml/min/1.73 sqM) Est GFR (CKD-EPI)NonAf (>60 ml/min/1.73 sqM) Glucose (74-99) mg/dL Calcium (8.4-10.2) mg/dL Total Bilirubin (0.2-1.3) mg/dL AST (14-36) U/L ALT (4-34) U/L Alkaline Phosphatase (38-126) U/L Total Protein (6.3-8.2) g/dL Albumin (3.5-5.0) g/dL Urine Opiates Screen (NotDetected) Ur Oxycodone Screen (NotDetected) Urine Methadone Screen (NotDetected) Ur Propoxyphene Screen (NotDetected) Ur Barbiturates Screen (NotDetected) U Tricyclic Antidepress (NotDetected) Ur Phencyclidine Scrn (NotDetected) Ur Amphetamines Screen (NotDetected) U Methamphetamines Scrn (NotDetected) U Benzodiazepines Scrn (NotDetected) Urine Cocaine Screen (NotDetected) U Marijuana (THC) Screen (NotDetected) Coronavirus (PCR) Not Detected (Not Detectd) Disposition <Geneva Yu - Last Filed: 06/22/20 13:00> <Sumit Smith - Last Filed: 06/22/20 15:30> Clinical Impression: Depression, Suicidal ideation Disposition: TRANSFER TO PSYCH HOSP/UNIT Condition: Fair Referrals: [facility] [Primary Care Provider] - 1-2 days
[2020-06-22] MEDS: SODIUM CHLORIDE 0.9% 1,000 ML IV SCH ×2 (13:15→20:07)
[2020-06-22 15:03] LABS: Amphetamine Screen,Urine Not Detected (NotDetected); Barbiturate Screen,Urine Not Detected (NotDetected); Benzodiazepines Screen,Urine Detected (NotDetected); Cocaine Screen,Urine Detected (NotDetected); Methadone Screen, Urine Not Detected (NotDetected); Opiate Screen,Urine Not Detected (NotDetected); Oxycodone Screen, Urine Not Detected (NotDetected); Phencyclidine Screen,Urine Not Detected (NotDetected); Tricyclic Antidepressant,Urine Not Detected (NotDetected); Urn Cannabinoid Scrn Not Detected (NotDetected)
[2020-06-22] MEDS ORDERED: HYDROmorphone 0.5 MG/0.5 ML SYRINGE IVP STA (15:17)
[2020-06-22] MEDS ORDERED: MAG HYDROX/AL HYDROX/SIMETH 30 ML CUP PO PRN (15:26)
[2020-06-22] MEDS ORDERED: LORazepam 1 MG TAB PO PRN (15:26)
[2020-06-22] MEDS ORDERED: MAGNESIUM HYDROXIDE 2,400 MG/10 ML CUP PO PRN (15:26)
[2020-06-22] MEDS ORDERED: SENNOSIDES-DOCUSATE SODIUM 1 EACH TAB PO PRN (15:32)
[2020-06-22] MEDS ORDERED: ALBUTEROL HFA INHALER INHALATION PRN (15:32)
[2020-06-22] MEDS ORDERED: LORazepam 2 MG/ML INJ IM PRN (15:40)
[2020-06-22] MEDS ORDERED: ONDANSETRON ODT 4 MG TAB PO PRN (16:32)
[2020-06-22] MEDS: OXYBUTYNIN CHLORIDE 5 MG TAB PO SCH (20:06)
[2020-06-22] MEDS: GABAPENTIN 300 MG CAP PO SCH (20:06)
[2020-06-22] MEDS: IBUPROFEN 600 MG TAB PO PRN (20:08)
[2020-06-22] MEDS ORDERED: QUEtiapine 200 MG TAB PO SCH (21:00)
--- NOTE | 2020-06-22 23:19 | P.PN ---
Progress Note - Text Progress Note Date: 06/22/20 patient refused evaluation at this time please reach out to [facility], if there is any medical concerns
[2020-06-23] MEDS: SODIUM CHLORIDE 0.9% 1,000 ML IV SCH (06:40)
[2020-06-23] MEDS: NICOTINE 21MG/24HR PATCH TRANSDERM SCH (08:37)
[2020-06-23] MEDS: GABAPENTIN 300 MG CAP PO SCH ×3 (08:38→20:56)
[2020-06-23] MEDS: OXYBUTYNIN CHLORIDE 5 MG TAB PO SCH ×2 (08:38→20:56)
[2020-06-23] MEDS: THIAMINE 100 MG TAB PO SCH (08:38)
[2020-06-23] MEDS: MULTIVITAMINS, THERA 1 EACH TAB PO SCH (08:38)
[2020-06-23] MEDS: FOLIC ACID 1 MG TAB PO SCH (08:40)
[2020-06-23] MEDS ORDERED: DULoxetine HCL 60 MG CAPSULE.DR PO SCH (09:00)
[2020-06-23] MEDS: IBUPROFEN 600 MG TAB PO PRN (10:22)
[2020-06-23] MEDS: SALINE NASAL GEL 14.1 GM TUBE TOPICAL PRN (13:27)
[2020-06-23] MEDS: OLANZapine 5 MG TAB PO SCH ×2 (16:48→20:56)
[2020-06-23] MEDS: IBUPROFEN 800 MG TAB PO SCH ×2 (16:49→20:56)
[2020-06-24] MEDS: SALINE NASAL GEL 14.1 GM TUBE TOPICAL PRN ×2 (06:02→16:32)
[2020-06-24] MEDS: FOLIC ACID 1 MG TAB PO SCH (07:35)
[2020-06-24] MEDS: THIAMINE 100 MG TAB PO SCH (07:39)
[2020-06-24] MEDS: IBUPROFEN 800 MG TAB PO SCH ×3 (07:39→20:57)
[2020-06-24] MEDS: OLANZapine 5 MG TAB PO SCH ×3 (07:39→20:57)
[2020-06-24] MEDS: MULTIVITAMINS, THERA 1 EACH TAB PO SCH (07:39)
[2020-06-24] MEDS: GABAPENTIN 300 MG CAP PO SCH ×3 (07:39→20:57)
[2020-06-24] MEDS: NICOTINE 21MG/24HR PATCH TRANSDERM SCH (07:39)
[2020-06-24] MEDS: OXYBUTYNIN CHLORIDE 5 MG TAB PO SCH ×2 (07:41→20:56)
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
--- NOTE | 2020-06-24 16:56 | PN ---
PROGRESS NOTE DATE OF SERVICE: 06/24/2020 CHIEF COMPLAINT: The patient was admitted for depression and relapse to substance abuse including alcohol and cocaine. INTERVAL HISTORY: Patient has been doing fair. She had a quiet day yesterday. She comes out on the unit. She wandered about. She interacted with others and seemed to have some positive situations in relating to others. She attended groups yesterday and seemed to be open and able to share with others. She said she slept fair last night. Today she has been up. She again has been out on the unit quite a bit. She has been attending groups and seems to gain from that experience. She said her mood is improved and she has a little better outlook today compared to when she first came into the hospital. It is noted that she seemed to have less pain complaints today, whereas on admission, she seemed to be very focused on physical issues as the major contributing factors to her high level of distress. It is noted that she seems to be showing some improvement with the addition of Motrin. When I talked to her today, mostly she was focused on what she needs to do to get through the holidays without regressing into grief issues. We again talked about withdrawal issues. The patient tolerates her psychotropic medications. MENTAL STATUS: Patient sat with some restlessness. She gave fairly good eye contact. She answered questions with brief responses. Her thoughts were clear. Her affect was anxious. Her mood depressed, though she seemed to show a little improvement in her mood overall. She was somewhat distressed. There was no indication of thought disorder. She voiced no thoughts of harm. Cognition was clear. ASSESSMENT: I will continue the current diagnosis and treatment plan. I will continue psychotropic medications the same. I again reviewed withdrawal issues with the patient as the most critical issue that she needs to focus on over the next 6-8 weeks. We will focus on stabilization and discharge planning. MMODL / IJN: [id number] /
[2020-06-24] MEDS: ACETAMINOPHEN TAB 325 MG TAB PO PRN (19:17)
[2020-06-25] MEDS: SALINE NASAL GEL 14.1 GM TUBE TOPICAL PRN (03:49)
[2020-06-25] MEDS: ACETAMINOPHEN TAB 325 MG TAB PO PRN ×2 (03:50→20:03)
[2020-06-25] MEDS: NICOTINE 21MG/24HR PATCH TRANSDERM SCH (08:47)
[2020-06-25] MEDS: IBUPROFEN 800 MG TAB PO SCH ×3 (08:48→21:03)
[2020-06-25] MEDS: GABAPENTIN 300 MG CAP PO SCH ×3 (08:48→21:04)
[2020-06-25] MEDS: FOLIC ACID 1 MG TAB PO SCH (08:48)
[2020-06-25] MEDS: MULTIVITAMINS, THERA 1 EACH TAB PO SCH (08:49)
[2020-06-25] MEDS: OLANZapine 5 MG TAB PO SCH (08:49)
[2020-06-25] MEDS: OXYBUTYNIN CHLORIDE 5 MG TAB PO SCH ×2 (08:50→21:04)
[2020-06-25] MEDS: THIAMINE 100 MG TAB PO SCH (08:50)
--- NOTE | 2020-06-25 10:16 | P.PN ---
Progress Note - Text Progress Note Date: 06/25/20 Interval History: Patient was seen attending group this morning and was directable and agreeable to speak with senior copywriter in the office. Patient appears to have improved hygiene today and grooming. She was rambling on and was fairly somatically preoccupied today. She spoke about coming in feeling nauseous and vomiting hospital after she relapsed back on alcohol. She states that she wanted to "green party with some of the old people" and states that after she left rehab she started drinking on the vivitrol. She states that she is still having cravings for alcohol however denies any withdrawal symptoms at this time. She states that she was feeling depressed and the Zyprexa has been helping her and did not want to be placed back on Cymbalta at this time. She states that she was having poor sleep last night approximately 3 hours of sleep. She states that her appetite is fair. At this time patient denies any suicidal or homical ideations, intent or plan. Patient denies any auditory, visual hallucinations and denies any paranoia or delusions. Patient denies any side effects from the medications and has been compliant with meds. She claims that she has been going to groups and try to work on her coping skills. She states that she did finish rehab, 3 weeks of it and would be willing to go back at this point. Mental Status Exam: General Appearance: Patient appears to be overweight, older than stated age is alert, directable. Improving hygiene and grooming. Behavior: Patient is calmly seated without any agitated behavior. Speech: Patient's speech is fluent and nonpressured. Talkative. Rambling Mood/Affect: Mood is depressed however is improving mildly, affect is congruent and constricted. Suicidality/Homicidality: Patient denies having any suicidal or homicidal ideation intent or plan. Perceptions: Patient denies any visual hallucinations and denies any auditory mederos llucinations Though content/process: Rambles at times, tangential/circumstantial. No delusions or paranoia. Memory and concentration: AOX3, grossly intact for the purposes of this session Judgment and insight: Chronically poor, Improving mildly Assessment Major depressive disorder, chronic, recurrent and severe. Alcohol use disorder Cocaine abuse Nicotine dependence Plan: -Patient continues to meet criteria for inpatient psychiatric admission for symptom stabilization and safety. Patient has signed adult voluntary form and medication consent and was placed in patient's chart. -Medications: Change Zyprexa dosing to 5 mg daily +10 mg daily at bedtime for mood stabilization/insomnia. Patient is refusing to take an antidepressant at this time and wants to remain on the Zyprexa. Added acamprosate 333 mg 3 times a day for alcohol cravings. -Thiamine, multivitamin and folic acid for chronic alcohol use. -When necessary Ativan and Haldol for agitation/aggression. -NRT - nicotine patch -SW on board for discharge planning. Encouraged the patient to participate in milieu. 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 Likely discharge in 2-3 days.
[2020-06-25] MEDS: ACAMPROSATE CALCIUM 333 MG TABLET.DR PO SCH ×3 (11:34→21:04)
[2020-06-25] MEDS: polyethylene glycoL 3350 17 GM POWD.PACK PO PRN (21:01)
[2020-06-25] MEDS: OLANZapine 10 MG TAB PO SCH (21:04)
[2020-06-26] MEDS: NICOTINE 21MG/24HR PATCH TRANSDERM SCH (07:50)
[2020-06-26] MEDS: ACAMPROSATE CALCIUM 333 MG TABLET.DR PO SCH ×3 (07:50→20:40)
[2020-06-26] MEDS: MULTIVITAMINS, THERA 1 EACH TAB PO SCH (07:51)
[2020-06-26] MEDS: FOLIC ACID 1 MG TAB PO SCH ×2 (07:51)
[2020-06-26] MEDS: THIAMINE 100 MG TAB PO SCH (07:51)
[2020-06-26] MEDS: IBUPROFEN 800 MG TAB PO SCH ×3 (07:53→20:41)
[2020-06-26] MEDS: OXYBUTYNIN CHLORIDE 5 MG TAB PO SCH ×2 (07:53→20:42)
[2020-06-26] MEDS: OLANZapine 5 MG TAB PO SCH (07:53)
[2020-06-26] MEDS: GABAPENTIN 300 MG CAP PO SCH ×3 (07:53→20:40)
[2020-06-26] MEDS: SALINE NASAL GEL 14.1 GM TUBE TOPICAL PRN (09:48)
--- NOTE | 2020-06-26 11:16 | P.PN ---
Progress Note - Text Progress Note Date: 06/26/20 Interval History: Patient was seen wandering the hallways this morning and was directable and ag reeable to speak with news writer in the office. Patient claims that she is doing better with regard to her mood however she continues to be preoccupied with her hip pain. She states that she was seen by a medical doctor yesterday however was still not prescribed her prednisone. She states that she had several awakenings last night due to pain from her hip. She was rambling on and was fairly somatically preoccupied today. She claims that her alcohol cravings have been gradually improving. She spoke significantly about wanting to go back to rehab however states that she will have nowhere to go afterwards. She states that her appetite is fair. At this time patient denies any suicidal or homical ideations, intent or plan. Patient denies any auditory, visual hallucinations and denies any paranoia or delusions. Patient denies any side effects from the medications and has been compliant with meds. She claims that she has been going to groups and try to work on her coping skills Mental Status Exam: General Appearance: Patient appears to be overweight, older than stated age is alert, directable. Improving hygiene and grooming. Behavior: Patient is calmly seated without any agitated behavior. Speech: Patient's speech is fluent and nonpressured. Rambling Mood/Affect: Mood is depressed however is improving mildly, affect is congruent and constricted. Suicidality/Homicidality: Patient denies having any suicidal or homicidal ideation intent or plan. Perceptions: Patient denies any visual hallucinations and denies any auditory hallucinations Though content/process: Rambles at times, tangential/circumstantial. No delusions or paranoia. Somatically preoccupied. Memory and concentration: AOX3, grossly intact for the purposes of this session Judgment and insight: Chronically poor, Improving mildly Assessment Major depressive disorder, chronic, recurrent and severe. Alcohol use disorder Cocaine abuse Nicotine dependence Plan: -Patient continues to meet criteria for inpatient psychiatric admission for symptom stabilization and safety. Patient has signed adult voluntary form and medication consent and was placed in patient's chart. -Medications: Continue Zyprexa 5 mg daily +10 mg daily at bedtime for mood stabilization/insomnia. Increased acamprosate 666 mg 3 times a day for alcohol cravings. Added melatonin 5 mg daily at bedtime for insomnia. -Thiamine, multivitamin and folic acid for chronic alcohol use. -When necessary Ativan and Haldol for agitation/aggression. -NRT - nicotine patch -SW on board for discharge planning. Encouraged the patient to participate in milieu. Patient apparently has an intake date at [facility] on June 29, we'll discharge directly to rehab.
[2020-06-26] MEDS: predniSONE 20 MG TAB PO SCH (13:48)
[2020-06-26] MEDS: OLANZapine 10 MG TAB PO SCH (20:41)
[2020-06-26] MEDS: MELATONIN 5 MG TABLET PO SCH (20:41)
[2020-06-27] MEDS: NICOTINE 21MG/24HR PATCH TRANSDERM SCH (08:38)
[2020-06-27] MEDS: IBUPROFEN 800 MG TAB PO SCH ×3 (08:42→21:15)
[2020-06-27] MEDS: OLANZapine 5 MG TAB PO SCH (08:43)
[2020-06-27] MEDS: predniSONE 20 MG TAB PO SCH (08:43)
[2020-06-27] MEDS: THIAMINE 100 MG TAB PO SCH (08:43)
[2020-06-27] MEDS: FLUoxetine HCL 20 MG CAP PO SCH (08:43)
[2020-06-27] MEDS: GABAPENTIN 300 MG CAP PO SCH ×3 (08:43→21:18)
[2020-06-27] MEDS: ACAMPROSATE CALCIUM 333 MG TABLET.DR PO SCH ×3 (08:44→21:14)
[2020-06-27] MEDS: OXYBUTYNIN CHLORIDE 5 MG TAB PO SCH ×2 (08:44→21:15)
[2020-06-27] MEDS: FOLIC ACID 1 MG TAB PO SCH (08:44)
--- NOTE | 2020-06-27 08:44 | P.PN ---
Progress Note - Text Progress Note Date: 06/27/20 Interval History: Patient was seen wandering the hallways this morning and was directable and ag reeable to speak with technical document writer in the office. Today patient appears to be fairly irritable and very upset. She was crying and accusing other people on the unit of aggravating her. She states that she does not feel ready to go to rehab today as she feels "unstable". She claims that she has been having thoughts of wanting to harm other people today. She continues to be somatically preoccupied and speak about her nose and also the pain in her hip. She also spoke about the lack of treatment that she has been receiving from orthopedic doctors that operated on her hip in the past. She claims that she had poor sleep last night approximately 3-4 hours. She claims that her alcohol cravings have been gradually improving. She states that her appetite is fair. At this time patient denies any suicidal ideations intent or plan. Patient denies any auditory, visual hallucinations and denies any paranoia or delusions. Patient denies any side effects from the medications and has been compliant with meds. Mental Status Exam: General Appearance: Patient appears to be overweight, older than stated age is alert, directable. Upset and aggravated. Improving hygiene and grooming. Behavior: Patient is calmly seated without any agitated behavior. Appears to be upset. Speech: Patient's speech is fluent and nonpressured. Rambling Mood/Affect: Mood is depressed however is improving mildly, affect is congruent and labile. Suicidality/Homicidality: Patient denies having any suicidal or homicidal ideation intent or plan. Perceptions: Patient denies any visual hallucinations and denies any auditory hallucinations Though content/process: Rambles at times, tangential/circumstantial. No delusions or paranoia. Somatically preoccupied. Memory and concentration: AOX3, grossly intact for the purposes of this session Judgment and insight: Chronically poor, Improving mildly Assessment Major depressive disorder, chronic, recurrent and severe. Alcohol use disorder Cocaine abuse Nicotine dependence Plan: -Patient continues to meet criteria for inpatient psychiatric admission for symptom stabilization and safety. Patient has signed adult voluntary form and medication consent and was placed in patient's chart. -Medications: Increased Zyprexa 5 mg daily +15 mg daily at bedtime for mood stabilization/insomnia. I added Prozac 20 mg daily for mood/anxiety. Continue acamprosate 666 mg 3 times a day for alcohol cravings. Continue with melatonin 5 mg daily at bedtime for insomnia. -Thiamine, multivitamin and folic acid for chronic alcohol use. -When necessary Ativan and Haldol for agitation/aggression. -NRT - nicotine patch -SW on board for discharge planning. Encouraged the patient to participate in milieu. Patient continues to want to go to rehab however is not suitable for d ischarge today. We'll work with patient to attempt discharge later on this week.
[2020-06-27] MEDS: MULTIVITAMINS, THERA 1 EACH TAB PO SCH (08:46)
[2020-06-27] MEDS: SODIUM CHLORIDE 0.65% NASAL SPRAY 44 ML BTL NASAL PRN ×2 (10:04→15:44)
[2020-06-27] MEDS: NICOTINE POLACRILEX 2 MG GUM BUCCAL PRN ×2 (14:50→21:18)
[2020-06-27] MEDS ORDERED: OLANZapine 5 MG TAB PO SCH (21:00)
[2020-06-27] MEDS: OLANZapine 7.5 MG TAB PO SCH (21:15)
[2020-06-27] MEDS: MELATONIN 5 MG TABLET PO SCH (21:15)
[2020-06-27] MEDS: polyethylene glycoL 3350 17 GM POWD.PACK PO PRN (22:15)
[2020-06-28] MEDS: SODIUM CHLORIDE 0.65% NASAL SPRAY 44 ML BTL NASAL PRN (05:16)
[2020-06-28] MEDS: ACAMPROSATE CALCIUM 333 MG TABLET.DR PO SCH ×3 (08:39→20:07)
[2020-06-28] MEDS: GABAPENTIN 300 MG CAP PO SCH ×3 (08:39→20:06)
[2020-06-28] MEDS: FLUoxetine HCL 20 MG CAP PO SCH (08:39)
[2020-06-28] MEDS: FOLIC ACID 1 MG TAB PO SCH (08:39)
[2020-06-28] MEDS: MULTIVITAMINS, THERA 1 EACH TAB PO SCH (08:39)
[2020-06-28] MEDS: OLANZapine 5 MG TAB PO SCH (08:40)
[2020-06-28] MEDS: NICOTINE 21MG/24HR PATCH TRANSDERM SCH (08:40)
[2020-06-28] MEDS: predniSONE 20 MG TAB PO SCH (08:41)
[2020-06-28] MEDS: OXYBUTYNIN CHLORIDE 5 MG TAB PO SCH ×2 (08:41→20:08)
[2020-06-28] MEDS: THIAMINE 100 MG TAB PO SCH (08:41)
[2020-06-28] MEDS: IBUPROFEN 800 MG TAB PO SCH ×3 (08:41→20:06)
--- NOTE | 2020-06-28 09:42 | P.PN ---
Progress Note - Text Progress Note Date: 06/28/20 Interval History: Patient was seen wandering the hallways this morning and was directable and ag reeable to speak with specification writer in the office. Patient appears to be less irritable today and more appropriately with specification writer. She continues to be somatically preoccupied and speaking about her hip pain. She continues to request to have her pain medications increased including her prednisone. She also claims that she does not have a place to live. She claims that she was able to sleep better last night. She is endorsing some mild improvement in her mood. She made vague statements of passive suicidal thoughts threatening if she was discharged today which she would do to herself. Patient continues to be fairly manipulative. She states that she was able to sleep better last night. She claims that her alcohol cravings have been gradually improving. She states that her appetite is fair. At this time patient denies any homicidal ideations intent or plan. Patient denies any auditory, visual hallucinations and denies any paranoia or delusions. Patient denies any side effects from the medications and has been compliant with meds. Mental Status Exam: General Appearance: Patient appears to be overweight, older than stated age is alert, directable. Improving hygiene and grooming. Behavior: Patient is calmly seated without any agitated behavior. Manipulative today. Speech: Patient's speech is fluent and nonpressured. Rambling Mood/Affect: Mood is depressed however is improving mildly, affect is congruent Suicidality/Homicidality: Patient denies having any suicidal or homicidal ideation intent or plan. Perceptions: Patient denies any visual hallucinations and denies any auditory hallucinations Though content/process: Rambles at times. No delusions or paranoia. Somatically preoccupied. Memory and concentration: AOX3, grossly intact for the purposes of this session Judgment and insight: Chronically poor, Improving mildly Assessment Major depressive disorder, chronic, recurrent and severe. Alcohol use disorder Cocaine abuse Nicotine dependence Plan: -Patient continues to meet criteria for inpatient psychiatric admission for symptom stabilization and safety. Patient has signed adult voluntary form and medication consent and was placed in patient's chart. -Medications: Continue with Zyprexa 5 mg daily +15 mg daily at bedtime for mood stabilization/insomnia. Increased Prozac 20 mg daily for mood/anxiety. Continue acamprosate 666 mg 3 times a day for alcohol cravings. Continue with melatonin 5 mg daily at bedtime for insomnia. -Thiamine, multivitamin and folic acid for chronic alcohol use. -When necessary Ativan and Haldol for agitation/aggression. -NRT - nicotine patch -SW on board for discharge planning. Encouraged the patient to participate in milieu. Patient continues to want to go to rehab however does not have an intake date to [place] until next week. Patient will likely be discharged tomorrow to half-way and then to rehab next week. Will attempt to call [facility] to have patient's pain medications reevaluated and possibly increased prior to discharge. Patient will need a orthopedics appointment prior to discharge tomorrow.
[2020-06-28] MEDS: NICOTINE POLACRILEX 2 MG GUM BUCCAL PRN (12:14)
[2020-06-28] MEDS: methocarbamoL 750 MG TAB PO PRN (16:22)
[2020-06-28] MEDS: MELATONIN 5 MG TABLET PO SCH (20:07)
[2020-06-28] MEDS: OLANZapine 7.5 MG TAB PO SCH (20:07)
[2020-06-28] MEDS: polyethylene glycoL 3350 17 GM POWD.PACK PO PRN (22:56)
[2020-06-29 02:56] VITALS: BP 149/86; PULSE 65; RESP 17
[2020-06-29] MEDS: SODIUM CHLORIDE 0.65% NASAL SPRAY 44 ML BTL NASAL PRN (07:11)
[2020-06-29] MEDS: NICOTINE 21MG/24HR PATCH TRANSDERM SCH (08:32)
[2020-06-29] MEDS: MULTIVITAMINS, THERA 1 EACH TAB PO SCH (08:33)
[2020-06-29] MEDS: FOLIC ACID 1 MG TAB PO SCH (08:33)
[2020-06-29] MEDS: GABAPENTIN 300 MG CAP PO SCH (08:33)
[2020-06-29] MEDS: predniSONE 20 MG TAB PO SCH (08:34)
[2020-06-29] MEDS: IBUPROFEN 800 MG TAB PO SCH (08:34)
[2020-06-29] MEDS: OLANZapine 5 MG TAB PO SCH (08:34)
[2020-06-29] MEDS: THIAMINE 100 MG TAB PO SCH (08:34)
[2020-06-29] MEDS: ACAMPROSATE CALCIUM 333 MG TABLET.DR PO SCH (08:34)
[2020-06-29] MEDS: OXYBUTYNIN CHLORIDE 5 MG TAB PO SCH (08:34)
[2020-06-29] MEDS: methocarbamoL 750 MG TAB PO PRN (08:52)
[2020-06-29] MEDS ORDERED: FLUoxetine HCL 20 MG CAP PO SCH (09:00)
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
[2020-06-29 13:22] VITALS: TEMP 98.5
== END 2020-06-29 14:05 | disposition home or self-care (01) | DRG 885 ==
LOC: EC 10:57 → 3MHU 15:34
PROVIDERS: ADMIT Psychiatry & Neurology Psychiatry; ATTEND Psychiatry & Neurology Psychiatry
DX: F33.2 Major depressive disorder, recurrent severe without psychotic features (principal); R45.851 Suicidal ideations; F41.9 Anxiety disorder, unspecified; G47.00 Insomnia, unspecified; G89.29 Other chronic pain; I10 Essential (primary) hypertension; M54.30 Sciatica, unspecified side; R45.850 Homicidal ideations; F25.9 Schizoaffective disorder, unspecified; Z59.0 Homelessness; Z20.828 Contact with and (suspected) exposure to other viral communicable diseases; E66.9 Obesity, unspecified; F10.10 Alcohol abuse, uncomplicated; F14.10 Cocaine abuse, uncomplicated; F15.10 Other stimulant abuse, uncomplicated; F17.210 Nicotine dependence, cigarettes, uncomplicated; Z79.899 Other long term (current) drug therapy; Z91.410 Personal history of adult physical and sexual abuse; Z86.19 Personal history of other infectious and parasitic diseases
CPT/HCPCS: 36415; 73502; 80053; 80306; 82075; 85025; 87635; 96361; 96374; 96375; 99285

== ENCOUNTER 2020-07-27 14:54 | Inpatient (IN) | payer MEDICARE, MEDICAID ==
[2020-07-27] MEDS ORDERED: IBUPROFEN 600 MG TAB PO STA (15:07)
--- NOTE | 2020-07-27 15:22 | ED ---
Psych HPI - General Chief Complaint: Psychiatric Symptoms Stated Complaint: Mental Health Time Seen by Provider: 07/27/20 15:03 Source: patient, RN notes reviewed Mode of arrival: ambulatory Limitations: no limitations - History of Present Illness Initial Comments: 60-year-old female presents emergency Department with chief complaint depression, suicidal ideation. Patient states that she's been increasingly depressed states that she started using methamphetamine and alcohol again. Patient states she has sick from alcohol secondary to her Glucotrol shot. Patient denies any self-harm at this time. She states she is currently staying at [facility] and otherwise homeless. Patient denies any abdominal pain. Patient has chronic back pain which is not new. She denies any bowel bladder incontinence or retention of saddle anesthesias. - Related Data Home Medications Medication Instructions Recorded Confirmed OLANZapine [ZyPREXA] 15 mg PO HS 07/27/20 07/27/20 Sennosides-Docusate Sodium 2 tab PO BID PRN 07/27/20 07/27/20 [Senokot-S] Previous Rx's Medication Instructions Recorded Ibuprofen [Motrin] 600 mg PO TID PRN 14 Days tab 05/29/20 Acamprosate Calcium [Campral] 666 mg PO TID 30 Days tablet. 06/29/20 Acetaminophen Tab [Tylenol] 650 mg PO Q4HR PRN 20 Days tab 06/29/20 Albuterol Inhaler [Ventolin Hfa 2 puff INHALATION RT-QID PRN #2 06/29/20 Inhaler] puff FLUoxetine HCL [PROzac] 40 mg PO DAILY 30 Days cap 06/29/20 Folic Acid 1 mg PO DAILY 30 Days tab 06/29/20 Gabapentin 600 mg PO TID 10 Days tab 06/29/20 Melatonin 5 mg PO HS 30 Days tablet 06/29/20 Multivitamins, Thera [Multivitamin 1 tab PO DAILY 30 Days tab 06/29/20 (formulary)] Nicotine 21Mg/24Hr Patch [Habitrol] 1 patch TRANSDERM DAILY 14 Days 06/29/20 patch Nicotine Polacrilex [Nicorette] 2 mg BUCCAL Q4HR PRN 30 Days gum 06/29/20 OLANZapine [ZyPREXA] 5 mg PO DAILY 30 Days tab 06/29/20 Oxybutynin Chloride [Ditropan] 5 mg PO BID 30 Days tab 06/29/20 Sodium Chloride 0.65% Nasal [Deep 2 spray NASAL QID PRN #1 spray 06/29/20 Sea (Saline)] Thiamine [Vitamin B-1] 100 mg PO DAILY 30 Days tab 06/29/20 methocarbamoL [Robaxin] 750 mg PO QID PRN 30 Days tab 06/29/20 polyethylene glycoL 3350 [Miralax] 17 gm PO DAILY PRN 30 Days 06/29/20 powd.pack predniSONE [Deltasone] 20 mg PO DAILY 30 Days tab 06/29/20 Allergies Allergy/AdvReac Type Severity Reaction Status Date / Time ketorolac [From Toradol] Allergy Unknown Verified 07/27/20 15:02 latex Allergy Itching Verified 07/27/20 15:02 Review of Systems ROS Statement: Those systems with pertinent positive or pertinent negative responses have been documented in the HPI. ROS Other: All systems not noted in ROS Statement are negative. Past Medical History Past Medical History: Hypertension, Liver Disease, Musculoskeletal Disorder, Neurologic Disorder Additional Past Medical History / Comment(s): hep c, back pain, sciatica, neuropathy, History of Any Multi-Drug Resistant Organisms: MRSA Date of last positivie culture/infection: 2006 MDRO Source:: face Past Surgical History: Orthopedic Surgery Additional Past Surgical History / Comment(s): lt ankle, D&C Past Anesthesia/Blood Transfusion Reactions: No Reported Reaction Past Psychological History: Anxiety, Bipolar, Depression, Schizoaffective Disorder, Schizophrenia Smoking Status: Current every day smoker Past Alcohol Use History: Daily Past Drug Use History: Methamphetamine General Exam Limitations: no limitations General appearance: alert, in no apparent distress Head exam: Present: atraumatic, normocephalic, normal inspection Eye exam: Present: normal appearance, PERRL, EOMI. Absent: scleral icterus, conjunctival injection, periorbital swelling ENT exam: Present: normal exam, normal oropharynx, mucous membranes moist Neck exam: Present: normal inspection, full ROM. Absent: tenderness, meningismus, lymphadenopathy Respiratory exam: Present: normal lung sounds bilaterally. Absent: respiratory distress, wheezes, rales, rhonchi, stridor Cardiovascular Exam: Present: regular rate, normal rhythm, normal heart sounds. Absent: systolic murmur, diastolic murmur, rubs, gallop, clicks GI/Abdominal exam: Present: soft, normal bowel sounds. Absent: distended, tenderness, guarding, rebound, rigid Neurological exam: Present: alert, oriented X3 Skin exam: Present: warm, dry, intact, normal color. Absent: rash Course Vital Signs 07/27/20 14:58 Temperature 97.9 F Pulse Rate 73 Respiratory 18 Rate Blood Pressure 124/57 O2 Sat by Pulse 98 Oximetry Medical Decision Making - Medical Decision Making Patient was evaluated by EPS. Patient be admitted for psychiatric treatment. - Lab Data Lab Results 07/27/20 07/27/20 Range/Units 15:19 15:33 Urine Opiates Screen Not Detected (NotDetected) Ur Oxycodone Screen Not Detected (NotDetected) Urine Methadone Screen Not Detected (NotDetected) Ur Propoxyphene Screen Not Detected (NotDetected) Ur Barbiturates Screen Not Detected (NotDetected) U Tricyclic Antidepress Not Detected (NotDetected) Ur Phencyclidine Scrn Not Detected (NotDetected) Ur Amphetamines Screen Detected H (NotDetected) U Methamphetamines Scrn Detected H (NotDetected) U Benzodiazepines Scrn Not Detected (NotDetected) Urine Cocaine Screen Detected H (NotDetected) U Marijuana (THC) Screen Not Detected (NotDetected) Coronavirus (PCR) Not Detected (Not Detectd) Disposition Clinical Impression: Methamphetamine abuse, Cocaine abuse, Alcohol abuse, Depression Disposition: TRANSFER TO PSYCH HOSP/UNIT Referrals: [facility] [Primary Care Provider] - 1-2 days
[2020-07-27 16:07] LABS: Amphetamine Screen,Urine Detected (NotDetected); Barbiturate Screen,Urine Not Detected (NotDetected); Benzodiazepines Screen,Urine Not Detected (NotDetected); Cocaine Screen,Urine Detected (NotDetected); Methadone Screen, Urine Not Detected (NotDetected); Opiate Screen,Urine Not Detected (NotDetected); Oxycodone Screen, Urine Not Detected (NotDetected); Phencyclidine Screen,Urine Not Detected (NotDetected); Tricyclic Antidepressant,Urine Not Detected (NotDetected); Urn Cannabinoid Scrn Not Detected (NotDetected)
[2020-07-27] MEDS ORDERED: MAG HYDROX/AL HYDROX/SIMETH 30 ML CUP PO PRN (19:08)
[2020-07-27] MEDS ORDERED: MAGNESIUM HYDROXIDE 2,400 MG/10 ML CUP PO PRN (19:08)
[2020-07-27] MEDS ORDERED: LORazepam 2 MG/ML INJ IM PRN (19:14)
[2020-07-27] MEDS ORDERED: HALOPERIDOL LACTATE 5 MG/ML 1 ML VIAL IM PRN (19:17)
[2020-07-27 22:42] LABS: Appearance,Urine Cloudy (Clear); Bilirubin,Urine Negative (Negative); Blood,Urine Negative (Negative); Calcium Oxalate Crystals,Urine Few /hpf; Color,Urine Yellow; Glucose,Urine (UA) Negative (Negative); Ketones,Urine Trace (Negative); Leukocyte Esterase,Urine Moderate (Negative); Mucus,Urine Many /hpf; Nitrite,Urine Negative (Negative); PH, Urine 5.5 (5.0-8.0); Protein,Urine 1+ (Negative); RBC,Urine 2 /hpf (0-5); Specific Gravity,Urine 1.033 (1.001-1.035); Squamous Epithelial Cell,Urine 16 /hpf (0-4); WBC,Urine 7 /hpf (0-5)
[2020-07-27] MEDS: LORazepam 1 MG TAB PO PRN (23:36)
[2020-07-28] MEDS ORDERED: ALBUTEROL HFA INHALER INHALATION PRN (01:15)
--- NOTE | 2020-07-28 01:16 | P.CONS ---
History of Present Illness - Reason for Consult Consult date: 07/28/20 - History of Present Illness Patient is a 60-year-old homeless female with a PMH of hypertension, polysubstance abuse, tobacco abuse, and hepatitis C who presented to the emergency room with depression and suicidal ideation. She reported that due to her living condition, she has been feeling poorly about her life. She was admitted to the mental health unit where she was seen and evaluated. She noted a chronic right-sided hip pain, for which she was scheduled to see an orthopedic surgeon as an outpatient though missed that appointment. She also reported chronic vaginal itching and discomfort. Denied additional complaints. He denied chest discomfort, shortness of breath, fever, chills, cough, nausea, vomiting, abdominal pain, diarrhea, headaches. The patient's laboratory evaluation from the emergency room was reviewed in detail. Review of Systems Pertinent positives and negatives as discussed in HPI, a complete review of systems was performed and all other systems are negative. Past Medical History Past Medical History: Hypertension, Liver Disease, Musculoskeletal Disorder, Neurologic Disorder Additional Past Medical History / Comment(s): hep c, back pain, sciatica, neuropathy, History of Any Multi-Drug Resistant Organisms: MRSA Year Discovered:: 2006 MDRO Source:: face Past Surgical History: Orthopedic Surgery Additional Past Surgical History / Comment(s): lt ankle, D&C Past Anesthesia/Blood Transfusion Reactions: No Reported Reaction Past Psychological History: Anxiety, Bipolar, Depression, Schizoaffective Disorder, Schizophrenia Smoking Status: Current every day smoker Past Alcohol Use History: Daily Past Drug Use History: Methamphetamine Medications and Allergies Home Medications Medication Instructions Recorded Confirmed Type Ibuprofen [Motrin] 600 mg PO TID PRN 14 Days tab 05/29/20 07/27/20 Rx Acamprosate Calcium [Campral] 666 mg PO TID 30 Days tablet. 06/29/20 07/27/20 Rx Acetaminophen Tab [Tylenol] 650 mg PO Q4HR PRN 20 Days tab 06/29/20 07/27/20 Rx Albuterol Inhaler [Ventolin Hfa 2 puff INHALATION RT-QID PRN #2 06/29/20 07/27/20 Rx Inhaler] puff FLUoxetine HCL [PROzac] 40 mg PO DAILY 30 Days cap 06/29/20 07/27/20 Rx Folic Acid 1 mg PO DAILY 30 Days tab 06/29/20 07/27/20 Rx Gabapentin 600 mg PO TID 10 Days tab 06/29/20 07/27/20 Rx Melatonin 5 mg PO HS 30 Days tablet 06/29/20 07/27/20 Rx Multivitamins, Thera [Multivitamin 1 tab PO DAILY 30 Days tab 06/29/20 07/27/20 Rx (formulary)] Nicotine 21Mg/24Hr Patch [Habitrol] 1 patch TRANSDERM DAILY 14 Days 06/29/20 07/27/20 Rx patch Nicotine Polacrilex [Nicorette] 2 mg BUCCAL Q4HR PRN 30 Days gum 06/29/20 07/27/20 Rx OLANZapine [ZyPREXA] 5 mg PO DAILY 30 Days tab 06/29/20 07/27/20 Rx Oxybutynin Chloride [Ditropan] 5 mg PO BID 30 Days tab 06/29/20 07/27/20 Rx Sodium Chloride 0.65% Nasal [Deep 2 spray NASAL QID PRN #1 spray 06/29/20 07/27/20 Rx Sea (Saline)] Thiamine [Vitamin B-1] 100 mg PO DAILY 30 Days tab 06/29/20 07/27/20 Rx methocarbamoL [Robaxin] 750 mg PO QID PRN 30 Days tab 06/29/20 07/27/20 Rx polyethylene glycoL 3350 [Miralax] 17 gm PO DAILY PRN 30 Days 06/29/20 07/27/20 Rx powd.pack predniSONE [Deltasone] 20 mg PO DAILY 30 Days tab 06/29/20 07/27/20 Rx OLANZapine [ZyPREXA] 15 mg PO HS 07/27/20 07/27/20 History Sennosides-Docusate Sodium 2 tab PO BID PRN 07/27/20 07/27/20 History [Senokot-S] Allergies Allergy/AdvReac Type Severity Reaction Status Date / Time ketorolac [From Toradol] Allergy Unknown Verified 07/27/20 15:02 latex Allergy Itching Verified 07/27/20 15:02 Physical Exam Vitals: Vital Signs Temp Pulse Pulse Resp BP BP Pulse Ox 07/27/20 20:47 97.7 F 73 18 127/58 96 07/27/20 19:20 98.4 F 88 20 138/68 98 07/27/20 14:58 97.9 F 73 18 124/57 98 Intake and Output 07/27/20 07/27/20 07/28/20 14:59 22:59 06:59 Other: Weight 90.718 kg 87.09 kg General: non toxic, no distress, appears at stated age, obese Derm: no unusual rashes/lesions no unusual ecchymoses, warm, dry Head: atraumatic, normocephalic, symmetric Eyes: EOMI, no lid lag, anicteric sclera, pupils equal round reactive to light ENT: Nose and ears atraumatic, no thrush, no pharyngeal erythema Neck: No thyromegaly, no cervical lymphadenopathy, trachea midline, supple Mouth: no lip lesion, mucus membranes moist Cardiovascular: S1S2 reg, no murmur, positive posterior tibial pulse bilateral, no edema, capillary refill less than 2 seconds Lungs: CTA bilateral, no rhonchi, no rales , no accessory muscle use Abdominal: soft, nontender to palpation, no guarding, no appreciable organomegaly, normal bowel sounds Ext: no gross muscle atrophy, muscle strength 5 out of 5 in all 4 extremities grossly, no contractures, Neuro: CN II-XI grossly intact, light touch intact all 4 extremities, finger to nose within normal limits, Psych: Alert, oriented, appropriate affect Results Labs: Abnormal Lab Results - Last 24 Hours (Table) 07/27/20 07/27/20 Range/Units 15:33 22:00 Urine Appearance Cloudy H (Clear) Urine Protein 1+ H (Negative) Urine Ketones Trace H (Negative) Ur Leukocyte Esterase Moderate H (Negative) Urine WBC 7 H (0-5) /hpf Ur Squamous Epith Cells 16 H (0-4) /hpf Calcium Oxalate Crystal Few H (None) /hpf Urine Mucus Many H (None) /hpf Ur Amphetamines Screen Detected H (NotDetected) U Methamphetamines Scrn Detected H (NotDetected) Urine Cocaine Screen Detected H (NotDetected) Assessment and Plan Plan: Polysubstance abuse and tobacco abuse -Strongly advised on the importance of cessation Vaginal pruritus and discomfort -Previously seen by [facility] for similar complaints -We'll order Terazole 3 topical Chronic hip pain -Advised patient to follow-up with orthopedic surgery as an outpatient -Reports no pain at the time of interview Thank you for allowing us to participate in the care of this patient. We will follow peripherally. Do not hesitate to contact us with questions. Someone can be reached from the [facility] hospitalist group at all hours of the day at [phone].
[2020-07-28 07:13] LABS: Basophils # (A) 0.1 k/uL (0-0.2); Basophils % (A) 1 %; Eosinophils # (A) 0.5 k/uL (0-0.7); Eosinophils % (A) 8 %; HCT 42.2 % (34.0-46.0); Lymphocytes # (A) 2.7 k/uL (1.0-4.8); Lymphocytes % (A) 43 %; MCH 30.6 pg (25.0-35.0); MCHC 33.2 g/dL (31.0-37.0); MCV 91.9 fL (80.0-100.0); Mean Platelet Volume 7.5; Monocytes # (A) 0.4 k/uL (0-1.0); Monocytes % (A) 6 %; Neutrophils # (A) 2.5 k/uL (1.3-7.7); Neutrophils % (A) 40 %; Platelet Count 305 k/uL (150-450); RBC 4.59 m/uL (3.80-5.40); RDW 12.2 % (11.5-15.5); WBC 6.2 k/uL (3.8-10.6)
[2020-07-28 07:39] LABS: ALT 30 U/L (4-34); AST 31 U/L (14-36); African American GFR (CKD) >90 (>60 ml/min/1.73 sqM); Albumin 3.8 g/dL (3.5-5.0); Alkaline Phosphatase 68 U/L (38-126); Anion Gap 10 mmol/L; Bilirubin, Delta 0.3 mg/dL (0.0-0.2); Bilirubin,Unconjugated 0.2 mg/dL (0.0-1.1); Blood Urea Nitrogen 11 mg/dL (7-17); Carbon Dioxide 21 mmol/L (22-30); Chloride 107 mmol/L (98-107); Cholesterol 163 mg/dL (<200); Glucose 90 mg/dL (74-99); HDL Cholesterol 48 mg/dL (40-60); LDL Cholesterol,Calculated 96 mg/dL (0-99); Non-African American GFR(CKD) >90 (>60 ml/min/1.73 sqM); Potassium 4.4 mmol/L (3.5-5.1); Sodium 138 mmol/L (137-145); Total Bilirubin 0.5 mg/dL (0.2-1.3); Total Protein 6.4 g/dL (6.3-8.2); Triglycerides 93 mg/dL (<150)
[2020-07-28] MEDS: THIAMINE 100 MG TAB PO SCH (08:28)
[2020-07-28] MEDS: MULTIVITAMINS, THERA 1 EACH TAB PO SCH (08:28)
[2020-07-28] MEDS: GABAPENTIN 300 MG CAP PO SCH ×3 (08:28→20:50)
[2020-07-28] MEDS: NICOTINE 21MG/24HR PATCH TRANSDERM SCH (08:28)
[2020-07-28] MEDS: FOLIC ACID 1 MG TAB PO SCH (08:28)
[2020-07-28] MEDS: OXYBUTYNIN CHLORIDE 5 MG TAB PO SCH ×2 (08:29→20:50)
[2020-07-28] MEDS ORDERED: traZODone HCL 50 MG TAB PO PRN (14:38)
[2020-07-28] MEDS ORDERED: hydrOXYzine pamoate 25 MG CAP PO PRN (14:38)
[2020-07-28] MEDS: ARIPiprazole 5 MG TAB PO SCH (14:58)
[2020-07-28] MEDS: DULoxetine HCL 30 MG CAPSULE.DR PO SCH (14:58)
[2020-07-28] MEDS: ALBUTEROL INHALER 60 PUFF/8 GM INHALER (MHU) INHALATION PRN (15:20)
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
[2020-07-28] MEDS ORDERED: NICOTINE POLACRILEX 2 MG GUM BUCCAL PRN (15:31)
[2020-07-28 15:59] LABS: Hemoglobin A1C 5.2 % (4.0-6.0)
[2020-07-28 17:11] LABS: Appearance,Urine Clear (Clear); Bacteria,Urine Rare /hpf; Bilirubin,Urine Negative (Negative); Blood,Urine Negative (Negative); Color,Urine Yellow; Glucose,Urine (UA) Negative (Negative); Ketones,Urine Negative (Negative); Leukocyte Esterase,Urine Moderate (Negative); Mucus,Urine Few /hpf; Nitrite,Urine Negative (Negative); PH, Urine 5.5 (5.0-8.0); Protein,Urine Negative (Negative); RBC,Urine 2 /hpf (0-5); Specific Gravity,Urine 1.015 (1.001-1.035); Squamous Epithelial Cell,Urine 7 /hpf (0-4); Urobilinogen,Urine <2.0 mg/dL (<2.0); WBC,Urine 6 /hpf (0-5)
[2020-07-28] MEDS: MELATONIN 5 MG TABLET PO SCH (20:50)
[2020-07-28] MEDS: TERCONAZOLE 0.8% VAGINAL CREAM 20 GM TUBE VAGINAL SCH (21:20)
[2020-07-29] MEDS: LORazepam 1 MG TAB PO PRN (04:51)
[2020-07-29] MEDS: ACETAMINOPHEN TAB 325 MG TAB PO PRN (04:51)
[2020-07-29] MEDS: NICOTINE 21MG/24HR PATCH TRANSDERM SCH (07:59)
[2020-07-29] MEDS: GABAPENTIN 300 MG CAP PO SCH ×3 (08:00→20:50)
[2020-07-29] MEDS: OXYBUTYNIN CHLORIDE 5 MG TAB PO SCH ×2 (08:01→20:51)
[2020-07-29] MEDS: FOLIC ACID 1 MG TAB PO SCH (08:01)
[2020-07-29] MEDS: MULTIVITAMINS, THERA 1 EACH TAB PO SCH (08:01)
[2020-07-29] MEDS: DULoxetine HCL 30 MG CAPSULE.DR PO SCH ×2 (08:01→20:51)
[2020-07-29] MEDS: ARIPiprazole 5 MG TAB PO SCH (08:01)
[2020-07-29] MEDS: THIAMINE 100 MG TAB PO SCH (08:01)
--- NOTE | 2020-07-29 13:41 | P.PN ---
Subjective Progress Note Date: 07/29/20 Subjective: Patient was seen today as a cross coverage for Dr. Flores. The patient was evaluated, chart reviewed, case discussed with the treatment team. Patient reports interrupted sleep last night, and appetite was reported as " better ". Patient has been going to some groups and other unit activities. The patient is compliant with her medications and denies any adverse reactions. Patient reports feeling "little" dizzy and attributed that the new medications. She was fixated on physical symptoms mainly her vaginal discharge and panic pain. Patient was seen by medical team and is started on ANTIBIOTIC for her vaginal discharge and pain medication. She reports her mood still depressed and continues to have suicidal thoughts which are less frequent. She continues to feel distressed and overwhelmed. Denies any current hallucinations, paranoid ideation or delusions. No reports of manic symptoms. Objective: Vitals has been reviewed. Mental status examination; Appearance: Appears stated age, partially groomed, average body built, and no specific features. Gait/ posture: Steady gait, normal arm swinging, no abnormal movements, with relaxed posture. Attitude and Behavior: Not fully cooperative, intermittent eye contact during course of interview. Motor Activity: Normal psychomotor activity. Speech: spontaneous, increased rate, rhythm, and articulation. High volume. Not pressured. Language: Articulating, naming objects and repeat phrases. Mood: Depressed, irritable Affect: Restricted Thought process: Linear, but distracted. Association: Intact, not tangential, no circumstantial. Thought content: Denies delusions, reports suicidal thoughts, denied homicidal thoughts, denied intentions, or plans. Perception: Denies auditory or hallucinations Alertness: No impairment. Concentration: Impaired, easily distracted Orientation: Oriented to time, person, place, and situation Insight regarding psychiatric condition: Fair Judgment regarding daily activities and social situat Assessment: Major Depressive disorder, recurrent, severe with psychotic features. Rule out schizoaffective disorder. Alcohol use disorder, severe. Methamphetamine use disorder severe. Cocaine use disorder, severe. Post traumatic stress disorder. Unspecified anxiety disorder Nicotine use disorder. Plan: Continue inpatient level of care due to need for further stabilization Precautions: Continue 15 minutes check for safety. Consider medical consultation if any acute medical issues arise. Provide the patient individual, group therapy, substance use disorder counseling to give better insight and learn coping skills. Medications: Abilify 5 mg daily for mood stabilization and psychotic symptoms. Increase Cymbalta 30 mg twice a day for depression and anxiety. Trazodone 50 mg at bedtime as needed for insomnia. Vistaril 25 mg 4 times daily as needed for anxiety. Nicotine replacement therapy. Continue as needed medications for psychiatric emergencies including psychosis, agitation and anxiety. Continue non-psychiatric medications for medical conditions as recommended by the medical team. Discharge patient to OUTPATIENT services upon a stabilization Objective - Vital Signs Vital signs: Vital Signs Temp 97.7 F 07/28/20 00:14 Pulse 72 07/28/20 00:14 Resp 18 07/27/20 20:47 BP 125/58 07/28/20 00:14 Pulse Ox 96 07/27/20 20:47 - Labs CBC & Chem 7: 07/28/20 05:58 07/28/20 05:58 Labs: Abnormal Lab Results - Last 24 Hours (Table) 07/28/20 Range/Units 17:04 Ur Leukocyte Esterase Moderate H (Negative) Urine WBC 6 H (0-5) /hpf Ur Squamous Epith Cells 7 H (0-4) /hpf Urine Bacteria Rare H (None) /hpf Urine Mucus Few H (None) /hpf
[2020-07-29] MEDS: IBUPROFEN 200 MG TAB PO PRN (15:51)
[2020-07-29] MEDS: MELATONIN 5 MG TABLET PO SCH (20:51)
[2020-07-29] MEDS: TERCONAZOLE 0.8% VAGINAL CREAM 20 GM TUBE VAGINAL SCH (20:51)
[2020-07-30] MEDS: IBUPROFEN 200 MG TAB PO PRN ×2 (05:16→16:18)
[2020-07-30] MEDS: GABAPENTIN 300 MG CAP PO SCH ×3 (07:56→21:02)
[2020-07-30] MEDS: NICOTINE 21MG/24HR PATCH TRANSDERM SCH (07:56)
[2020-07-30] MEDS: MULTIVITAMINS, THERA 1 EACH TAB PO SCH (07:57)
[2020-07-30] MEDS: FOLIC ACID 1 MG TAB PO SCH (07:57)
[2020-07-30] MEDS: OXYBUTYNIN CHLORIDE 5 MG TAB PO SCH ×2 (07:57→20:56)
[2020-07-30] MEDS: THIAMINE 100 MG TAB PO SCH (07:57)
[2020-07-30] MEDS: ARIPiprazole 5 MG TAB PO SCH (07:57)
[2020-07-30] MEDS: DULoxetine HCL 30 MG CAPSULE.DR PO SCH ×2 (07:57→20:56)
--- NOTE | 2020-07-30 11:34 | P.PN ---
Progress Note - Text Progress Note Date: 07/30/20 Clinical Problems: Substance induced depressive disorder, rule out major depressive disorder recurrent, methamphetamine use disorder unspecified, cocaine use disorder severe, alcohol use disorder severe, tobacco use Interim history: She is a 60-year-old female known to the psychiatric unit from prior admissions. This is her fourth admission and the last 12 months. She was last discharged from unit on 06/29/2020. She presented to the unit voluntarily with complaints of increasing depression, suicidal ideation in the context of homelessness and relapsed to alcohol, cocaine and methamphetamine. She was a questionable historian in that her answers questions were evasive and nonspecific. She primarily perseverated on somatic issues alluding to the need for opiate pain medications. She alleged that she was living with "friend". When he left for [place] the manager style evicted her from the friend's apartment. Afterwards, she was homeless and "living on the streets" because she could not secure a bed at the local half-way. She alleged that she had an admission for residential substance abuse treatment last week but r could not find somebody to "take her." She denied that she was exchanging sex for drugs or sex for money in order to buy alcohol or drugs. Her somatic complaints include back pain, joint pain, urinary pressure, urinary frequency and dysuria. Mental status exam: She presented as a moderately obese 60-year-old female who looked much older than his stated age. She made eye contact and appeared to attend to interview. She had a distressed facial expression. She was alert and oriented to person, place and time. She had psychomotor retardation but no abnormal involuntary movements. His gait was slow but steady. Her speech was spontaneous with decreased rate and rhythm. Her affect was depressed and not reactive. She expressed wishes but denied suicidal ideation. She denied homicidal ideation. She expressed feelings of hopelessness and helplessness regarding her physical complaints and multiple social problems. She did not express ideas reference, paranoid ideation or delusions. Her thinking was concrete but her associations were coherent, logical and goal-directed. She denied hallucinations did not appear to be responding to internal stimuli. Assessment: She is an elderly woman who has a history of alcohol and substance use disorders in addition to recurrent homelessness. She remains interested in substance abuse treatment and would benefit from re-admission to a residential substance abuse treatment program. Plan: Continue inpatient treatment. Safety precautions. Obtain urine culture and sensitivity, urine gonorrhea screen and chlamydia screen. Continue psychotropic medications-Abilify 5 mg daily, Cymbalta 3 mg twice a day, melatonin 5 mg at bedtime and trazodone 50 mg at bedtime when necessary for sleep. Continue Ventolin inhaler for COPD, gabapentin 600 mg 3 times a day for complaints of back pain, Habitrol for smoking cessation Ditropan 5 mg twice a day and Terazol 3 for a urinary frequency and vaginal complaints. Haldol and/or Ativan when necessary agitation or aggression. Social work will assist with referral for residential substance abuse treatment. Encourage participation in therapeutic groups and activities. Evaluate clinical status response to treatment daily basis.
[2020-07-30] MEDS: ACETAMINOPHEN TAB 325 MG TAB PO PRN (16:19)
[2020-07-30] MEDS: LORazepam 1 MG TAB PO PRN (16:48)
[2020-07-30] MEDS: ALBUTEROL INHALER 60 PUFF/8 GM INHALER (MHU) INHALATION PRN (16:48)
[2020-07-30] MEDS: MELATONIN 5 MG TABLET PO SCH (20:56)
[2020-07-30] MEDS: TERCONAZOLE 0.8% VAGINAL CREAM 20 GM TUBE VAGINAL SCH (20:56)
[2020-07-31] MEDS: GABAPENTIN 300 MG CAP PO SCH ×3 (08:29→21:02)
[2020-07-31] MEDS: NICOTINE 21MG/24HR PATCH TRANSDERM SCH (08:29)
[2020-07-31] MEDS: ARIPiprazole 5 MG TAB PO SCH (08:29)
[2020-07-31] MEDS: FOLIC ACID 1 MG TAB PO SCH (08:30)
[2020-07-31] MEDS: DULoxetine HCL 30 MG CAPSULE.DR PO SCH ×2 (08:30→20:49)
[2020-07-31] MEDS: OXYBUTYNIN CHLORIDE 5 MG TAB PO SCH ×3 (08:30→20:49)
[2020-07-31] MEDS: MULTIVITAMINS, THERA 1 EACH TAB PO SCH (08:30)
[2020-07-31] MEDS: THIAMINE 100 MG TAB PO SCH (08:30)
--- NOTE | 2020-07-31 11:20 | P.PN ---
Progress Note - Text Progress Note Date: 07/31/20 Clinical Problems: Substance induced depressive disorder, rule out major depressive disorder recurrent, methamphetamine use disorder unspecified, cocaine use disorder severe, alcohol use disorder severe, tobacco use Interim history: I reviewed the medical record, interviewed the patient and dis cussed her treatment and treatment plan during team meeting. She then complained of hip pain and dysuria. She was keen to learn the results of urine culture and sensitivity. She alleged that "a doctor" took an x-ray and told her that she has a bone spur on her hip. I reviewed the record and the only hip x- ray was from May 2020 which showed some ossification along the inferior aspect of her hip only. She is scheduled for admission to [facility] on 08/02/2020. She is ambivalent about returning to substance abuse treatment because she was recently discharged from [facility]. She sees residential treatment as her best alternative since she has no stable housing. She remains concerned about her living situation after she completes the residential program. We talked about a three-quarter house but she is unsure whether I would be available to her because she's been dismissed from 2 programs for violation of the house rules. Although she has an income (disability) she is unable to find a landlord who is willing to hent to her. Mental status exam: She presented as a fatigued 60-year-old female who looked much older than his stated age. She made eye contact and appeared to attend to interview. She had a distressed facial expression. She was alert and oriented to person, place and time. She had psychomotor retardation but no abnormal involuntary movements. His gait was slow but steady. Her speech was spontaneous with decreased rate and rhythm. Her affect was depressed and not reactive. She expressed wishes but denied suicidal ideation. She denied homicidal ideation. She expressed feelings of hopelessness and helplessness regarding her physical complaints and multiple social problems. She did not express ideas reference, paranoid ideation or delusions. Her thinking was concrete but her associations were coherent, logical and goal-directed. She denied hallucinations did not appear to be responding to internal stimuli. Assessment: She is chronically homeless and has chronic substance use problems. He remains distressed about her social problems but is willing to engage in discharge planning. She remains somatically preoccupied. Plan: Continue inpatient treatment. Safety precautions. Continue psychotropic medications-Abilify 5 mg daily, Cymbalta 3 mg twice a day, melatonin 5 mg at bedtime and trazodone 50 mg at bedtime when necessary for sleep. Continue Ventolin inhaler for COPD, gabapentin 600 mg 3 times a day for complaints of back pain, Habitrol for smoking cessation Ditropan 5 mg twice a day and Terazol 3 for a urinary frequency and vaginal complaints. Haldol and/or Ativan when necessary agitation or aggression. Social work will assist with referral for residential substance abuse treatment. Encourage participation in therapeutic groups and activities. Evaluate clinical status response to treatment daily basis.
[2020-07-31 14:55] LABS: N. gonorrhoeae,PCR Negative (Neg,Equiv); Neisseria Source Urine
[2020-07-31] MEDS: IBUPROFEN 200 MG TAB PO PRN ×2 (15:34→20:50)
[2020-07-31] MEDS: MELATONIN 5 MG TABLET PO SCH (20:48)
[2020-07-31] MEDS: TERCONAZOLE 0.8% VAGINAL CREAM 20 GM TUBE VAGINAL SCH (21:03)
[2020-08-01 03:37] VITALS: RESP 18
[2020-08-01] MEDS: IBUPROFEN 200 MG TAB PO PRN (03:45)
[2020-08-01] MEDS: ALBUTEROL INHALER 60 PUFF/8 GM INHALER (MHU) INHALATION PRN (08:17)
[2020-08-01] MEDS: NICOTINE 21MG/24HR PATCH TRANSDERM SCH (08:17)
[2020-08-01] MEDS: MULTIVITAMINS, THERA 1 EACH TAB PO SCH (08:18)
[2020-08-01] MEDS: DULoxetine HCL 30 MG CAPSULE.DR PO SCH ×2 (08:18→21:07)
[2020-08-01] MEDS: GABAPENTIN 300 MG CAP PO SCH ×3 (08:18→21:07)
[2020-08-01] MEDS: OXYBUTYNIN CHLORIDE 5 MG TAB PO SCH ×2 (08:18→21:07)
[2020-08-01] MEDS: FOLIC ACID 1 MG TAB PO SCH (08:18)
[2020-08-01] MEDS: THIAMINE 100 MG TAB PO SCH (08:19)
--- NOTE | 2020-08-01 12:09 | P.PN ---
Progress Note - Text Progress Note Date: 08/01/20 Clinical Problems: Major depressive disorder recurrent, methamphetamine use disorder unspecified, cocaine use disorder severe, alcohol use disorder severe, tobacco use, history of cocaine use disorder, history of opiate use disorder, history of amphetamine use disorder, lack of housing Interim history: I reviewed the medical record, interviewed the patient and discussed her treatment and treatment plan during team meeting. She is mostly somatically preoccupied complained of nasal discomfort, hip pain and headaches. She believes that the nasal discomfort was a result of insuflating methamphetamine. She complained of continued feelings of depression but did not appear to appreciate the risks shook between her depression and her multiple social problems the most significant of which was a lack of stable housing. However, she emphasized that she did not want to "return to the streets." She talked about a plan to secure an apartment with a friend after she completes the residential substance abuse treatment program [facility]. She presented difficulty with organizing her long-term plans. She complained of fatigue and sedation in the morning. We reviewed her medications and agreed to discontinue Abilify and the nighttime dose of melatonin. Urine culture and sensitivity was negative Mental status exam: She presented as a casually groomed 60-year-old female who looked much older than his stated age. She made eye contact and appeared to attend to interview. She had a distressed facial expression. She was alert and oriented to person, place and time. She had psychomotor retardation but no abnormal involuntary movements. His gait was slow but steady. Her speech was spontaneous with normal rate and rhythm. Her affect was depressed but reactive. She denied suicidal ideation and wishes. She denied homicidal ideation. She expressed feelings of hopelessness and helplessness regarding her physical complaints and multiple social problems. She did not express ideas reference, paranoid ideation or delusions. Her thinking was concrete but her associations were coherent, logical and goal- directed. She denied hallucinations did not appear to be responding to internal stimuli. We completed the [facility] Cognitive Assessment. Her total score was 24/30 and her Memory Index Score was 13/15. A normal total score is 26 or greater. She had prominent difficulties with language fluency and abstraction. She minimal to noimpairment in delayed recall, orientation, attention, naming or visual spatial/executive functioning. Assessment: She has a long history of substance use and substance use problems including abuse of amphetamines, opiates, cocaine and alcohol. She presented to the unit following a recent binge on methamphetamine. She is chronically homeless and has chronic substance use problems. He remains distressed about her social problems but is willing to engage in discharge planning. She remains somatically preoccupied. Plan: Continue inpatient treatment. Safety precautions. Continue psychotropic medications-Cymbalta 3 mg twice a day and trazodone 50 mg at bedtime when necessary for sleep. Continue Ventolin inhaler for COPD, gabapentin 600 mg 3 times a day for complaints of back pain, Habitrol for smoking cessation Ditropan 5 mg twice a day and Terazol 3 for a urinary frequency and vaginal complaints. Haldol and/or Ativan when necessary agitation or aggression. Social work will assist with referral for residential substance abuse treatment. Encourage participation in therapeutic groups and activities. Evaluate clinical status response to treatment daily basis.
[2020-08-01] MEDS: IBUPROFEN 400 MG TAB PO PRN (15:36)
[2020-08-01] MEDS: SALINE NASAL GEL 14.1 GM TUBE TOPICAL PRN ×2 (15:39→21:14)
[2020-08-01] MEDS: TERCONAZOLE 0.8% VAGINAL CREAM 20 GM TUBE VAGINAL SCH (21:07)
[2020-08-02] MEDS: IBUPROFEN 400 MG TAB PO PRN (03:53)
[2020-08-02 03:54] VITALS: BP 164/84; PULSE 69; TEMP 97.7
[2020-08-02] MEDS: ACETAMINOPHEN TAB 325 MG TAB PO PRN (03:54)
[2020-08-02] MEDS: NICOTINE 21MG/24HR PATCH TRANSDERM SCH (08:15)
[2020-08-02] MEDS: MULTIVITAMINS, THERA 1 EACH TAB PO SCH (08:15)
[2020-08-02] MEDS: FOLIC ACID 1 MG TAB PO SCH (08:16)
[2020-08-02] MEDS: OXYBUTYNIN CHLORIDE 5 MG TAB PO SCH (08:16)
[2020-08-02] MEDS: THIAMINE 100 MG TAB PO SCH (08:16)
[2020-08-02] MEDS: DULoxetine HCL 30 MG CAPSULE.DR PO SCH (08:16)
[2020-08-02] MEDS: GABAPENTIN 300 MG CAP PO SCH (08:16)
[2020-08-02] MEDS: SALINE NASAL GEL 14.1 GM TUBE TOPICAL PRN (08:27)
--- NOTE | 2020-08-02 12:23 | P.DS ---
Providers Date of admission: 07/27/20 19:01 Attending physician: Rian Flores MD Consults: 07/27/20 19:08 Consult Physician Routine Consulting Provider: [facility] Consult Reason/Comments: medical management Do you want consulting provider notified?: Yes Primary care physician: [facility] Emergency Department Diagnosis(es) (1) Major depressive disorder, recurrent severe without psychotic features Status: Chronic Priority: Medium (2) Methamphetamine abuse Status: Acute Priority: Medium (3) Cocaine use disorder Status: Chronic Priority: Medium (4) Amphetamine use disorder, severe, in early remission Status: Chronic Priority: Medium (5) Minor neurocognitive disorder Status: Chronic Priority: Medium (6) Lack of housing Status: Acute (7) Alcohol use disorder Status: Chronic Priority: Medium (8) Opioid use disorder Status: Chronic Priority: Medium Hospital Course: HISTORY: he is a 60-year-old female known to the psychiatric unit from prior admissions. This is her fourth admission and the last 12 months. She was last discharged from unit on 06/29/2020. She presented to the unit voluntarily with complaints of increasing depression, suicidal ideation in the context of homelessness and relapsed to alcohol, cocaine and methamphetamine. She was a questionable historian in that her answers questions were evasive and nonspecific. She primarily perseverated on somatic issues alluding to the need for opiate pain medications. She alleged that she was living with "friend". When he left for [place] the water resources project manager evicted her from the friend's apartment. Afterwards, she was homeless and "living on the streets" because she could not secure a bed at the local long-term. She alleged that she had an admission for residential substance abuse treatment last week but r could not find somebody to "take her." She admitted to using methamphetamine and cocaine. Her UDS was positive for amphetamine, methamphetamine and cocaine. Her breath alcohol level on presentation to the ED was 0.073. She denied that she was exchanging sex for drugs or sex for money in order to buy alcohol or drugs. HOSPITAL COURSE: He admitted to the psychiatric unit under care of this travel writer. Provided a copy has a biopsychosocial assessment. The contract consultant dental detail representative completed initial physical exam and medical history and diagnosed vaginal pruritus discomfort in chronic Pain. The contract consultant recommended a 3 day course of [place] all 3 and advised and orthopedic follow-up appointment after discharge. We continued her outpatient dose of vitamin B1 100 mg daily, Ditropan 5 mg twice a day, Habitrol 20 mg tablet daily, Motrin 600 mg 3 times a day, gabapentin 600 mg 3 times a day, folic acid 1 mg daily and albuterol inhaler 4 times a day when necessary. We initially treated depression with Abilify 5 mg daily and Cymbalta 30 mg daily. She complained of marked sedation from the Abilify and requested that we discontinued the medication. We increased Cymbalta to 30 mg twice a day. We prescribed trazodone 50 mg at bedtime for sleep but she did not use this medication during hospitalization. She was somatically preoccupied during the entire hospitalization complaining of nasal discomfort, hip pain, back pain and vaginal discharge. The urine culture and sensitivity was negative. Urine gonorrhea DNA probe was also negative. We discussed her continuing need for substance abuse treatmen. She completed the telephone with interview with [facility] and was approved for readmission for residential substance abuse treatment. She participated intermittently with therapeutic groups and activities. She posed no management problem at the episodes of behavioral dyscontrol. MENTAL STATUS ON DISCHARGE: She presented as a casually groomed 60-year-old female who looked much older than his stated age. She made eye contact and appeared to attend to interview. She had a distressed facial expression. She was alert and oriented to person, place and time. She had psychomotor retardation but no abnormal involuntary movements. His gait was slow but steady. Her speech was spontaneous with normal rate and rhythm. Her affect was depressed but reactive. She denied suicidal ideation and wishes. She denied homicidal ideation. She expressed feelings of hopelessness and helplessness regarding her physical complaints and multiple social problems. She did not express ideas reference, paranoid ideation or delusions. Her thinking was concrete but her associations were coherent, logical and goal- directed. She denied hallucinations did not appear to be responding to internal stimuli. DISPOSITION: She would be admitted to the [facility] for residential substance abuse treatment. manager work from [facility] will pick her up from the hospital and transport her. Her psychotropic medications at discharge included Desyrel 50 mg at bedtime when necessary for sleep, and Cymbalta 30 mg by mouth twice a day. Patient Condition at Discharge: Stable Plan - Discharge Summary Discharge Rx Participant: No New Discharge Prescriptions: New DULoxetine HCL [Cymbalta] 30 mg PO BID #60 capsule. traZODone HCL [Desyrel] 50 mg PO HS PRN #15 tab PRN Reason: Insomnia Continue Acetaminophen Tab [Tylenol] 650 mg PO Q4HR PRN 20 Days tab PRN Reason: Mild Pain/Discomfort Sennosides-Docusate Sodium [Senokot-S] 2 tab PO BID PRN PRN Reason: Constipation Sodium Chloride 0.65% Nasal [Deep Sea (Saline)] 2 spray NASAL QID PRN #1 spray PRN Reason: Dry Nasal Passages Oxybutynin Chloride [Ditropan] 5 mg PO BID 30 Days tab Folic Acid 1 mg PO DAILY 30 Days tab Gabapentin 600 mg PO TID 30 Days tab Ibuprofen [Motrin] 600 mg PO TID PRN 14 Days tab PRN Reason: Pain Multivitamins, Thera [Multivitamin (formulary)] 1 tab PO DAILY 30 Days tab Albuterol Inhaler [Ventolin Hfa Inhaler] 2 puff INHALATION RT-QID PRN #2 puff PRN Reason: Shortness Of Breath Thiamine [Vitamin B-1] 100 mg PO DAILY 30 Days tab Nicotine 21Mg/24Hr Patch [Habitrol] 1 patch TRANSDERM DAILY 14 Days patch Discontinued Acamprosate Calcium [Campral] 666 mg PO TID 30 Days tablet. predniSONE [Deltasone] 20 mg PO DAILY 30 Days tab Melatonin 5 mg PO HS 30 Days tablet polyethylene glycoL 3350 [Miralax] 17 gm PO DAILY PRN 30 Days powd.pack PRN Reason: Constipation Nicotine Polacrilex [Nicorette] 2 mg BUCCAL Q4HR PRN 30 Days gum PRN Reason: Nicotine Cravings FLUoxetine HCL [PROzac] 40 mg PO DAILY 30 Days cap methocarbamoL [Robaxin] 750 mg PO QID PRN 30 Days tab PRN Reason: Muscle Spasm OLANZapine [ZyPREXA] 5 mg PO DAILY 30 Days tab OLANZapine [ZyPREXA] 15 mg PO HS Discharge Medication List Acetaminophen Tab [Tylenol] 650 mg PO Q4HR PRN 20 Days tab 06/29/20 [Rx] Sennosides-Docusate Sodium [Senokot-S] 2 tab PO BID PRN 07/27/20 [History] Albuterol Inhaler [Ventolin Hfa Inhaler] 2 puff INHALATION RT-QID PRN #2 puff 08/01/20 [Rx] DULoxetine HCL [Cymbalta] 30 mg PO BID #60 capsule. 08/01/20 [Rx] Folic Acid 1 mg PO DAILY 30 Days tab 08/01/20 [Rx] Gabapentin 600 mg PO TID 30 Days tab 08/01/20 [Rx] Ibuprofen [Motrin] 600 mg PO TID PRN 14 Days tab 08/01/20 [Rx] Multivitamins, Thera [Multivitamin (formulary)] 1 tab PO DAILY 30 Days tab 08/01/20 [Rx] Oxybutynin Chloride [Ditropan] 5 mg PO BID 30 Days tab 08/01/20 [Rx] Sodium Chloride 0.65% Nasal [Deep Sea (Saline)] 2 spray NASAL QID PRN #1 spray 08/01/20 [Rx] Thiamine [Vitamin B-1] 100 mg PO DAILY 30 Days tab 08/01/20 [Rx] traZODone HCL [Desyrel] 50 mg PO HS PRN #15 tab 08/01/20 [Rx] Nicotine 21Mg/24Hr Patch [Habitrol] 1 patch TRANSDERM DAILY 14 Days patch 08/02/20 [Rx] Follow up Appointment(s)/Referral(s): Tucker Richardson [Other] - 08/02/20 12:00 pm (Intake at Rehab) [facility] [Primary Care Provider] - 1-2 days Patient Instructions/Handouts: Depression (DC), Methamphetamine Abuse (DC), Alcohol Use Disorder (DC), Suicide Prevention (DC) Activity/Diet/Wound Care/Special Instructions: Activity and diet as tolerated. Avoid the use of street drugs and alcohol. Take all medications as prescribed. When you are in need of refills on your medications please contact your medical provider and/or outpatient psychiatrist to have this done. Please go to scheduled outpatient appointment for aftercare treatment. If symptoms return or become worse, call the crisis line at and/or go to the nearest emergency room for evaluation. Discharge Disposition: HOME SELF-CARE
== END 2020-08-02 11:07 | DRG 885 ==
LOC: EC 14:54 → 3MHU 19:01
PROVIDERS: ADMIT Psychiatry & Neurology Psychiatry; ATTEND Psychiatry & Neurology Psychiatry
DX: F33.2 Major depressive disorder, recurrent severe without psychotic features (principal); R45.851 Suicidal ideations; T76.21XA Adult sexual abuse, suspected, initial encounter; Z71.6 Tobacco abuse counseling; F17.210 Nicotine dependence, cigarettes, uncomplicated; Z20.822 Contact with and (suspected) exposure to COVID-19; Z71.51 Drug abuse counseling and surveillance of drug abuser; F19.94 Other psychoactive substance use, unspecified with psychoactive substance-induced mood disorder; F43.10 Post-traumatic stress disorder, unspecified; G89.29 Other chronic pain; I10 Essential (primary) hypertension; M77.9 Enthesopathy, unspecified; N89.8 Other specified noninflammatory disorders of vagina; F11.10 Opioid abuse, uncomplicated; F10.10 Alcohol abuse, uncomplicated; Y90.3 Blood alcohol level of 60-79 mg/100 ml; F14.10 Cocaine abuse, uncomplicated; F15.10 Other stimulant abuse, uncomplicated; M54.30 Sciatica, unspecified side; Z59.0 Homelessness; Z62.810 Personal history of physical and sexual abuse in childhood; Z79.899 Other long term (current) drug therapy; Z91.5 Personal history of self-harm; B19.20 Unspecified viral hepatitis C without hepatic coma; Z86.14 Personal history of Methicillin resistant Staphylococcus aureus infection; Z79.1 Long term (current) use of non-steroidal anti-inflammatories (NSAID); Z87.440 Personal history of urinary (tract) infections; Z91.19 Patient's noncompliance with other medical treatment and regimen; Z88.8 Allergy status to other drugs, medicaments and biological substances; Z91.040 Latex allergy status
CPT/HCPCS: 80053; 80061; 80306; 81001; 81025; 82075; 82248; 83036; 84443; 85025; 87086; 87591; 87635; 99285

== ENCOUNTER → 2020-09-13 | Outpatient (CLI) | payer MEDICARE, OTHER ==
--- NOTE | 2020-09-13 21:04 | MR ---
EXAMINATION TYPE: MR hip RT wo con DATE OF EXAM: 09/13/2020 COMPARISON: Pelvic and right hip x-ray June 22, 2020 HISTORY: Right hip pain, swelling, locking, limited movement for 3-4 months. Standard multiplanar, multisequence MRI departmental protocol Multiplanar, multisequence images of the pelvis focusing on right hip are acquired. FINDINGS: There is mild axial joint space loss of both hip redemonstrated. Mild acetabular spurring i s seen bilaterally. Small joint effusions slightly larger in the right hip versus left hip. No suspic ious T2 signal or edema bilaterally. No suspicious serpiginous low T1 signal to suggest avascular nec rosis bilaterally. Mild edematous change and subchondral cystic changes superior lateral aspect of hans th hips. Labrum is suspected torn on sagittal oblique images along the anterior superior aspect with increased signal present. No groin hernia or adenopathy. Muscle bulk is maintained bilaterally. Edematous change along the grea ter trochanters bilaterally is noted. Scattered sigmoid colonic diverticula. No suspicious bowel dilatation. No pelvic ascites. Facet arthr opathy lower lumbar spine. IMPRESSION: Mild/moderate degenerative changes right hip. [id number] bilateral greater trochant sarah bursitis. Other findings as noted above.
== END ==
LOC: RADMRIMAIN 08:51
PROVIDERS: ATTEND Internal Medicine
DX: M16.11 Unilateral primary osteoarthritis, right hip (principal); M70.61 Trochanteric bursitis, right hip

== ENCOUNTER 2020-09-18 19:10 | Emergency (ER) | payer MEDICARE, OTHER ==
[2020-09-18 19:34] VITALS: RESP 18; TEMP 99.1
[2020-09-18] MEDS ORDERED: MORPHINE SULFATE 2 MG/ML SYRINGE IM ONE (20:38)
--- NOTE | 2020-09-18 20:47 | ED ---
Back Pain HPI - General Chief Complaint: Back Pain/Injury Stated Complaint: back pain Time Seen by Provider: 09/18/20 20:31 Source: patient, RN notes reviewed Limitations: no limitations - History of Present Illness Initial Comments: Patient is a 60-year-old female that presents to emergency department with chronic back pain. She noted that she's been taking Motrin and Tylenol with no relief of pain. She notes that she recently had an MRI done that showed some spurring in her lumbar spine. She notes that she is most follow-up with orthopedic surgeons but is yet to follow referral for 1. She notes that her pain is a 10 out of 10 currently unrelieved with any at home pain medications or remedies. She notes that she is ALLERGIC to Toradol and breaks out in hives. She denied any radiating symptoms, weakness, numb illness tingling decreased range of motion or strength chest pain shortness breath headache nausea vomiting diarrhea constipation fever fatigue chills - Related Data Home Medications Medication Instructions Recorded Confirmed Sennosides-Docusate Sodium 2 tab PO BID PRN 07/27/20 07/27/20 [Senokot-S] Previous Rx's Medication Instructions Recorded Acetaminophen Tab [Tylenol] 650 mg PO Q4HR PRN 20 Days tab 06/29/20 Albuterol Inhaler [Ventolin Hfa 2 puff INHALATION RT-QID PRN #2 08/01/20 Inhaler] puff DULoxetine HCL [Cymbalta] 30 mg PO BID #60 capsule. 08/01/20 Folic Acid 1 mg PO DAILY 30 Days tab 08/01/20 Gabapentin 600 mg PO TID 30 Days tab 08/01/20 Ibuprofen [Motrin] 600 mg PO TID PRN 14 Days tab 08/01/20 Multivitamins, Thera [Multivitamin 1 tab PO DAILY 30 Days tab 08/01/20 (formulary)] Oxybutynin Chloride [Ditropan] 5 mg PO BID 30 Days tab 08/01/20 Sodium Chloride 0.65% Nasal [Deep 2 spray NASAL QID PRN #1 spray 08/01/20 Sea (Saline)] Thiamine [Vitamin B-1] 100 mg PO DAILY 30 Days tab 08/01/20 traZODone HCL [Desyrel] 50 mg PO HS PRN #15 tab 08/01/20 Nicotine 21Mg/24Hr Patch [Habitrol] 1 patch TRANSDERM DAILY 14 Days 08/02/20 patch Allergies Allergy/AdvReac Type Severity Reaction Status Date / Time ketorolac [From Toradol] Allergy Unknown Verified 09/18/20 19:33 latex Allergy Itching Verified 09/18/20 19:33 Review of Systems ROS Statement: Those systems with pertinent positive or pertinent negative responses have been documented in the HPI. ROS Other: All systems not noted in ROS Statement are negative. Past Medical History Past Medical History: Hypertension, Liver Disease, Musculoskeletal Disorder, Neurologic Disorder Additional Past Medical History / Comment(s): hep c, back pain, sciatica, neuropathy, History of Any Multi-Drug Resistant Organisms: MRSA Date of last positivie culture/infection: 2006 MDRO Source:: face Past Surgical History: Orthopedic Surgery Additional Past Surgical History / Comment(s): lt ankle, D&C Past Anesthesia/Blood Transfusion Reactions: No Reported Reaction Past Psychological History: Anxiety, Bipolar, Depression, Schizoaffective Disorder, Schizophrenia Smoking Status: Current every day smoker Past Alcohol Use History: Daily Past Drug Use History: Methamphetamine General Exam Limitations: no limitations General appearance: alert, in no apparent distress Head exam: Present: atraumatic, normocephalic, normal inspection Eye exam: Present: normal appearance, PERRL, EOMI. Absent: scleral icterus, conjunctival injection, periorbital swelling ENT exam: Present: normal exam, mucous membranes moist Neck exam: Present: normal inspection. Absent: tenderness, meningismus, lymphadenopathy Respiratory exam: Present: normal lung sounds bilaterally. Absent: respiratory distress, wheezes, rales, rhonchi, stridor Cardiovascular Exam: Present: regular rate, normal rhythm, normal heart sounds. Absent: systolic murmur, diastolic murmur, rubs, gallop, clicks GI/Abdominal exam: Present: soft, normal bowel sounds. Absent: distended, tenderness, guarding, rebound, rigid Extremities exam: Present: normal inspection, full ROM, normal capillary refill. Absent: tenderness, pedal edema, joint swelling, calf tenderness Back exam: Present: normal inspection. Absent: tenderness Neurological exam: Present: alert, oriented X3, CN II-XII intact Psychiatric exam: Present: normal affect, normal mood Skin exam: Present: warm, dry, intact, normal color. Absent: rash Course Vital Signs 03/23/21 19:31 Temperature 99.1 F Pulse Rate 77 Respiratory 18 Rate Blood Pressure 131/80 O2 Sat by Pulse 98 Oximetry Medical Decision Making - Medical Decision Making 60-year-old female with chronic low back pain. 2 mg of morphine, lumbar spine x-ray ordered. Case discussed with Dr. Chinchilla, patient can discharge home with follow-up to primary care and orthopedics. - Radiology Data Radiology results: report reviewed, image reviewed Lumbar spondylosis most pronounced L5-S1 area there is minimal grade 1 anterior listhesis of L5 on S1. Disposition Clinical Impression: Lumbar pain Disposition: HOME SELF-CARE Condition: Stable Instructions (If sedation given, give patient instructions): Acute Low Back Pain (ED) Additional Instructions: Please return to the Emergency Department if symptoms worsen or any other concerns. Follow-up primary care in 1-3 days. Follow-up with orthopedics as soon as possible. Continue to take at home prescriptions as prescribed. Take [id number] pain medications as needed for symptom control. Is patient prescribed a controlled substance at d/c from ED?: No Referrals: [facility] [Primary Care Provider] - 1-2 days Jimi Chandler DO [Doctor of Osteopathic Medicine] - 1-2 days Time of Disposition: 21:45
[2020-09-18] MEDS ORDERED: diphenhydrAMINE 25 MG CAP PO STA (21:03)
--- NOTE | 2020-09-18 21:36 | XR ---
Result: History: Chronic low back pain. Comparison: 09/11/2019. Technique: 3 views of the lumbar spine. Findings: The bone mineralization is normal. Images of the lumbar spine demonstrate 5 lumbar-type vertebrae. There is no acute fracture or sublux ation. The vertebral body heights are preserved throughout the imaged lumbar spine. There is minimal grade 1 anterolisthesis of L5 on S1. There is moderate disc height narrowing at L5-S1 with facet de generative changes. There is less pronounced mild to moderate moderate findings at L4-L5. The sacroil iac joints are patent. Impression: Lumbar spondylosis most pronounced at L5-S1. There is minimal grade 1 anterolisthesis of L5 on S1.
[2020-09-18 22:07] VITALS: BP 170/93; PULSE 73
== END 2020-09-18 22:07 | disposition home or self-care (01) ==
LOC: EC 19:10
DX: M54.5 Low back pain (principal); G89.29 Other chronic pain; I10 Essential (primary) hypertension; G62.9 Polyneuropathy, unspecified; F25.9 Schizoaffective disorder, unspecified; F41.9 Anxiety disorder, unspecified; F32.9 Major depressive disorder, single episode, unspecified; F17.200 Nicotine dependence, unspecified, uncomplicated; Z79.1 Long term (current) use of non-steroidal anti-inflammatories (NSAID)
CPT/HCPCS: 72100; 99283; 96372; J2270

== ENCOUNTER 2020-10-11 11:45 | Emergency (ER) | payer MEDICARE, OTHER ==
[2020-10-11 12:47] VITALS: BP 148/88; PULSE 60; RESP 18; TEMP 98.2
--- NOTE | 2020-10-11 12:48 | ED ---
General Adult HPI - General Stated complaint: Back Pain Time Seen by Provider: 10/11/20 12:44 Source: patient, RN notes reviewed Mode of arrival: ambulatory Limitations: no limitations - History of Present Illness Initial comments: 60-year-old female well-known emergency department presents for chronic chief complaint low back pain. Patient states this an ongoing issue seems to worsen. Patient was seen by another ER was given steroids. Patient states that she supposed to follow-up with orthopedics. Denies any bowel bladder incontinence or retention or saddle anesthesias no lower extremity, no paresthesias. - Related Data Home Medications Medication Instructions Recorded Confirmed Sennosides-Docusate Sodium 2 tab PO BID PRN 07/27/20 07/27/20 [Senokot-S] Previous Rx's Medication Instructions Recorded Acetaminophen Tab [Tylenol] 650 mg PO Q4HR PRN 20 Days tab 06/29/20 Albuterol Inhaler [Ventolin Hfa 2 puff INHALATION RT-QID PRN #2 08/01/20 Inhaler] puff DULoxetine HCL [Cymbalta] 30 mg PO BID #60 capsule. 08/01/20 Folic Acid 1 mg PO DAILY 30 Days tab 08/01/20 Gabapentin 600 mg PO TID 30 Days tab 08/01/20 Ibuprofen [Motrin] 600 mg PO TID PRN 14 Days tab 08/01/20 Multivitamins, Thera [Multivitamin 1 tab PO DAILY 30 Days tab 08/01/20 (formulary)] Oxybutynin Chloride [Ditropan] 5 mg PO BID 30 Days tab 08/01/20 Sodium Chloride 0.65% Nasal [Deep 2 spray NASAL QID PRN #1 spray 08/01/20 Sea (Saline)] Thiamine [Vitamin B-1] 100 mg PO DAILY 30 Days tab 08/01/20 traZODone HCL [Desyrel] 50 mg PO HS PRN #15 tab 08/01/20 Nicotine 21Mg/24Hr Patch [Habitrol] 1 patch TRANSDERM DAILY 14 Days 08/02/20 patch Cyclobenzaprine [Flexeril] 10 mg PO TID PRN #10 tab 10/11/20 Ibuprofen [Motrin] 600 mg PO Q8HR PRN #20 tab 10/11/20 Allergies Allergy/AdvReac Type Severity Reaction Status Date / Time ketorolac [From Toradol] Allergy Unknown Verified 10/11/20 12:47 latex Allergy Itching Verified 10/11/20 12:47 Review of Systems ROS Statement: Those systems with pertinent positive or pertinent negative responses have been documented in the HPI. ROS Other: All systems not noted in ROS Statement are negative. Past Medical History Past Medical History: Hypertension, Liver Disease, Musculoskeletal Disorder, Neurologic Disorder Additional Past Medical History / Comment(s): hep c, back pain, sciatica, neuropathy, History of Any Multi-Drug Resistant Organisms: MRSA Date of last positivie culture/infection: 2006 MDRO Source:: face Past Surgical History: Orthopedic Surgery Additional Past Surgical History / Comment(s): lt ankle, D&C Past Anesthesia/Blood Transfusion Reactions: No Reported Reaction Past Psychological History: Anxiety, Bipolar, Depression, Schizoaffective Disorder, Schizophrenia Smoking Status: Current every day smoker Past Alcohol Use History: Daily Past Drug Use History: Methamphetamine General Exam General appearance: alert, in no apparent distress Head exam: Present: atraumatic, normocephalic, normal inspection Eye exam: Present: normal appearance, PERRL, EOMI. Absent: scleral icterus, conjunctival injection, periorbital swelling Neck exam: Present: normal inspection, full ROM. Absent: tenderness, meningismus, lymphadenopathy Respiratory exam: Present: normal lung sounds bilaterally. Absent: respiratory distress, wheezes, rales, rhonchi, stridor Cardiovascular Exam: Present: regular rate, normal rhythm, normal heart sounds. Absent: systolic murmur, diastolic murmur, rubs, gallop, clicks GI/Abdominal exam: Present: soft, normal bowel sounds. Absent: distended, tenderness, guarding, rebound, rigid Extremities exam: Present: normal capillary refill. Absent: pedal edema, calf tenderness Back exam: Present: full ROM, tenderness, muscle spasm, paraspinal tenderness. Absent: vertebral tenderness Neurological exam: Present: alert, oriented X3, reflexes normal. Absent: motor sensory deficit Course Vital Signs 10/11/20 12:40 Temperature 98.2 F Pulse Rate 60 Respiratory 18 Rate Blood Pressure 148/88 O2 Sat by Pulse 97 Oximetry Medical Decision Making - Medical Decision Making Patient has chronic back issues she has no red flag symptoms neurologically intact will be discharged in stable condition return parameters were discussed. Disposition Clinical Impression: Chronic back pain Disposition: HOME SELF-CARE Condition: Stable Instructions (If sedation given, give patient instructions): Chronic Back Pain (DC) Additional Instructions: Please return to the Emergency Department if symptoms worsen or any other concerns. Prescriptions: Cyclobenzaprine [Flexeril] 10 mg PO TID PRN #10 tab PRN Reason: Muscle Spasm Ibuprofen [Motrin] 600 mg PO Q8HR PRN #20 tab PRN Reason: Pain Is patient prescribed a controlled substance at d/c from ED?: No Referrals: [facility] [Primary Care Provider] - 1-2 days Time of Disposition: 12:47
== END 2020-10-11 12:53 | disposition home or self-care (01) ==
LOC: EC 11:45
DX: M54.5 Low back pain (principal); G89.29 Other chronic pain; I10 Essential (primary) hypertension; F17.200 Nicotine dependence, unspecified, uncomplicated; F32.9 Major depressive disorder, single episode, unspecified
CPT/HCPCS: 99283

== ENCOUNTER 2020-10-14 14:25 | Emergency (ER) | payer MEDICARE, OTHER ==
[2020-10-14 14:37] VITALS: BP 134/87; PULSE 82; RESP 18; TEMP 97.9
--- NOTE | 2020-10-14 15:08 | ED ---
Back Pain HPI - General Source: patient Limitations: no limitations <Petar Bailey - Last Filed: 10/14/20 20:06> <Nevaeh Bar - Last Filed: 10/16/20 01:49> - General Chief Complaint: Back Pain/Injury Stated Complaint: Revisit, Back Pain Time Seen by Provider: 10/14/20 14:49 - History of Present Illness Initial Comments: 60-year-old female presents to emergency Department with chief complaint of back pain. She has chronic history of back pain and is currently seeing an orthopedic doctor. Her next appointment is on 10/18/20. Patient reports 2 recent MRIs showing disc herniation. Patient reports she is to take Percocets but has not in quite some time. States most the pain is located in the right lumbosacral region with some radiation along the posterior aspect of her right lower extremity to the knee. She denies any saddle anesthesia, urinary retention with overflow incontinence or bowel incontinence. (Petar Bailey) - Related Data Home Medications Medication Instructions Recorded Confirmed Sennosides-Docusate Sodium 2 tab PO BID PRN 07/27/20 07/27/20 [Senokot-S] Previous Rx's Medication Instructions Recorded Acetaminophen Tab [Tylenol] 650 mg PO Q4HR PRN 20 Days tab 06/29/20 Albuterol Inhaler [Ventolin Hfa 2 puff INHALATION RT-QID PRN #2 08/01/20 Inhaler] puff DULoxetine HCL [Cymbalta] 30 mg PO BID #60 capsule. 08/01/20 Folic Acid 1 mg PO DAILY 30 Days tab 08/01/20 Gabapentin 600 mg PO TID 30 Days tab 08/01/20 Ibuprofen [Motrin] 600 mg PO TID PRN 14 Days tab 08/01/20 Multivitamins, Thera [Multivitamin 1 tab PO DAILY 30 Days tab 08/01/20 (formulary)] Oxybutynin Chloride [Ditropan] 5 mg PO BID 30 Days tab 08/01/20 Sodium Chloride 0.65% Nasal [Deep 2 spray NASAL QID PRN #1 spray 08/01/20 Sea (Saline)] Thiamine [Vitamin B-1] 100 mg PO DAILY 30 Days tab 08/01/20 traZODone HCL [Desyrel] 50 mg PO HS PRN #15 tab 08/01/20 Nicotine 21Mg/24Hr Patch [Habitrol] 1 patch TRANSDERM DAILY 14 Days 08/02/20 patch Cyclobenzaprine [Flexeril] 10 mg PO TID PRN #10 tab 10/11/20 Ibuprofen [Motrin] 600 mg PO Q8HR PRN #20 tab 10/11/20 Allergies Allergy/AdvReac Type Severity Reaction Status Date / Time ketorolac [From Toradol] Allergy Unknown Verified 10/14/20 14:37 latex Allergy Itching Verified 10/14/20 14:37 Review of Systems ROS Other: All systems not noted in ROS Statement are negative. <Petar Bailey - Last Filed: 10/14/20 20:06> ROS Other: All systems not noted in ROS Statement are negative. <Nevaeh Bar - Last Filed: 10/16/20 01:49> ROS Statement: Those systems with pertinent positive or pertinent negative responses have been documented in the HPI. Past Medical History Past Medical History: Hypertension, Liver Disease, Musculoskeletal Disorder, Neurologic Disorder Additional Past Medical History / Comment(s): hep c, back pain, sciatica, neuropathy, History of Any Multi-Drug Resistant Organisms: MRSA Date of last positivie culture/infection: 2006 MDRO Source:: face Past Surgical History: Orthopedic Surgery Additional Past Surgical History / Comment(s): lt ankle, D&C Past Anesthesia/Blood Transfusion Reactions: No Reported Reaction Past Psychological History: Anxiety, Bipolar, Depression, Schizoaffective Disorder, Schizophrenia Smoking Status: Current every day smoker Past Alcohol Use History: Daily Past Drug Use History: Methamphetamine <Petar Bailey - Last Filed: 10/14/20 20:06> General Exam Limitations: no limitations General appearance: alert, in no apparent distress, obese Head exam: Present: atraumatic, normocephalic, normal inspection Eye exam: Present: normal appearance, PERRL, EOMI Pupils: Present: normal accommodation ENT exam: Present: normal exam, normal oropharynx, mucous membranes moist, TM's normal bilaterally, normal external ear exam Neck exam: Present: normal inspection, full ROM. Absent: tenderness, lymphadenopathy Respiratory exam: Present: normal lung sounds bilaterally. Absent: respiratory distress, wheezes, rales Cardiovascular Exam: Present: regular rate, normal rhythm, normal heart sounds. Absent: systolic murmur, diastolic murmur GI/Abdominal exam: Present: soft. Absent: distended, tenderness, guarding, rebound Extremities exam: Present: normal inspection, full ROM, normal capillary refill. Absent: tenderness, pedal edema, joint swelling Back exam: Present: normal inspection, full ROM, tenderness, paraspinal tenderness (Right-sided paraspinal tenderness in the lumbosacral region.). Absent: CVA tenderness (R), CVA tenderness (L) Neurological exam: Present: alert, oriented X3, normal gait Psychiatric exam: Present: normal affect, normal mood Skin exam: Present: warm, dry, intact, normal color <Petar Bailey - Last Filed: 10/14/20 20:06> Course Vital Signs 10/14/20 14:35 Temperature 97.9 F Pulse Rate 82 Respiratory 18 Rate Blood Pressure 134/87 O2 Sat by Pulse 97 Oximetry Medical Decision Making <Petar Bailey - Last Filed: 10/14/20 20:06> <Nevaeh Bar - Last Filed: 10/16/20 01:49> - Medical Decision Making 60-year-old female with history of chronic back pain presents to emergency department with chief complaint of back pain. On physical examination, right- sided paraspinal tenderness in the sacral region. No concern for cauda equina. Patient was given analgesia and a Lidoderm patch. She ordered has a prescription for cyclobenzaprine at home. I will discharge her with a Tylenol 3 starter pack. Return parameters were discussed with patient was understanding and agreeable. Case discussed with (Petar Bailey) I was available for consultation in the emergency department. The history and physical exam were done by the midlevel provider. I was consulted for this patients care. I reviewed the case with the midlevel provider and based on their presentation of the patient, I agree with the assessment, medical decision making and plan of care as documented. Chart was dictated using [employer] dictation software. Attempts were made to correct any dictation errors however some typographical errors may persist. Patient was seen during a national state of emergency due to the Covid-19 pandemic. (Nevaeh Bar) Disposition Is patient prescribed a controlled substance at d/c from ED?: No Time of Disposition: 15:23 <Petar Bailey - Last Filed: 10/14/20 20:06> <Nevaeh Bar - Last Filed: 10/16/20 01:49> Clinical Impression: Mechanical back pain Disposition: HOME SELF-CARE Condition: Stable Instructions (If sedation given, give patient instructions): Acute Low Back Pain (ED) Referrals: [facility] [Primary Care Provider] - 1-2 days
[2020-10-14] MEDS ORDERED: LIDOCAINE 5% PATCH TOPICAL STA (15:09)
[2020-10-14] MEDS ORDERED: MORPHINE SULFATE 4 MG/ML SYRINGE IM STA (15:09)
[2020-10-14] MEDS ORDERED: ACET/COD 300 MG/30 MG STARTER PACK 6 TAB BTL PO STA (15:09)
== END 2020-10-14 15:42 | disposition home or self-care (01) ==
LOC: EC 14:25
DX: M54.9 Dorsalgia, unspecified (principal); I10 Essential (primary) hypertension; F17.200 Nicotine dependence, unspecified, uncomplicated; Z91.040 Latex allergy status; Z88.5 Allergy status to narcotic agent
CPT/HCPCS: 99283; 96372; J2270

== ENCOUNTER → 2020-12-10 | Outpatient (CLI) | payer MEDICARE, OTHER ==
--- NOTE | 2020-12-12 13:58 | MM ---
Reason for exam: screening (asymptomatic). Last mammogram was performed 3 years and 3 months ago. History: Family history of premenopausal breast cancer in sister. Physical Findings: A clinical breast exam by your physician is recommended on an annual basis and results should be correlated with mammographic findings. MG 3D Screening Mammo W/Cad Bilateral CC and MLO view(s) were taken. Prior study comparison: September 24, 2017, bilateral MG 3d screening mammo w/cad. August 18, 2007, workup left diagnostic mammogram. There are scattered fibroglandular densities. ASSESSMENT: Negative, BI-RAD 1 RECOMMENDATION: Routine screening mammogram of both breasts in 1 year.
== END | disposition home or self-care (01) ==
LOC: RADMAMWWP 10:52
PROVIDERS: ATTEND Internal Medicine
DX: Z12.31 Encounter for screening mammogram for malignant neoplasm of breast (principal); Z80.3 Family history of malignant neoplasm of breast
CPT/HCPCS: 77063; 77067

== ENCOUNTER 2020-12-19 10:31 | Emergency (ER) | payer MEDICARE, OTHER ==
[2020-12-19 10:38] VITALS: BP 136/86; PULSE 64; RESP 16; TEMP 97.9
--- NOTE | 2020-12-19 11:38 | XR ---
EXAMINATION TYPE: XR knee complete RT DATE OF EXAM: 12/19/2020 CLINICAL HISTORY: Right knee pain TECHNIQUE: Three views of the right knee are obtained. COMPARISON: 10/28/2017 FINDINGS: There is no acute fracture/dislocation evident in right knee. The tri-compartment joint s paces appear within normal limits. The overlying soft tissue appears unremarkable. IMPRESSION: There is no acute fracture or dislocation in the right knee.
[2020-12-19] MEDS ORDERED: ACET/COD 300 MG/30 MG STARTER PACK 6 TAB BTL PO STA (12:13)
--- NOTE | 2020-12-19 12:13 | ED ---
Lower Extremity Injury HPI - General Chief Complaint: Extremity Injury, Lower Stated Complaint: knee pain Time Seen by Provider: 12/19/20 11:34 Source: patient Mode of arrival: ambulatory Limitations: no limitations - History of Present Illness Initial Comments: Patient is a 60-year-old female presenting to the emergency Department with complaints of right knee pain since this weekend. Patient states she squatted down to sisal picker something from the floor and felt a pop in her right knee. She states it happened again a couple days ago. She continues to have pain and some mild swelling to the knee. She denies any previous injuries or surgeries to her right knee. She is able to bear weight, she has been using a crutch for support. She denies any other complaints at this time. No fevers or chills. Her vitals are stable. - Related Data Home Medications Medication Instructions Recorded Confirmed Sennosides-Docusate Sodium 2 tab PO BID PRN 07/27/20 07/27/20 [Senokot-S] Previous Rx's Medication Instructions Recorded Acetaminophen Tab [Tylenol] 650 mg PO Q4HR PRN 20 Days tab 06/29/20 Albuterol Inhaler [Ventolin Hfa 2 puff INHALATION RT-QID PRN #2 08/01/20 Inhaler] puff DULoxetine HCL [Cymbalta] 30 mg PO BID #60 capsule. 08/01/20 Folic Acid 1 mg PO DAILY 30 Days tab 08/01/20 Gabapentin 600 mg PO TID 30 Days tab 08/01/20 Ibuprofen [Motrin] 600 mg PO TID PRN 14 Days tab 08/01/20 Multivitamins, Thera [Multivitamin 1 tab PO DAILY 30 Days tab 08/01/20 (formulary)] Oxybutynin Chloride [Ditropan] 5 mg PO BID 30 Days tab 08/01/20 Sodium Chloride 0.65% Nasal [Deep 2 spray NASAL QID PRN #1 spray 08/01/20 Sea (Saline)] Thiamine [Vitamin B-1] 100 mg PO DAILY 30 Days tab 08/01/20 traZODone HCL [Desyrel] 50 mg PO HS PRN #15 tab 08/01/20 Nicotine 21Mg/24Hr Patch [Habitrol] 1 patch TRANSDERM DAILY 14 Days 08/02/20 patch Cyclobenzaprine [Flexeril] 10 mg PO TID PRN #10 tab 10/11/20 Ibuprofen [Motrin] 600 mg PO Q8HR PRN #20 tab 10/11/20 Allergies Allergy/AdvReac Type Severity Reaction Status Date / Time ketorolac [From Toradol] Allergy Unknown Verified 10/14/20 14:37 latex Allergy Itching Verified 10/14/20 14:37 Review of Systems ROS Statement: Those systems with pertinent positive or pertinent negative responses have been documented in the HPI. ROS Other: All systems not noted in ROS Statement are negative. Past Medical History Past Medical History: Hypertension, Liver Disease, Musculoskeletal Disorder, Neurologic Disorder Additional Past Medical History / Comment(s): hep c, back pain, sciatica, neuropathy, History of Any Multi-Drug Resistant Organisms: MRSA Date of last positivie culture/infection: 2006 MDRO Source:: face Past Surgical History: Orthopedic Surgery Additional Past Surgical History / Comment(s): lt ankle, D&C Past Anesthesia/Blood Transfusion Reactions: No Reported Reaction Past Psychological History: Anxiety, Bipolar, Depression, Schizoaffective Disorder, Schizophrenia Smoking Status: Current every day smoker Past Alcohol Use History: Daily Past Drug Use History: Methamphetamine General Exam - General Exam Comments Initial Comments: GENERAL: Patient is well-developed and well-nourished. Patient is nontoxic and in no acute distress. HEAD: Atraumatic, normocephalic. EYES: Pupils equal round and reactive to light, extraocular movements intact, sclera anicteric, conjunctiva are normal. Eyelids were unremarkable. ENT: Nares patent, oropharynx clear without exudates. Moist mucous membranes. NECK: Normal range of motion, supple without lymphadenopathy or JVD. LUNGS: Unlabored respirations. Breath sounds clear to auscultation bilaterally and equal. No wheezes rales or rhonchi. HEART: Regular rate and rhythm without murmurs, rubs or gallops. ABDOMEN: Soft, nontender, normoactive bowel sounds. No guarding, no rebound. No masses appreciated. : Deferred MUSCULOSKELETAL: She has pain on palpation of the entire anterior right knee, she does have some mild swelling present, she has pain with flexion and full extension. Pain with Brisa's test. She is neurovascular intact, no redness or signs of infection. No clubbing or cyanosis. NEUROLOGICAL: Patient is alert and oriented x 3. Motor and sensory are also intact. Cranial nerves II through XII grossly intact. Symmetrical smile. Normal speech. PSYCH: Normal mood, normal affect. SKIN: Warm, Dry, normal turgor, no rashes or lesions noted. Limitations: no limitations Course Vital Signs 12/19/20 10:35 Temperature 97.9 F Pulse Rate 64 Respiratory 16 Rate Blood Pressure 136/86 O2 Sat by Pulse 97 Oximetry Medical Decision Making - Medical Decision Making Patient is a 60-year-old female here with right knee pain for the past week. She does have some mild to moderate swelling present, no signs of infection. X- ray showed no acute fractures distal complications. I discussed with patient and a concern for possible meniscus injury. Recommended following up with orthopedics. She can continue to use her crutches for support, will give her orthopedic referral. I also recommended ibuprofen for discomfort. Patient is requesting pain medications that she should take a month ago, I stated I will not refill these. I will give her Tylenol 3 starter pack. She is stable for discharge and she is in agreement with this plan of care. Case discussed with Alexia Smith. Disposition Clinical Impression: Right knee pain Disposition: HOME SELF-CARE Condition: Stable Instructions (If sedation given, give patient instructions): Knee Pain (ED) Additional Instructions: Please return to the Emergency Department if symptoms worsen or any other concerns. Recommend ibuprofen for discomfort. Follow up with orthopedics as discussed. Is patient prescribed a controlled substance at d/c from ED?: No Referrals: Daisy Dos Santos MD [Primary Care Provider] - 1-2 days Ralph Santana DO [Doctor of Osteopathic Medicine] - 1-2 days Time of Disposition: 12:12
== END 2020-12-19 12:24 | disposition home or self-care (01) ==
LOC: EC 10:31
DX: M25.561 Pain in right knee (principal); M79.89 Other specified soft tissue disorders; I10 Essential (primary) hypertension; F31.9 Bipolar disorder, unspecified; F41.9 Anxiety disorder, unspecified; F20.9 Schizophrenia, unspecified; F15.90 Other stimulant use, unspecified, uncomplicated; F17.200 Nicotine dependence, unspecified, uncomplicated; G62.9 Polyneuropathy, unspecified; Z79.1 Long term (current) use of non-steroidal anti-inflammatories (NSAID); Z91.040 Latex allergy status
CPT/HCPCS: 99283

== ENCOUNTER 2021-02-06 18:57 | Emergency (ER) | payer MEDICARE, OTHER ==
[2021-02-06 19:03] VITALS: BP 135/84; PULSE 75; RESP 16; TEMP 98.3
[2021-02-06] MEDS ORDERED: cefTRIAXone 250 MG VIAL IM STA (19:29)
[2021-02-06] MEDS ORDERED: metroNIDAZOLE 500 MG TAB PO STA (19:29)
[2021-02-06] MEDS ORDERED: AZITHROMYCIN 250 MG TAB PO STA (19:29)
[2021-02-06] MEDS ORDERED: NYSTATIN 100,000 UNIT/GM POWD 15 GM TOPICAL STA (19:31)
[2021-02-06 19:49] LABS: Appearance,Urine Cloudy (Clear); Bilirubin,Urine Negative (Negative); Blood,Urine Negative (Negative); Color,Urine Yellow; Glucose,Urine (UA) Negative (Negative); Ketones,Urine Negative (Negative); Leukocyte Esterase,Urine Large (Negative); Mucus,Urine Many /hpf; Nitrite,Urine Negative (Negative); Protein,Urine 1+ (Negative); RBC,Urine 3 /hpf (0-5); Specific Gravity,Urine 1.027 (1.001-1.035); Squamous Epithelial Cell,Urine 7 /hpf (0-4); Urobilinogen,Urine <2.0 mg/dL (<2.0); WBC,Urine 29 /hpf (0-5)
--- NOTE | 2021-02-06 19:55 | ED ---
Female Urogenital HPI - General Chief complaint: Urogenital Stated complaint: Female Time Seen by Provider: 02/06/21 19:08 Source: patient Mode of arrival: ambulatory Limitations: no limitations - History of Present Illness Initial comments: 60-year-old female presents to the emergency Department with a chief complaint of vaginal swelling. Patient reports she has been experiencing follow odor from the vagina with some erythema. She reports some weight vaginal discharge as well. Patient is concerned for sexually transmitted infections. She reports some swelling near the left groin, states that her is erythematous and itchy. States she has been wearing were closed because she is homeless. States it is also warm outside so her body. To be wet most of the time. She denies increased urgency frequency or dysuria. Patient also admitted using methenamine recently. She denies any abdominal pain, nausea, vomiting, fevers or chills. - Related Data Home Medications Medication Instructions Recorded Confirmed Sennosides-Docusate Sodium 2 tab PO BID PRN 07/27/20 07/27/20 [Senokot-S] Previous Rx's Medication Instructions Recorded Acetaminophen Tab [Tylenol] 650 mg PO Q4HR PRN 20 Days tab 06/29/20 Albuterol Inhaler [Ventolin Hfa 2 puff INHALATION RT-QID PRN #2 08/01/20 Inhaler] puff DULoxetine HCL [Cymbalta] 30 mg PO BID #60 capsule. 08/01/20 Folic Acid 1 mg PO DAILY 30 Days tab 08/01/20 Gabapentin 600 mg PO TID 30 Days tab 08/01/20 Ibuprofen [Motrin] 600 mg PO TID PRN 14 Days tab 08/01/20 Multivitamins, Thera [Multivitamin 1 tab PO DAILY 30 Days tab 08/01/20 (formulary)] Oxybutynin Chloride [Ditropan] 5 mg PO BID 30 Days tab 08/01/20 Sodium Chloride 0.65% Nasal [Deep 2 spray NASAL QID PRN #1 spray 08/01/20 Sea (Saline)] Thiamine [Vitamin B-1] 100 mg PO DAILY 30 Days tab 08/01/20 traZODone HCL [Desyrel] 50 mg PO HS PRN #15 tab 08/01/20 Nicotine 21Mg/24Hr Patch [Habitrol] 1 patch TRANSDERM DAILY 14 Days 08/02/20 patch Cyclobenzaprine [Flexeril] 10 mg PO TID PRN #10 tab 10/11/20 Ibuprofen [Motrin] 600 mg PO Q8HR PRN #20 tab 10/11/20 Fluconazole [Diflucan] 150 mg PO ONCE #2 tab 02/06/21 Nitrofurantoin Monohyd/M-Cryst 100 mg PO Q12HR #14 cap 02/06/21 [Macrobid] Allergies Allergy/AdvReac Type Severity Reaction Status Date / Time ketorolac [From Toradol] Allergy Unknown Verified 02/06/21 19:03 latex Allergy Itching Verified 02/06/21 19:03 Review of Systems ROS Statement: Those systems with pertinent positive or pertinent negative responses have been documented in the HPI. ROS Other: All systems not noted in ROS Statement are negative. Past Medical History Past Medical History: Hypertension, Liver Disease, Musculoskeletal Disorder, Neurologic Disorder Additional Past Medical History / Comment(s): hep c, back pain, sciatica, neuropathy, History of Any Multi-Drug Resistant Organisms: MRSA Date of last positivie culture/infection: 2006 MDRO Source:: face Past Surgical History: Orthopedic Surgery Additional Past Surgical History / Comment(s): lt ankle, D&C Past Anesthesia/Blood Transfusion Reactions: No Reported Reaction Past Psychological History: Anxiety, Bipolar, Depression, Schizoaffective Disorder, Schizophrenia Smoking Status: Current every day smoker Past Alcohol Use History: Daily Past Drug Use History: Methamphetamine General Exam Limitations: no limitations General appearance: alert, in no apparent distress, anxious, obese Head exam: Present: atraumatic, normocephalic, normal inspection Eye exam: Present: normal appearance, PERRL, EOMI Pupils: Present: normal accommodation ENT exam: Present: normal exam, normal oropharynx, mucous membranes moist Neck exam: Present: normal inspection, full ROM. Absent: tenderness Respiratory exam: Present: normal lung sounds bilaterally. Absent: respiratory distress, wheezes, rales, rhonchi, stridor, chest wall tenderness, accessory muscle use Cardiovascular Exam: Present: regular rate, normal rhythm, normal heart sounds. Absent: bradycardia, systolic murmur GI/Abdominal exam: Present: soft. Absent: distended, tenderness, guarding, rebound External exam: Present: erythema, swelling. Absent: lesions, lacerations Speculum exam: Present: normal speculum exam (Erythema of the left groin fold extending to the labia majora), erythema (Erythema over the left labial wall.), vaginal discharge (White vaginal discharge), tissue (Erythematous with mild swelling). Absent: vaginal bleeding, foreign body By manual exam: Absent: cervical motion tenderness, adnexal tenderness, adnexal mass Extremities exam: Present: normal inspection, full ROM Back exam: Present: normal inspection, full ROM. Absent: tenderness, CVA tenderness (R), CVA tenderness (L), muscle spasm Neurological exam: Present: alert, oriented X3 Psychiatric exam: Present: normal affect, normal mood Skin exam: Present: warm, dry, intact, normal color Course Vital Signs 02/06/21 19:00 Temperature 98.3 F Pulse Rate 75 Respiratory 16 Rate Blood Pressure 135/84 O2 Sat by Pulse 100 Oximetry Medical Decision Making - Medical Decision Making 60-year-old female presents to the emergency Department with a chief complaint of vaginal swelling. Pelvic examination performed reveals white cinders discharge. No cervical motion tenderness. No adnexal masses or tenderness. There is mild swelling of the left labia majora. There is also erythema with some yellow moisture around the left groin that is extending to the left labia majora. I suspect this is a fungal infection secondary to her wearing wet clothes Prolonged periods of time. Patient was given nystatin cream here to continue using it. Trichomonas is negative. Gonorrhea chlamydia pending. However, I did treat for all 3 STDs. She was given Rocephin, azithromycin and Flagyl. I will prescribe Diflucan to the pharmacy. UA showed elevated leukocyte esterase or blood cells. Urine culture is pending. We'll treat for urinary tract infection with Macrobid. General culture is also pending. No signs of Bartholin cyst on exam. Patient was also given contact information to multiple local homeless shelters. She was also given multiple appears new underwear. I advised to keep the area dry in order to avoid recurrence of her rash. Strict return parameters were thoroughly discussed with patient is understanding and agreeable. Case discussed with physician. - Lab Data Lab Results 02/06/21 02/06/21 Range/Units 19:31 19:31 Urine Color Yellow Urine Appearance Cloudy H (Clear) Urine pH 6.0 (5.0-8.0) Ur Specific [place] 1.027 (1.001-1.035) Urine Protein 1+ H (Negative) Urine Glucose (UA) Negative (Negative) Urine Ketones Negative (Negative) Urine Blood Negative (Negative) Urine Nitrite Negative (Negative) Urine Bilirubin Negative (Negative) Urine Urobilinogen <2.0 (<2.0) mg/dL Ur Leukocyte Esterase Large H (Negative) Urine RBC 3 (0-5) /hpf Urine WBC 29 H (0-5) /hpf Ur Squamous Epith Cells 7 H (0-4) /hpf Urine Mucus Many H (None) /hpf Trichomonas Ag (Rapid) Negative (Negative) Disposition Clinical Impression: Vaginal discharge, Fungal infection of the groin, Urinary tract infection, STD exposure Disposition: HOME SELF-CARE Condition: Stable Instructions (If sedation given, give patient instructions): Urinary Tract Infection in Women (ED) Additional Instructions: Take prescribed medication as directed. Follow with her primary care physician. Return to emergency department if symptoms worsen. Prescriptions: Fluconazole [Diflucan] 150 mg PO ONCE #2 tab Nitrofurantoin Monohyd/M-Cryst [Macrobid] 100 mg PO Q12HR #14 cap Is patient prescribed a controlled substance at d/c from ED?: No Referrals: Daisy Dos Santos MD [Primary Care Provider] - 1-2 days Time of Disposition: 20:51
[2021-02-07 16:07] LABS: C. trachomatis,PCR Negative (Neg,Equiv); Chlamydia trachomatis Source Cervix; N. gonorrhoeae,PCR Negative (Neg,Equiv); Neisseria Source Cervix
== END 2021-02-06 21:11 | disposition home or self-care (01) ==
LOC: EC 18:57
DX: N89.8 Other specified noninflammatory disorders of vagina (principal); B35.6 Tinea cruris; N39.0 Urinary tract infection, site not specified; Z20.2 Contact with and (suspected) exposure to infections with a predominantly sexual mode of transmission; E66.9 Obesity, unspecified; I10 Essential (primary) hypertension; G62.9 Polyneuropathy, unspecified; F31.9 Bipolar disorder, unspecified; F41.9 Anxiety disorder, unspecified; F25.9 Schizoaffective disorder, unspecified; F17.200 Nicotine dependence, unspecified, uncomplicated; F15.90 Other stimulant use, unspecified, uncomplicated; Z79.1 Long term (current) use of non-steroidal anti-inflammatories (NSAID); Z79.51 Long term (current) use of inhaled steroids; Z79.899 Other long term (current) drug therapy; Z68.35 Body mass index [BMI] 35.0-35.9, adult
CPT/HCPCS: 81001; 87808; 87491; 87591; 87070; 87086; 96372; 99283; J0696

== ENCOUNTER 2021-02-07 01:44 | Inpatient (IN) | payer MEDICARE, MEDICAID ==
--- NOTE | 2021-02-07 02:18 | ED ---
Psych HPI - General Chief Complaint: Psychiatric Symptoms Stated Complaint: Mental Health Time Seen by Provider: 02/07/21 02:17 Source: patient, family, RN notes reviewed, old records reviewed Mode of arrival: ambulatory Limitations: no limitations - History of Present Illness Initial Comments: This is a 60-year-old female to the ER for evaluation today. She presents today for evaluation psychiatric illness. Patient states she is homeless no vertigo. Very anxious. MD Complaint: suicidal ideation, feels depressed, other (Anxiety) Associated Psychiatric Symptoms: none Quality: constant Improves With: none Worsens With: none Context: significant life stressor Associated Symptoms: denies other symptoms Treatments Prior to Arrival: placed on mental health hold If Self Harm: admits thoughts of self harm - Related Data Previous Rx's Medication Instructions Recorded ARIPiprazole [Abilify] 20 mg PO DAILY 30 Days tab 02/15/21 FLUoxetine HCL [PROzac] 40 mg PO DAILY 30 Days cap 02/15/21 Gabapentin [Neurontin] 400 mg PO TID 30 Days cap 02/15/21 Nicotine 14Mg/24Hr Patch [Habitrol] 1 patch TRANSDERM DAILY 30 Days 02/15/21 patch Prazosin [Minipress] 2 mg PO HS 30 Days cap 02/15/21 traZODone HCL [Desyrel] 75 mg PO HS PRN 30 Days tab 02/15/21 Allergies Allergy/AdvReac Type Severity Reaction Status Date / Time ketorolac [From Toradol] Allergy Unknown Verified 02/07/21 02:15 latex Allergy Itching Verified 02/07/21 02:15 Review of Systems ROS Statement: Those systems with pertinent positive or pertinent negative responses have been documented in the HPI. ROS Other: All systems not noted in ROS Statement are negative. Past Medical History Past Medical History: Hypertension, Liver Disease, Musculoskeletal Disorder, Neurologic Disorder Additional Past Medical History / Comment(s): hep c, back pain, sciatica, neuropathy, History of Any Multi-Drug Resistant Organisms: MRSA Date of last positivie culture/infection: 2006 MDRO Source:: face Past Surgical History: Orthopedic Surgery Additional Past Surgical History / Comment(s): lt ankle, D&C Past Anesthesia/Blood Transfusion Reactions: No Reported Reaction Past Psychological History: Anxiety, Bipolar, Depression, Schizoaffective Disorder, Schizophrenia Smoking Status: Current every day smoker Past Alcohol Use History: Daily Past Drug Use History: Methamphetamine General Exam Limitations: no limitations General appearance: alert, in no apparent distress Head exam: Present: atraumatic, normocephalic, normal inspection Eye exam: Present: normal appearance, PERRL, EOMI. Absent: scleral icterus, conjunctival injection, periorbital swelling ENT exam: Present: normal exam, mucous membranes moist Neck exam: Present: normal inspection. Absent: tenderness, meningismus, lymphadenopathy Respiratory exam: Present: normal lung sounds bilaterally. Absent: respiratory distress, wheezes, rales, rhonchi, stridor Cardiovascular Exam: Present: regular rate, normal rhythm, normal heart sounds. Absent: systolic murmur, diastolic murmur, rubs, gallop, clicks GI/Abdominal exam: Present: soft, normal bowel sounds. Absent: distended, tenderness, guarding, rebound, rigid Extremities exam: Present: normal inspection, full ROM, normal capillary refill. Absent: tenderness, pedal edema, joint swelling, calf tenderness Back exam: Present: normal inspection Neurological exam: Present: alert, oriented X3, CN II-XII intact Psychiatric exam: Present: normal affect, normal mood Skin exam: Present: warm, dry, intact, normal color. Absent: rash Course Vital Signs 02/07/21 02/07/21 02:11 04:35 Temperature 97.9 F 98.4 F Pulse Rate 67 Pulse Rate [ 63 Right Sitting] Respiratory 20 17 Rate Blood Pressure 108/67 Blood Pressure 110/74 [Right Arm] O2 Sat by Pulse 100 98 Oximetry - Reevaluation(s) Reevaluation #1: Medical record is reviewed Patient symptoms are improved here in the emergency department Patient informed of results and questions answered Patient is in no acute distress Reevaluation #2: Medical clear for psychiatric evaluation Medical Decision Making - Medical Decision Making 60 female to the ER for evaluation patient be admitted for psychiatric evaluation and treatment - Lab Data Result diagrams: 02/07/21 08:36 02/08/21 07:02 Lab Results 02/07/21 Range/Units 03:30 Urine Opiates Screen Not Detected (NotDetected) Ur Oxycodone Screen Not Detected (NotDetected) Urine Methadone Screen Not Detected (NotDetected) Ur Propoxyphene Screen Not Detected (NotDetected) Ur Barbiturates Screen Not Detected (NotDetected) U Tricyclic Antidepress Not Detected (NotDetected) Ur Phencyclidine Scrn Not Detected (NotDetected) Ur Amphetamines Screen Detected H (NotDetected) U Methamphetamines Scrn Detected H (NotDetected) U Benzodiazepines Scrn Not Detected (NotDetected) Urine Cocaine Screen Detected H (NotDetected) U Marijuana (THC) Screen Not Detected (NotDetected) Disposition Clinical Impression: Suicidal ideation, Depression Disposition: TRANSFER TO PSYCH HOSP/UNIT Condition: Fair Is patient prescribed a controlled substance at d/c from ED?: No
[2021-02-07 03:50] LABS: Amphetamine Screen,Urine Detected (NotDetected); Barbiturate Screen,Urine Not Detected (NotDetected); Benzodiazepines Screen,Urine Not Detected (NotDetected); Cocaine Screen,Urine Detected (NotDetected); Methadone Screen, Urine Not Detected (NotDetected); Opiate Screen,Urine Not Detected (NotDetected); Oxycodone Screen, Urine Not Detected (NotDetected); Phencyclidine Screen,Urine Not Detected (NotDetected); Tricyclic Antidepressant,Urine Not Detected (NotDetected); Urn Cannabinoid Scrn Not Detected (NotDetected)
[2021-02-07] MEDS ORDERED: LORazepam 1 MG TAB PO PRN (04:36)
[2021-02-07] MEDS ORDERED: MAGNESIUM HYDROXIDE 2,400 MG/10 ML CUP PO PRN (04:36)
[2021-02-07] MEDS ORDERED: MAG HYDROX/AL HYDROX/SIMETH 30 ML CUP PO PRN (04:36)
[2021-02-07] MEDS ORDERED: LORazepam 2 MG/ML INJ IM PRN (04:39)
[2021-02-07] MEDS ORDERED: HALOPERIDOL LACTATE 5 MG/ML 1 ML VIAL IM PRN (04:40)
[2021-02-07] MEDS ORDERED: haloperidoL 5 MG TAB PO PRN (04:40)
[2021-02-07] MEDS: ACETAMINOPHEN TAB 325 MG TAB PO PRN ×3 (08:42→21:33)
[2021-02-07] MEDS: NICOTINE 14MG/24HR PATCH TRANSDERM SCH (08:43)
[2021-02-07 08:57] LABS: Basophils % (A) 0 %; Eosinophils # (A) 0.5 k/uL (0-0.7); Eosinophils % (A) 5 %; HGB 13.7 gm/dL (11.4-16.0); Lymphocytes % (A) 21 %; MCH 30.2 pg (25.0-35.0); MCHC 32.6 g/dL (31.0-37.0); MCV 92.6 fL (80.0-100.0); Mean Platelet Volume 7.5; Monocytes # (A) 0.6 k/uL (0-1.0); Monocytes % (A) 6 %; Neutrophils # (A) 6.6 k/uL (1.3-7.7); Neutrophils % (A) 67 %; Platelet Count 297 k/uL (150-450); RBC 4.53 m/uL (3.80-5.40); WBC 9.9 k/uL (3.8-10.6)
[2021-02-07] MEDS ORDERED: FLUoxetine HCL 10 MG CAP PO STA (11:38)
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
[2021-02-07 14:17] VITALS: BMI 34.0
--- NOTE | 2021-02-07 14:37 | P.HPIM ---
History of Present Illness H&P Date: 02/07/21 Rachel Keller, is a 60-year-old female who presented to [facility] emergency room with a chief complaint of depression and suicidal ideation, apparently patient came to emergency room and was diagnosed with urinary tract infection, and was given a course of antibiotics, she left and she returned with a complaint of depression and suicidal ideation soon afterwards. Patient was evaluated in the emergency room vital examination on presentation revealed a temperature of 97.9 pulse 67 respiration 20 blood pressure 108/67 pulse ox 100% on room air Laboratory data reveals a white blood count of 9.9 hemoglobin 13.7 platelet count 297, urine toxicology screen was positive for amphetamine, methamphetamine, and cocaine, serum alcohol level not done, CMP not done Testing in the emergency room : No EKG or radiology testing done in the emergency room Patient was admitted to psychiatry floor for further evaluation and treatment, medical consultation was requested for management while hospitalized. Past medical history is significant for history of asthma, history of osteoar thritis, history of hepatitis C, history of hypertension, history of alcohol and tobacco abuse, history of recurrent major depression, history of morbid obesity, history of bilateral lower extremity edema, history of urinary incontinence. Her home medications as per our office records include Abilify 10 mg by mouth daily, Adipex-P 37.5 mg by mouth once daily, diclofenac 75 mg by mouth twice daily, gabapentin 100 mg by mouth once daily, Lasix 20 mg once daily, oxybutynin 5 mg once daily, potassium chloride 10 mEq once daily, and vitamin D 5000 units once daily. Her ALLERGIES include Toradol and latex Past Medical History Past Medical History: Hypertension, Liver Disease, Musculoskeletal Disorder, Neurologic Disorder Additional Past Medical History / Comment(s): hep c, back pain, sciatica, neuropathy, History of Any Multi-Drug Resistant Organisms: MRSA Date of last positivie culture/infection: 2006 MDRO Source:: face Past Surgical History: Orthopedic Surgery Additional Past Surgical History / Comment(s): lt ankle, D&C Past Anesthesia/Blood Transfusion Reactions: No Reported Reaction Smoking Status: Current every day smoker Medications and Allergies Allergies Allergy/AdvReac Type Severity Reaction Status Date / Time ketorolac [From Toradol] Allergy Unknown Verified 02/07/21 02:15 latex Allergy Itching Verified 02/07/21 02:15 Physical Exam Vitals: Vital Signs Temp Pulse Pulse Resp BP BP Pulse Ox 02/07/21 08:00 97.5 F L 67 16 101/57 97 02/07/21 04:35 98.4 F 63 17 110/74 98 02/07/21 02:11 97.9 F 67 20 108/67 100 Intake and Output 02/06/21 02/07/21 02/07/21 22:59 06:59 14:59 Other: Weight 79.1 kg In general patient is alert and oriented x 3 in no distress HEENT head normocephalic and atraumatic Neck is supple no JVD no goiter no lymphadenopathy no carotid bruit Chest examination is clear to auscultation no crackles no wheezing Cardiac exam reveals regular heart sounds S1 and S2 no gallops no murmurs Abdomen is soft nontender no organomegaly with normal bowel sounds Extremity exam reveals no edema no cyanosis or clubbing Neurological examination reveals no gross focal deficits Results CBC & Chem 7: 02/07/21 08:36 Labs: Abnormal Lab Results - Last 24 Hours (Table) 02/07/21 Range/Units 03:30 Ur Amphetamines Screen Detected H (NotDetected) U Methamphetamines Scrn Detected H (NotDetected) Urine Cocaine Screen Detected H (NotDetected) Thrombosis Risk Factor Assmnt - Choose All That Apply Each Factor Represents 1 point: Obesity (BMI >25) Other Risk Factors: No Other congenital or acquired thrombophilia - If yes, enter type in comment: No Thrombosis Risk Factor Assessment Total Risk Factor Score: 1 Thrombosis Risk Factor Assessment Level: Low Risk Assessment and Plan Plan: 1. Depression with suicidal ideation management as per primary psychiatry team currently patient has received Ativan and Haldol 2. Underlying history of severe recurrent depression 3. Underlying history of hypertension 4. Underlying history of bilateral lower extremity edema 5. Previous history of hepatitis C 6. History of morbid obesity, patient receiving Adipex for weight loss 7. History of tobacco abuse 8. History of alcohol abuse 9. Underlying history of asthma 10. Evidence of urinary tract infection, and possible pelvic infection, urine culture and pelvic culture were done in the emergency room results are still pending, at this time I am starting patient on Cefdinir 300 mg by mouth twice daily, I will monitor culture results closely At this time patient is admitted to the psychiatry unit Her home medications need to be verified by the nurse so I can reorder them
[2021-02-07 14:53] LABS: Hemoglobin A1C 5.4 % (4.0-6.0)
[2021-02-07] MEDS: PRAZOSIN 1 MG CAP PO SCH (21:32)
[2021-02-07] MEDS: risperiDONE 1 MG TAB PO SCH (21:32)
[2021-02-07] MEDS: CEFDINIR 300 MG CAP PO SCH (21:32)
[2021-02-08 07:46] LABS: ALT 25 U/L (4-34); AST 35 U/L (14-36); African American GFR (CKD) >90 (>60 ml/min/1.73 sqM); Albumin 3.6 g/dL (3.5-5.0); Alkaline Phosphatase 74 U/L (38-126); Anion Gap 6 mmol/L; Blood Urea Nitrogen 16 mg/dL (7-17); Calcium 9.2 mg/dL (8.4-10.2); Carbon Dioxide 23 mmol/L (22-30); Chloride 110 mmol/L (98-107); Glucose 91 mg/dL (74-99); Non-African American GFR(CKD) >90 (>60 ml/min/1.73 sqM); Potassium 4.4 mmol/L (3.5-5.1); Sodium 139 mmol/L (137-145); Total Bilirubin 0.5 mg/dL (0.2-1.3); Total Protein 6.1 g/dL (6.3-8.2)
[2021-02-08] MEDS: FLUoxetine HCL 10 MG CAP PO SCH (08:44)
[2021-02-08] MEDS: NICOTINE 14MG/24HR PATCH TRANSDERM SCH (08:44)
[2021-02-08] MEDS: CEFDINIR 300 MG CAP PO SCH ×2 (08:45→21:08)
[2021-02-08] MEDS: risperiDONE 1 MG TAB PO SCH (08:45)
[2021-02-08] MEDS: THIAMINE 100 MG TAB PO SCH (08:45)
[2021-02-08] MEDS: MULTIVITAMINS, THERA 1 EACH TAB PO SCH (08:45)
[2021-02-08] MEDS: ACETAMINOPHEN TAB 325 MG TAB PO PRN (08:45)
[2021-02-08] MEDS: GABAPENTIN 400 MG CAP PO SCH ×2 (16:42→21:08)
[2021-02-08] MEDS: OLANZapine 5 MG TAB PO SCH ×2 (16:43→21:08)
[2021-02-08] MEDS ORDERED: OLANZapine 5 MG TAB PO ONE (19:00)
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
[2021-02-08] MEDS: PRAZOSIN 1 MG CAP PO SCH (21:08)
[2021-02-09] MEDS: MULTIVITAMINS, THERA 1 EACH TAB PO SCH (08:02)
[2021-02-09] MEDS: NICOTINE 14MG/24HR PATCH TRANSDERM SCH (08:02)
[2021-02-09] MEDS: FLUoxetine HCL 10 MG CAP PO SCH (08:02)
[2021-02-09] MEDS: GABAPENTIN 400 MG CAP PO SCH ×3 (08:02→21:00)
[2021-02-09] MEDS: CEFDINIR 300 MG CAP PO SCH ×2 (08:02→21:00)
[2021-02-09] MEDS: OLANZapine 5 MG TAB PO SCH ×3 (08:02→21:00)
[2021-02-09] MEDS: THIAMINE 100 MG TAB PO SCH (08:06)
--- NOTE | 2021-02-09 16:27 | PN ---
PROGRESS NOTE DATE OF SERVICE: 02/09/2021. CHIEF COMPLAINT: The patient reported increasing problems with depression and persistent use of street drugs including meth and crack cocaine. INTERVAL HISTORY: Patient has been doing fair. She had a quiet day yesterday. She comes out on the unit some. She does spend a fair amount of time in her room. CIWA scores yesterday were 0. She attended one group briefly, though it was noted she did not participate. She slept fairly well last night. She did not have any issues with nightmares last night. Today she has been up she has seemed to be out on the unit a little bit more. One focus she has is pain in her right thigh. She has had some feet pain from excessive walking just prior to coming into the hospital. She says that is a little better. She tolerates psychotropic medications. MENTAL STATUS: Patient sat with a little restlessness. She gave fair eye contact. She answered questions with brief responses. Her thoughts were clear. Her affect flat. Her mood depressed. She seemed moderately distressed. There was no immediate evidence of thought disorder. She voiced no thoughts of harm. Cognition was clear. ASSESSMENT: I will continue the current diagnosis and treatment plan. I will continue psychotropic medications the same we reviewed medication issues relating to withdrawal. I will start the patient on trazodone 75 mg at bedtime p.r.n. as the patient requested. She notes that she had been scheduled for an MRI on outpatient basis ordered by Dr. Dos Santos for Thursday. She was wondering about the issues related to that. Overall she seems to be doing a little bit better in regard to withdrawal issues. I again reviewed withdrawal issues at length. We discussed her psychotropic medications in regard to indications, potential side effects, concerns relating to possible issues of metabolic some movement disorder relating to olanzapine. We will focus on stabilization and discharge planning. MMODL / IJN: [id number] /
[2021-02-09] MEDS: PRAZOSIN 1 MG CAP PO SCH (21:01)
[2021-02-10] MEDS: FLUoxetine HCL 10 MG CAP PO SCH (08:14)
[2021-02-10] MEDS: OLANZapine 5 MG TAB PO SCH ×3 (08:14→21:08)
[2021-02-10] MEDS: CEFDINIR 300 MG CAP PO SCH ×2 (08:14→21:08)
[2021-02-10] MEDS: NICOTINE 14MG/24HR PATCH TRANSDERM SCH (08:14)
[2021-02-10] MEDS: THIAMINE 100 MG TAB PO SCH (08:14)
[2021-02-10] MEDS: GABAPENTIN 400 MG CAP PO SCH ×3 (08:14→21:07)
[2021-02-10] MEDS: MULTIVITAMINS, THERA 1 EACH TAB PO SCH (08:14)
[2021-02-10] MEDS ORDERED: IBUPROFEN 600 MG TAB PO SCH (13:00)
--- NOTE | 2021-02-10 13:30 | PN ---
PROGRESS NOTE DATE OF SERVICE: 02/10/2021. CHIEF COMPLAINT: The patient reported increasing problems with depression and persistent use of street drugs including meth and crack cocaine. INTERVAL HISTORY: Patient has been doing fair. She had a quiet day yesterday. She tends to keep to herself. She chose not to attend groups yesterday. Her CIWA score was essentially 0. She has been cooperative with care. It was documented she slept 7 hours last night. Today she has been up. Mostly she has been in her room. When I saw her, she declined to come down to the office, though did respond to few questions while she was in her room. She said that she was doing fair. She felt that her medications have been helpful. She acknowledges some ups and downs in her mood likely relating to withdrawal issues. She voiced no specific complaints or concerns. She appears to tolerate her psychotropic medications. MENTAL STATUS: Patient was in her room lying down. She gave fair eye contact at best. Psychomotor activity was slowed. Speech was monotone. She answered questions with brief responses. She was not spontaneous or interactive. Her affect was flat. Her mood reserved. She seems somewhat distressed though less so than on previous days. It was difficult to assess for thought disorder. She denied any thoughts of harm. She was oriented to circumstances and surroundings. ASSESSMENT: I will continue the current diagnosis and treatment plan. I will continue psychotropic medications the same. I briefly reviewed medication issues with the patient, though she was not too engaged in the conversation, so I kept it limited. We will focus on stabilization and discharge planning. BRISEYDA / PETE: [id number] /
[2021-02-10] MEDS: IBUPROFEN 600 MG TAB PO PRN (17:49)
[2021-02-10] MEDS: PRAZOSIN 1 MG CAP PO SCH (21:08)
[2021-02-11] MEDS: NICOTINE 14MG/24HR PATCH TRANSDERM SCH (08:52)
[2021-02-11] MEDS: FLUoxetine HCL 10 MG CAP PO SCH (08:53)
[2021-02-11] MEDS: THIAMINE 100 MG TAB PO SCH (08:53)
[2021-02-11] MEDS: CEFDINIR 300 MG CAP PO SCH ×2 (08:53→20:43)
[2021-02-11] MEDS: OLANZapine 5 MG TAB PO SCH (08:53)
[2021-02-11] MEDS: MULTIVITAMINS, THERA 1 EACH TAB PO SCH (08:53)
[2021-02-11] MEDS: GABAPENTIN 400 MG CAP PO SCH ×3 (08:55→20:43)
[2021-02-11] MEDS: IBUPROFEN 600 MG TAB PO PRN ×2 (08:56→16:44)
--- NOTE | 2021-02-11 12:28 | P.PN ---
Progress Note - Text Progress Note Date: 02/11/21 Interval History: Patient was seen in her room and was agreeable to speak with financial writer in the office. The patient is currently endorsing suicidal ideation with no plan or intention at this time. She is reporting no homicidal ideation, intention, and/or plan. Patient reports that she is feeling hopeless and states that she is having difficulty finding interval in her life and she feels that she has no control. Patient reports that she has a payee and this makes it difficult for her to access her funds. She reports that she has been speaking with her daughter but has difficulty getting along with her. She is reporting some difficulty with sleep but denies any issues with appetite. The patient states that she continues to feel increasingly anxious and prefers to stay isolated to her room. Her medications were changed over the weekend, and the patient states that she feels like they have not helped too much. This provider discussed with the patient at length that her substance abuse would sabotage any medications prescribed to her that there will always be an adjustment when coming off her drug use. Mental Status Exam: General Appearance: Patient appears to be stated age is alert, directable, and cooperative. Slightly disheveled but improved overall. Behavior: Patient is calmly seated without any agitated behavior. Eye contact is appropriate. Speech: Patient's speech is fluent and nonpressured. Mood/Affect: Mood is improving mildly, affect is congruent and blunted. Suicidality/Homicidality: Patient endorses suicidal ideation but no homicidal ideation and intention and/or plan. Perceptions: Patient denies any visual hallucinations and denies any auditory hallucinations Though content/process: There is no evidence of any delusional thought content and thought process is linear and goal-directed. Memory and concentration: AOX3, grossly intact for the purposes of this session Judgment and insight: Improving mildly Vital Signs Temp 97.2 F L 02/11/21 06:50 Pulse 43 L 02/11/21 06:50 Resp 16 02/11/21 06:50 BP 85/49 02/11/21 06:50 Pulse Ox 98 02/10/21 21:00 Intake & Output 02/10/21 02/11/21 02/11/21 18:59 06:59 18:59 Weight 81.1 kg Assessment Major Depressive disorder, recurrent, severe with psychotic features. Rule out schizoaffective disorder. Alcohol use disorder, severe. Methamphetamine use disorder severe. Cocaine use disorder, severe. Post traumatic stress disorder. Unspecified anxiety disorder Plan: -Patient continues to meet criteria for inpatient psychiatric admission for symptom stabilization and safety. Patient has signed adult voluntary form and medication consent and was placed in patient's chart. -Medications: Increase Prozac to 40 mg daily for PTSD/Depression/anxiety Gabapentin 400 mg by mouth 3 times a day her off label use for anxiety Start Abilify 10 mg by mouth daily for mood augmentation Trazodone 75 mg daily at bedtime when necessary for insomnia Prazosin 1 mg at bedtime for PTSD-related nightmares. -When necessary Ativan and Haldol for agitation/aggression. -NRT - nicotine patch -SW on board for discharge planning. Encouraged the patient to participate in milieu.
[2021-02-11] MEDS: PRAZOSIN 1 MG CAP PO SCH (20:43)
[2021-02-12 06:44] VITALS: RESP 18; TEMP 97.1
[2021-02-12] MEDS: GABAPENTIN 400 MG CAP PO SCH ×3 (07:59→20:27)
[2021-02-12] MEDS: NICOTINE 14MG/24HR PATCH TRANSDERM SCH (07:59)
[2021-02-12] MEDS: MULTIVITAMINS, THERA 1 EACH TAB PO SCH (08:00)
[2021-02-12] MEDS: FLUoxetine HCL 20 MG CAP PO SCH (08:00)
[2021-02-12] MEDS: THIAMINE 100 MG TAB PO SCH (08:00)
[2021-02-12] MEDS: CEFDINIR 300 MG CAP PO SCH ×2 (08:00→20:27)
[2021-02-12 08:02] VITALS: BP 126/71; PULSE 60
[2021-02-12] MEDS ORDERED: ARIPiprazole 10 MG TAB PO SCH (09:00)
--- NOTE | 2021-02-12 11:36 | P.PN ---
Progress Note - Text Progress Note Date: 02/12/21 Interval History: Patient was seen in her room and was agreeable to speak with chief underwriter in her room. The patient's primary concern at this time is increased pain that she is feeling in her knees as well as her concerns for a urinary tract infection or sexually transmitted diseases. She is otherwise not reporting any suicidal or homicidal ideation, intention, and/or plan. She is not reporting auditory or visual hallucinations. She is denying any paranoia or other delusions. The patient states that she is not certain whether the medication is working or whether she is adjusting to the new medications. When asked to further define, the patient was unable to fully explain and is only providing vague responses as to whether she feels good or not." The patient does express a desire to go to rehabilitation for her substance abuse after this inpatient psychiatric a dmission. She does express that she has no home to go to upon discharge and states that she is waiting for [facility] to help her with finding placement. She was also informed that she is not likely to be admitted inpatient until they find her home and that she will likely be discharged to a jail. Mental Status Exam: General Appearance: Patient appears to be stated age is alert, directable, and cooperative. Slightly disheveled. Behavior: Patient is calmly seated without any agitated behavior. Eye contact is appropriate. Speech: Patient's speech is fluent and nonpressured. Mood/Affect: Mood is Im in pain. Affect is malaised but constricted. Suicidality/Homicidality: Patient does not report any suicidal or homicidal ideation and intention, and/or plan. Perceptions: Patient denies any visual hallucinations and denies any auditory hallucinations Though content/process: There is no evidence of any delusional thought content and thought process is linear and goal-directed. Fixation on somatic symptoms. Memory and concentration: AOX3, grossly intact for the purposes of this session Judgment and insight: Improving mildly Vital Signs Temp 97.1 F L 02/12/21 06:43 Pulse 60 02/12/21 08:00 Resp 18 02/12/21 06:43 BP 126/71 02/12/21 08:00 Pulse Ox 98 02/10/21 21:00 Assessment Major Depressive disorder, recurrent, severe with psychotic features. Rule out schizoaffective disorder. Alcohol use disorder, severe. Methamphetamine use disorder severe. Cocaine use disorder, severe. Post traumatic stress disorder. Unspecified anxiety disorder Plan: -Patient continues to meet criteria for inpatient psychiatric admission for symptom stabilization and safety. Patient has signed adult voluntary form and medication consent and was placed in patient's chart. -Medications: Continue Prozac 40 mg daily for PTSD/Depression/anxiety Gabapentin 400 mg by mouth 3 times a day her off label use for anxiety Increase Abilify to 15 mg by mouth daily for mood augmentation Trazodone 75 mg daily at bedtime when necessary for insomnia Prazosin 1 mg at bedtime for PTSD-related nightmares. Start lidocaine patch for pain. -When necessary Ativan and Haldol for agitation/aggression. -NRT - nicotine patch -SW on board for discharge planning. Encouraged the patient to participate in milieu.
[2021-02-12] MEDS: IBUPROFEN 600 MG TAB PO PRN ×2 (11:46→20:26)
[2021-02-12] MEDS: LIDOCAINE 5% PATCH TOPICAL SCH (12:34)
[2021-02-12] MEDS: PRAZOSIN 1 MG CAP PO SCH (20:27)
[2021-02-13] MEDS: traZODone HCL 50 MG TAB PO PRN ×2 (01:53→21:16)
[2021-02-13] MEDS: LIDOCAINE 5% PATCH TOPICAL SCH (08:47)
[2021-02-13] MEDS: THIAMINE 100 MG TAB PO SCH (08:48)
[2021-02-13] MEDS: ARIPiprazole 15 MG TAB PO SCH (08:48)
[2021-02-13] MEDS: MULTIVITAMINS, THERA 1 EACH TAB PO SCH (08:48)
[2021-02-13] MEDS: GABAPENTIN 400 MG CAP PO SCH ×3 (08:48→21:16)
[2021-02-13] MEDS: FLUoxetine HCL 20 MG CAP PO SCH (08:48)
[2021-02-13] MEDS: CEFDINIR 300 MG CAP PO SCH ×2 (08:49→21:16)
[2021-02-13] MEDS ORDERED: LIDOCAINE 5% PATCH TOPICAL SCH (09:00)
[2021-02-13] MEDS: NICOTINE 14MG/24HR PATCH TRANSDERM SCH (09:16)
--- NOTE | 2021-02-13 11:36 | P.PN ---
Progress Note - Text Progress Note Date: 02/13/21 Interval History: Patient was seen in her room and was agreeable to speak with copy writer in her room. The patient states that she is feeling overall much better. She does state that she has mild suicidal ideation but no intention or plan. Her primary concern is that she continues to have cravings for drugs. She states that she has recurring dreams of her using. She states that she did contact the access number and that she is working towards going back to rehabilitation at [place]. She is currently not reporting any auditory or visual hallucinations. She is denying any paranoia or other delusions. She reports no significant issues regarding her sleep or her appetite. She does state that her appetite has increased and is concerned that she will gain some weight. Mental Status Exam: General Appearance: Patient appears to be stated age is alert, directable, and cooperative. Slightly disheveled. Behavior: Patient is calmly seated without any agitated behavior. Eye contact is appropriate. Speech: Patient's speech is fluent and nonpressured. Mood/Affect: Mood is I'm okay Affect is euthymic and constricted. Suicidality/Homicidality: Patient endorses mild suicidal ideation or homicidal ideation, intention, and/or plan Perceptions: Patient denies any visual hallucinations and denies any auditory hallucinations Though content/process: There is no evidence of any delusional thought content and thought process is linear and goal-directed. Memory and concentration: AOX3, grossly intact for the purposes of this session Judgment and insight: Improving mildly Vital Signs Temp 97.1 F L 02/12/21 06:43 Pulse 60 02/12/21 08:00 Resp 18 02/12/21 06:43 BP 126/71 02/12/21 08:00 Pulse Ox 98 02/10/21 21:00 Assessment Major Depressive disorder, recurrent, severe with psychotic features. Rule out schizoaffective disorder. Alcohol use disorder, severe. Methamphetamine use disorder severe. Cocaine use disorder, severe. Post traumatic stress disorder. Unspecified anxiety disorder Plan: -Patient continues to meet criteria for inpatient psychiatric admission for symptom stabilization and safety. Patient has signed adult voluntary form and medication consent and was placed in patient's chart. -Medications: Continue Prozac 40 mg daily for PTSD/Depression/anxiety Gabapentin 400 mg by mouth 3 times a day her off label use for anxiety Continue Abilify 15 mg by mouth daily for mood augmentation Trazodone 75 mg daily at bedtime when necessary for insomnia Increase prazosin to 2 mg at bedtime for PTSD-related nightmares. Continue lidocaine patch for pain. -When necessary Ativan and Haldol for agitation/aggression. -NRT - nicotine patch -SW on board for discharge planning. Encouraged the patient to participate in milieu.
[2021-02-13] MEDS: PRAZOSIN 1 MG CAP PO SCH (21:16)
[2021-02-14] MEDS: THIAMINE 100 MG TAB PO SCH (08:30)
[2021-02-14] MEDS: MULTIVITAMINS, THERA 1 EACH TAB PO SCH (08:30)
[2021-02-14] MEDS: GABAPENTIN 400 MG CAP PO SCH ×3 (08:30→20:18)
[2021-02-14] MEDS: CEFDINIR 300 MG CAP PO SCH ×2 (08:30→20:17)
[2021-02-14] MEDS: FLUoxetine HCL 20 MG CAP PO SCH (08:30)
[2021-02-14] MEDS: ARIPiprazole 15 MG TAB PO SCH (08:30)
[2021-02-14] MEDS: NICOTINE 14MG/24HR PATCH TRANSDERM SCH (08:30)
[2021-02-14] MEDS: LIDOCAINE 5% PATCH TOPICAL SCH (08:31)
--- NOTE | 2021-02-14 12:01 | P.PN ---
Progress Note - Text Progress Note Date: 02/14/21 Interval History: Patient was seen wandering the hallways and was agreeable to speak with specification writer in the office. The patient reports that she is doing "okay." She is currently not reporting any suicidal or homicidal ideation, intention, and/or plan. She is not reporting any auditory or visual hallucinations. She continues endorse significant pain, particularly in her knees. The patient does express a strong desire to use. She says that she has intrusive thoughts and dreams of her order ing drugs and using drugs. She continues to express that she has a long- standing history of mood dysregulation and feeling sad or anxious. She states that these moods pushed her to use. Patient is particular concerned about her housing situation. This provider discussed with the patient at length that her primary issue is her substance use and that she needs to avoid play places contemplate things, and playmates that are associated with her substance use. He informed her that she is to focus on her sobriety and not so much her housing situation. The patient is scheduled to go to rehabilitation within the next few weeks. Mental Status Exam: General Appearance: Patient appears to be stated age is alert, directable, and cooperative. Slightly disheveled. Behavior: Patient is calmly seated without any agitated behavior. Eye contact is appropriate. Speech: Patient's speech is fluent and nonpressured. Mood/Affect: Mood is "doing okay." Affect is euthymic with appropriate range. Suicidality/Homicidality: Denies suicidal or homicidal ideation, intention, and/or plan. Perceptions: Patient denies any visual hallucinations and denies any auditory hallucinations Though content/process: There is no evidence of any delusional thought content and thought process is linear and goal-directed. Memory and concentration: AOX3, grossly intact for the purposes of this session Judgment and insight: Improving mildly Vital Signs Temp 97.1 F L 02/12/21 06:43 Pulse 60 02/12/21 08:00 Resp 18 02/12/21 06:43 BP 126/71 02/12/21 08:00 Pulse Ox 98 02/10/21 21:00 Assessment Major Depressive disorder, recurrent, severe with psychotic features. Rule out schizoaffective disorder. Alcohol use disorder, severe. Methamphetamine use disorder severe. Cocaine use disorder, severe. Post traumatic stress disorder. Unspecified anxiety disorder Plan: -Patient continues to meet criteria for inpatient psychiatric admission for symptom stabilization and safety. Patient has signed adult voluntary form and medication consent and was placed in patient's chart. -Medications: Continue Prozac 40 mg daily for PTSD/Depression/anxiety Gabapentin 400 mg by mouth 3 times a day her off label use for anxiety Increase abilify to 20 mg by mouth daily for mood augmentation Trazodone 75 mg daily at bedtime when necessary for insomnia Continue prazosin 2 mg at bedtime for PTSD-related nightmares. Continue lidocaine patch for pain. -When necessary Ativan and Haldol for agitation/aggression. -NRT - nicotine patch -SW on board for discharge planning. Encouraged the patient to participate in milieu.
[2021-02-14] MEDS: IBUPROFEN 600 MG TAB PO PRN ×2 (12:07→20:16)
[2021-02-14] MEDS: PRAZOSIN 1 MG CAP PO SCH (20:16)
[2021-02-14] MEDS: traZODone HCL 50 MG TAB PO PRN (20:17)
[2021-02-15] MEDS: IBUPROFEN 600 MG TAB PO PRN (06:57)
[2021-02-15] MEDS: NICOTINE 14MG/24HR PATCH TRANSDERM SCH (08:56)
[2021-02-15] MEDS: LIDOCAINE 5% PATCH TOPICAL SCH (08:56)
[2021-02-15] MEDS: GABAPENTIN 400 MG CAP PO SCH (08:56)
[2021-02-15] MEDS: MULTIVITAMINS, THERA 1 EACH TAB PO SCH (08:56)
[2021-02-15] MEDS: FLUoxetine HCL 20 MG CAP PO SCH (08:56)
[2021-02-15] MEDS: THIAMINE 100 MG TAB PO SCH (08:56)
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
== END 2021-02-15 11:41 | disposition home or self-care (01) | DRG 885 ==
LOC: EC 01:44 → 3MHU 04:30
PROVIDERS: ADMIT Psychiatry & Neurology Psychiatry; ATTEND Psychiatry & Neurology Psychiatry
DX: F33.2 Major depressive disorder, recurrent severe without psychotic features (principal); N39.0 Urinary tract infection, site not specified; Z16.24 Resistance to multiple antibiotics; F15.20 Other stimulant dependence, uncomplicated; F31.9 Bipolar disorder, unspecified; F43.10 Post-traumatic stress disorder, unspecified; G47.00 Insomnia, unspecified; G89.29 Other chronic pain; I10 Essential (primary) hypertension; J45.909 Unspecified asthma, uncomplicated; E66.01 Morbid (severe) obesity due to excess calories; M19.90 Unspecified osteoarthritis, unspecified site; G62.9 Polyneuropathy, unspecified; R32 Unspecified urinary incontinence; M54.30 Sciatica, unspecified side; Z59.0 Homelessness; Z79.899 Other long term (current) drug therapy; Z91.040 Latex allergy status; Z81.1 Family history of alcohol abuse and dependence; F17.200 Nicotine dependence, unspecified, uncomplicated; F12.90 Cannabis use, unspecified, uncomplicated
CPT/HCPCS: 80053; 80306; 81001; 82075; 83036; 84443; 85025; 87070; 87086; 87491; 87591; 87808; 99285

== ENCOUNTER 2021-03-03 09:06 | Emergency (ER) | payer MEDICARE, OTHER ==
[2021-03-03 09:11] VITALS: BP 130/78; PULSE 66; RESP 16; TEMP 98.4
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
[2021-03-03 09:51] LABS: Appearance,Urine Clear (Clear); Bacteria,Urine Rare /hpf; Bilirubin,Urine Negative (Negative); Blood,Urine Negative (Negative); Color,Urine Yellow; Glucose,Urine (UA) Negative (Negative); Ketones,Urine Negative (Negative); Leukocyte Esterase,Urine Trace (Negative); Mucus,Urine Rare /hpf; Nitrite,Urine Negative (Negative); Protein,Urine Negative (Negative); RBC,Urine <1 /hpf (0-5); Specific Gravity,Urine 1.022 (1.001-1.035); Squamous Epithelial Cell,Urine 2 /hpf (0-4); WBC,Urine 1 /hpf (0-5)
== END 2021-03-03 10:15 | disposition home or self-care (01) ==
LOC: EC 09:06
DX: T25.122A Burn of first degree of left foot, initial encounter (principal); I10 Essential (primary) hypertension; F17.200 Nicotine dependence, unspecified, uncomplicated; F31.9 Bipolar disorder, unspecified; F25.9 Schizoaffective disorder, unspecified; F41.9 Anxiety disorder, unspecified; Z79.899 Other long term (current) drug therapy; X10.0XXA Contact with hot drinks, initial encounter
CPT/HCPCS: 81001; 99283

== ENCOUNTER 2021-04-15 15:33 | Emergency (ER) | payer MEDICARE, OTHER ==
[2021-04-15 17:08] VITALS: RESP 20
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
--- NOTE | 2021-04-15 19:55 | XR ---
Result: History: Pain status post fall. Comparison: None available. Technique: 3 views of the lumbar spine. Findings: The bone mineralization is normal. Images of the lumbar spine demonstrate 5 lumbar-type vertebrae. There is no acute fracture or sublux ation. The vertebral body heights are grossly preserved. The vertebral elements are in anatomic ali gnment. There is multilevel mild disc height narrowing. There is moderate facet arthropathy in the l ower lumbar spine. Impression: Mild to moderate degenerative changes without acute osseous abnormality.
--- NOTE | 2021-04-15 19:59 | XR ---
Result: History: Pain status post fall. Comparison: None available. Technique: A single frontal radiograph of the pelvis was reviewed. 3 views of the sacrum/coccyx. Findings: No acute fracture or dislocation in the pelvis or sacrum/coccyx is seen. The visualized osseous stru ctures are in anatomic alignment. The hip joints are grossly preserved. Stable heterotopic ossificati on adjacent to the left inferior acetabulum. Sacroiliac joints and pubic symphysis are patent. Impression: No acute osseous abnormality of the pelvis or sacrum/coccyx. Chronic findings as above.
[2021-04-15] MEDS ORDERED: ACETAMINOPHEN TAB 500 MG TAB PO STA (20:12)
[2021-04-15 20:39] VITALS: BP 145/86; PULSE 68; TEMP 98.2
== END 2021-04-15 20:39 | disposition home or self-care (01) ==
LOC: EC 15:33
DX: M53.3 Sacrococcygeal disorders, not elsewhere classified (principal); M51.36 Other intervertebral disc degeneration, lumbar region; I10 Essential (primary) hypertension; G62.9 Polyneuropathy, unspecified; F31.9 Bipolar disorder, unspecified; F41.9 Anxiety disorder, unspecified; F25.9 Schizoaffective disorder, unspecified; F17.200 Nicotine dependence, unspecified, uncomplicated; W22.8XXA Striking against or struck by other objects, initial encounter
CPT/HCPCS: 72100; 72170; 72220; 99284

== ENCOUNTER 2021-05-08 23:36 | Emergency (ER) | payer MEDICARE, OTHER ==
[2021-05-09] MEDS ORDERED: DIAZEPAM 5 MG/ML 2 ML INJ IVP STA (00:49)
[2021-05-09] MEDS ORDERED: diphenhydrAMINE 50 MG/ML 1 ML VIAL IVP STA (00:49)
[2021-05-09] MEDS ORDERED: SODIUM CHLORIDE 0.9% 1,000 ML IV STA (00:49)
--- NOTE | 2021-05-09 00:52 | ED ---
Weakness HPI - General Chief complaint: Recheck/Abnormal Lab/Rx Stated complaint: feels itchy Time Seen by Provider: 05/08/21 23:55 Source: patient, RN notes reviewed, old records reviewed Mode of arrival: ambulatory Limitations: no limitations - History of Present Illness Initial comments: This is a 60-year-old female to the emergency department today. Patient Dese for evaluation regards to weakness not feeling well not sleeping well not eating well. She severe dehydration hunger. No significant medical history the patient states she is recently homeless, she has concern for diffuse body itching and malnourishment. Concern for liver disease and kidney disease. Concern for liver disease comes from history of hepatitis C MD Complaint: generalized weakness, lack of energy -: days(s) Location: generalized Severity: moderate Severity scale (1-10): 4 Quality: tingling, numbness Consistency: constant Improves with: none Worsens with: none Context: history of similar Associated Symptoms: confusion, loss of appetite, nausea/vomiting - Related Data Home Medications Medication Instructions Recorded Confirmed Acetaminophen [Tylenol 8 Hour] 650 mg PO Q8H PRN 05/24/21 05/24/21 Albuterol Sulfate [Ventolin HFA] 2 puff INHALATION RT-Q4H PRN 05/24/21 05/24/21 Diclofenac Sodium [Voltaren] 75 mg PO BID 05/24/21 05/24/21 Escitalopram [Lexapro] 10 mg PO DAILY 05/24/21 05/24/21 Nystatin 100,000 Unit/gm Powd 1 applic TOPICAL BID PRN 05/24/21 05/24/21 [Mycostatin Powder] Phentermine HCl [Adipex-P] 37.5 mg PO DAILY 05/24/21 05/24/21 Previous Rx's Medication Instructions Recorded Gabapentin [Neurontin] 400 mg PO TID 30 Days cap 02/15/21 Allergies Allergy/AdvReac Type Severity Reaction Status Date / Time ketorolac [From Toradol] Allergy Unknown Verified 05/25/21 12:50 latex Allergy Itching Verified 05/25/21 12:50 Review of Systems ROS Statement: Those systems with pertinent positive or pertinent negative responses have been documented in the HPI. ROS Other: All systems not noted in ROS Statement are negative. Past Medical History Past Medical History: Hypertension, Liver Disease, Musculoskeletal Disorder, Neurologic Disorder Additional Past Medical History / Comment(s): hep c, back pain, sciatica, neuro kavin, History of Any Multi-Drug Resistant Organisms: MRSA Date of last positivie culture/infection: 2006 MDRO Source:: face Past Surgical History: Orthopedic Surgery Additional Past Surgical History / Comment(s): lt ankle, D&C Past Anesthesia/Blood Transfusion Reactions: No Reported Reaction Past Psychological History: Anxiety, Bipolar, Depression, Schizoaffective Disorder, Schizophrenia Smoking Status: Current every day smoker Past Alcohol Use History: Daily Past Drug Use History: None Reported General Exam Limitations: no limitations General appearance: alert, in no apparent distress Head exam: Present: atraumatic, normocephalic, normal inspection Eye exam: Present: normal appearance, PERRL, EOMI. Absent: scleral icterus, conjunctival injection, periorbital swelling ENT exam: Present: normal exam, mucous membranes moist Neck exam: Present: normal inspection. Absent: tenderness, meningismus, lymphadenopathy Respiratory exam: Present: normal lung sounds bilaterally. Absent: respiratory distress, wheezes, rales, rhonchi, stridor Cardiovascular Exam: Present: regular rate, normal rhythm, normal heart sounds. Absent: systolic murmur, diastolic murmur, rubs, gallop, clicks GI/Abdominal exam: Present: soft, normal bowel sounds. Absent: distended, tenderness, guarding, rebound, rigid Extremities exam: Present: normal inspection, full ROM, normal capillary refill. Absent: tenderness, pedal edema, joint swelling, calf tenderness Back exam: Present: normal inspection Neurological exam: Present: alert, oriented X3, CN II-XII intact Psychiatric exam: Present: normal affect, normal mood Skin exam: Present: warm, dry, intact, normal color. Absent: rash Course Vital Signs 05/08/21 05/09/21 05/09/21 23:41 00:16 01:25 Temperature 98.6 F Pulse Rate 66 72 70 Respiratory 20 16 16 Rate Blood Pressure 158/87 119/70 119/71 O2 Sat by Pulse 100 98 Oximetry 05/09/21 05/09/21 02:56 05:46 Temperature 98.7 F Pulse Rate 77 74 Respiratory 15 16 Rate Blood Pressure 124/56 119/81 O2 Sat by Pulse 98 97 Oximetry - Reevaluation(s) Reevaluation #1: Medical record is reviewed Patient symptoms are improved here in the emergency department Patient is informed of results and questions are answered Medical Decision Making - Medical Decision Making 60 female who states he feels weak she feels that she she feels cold. Does admit to recent homelessness. Patient be she is malnourished dehydrated, she is has concern for both liver and kidney disease. Patient's tests are normal here in the ER she can be discharged home - Lab Data Result diagrams: 05/09/21 01:07 05/09/21 01:07 Lab Results 05/09/21 05/09/21 05/09/21 Range/Units 01:07 01:07 01:07 WBC 8.3 (3.8-10.6) k/uL RBC 4.94 (3.80-5.40) m/uL Hgb 15.4 (11.4-16.0) gm/dL Hct 44.1 (34.0-46.0) % MCV 89.3 (80.0-100.0) fL MCH 31.2 (25.0-35.0) pg MCHC 35.0 (31.0-37.0) g/dL RDW 12.3 (11.5-15.5) % Plt Count 366 (150-450) k/uL MPV 7.7 Neutrophils % 57 % Lymphocytes % 31 % Monocytes % 5 % Eosinophils % 5 % Basophils % 1 % Neutrophils # 4.8 (1.3-7.7) k/uL Lymphocytes # 2.6 (1.0-4.8) k/uL Monocytes # 0.4 (0-1.0) k/uL Eosinophils # 0.4 (0-0.7) k/uL Basophils # 0.0 (0-0.2) k/uL Sodium 136 L (137-145) mmol/L Potassium 4.2 (3.5-5.1) mmol/L Chloride 104 (98-107) mmol/L Carbon Dioxide 22 (22-30) mmol/L Anion Gap 10 mmol/L BUN 14 (7-17) mg/dL Creatinine 0.54 (0.52-1.04) mg/dL Est GFR (CKD-EPI)AfAm >90 (>60 ml/min/1.73 sqM) Est GFR (CKD-EPI)NonAf >90 (>60 ml/min/1.73 sqM) Glucose 94 (74-99) mg/dL Calcium 9.8 (8.4-10.2) mg/dL Phosphorus 5.2 H (2.5-4.5) mg/dL Magnesium 2.2 (1.6-2.3) mg/dL Total Bilirubin 0.6 (0.2-1.3) mg/dL AST 32 (14-36) U/L ALT 23 (4-34) U/L Alkaline Phosphatase 103 (38-126) U/L Troponin I <0.012 (0.000-0.034) ng/mL Total Protein 7.7 (6.3-8.2) g/dL Albumin 4.6 (3.5-5.0) g/dL Disposition Clinical Impression: Weakness Disposition: HOME SELF-CARE Condition: Good Instructions (If sedation given, give patient instructions): Weakness (ED) Is patient prescribed a controlled substance at d/c from ED?: No Referrals: Daisy Dos Santos MD [Primary Care Provider] - 1-2 days
[2021-05-09 01:52] LABS: Basophils % (A) 1 %; Eosinophils # (A) 0.4 k/uL (0-0.7); Eosinophils % (A) 5 %; HCT 44.1 % (34.0-46.0); HGB 15.4 gm/dL (11.4-16.0); Lymphocytes # (A) 2.6 k/uL (1.0-4.8); Lymphocytes % (A) 31 %; MCH 31.2 pg (25.0-35.0); MCV 89.3 fL (80.0-100.0); Mean Platelet Volume 7.7; Monocytes # (A) 0.4 k/uL (0-1.0); Monocytes % (A) 5 %; Neutrophils # (A) 4.8 k/uL (1.3-7.7); Neutrophils % (A) 57 %; Platelet Count 366 k/uL (150-450); RBC 4.94 m/uL (3.80-5.40); RDW 12.3 % (11.5-15.5); WBC 8.3 k/uL (3.8-10.6)
[2021-05-09 02:21] LABS: ALT 23 U/L (4-34); African American GFR (CKD) >90 (>60 ml/min/1.73 sqM); Albumin 4.6 g/dL (3.5-5.0); Anion Gap 10 mmol/L; Blood Urea Nitrogen 14 mg/dL (7-17); Calcium 9.8 mg/dL (8.4-10.2); Carbon Dioxide 22 mmol/L (22-30); Chloride 104 mmol/L (98-107); Glucose 94 mg/dL (74-99); Non-African American GFR(CKD) >90 (>60 ml/min/1.73 sqM); Sodium 136 mmol/L (137-145); Total Bilirubin 0.6 mg/dL (0.2-1.3); Total Protein 7.7 g/dL (6.3-8.2)
[2021-05-09 02:22] LABS: AST 32 U/L (14-36); Alkaline Phosphatase 103 U/L (38-126); Magnesium 2.2 mg/dL (1.6-2.3); Phosphorus 5.2 mg/dL (2.5-4.5); Potassium 4.2 mmol/L (3.5-5.1)
[2021-05-09 05:47] VITALS: BP 119/81; PULSE 74; RESP 16; TEMP 98.7
== END 2021-05-09 05:48 | disposition home or self-care (01) ==
LOC: EC 23:36
DX: R53.1 Weakness (principal); I10 Essential (primary) hypertension; F41.9 Anxiety disorder, unspecified; F31.9 Bipolar disorder, unspecified; F25.9 Schizoaffective disorder, unspecified; F17.200 Nicotine dependence, unspecified, uncomplicated; Z88.1 Allergy status to other antibiotic agents; Z91.040 Latex allergy status
CPT/HCPCS: 99284; 96374; 96375; 96361 ×4; 36415; 80053; 83735; 84100; 84484; 85025; J1200; J3360

== ENCOUNTER 2021-05-24 18:20 | Inpatient (IN) | payer MEDICARE, OTHER ==
--- NOTE | 2021-05-24 22:10 | ED ---
General Adult HPI - General Chief complaint: Psychiatric Symptoms Stated complaint: Mental Health Time Seen by Provider: 05/24/21 19:31 Source: patient, RN notes reviewed Mode of arrival: ambulatory Limitations: no limitations - History of Present Illness Initial comments: 60-year-old female presents to the emergency room for a chief complaint of depression. Patient states she has had increased depression lately. Patient states that this is because she has been arguing with family. She does at times feel suicidal, denies a plan. She also started drinking again and hasn't been taking her medications.Patient has no other complaints at this time including shortness of breath, chest pain, abdominal pain, nausea or vomiting, headache, or visual changes. - Related Data Previous Rx's Medication Instructions Recorded ARIPiprazole [Abilify] 20 mg PO DAILY 30 Days tab 02/15/21 FLUoxetine HCL [PROzac] 40 mg PO DAILY 30 Days cap 02/15/21 Gabapentin [Neurontin] 400 mg PO TID 30 Days cap 02/15/21 Nicotine 14Mg/24Hr Patch [Habitrol] 1 patch TRANSDERM DAILY 30 Days 02/15/21 patch Prazosin [Minipress] 2 mg PO HS 30 Days cap 02/15/21 traZODone HCL [Desyrel] 75 mg PO HS PRN 30 Days tab 02/15/21 Allergies Allergy/AdvReac Type Severity Reaction Status Date / Time ketorolac [From Toradol] Allergy Unknown Verified 05/08/21 23:41 latex Allergy Itching Verified 05/08/21 23:41 Review of Systems ROS Statement: Those systems with pertinent positive or pertinent negative responses have been documented in the HPI. ROS Other: All systems not noted in ROS Statement are negative. Past Medical History Past Medical History: Hypertension, Liver Disease, Musculoskeletal Disorder, Neurologic Disorder Additional Past Medical History / Comment(s): hep c, back pain, sciatica, neuropathy, History of Any Multi-Drug Resistant Organisms: MRSA Date of last positivie culture/infection: 2006 MDRO Source:: face Past Surgical History: Orthopedic Surgery Additional Past Surgical History / Comment(s): lt ankle, D&C Past Anesthesia/Blood Transfusion Reactions: No Reported Reaction Past Psychological History: Anxiety, Bipolar, Depression, Schizoaffective Disorder, Schizophrenia Smoking Status: Current every day smoker Past Alcohol Use History: Daily Past Drug Use History: None Reported General Exam Limitations: no limitations General appearance: alert, in no apparent distress Head exam: Present: atraumatic Eye exam: Present: normal appearance, PERRL, EOMI. Absent: scleral icterus ENT exam: Present: normal exam, mucous membranes moist Neck exam: Present: normal inspection, full ROM. Absent: tenderness Respiratory exam: Present: normal lung sounds bilaterally. Absent: respiratory distress, wheezes Cardiovascular Exam: Present: regular rate, normal rhythm, normal heart sounds Neurological exam: Present: alert Course Vital Signs 05/24/21 19:35 Temperature 98.5 F Pulse Rate 64 Respiratory 18 Rate Blood Pressure 124/68 O2 Sat by Pulse 100 Oximetry Medical Decision Making - Medical Decision Making She was evaluated by [facility], they will be admitting for suicidal ideation. - Lab Data Lab Results 05/24/21 Range/Units 22:12 Urine Opiates Screen Not Detected (NotDetected) Ur Oxycodone Screen Not Detected (NotDetected) Urine Methadone Screen Not Detected (NotDetected) Ur Propoxyphene Screen Not Detected (NotDetected) Ur Barbiturates Screen Not Detected (NotDetected) U Tricyclic Antidepress Not Detected (NotDetected) Ur Phencyclidine Scrn Not Detected (NotDetected) Ur Amphetamines Screen Detected H (NotDetected) U Methamphetamines Scrn Detected H (NotDetected) U Benzodiazepines Scrn Detected H (NotDetected) Urine Cocaine Screen Detected H (NotDetected) U Marijuana (THC) Screen Not Detected (NotDetected) Disposition Clinical Impression: Suicidal ideation Disposition: TRANSFER TO PSYCH HOSP/UNIT Is patient prescribed a controlled substance at d/c from ED?: No Referrals: Daisy Dos Santos MD [Primary Care Provider] - 1-2 days Time of Disposition: 23:05
[2021-05-24 22:53] LABS: Amphetamine Screen,Urine Detected (NotDetected); Barbiturate Screen,Urine Not Detected (NotDetected); Benzodiazepines Screen,Urine Detected (NotDetected); Cocaine Screen,Urine Detected (NotDetected); Methadone Screen, Urine Not Detected (NotDetected); Opiate Screen,Urine Not Detected (NotDetected); Oxycodone Screen, Urine Not Detected (NotDetected); Phencyclidine Screen,Urine Not Detected (NotDetected); Tricyclic Antidepressant,Urine Not Detected (NotDetected); Urn Cannabinoid Scrn Not Detected (NotDetected)
[2021-05-24] MEDS ORDERED: diphenhydrAMINE 50 MG CAP PO STA (23:20)
[2021-05-25] MEDS ORDERED: ACETAMINOPHEN TAB 325 MG TAB PO PRN (00:51)
[2021-05-25] MEDS ORDERED: MAGNESIUM HYDROXIDE 2,400 MG/10 ML CUP PO PRN (00:51)
[2021-05-25] MEDS ORDERED: MAG HYDROX/AL HYDROX/SIMETH 30 ML CUP PO PRN (00:51)
[2021-05-25] MEDS ORDERED: haloperidoL 5 MG TAB PO PRN (00:56)
[2021-05-25] MEDS ORDERED: HALOPERIDOL LACTATE 5 MG/ML 1 ML VIAL IM PRN (00:56)
[2021-05-25] MEDS ORDERED: ALBUTEROL HFA INHALER INHALATION PRN (04:00)
[2021-05-25] MEDS: NICOTINE 14MG/24HR PATCH TRANSDERM SCH (08:11)
[2021-05-25] MEDS: ETODOLAC 400 MG TAB PO SCH ×2 (08:11→21:46)
[2021-05-25] MEDS: ESCITALOPRAM 10 MG TAB PO SCH (08:12)
[2021-05-25] MEDS: GABAPENTIN 400 MG CAP PO SCH ×3 (08:12→21:45)
[2021-05-25] MEDS: ACETAMINOPHEN TAB 325 MG TAB PO PRN ×2 (08:12→18:37)
[2021-05-25] MEDS: NON FORMULARY DRUG (Phentermine Hcl [Adipex-P] 37.5 MG Tablet) PO SCH (08:14)
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
[2021-05-25] MEDS ORDERED: FLUTICASONE 50MCG/SPRAY NASAL 16GM EA NOSTRIL SCH (14:45)
[2021-05-25] MEDS ORDERED: PSEUDOEPHEDRINE 30 MG TAB PO ONE (14:47)
--- NOTE | 2021-05-25 14:58 | P.CONS ---
History of Present Illness - History of Present Illness This is a pleasant 60 years old female with past medical history of Hypertens ion, hepatitis C, chronic back pain and sciatica with neuropathy She she presents with signs and symptoms of severe major depression and suicidal thoughts. Patient says that she has lost to sons, and she feels depressed. She complains from runny nose and states that she has ALLERGIC rhinitis and seasonal also she smokes about 2 packs per day, she drinks alcohol but could not specify she states that she quit drinking for a while but 2 days ago she is back to drinking beer and liquor. She denies daily drinking to me. Also she denies using drugs however her urine drug screen was positive for marijuana, cocaine, amphetamines and methamphetamines. Patient denies chest pain or dyspnea or abdominal pain or nausea vomiting. No diarrhea. Review of Systems Review of systems CONSTITUTIONAL: No fever, no malaise, no fatigue. HEENT: No recent visual problems or hearing problems. Denied any sore throat. CARDIOVASCULAR: No orthopnea, PND, no palpitations, no syncope. PULMONARY: No shortness of breath, no cough, no hemoptysis. GASTROINTESTINAL: No diarrhea, no nausea, no vomiting, no abdominal pain. Normoactive bowel sounds. NEUROLOGICAL: No headaches, no weakness, no numbness. HEMATOLOGICAL: Denies any bleeding or petechiae. GENITOURINARY: Denies any burning micturition, frequency, or urgency. MUSCULOSKELETAL/RHEUMATOLOGICAL: Denies any joint pain, swelling, or any muscle pain. ENDOCRINE: Denies any polyuria or polydipsia. Past Medical History Past Medical History: Hypertension, Liver Disease, Musculoskeletal Disorder, Neurologic Disorder Additional Past Medical History / Comment(s): hep c, back pain, sciatica, neuropathy, History of Any Multi-Drug Resistant Organisms: MRSA Year Discovered:: 2006 MDRO Source:: face Past Surgical History: Orthopedic Surgery Additional Past Surgical History / Comment(s): lt ankle, D&C Past Anesthesia/Blood Transfusion Reactions: No Reported Reaction Past Psychological History: Anxiety, Bipolar, Depression, Schizoaffective Disorder, Schizophrenia Smoking Status: Current every day smoker Past Alcohol Use History: Daily Additional Past Alcohol Use History / Comment(s): quit drinking due to new meds for Hep C Past Drug Use History: None Reported Medications and Allergies Home Medications Medication Instructions Recorded Confirmed Type Gabapentin [Neurontin] 400 mg PO TID 30 Days cap 02/15/21 05/24/21 Rx Acetaminophen [Tylenol 8 Hour] 650 mg PO Q8H PRN 05/24/21 05/24/21 History Albuterol Sulfate [Ventolin HFA] 2 puff INHALATION RT-Q4H PRN 05/24/21 05/24/21 History Diclofenac Sodium [Voltaren] 75 mg PO BID 05/24/21 05/24/21 History Escitalopram [Lexapro] 10 mg PO DAILY 05/24/21 05/24/21 History Nystatin 100,000 Unit/gm Powd 1 applic TOPICAL BID PRN 05/24/21 05/24/21 History [Mycostatin Powder] Phentermine HCl [Adipex-P] 37.5 mg PO DAILY 05/24/21 05/24/21 History Allergies Allergy/AdvReac Type Severity Reaction Status Date / Time ketorolac [From Toradol] Allergy Unknown Verified 05/25/21 12:50 latex Allergy Itching Verified 05/25/21 12:50 Physical Exam Vitals: Vital Signs Temp Pulse Pulse Resp BP BP Pulse Ox 05/25/21 08:00 97.5 F L 68 18 131/71 05/25/21 01:42 98.0 F 59 L 18 123/66 96 05/24/21 19:35 98.5 F 64 18 124/68 100 Intake and Output 05/24/21 05/25/21 05/25/21 22:59 06:59 14:59 Other: Weight 81.647 kg 81.647 kg GENERAL: The patient is alert and oriented x3, not in any acute distress. Well developed, well nourished. -HEENT: Pupils are round and equally reacting to light. EOMI. No scleral icterus. No conjunctival pallor. Normocephalic, atraumatic. No pharyngeal erythema. No thyromegaly. No sinus tenderness CARDIOVASCULAR: S1 and S2 present. No murmurs, rubs, or gallops. PULMONARY: Chest is clear to auscultation, no wheezing or crackles. ABDOMEN: Soft, nontender, nondistended, normoactive bowel sounds. No palpable organomegaly. MUSCULOSKELETAL: No joint swelling or deformity. EXTREMITIES: No cyanosis, clubbing, or pedal edema. NEUROLOGICAL: Gross neurological examination did not reveal any focal deficits. SKIN: No rashes. no petechiae. Results Labs: Abnormal Lab Results - Last 24 Hours (Table) 05/24/21 Range/Units 22:12 Ur Amphetamines Screen Detected H (NotDetected) U Methamphetamines Scrn Detected H (NotDetected) U Benzodiazepines Scrn Detected H (NotDetected) Urine Cocaine Screen Detected H (NotDetected) Assessment and Plan Assessment: - Depression , suicidal ideation and other psychiatric illnesses, management as per the medical center primary team - ALLERGIC rhinitis, pseudo-ephedrine 1, continue with Benadryl or Claritin when necessary - Nicotine dependence: Patient is counseled, she is on nicotine patch already - History of hepatitis C, follow-up as an outpatient - History of hypertension, currently she is not on antihypertensive medication at home and her blood pressure is controlled - chronic back pain and sciatica with neuropathy, on gabapentin - Substance abuse including marijuana, cocaine, methamphetamine, patient was consulted to quit. And as per primary team on the case of - vague h/o alcohol abuse, start thiamine, Ativan as needed and consider CIWA protocol if she develops signs of withdrawal We recommend patient follow up with PCP Dr. Dos Santos in 1 week after discharge, patient was instructed with the same Thank you for consulting us, we will see the patient on as needed basis. These feel free to contact us for any further question or clarification
[2021-05-25] MEDS: THIAMINE 100 MG TAB PO SCH (15:54)
[2021-05-25] MEDS: diphenhydrAMINE 25 MG CAP PO PRN (21:45)
[2021-05-25] MEDS: PALIPERIDONE 3 MG TAB.ER.24 PO SCH (21:46)
[2021-05-26 07:13] LABS: Basophils % (A) 0 %; Eosinophils # (A) 0.4 k/uL (0-0.7); Eosinophils % (A) 3 %; HCT 44.1 % (34.0-46.0); HGB 14.3 gm/dL (11.4-16.0); Lymphocytes # (A) 1.5 k/uL (1.0-4.8); Lymphocytes % (A) 11 %; MCH 29.7 pg (25.0-35.0); MCHC 32.5 g/dL (31.0-37.0); MCV 91.6 fL (80.0-100.0); Mean Platelet Volume 7.4; Monocytes # (A) 0.7 k/uL (0-1.0); Monocytes % (A) 5 %; Neutrophils # (A) 10.8 k/uL (1.3-7.7); Neutrophils % (A) 80 %; Platelet Count 284 k/uL (150-450); RBC 4.82 m/uL (3.80-5.40); RDW 11.8 % (11.5-15.5); WBC 13.5 k/uL (3.8-10.6)
[2021-05-26 07:29] LABS: ALT 19 U/L (4-34); AST 21 U/L (14-36); African American GFR (CKD) 90 (>60 ml/min/1.73 sqM); Albumin 4.1 g/dL (3.5-5.0); Alkaline Phosphatase 108 U/L (38-126); Anion Gap 9 mmol/L; Blood Urea Nitrogen 14 mg/dL (7-17); Calcium 9.2 mg/dL (8.4-10.2); Carbon Dioxide 26 mmol/L (22-30); Chloride 105 mmol/L (98-107); Glucose 99 mg/dL (74-99); Non-African American GFR(CKD) 78 (>60 ml/min/1.73 sqM); Potassium 4.6 mmol/L (3.5-5.1); Sodium 140 mmol/L (137-145); Total Bilirubin 0.5 mg/dL (0.2-1.3); Total Protein 7.1 g/dL (6.3-8.2)
[2021-05-26] MEDS: ACETAMINOPHEN TAB 325 MG TAB PO PRN (08:32)
[2021-05-26] MEDS: NICOTINE 14MG/24HR PATCH TRANSDERM SCH (08:32)
[2021-05-26] MEDS: GABAPENTIN 400 MG CAP PO SCH ×3 (08:33→21:08)
[2021-05-26] MEDS: ESCITALOPRAM 10 MG TAB PO SCH (08:33)
[2021-05-26] MEDS: THIAMINE 100 MG TAB PO SCH (08:33)
[2021-05-26] MEDS: ETODOLAC 400 MG TAB PO SCH ×2 (08:33→21:07)
[2021-05-26] MEDS: diphenhydrAMINE 25 MG CAP PO PRN ×2 (08:35→21:09)
[2021-05-26] MEDS: NON FORMULARY DRUG (Phentermine Hcl [Adipex-P] 37.5 MG Tablet) PO SCH (09:15)
--- NOTE | 2021-05-26 11:35 | P.PN ---
Progress Note - Text Progress Note Date: 05/26/21 Interval History: Patient was seen sitting in on group this morning and was directable and agree able to speak with creative services writer in the office. Patient appears to have mild improvement in her hygiene and grooming today. She claims that she is feeling mild improvement in her anxiety and depression today. She was perseverating on her suicidal thoughts before coming into the hospital and seemed to be exaggerating them at times. She claims that she was able to sleep better last night and is denying any auditory hallucinations today. She states that she is having mild improvement in her mood stabilization. She claims that her appetite has been fair. She claims that she was able to sleep throughout the night last night. At this time patient denies any suicidal or homical ideations, intent or plan. Patient denies any auditory, visual hallucinations and denies any paranoia or delusions. Patient denies any side effects from the medications and has been compliant with meds. Mental Status Exam: General Appearance: Patient appears to be overweight, stated older than age is alert, directable, and attempts to cooperate. Patient appears to have improving hygiene and grooming. Behavior: Patient is seated without any agitated behavior. Eye contact is appropriate. Speech: Patient's speech is fluent and nonpressured. Mood/Affect: Patient reports their mood is depressed, improving mildly, affect is congruent and constricted Suicidality/Homicidality: Patient denies any current homicidal ideation, intention, and/or plan. She denies any current suicidal ideations however no intent or plan. Perceptions: Patient denies any visual hallucinations and does endorse auditory hallucinations. Though content/process: Patient does not endorse delusions or paranoia. goal oriented. exagerrating some symtp[oms. Memory and concentration: AOX3, grossly intact for the purposes of this session. Judgment and insight: chronically poor Assessment Major Depressive disorder, recurrent, severe with psychotic features. history of alcohol use disorder Methamphetamine use disorder severe. Post traumatic stress disorder. nicotine dependence. homelessness. Plan: -Patient continues to meet criteria for inpatient psychiatric admission for symptom stabilization and safety. Patient has signed adult voluntary form and medication consent and was placed in patient's chart. -Medications: Increase Lexapro to 10 mg daily for PTSD slide depression. Invega 3 mg qhs for psychosis/mood stabilizaiton. -When necessary Ativan and Haldol for agitation/aggression. -NRT - nicotine patch -SW on board for discharge planning. Encouraged the patient to participate in milieu. likely discharge early this week.
[2021-05-26 11:45] LABS: Chol/HDL Ratio 3.29 Ratio; LDL Cholesterol,Calculated 100.4 mg/dL (0.0-131.0)
[2021-05-26] MEDS: guaiFENesin SYRUP 100MG/5ML 200 MG/10 ML CUP PO PRN (18:25)
[2021-05-26] MEDS: PALIPERIDONE 3 MG TAB.ER.24 PO SCH (21:08)
[2021-05-27] MEDS: ETODOLAC 400 MG TAB PO SCH ×2 (08:37→20:45)
[2021-05-27] MEDS: ESCITALOPRAM 20 MG TAB PO SCH (08:37)
[2021-05-27] MEDS: NICOTINE 14MG/24HR PATCH TRANSDERM SCH (08:37)
[2021-05-27] MEDS: NON FORMULARY DRUG (Phentermine Hcl [Adipex-P] 37.5 MG Tablet) PO SCH (08:38)
[2021-05-27] MEDS: THIAMINE 100 MG TAB PO SCH (08:39)
[2021-05-27] MEDS: GABAPENTIN 400 MG CAP PO SCH ×3 (08:40→20:45)
[2021-05-27] MEDS: diphenhydrAMINE 25 MG CAP PO PRN ×2 (09:20→20:47)
[2021-05-27] MEDS: guaiFENesin SYRUP 100MG/5ML 200 MG/10 ML CUP PO PRN ×2 (09:20→18:25)
--- NOTE | 2021-05-27 10:23 | P.PN ---
Progress Note - Text Progress Note Date: 05/27/21 Interval History: Patient was seen sitting in on group this morning and was directable and agree able to speak with loan underwriter in the office. Patient appears to have mild improvement in her hygiene and grooming today. She claims that she is still feeling "stuffy" from her cold and was complaining of some cough and congestion. She continues to perseverate on not having proper housing and is chronically homeless. She states that she has been thinking alot about this and is making her feel depressed. She spoke about her [facility] case workers not helping her enough to find housing. She claims that she is feeling mild improvement in her anxiety and depression today. She claims that she was able to sleep better last night and is denying any auditory hallucinations today. She claims that her appetite has been fair. At this time patient denies any suicidal or homical ideations, intent or plan. Patient denies any auditory, visual hallucinations and denies any paranoia or delusions. Patient denies any side effects from the medications and has been compliant with meds. Mental Status Exam: General Appearance: Patient appears to be overweight, stated older than age is alert, directable, and attempts to cooperate. Patient appears to have improving hygiene and grooming. Behavior: Patient is seated without any agitated behavior. Eye contact is appropriate. Speech: Patient's speech is fluent and nonpressured. Mood/Affect: Patient reports their mood is depressed, improving mildly, affect is congruent and constricted Suicidality/Homicidality: Patient denies any current homicidal ideation, intention, and/or plan. She denies any current suicidal ideations however no intent or plan. Perceptions: Patient denies any visual hallucinations and does endorse auditory hallucinations. Though content/process: Patient does not endorse delusions or paranoia. goal oriented. exagerrating some symptoms at times. Memory and concentration: AOX3, grossly intact for the purposes of this session. Judgment and insight: chronically poor, improving mildly Assessment Major Depressive disorder, recurrent, severe with psychotic features. history of alcohol use disorder Methamphetamine use disorder severe. Post traumatic stress disorder. nicotine dependence. homelessness. Plan: -Patient continues to meet criteria for inpatient psychiatric admission for symptom stabilization and safety. Patient has signed adult voluntary form and medication consent and was placed in patient's chart. -Medications: continue with Lexapro 20 mg daily for PTSD slide depression. increase Invega 6 mg qhs for psychosis/mood stabilizaiton. -When necessary Ativan and Haldol for agitation/aggression. -NRT - nicotine patch -SW on board for discharge planning. Encouraged the patient to participate in milieu. likely discharge in 1-2 days. Will check in with [facility] and SW about the housing situation.
[2021-05-27] MEDS: ACETAMINOPHEN TAB 325 MG TAB PO PRN (16:02)
[2021-05-27] MEDS: PALIPERIDONE 6 MG TAB.ER.24 PO SCH (20:45)
[2021-05-28] MEDS: ETODOLAC 400 MG TAB PO SCH ×2 (08:12→21:12)
[2021-05-28] MEDS: NICOTINE 14MG/24HR PATCH TRANSDERM SCH (08:14)
[2021-05-28] MEDS: ESCITALOPRAM 20 MG TAB PO SCH (08:14)
[2021-05-28] MEDS: NON FORMULARY DRUG (Phentermine Hcl [Adipex-P] 37.5 MG Tablet) PO SCH (08:14)
[2021-05-28] MEDS: THIAMINE 100 MG TAB PO SCH (08:14)
[2021-05-28] MEDS: GABAPENTIN 400 MG CAP PO SCH ×3 (08:14→21:13)
[2021-05-28] MEDS: diphenhydrAMINE 25 MG CAP PO PRN (08:15)
[2021-05-28] MEDS: guaiFENesin SYRUP 100MG/5ML 200 MG/10 ML CUP PO PRN (08:15)
--- NOTE | 2021-05-28 10:23 | P.PN ---
Progress Note - Text Progress Note Date: 05/28/21 Interval History: Patient was seen sitting in on group this morning and was directable and agree able to speak with contract technical writer in the office. Patient appears to have mild improvement in her overall symptoms. She coninues to complain of having congestion and dry nose and states that she is feeling overwhelmed by feeling ill and requested to be placed on an abx. She states that she is still concerned about her living situation. She was offered rehab today however refused it due to previous poor experiences at . She states that her mood and anxiety have been gradually improving. She states that [facility] feels [facility] caseworkers have not been helping her enough. She claims that she was able to sleep better last night and is claims that her auditory hallucinations have been improving today. She claims that her appetite has been fair. At this time patient denies any suicidal or homical ideations, intent or plan. Patient denies any auditory, visual hallucinations and denies any paranoia or delusions. Patient denies any side effects from the medications and has been compliant with meds. Mental Status Exam: General Appearance: Patient appears to be overweight, stated older than age is alert, directable, and attempts to cooperate. Patient appears to have improving hygiene and grooming. Behavior: Patient is seated without any agitated behavior. Eye contact is appropriate. Speech: Patient's speech is fluent and nonpressured. Mood/Affect: Patient reports their mood is improving mildly, affect is congruent and constricted Suicidality/Homicidality: Patient denies any current homicidal ideation, intention, and/or plan. She denies any current suicidal ideations however no intent or plan. Perceptions: Patient denies any visual hallucinations and does endorse auditory hallucinations. Though content/process: Patient does not endorse delusions or paranoia. goal oriented. focused on her congestion and feeling ill Memory and concentration: AOX3, grossly intact for the purposes of this session. Judgment and insight: chronically poor, improving mildly Assessment Major Depressive disorder, recurrent, severe with psychotic features. history of alcohol use disorder Methamphetamine use disorder severe. Post traumatic stress disorder. nicotine dependence. homelessness. Plan: -Patient continues to meet criteria for inpatient psychiatric admission for symptom stabilization and safety. Patient has signed adult voluntary form and medication consent and was placed in patient's chart. -Medications: continue with Lexapro 20 mg daily for PTSD slide depression, Invega 6 mg qhs for psychosis/mood stabilizaiton. -added pseudophed and nasal saline gel prn for congestion and dry nose. -When necessary Ativan and Haldol for agitation/aggression. -NRT - nicotine patch -SW on board for discharge planning. Encouraged the patient to participate in milieu. likely discharge in 1-2 days. Will check in with [facility] and SW about the housing situation. Patient is refusing substance rehab at this time.
[2021-05-28] MEDS: PSEUDOEPHEDRINE 30 MG TAB PO PRN ×2 (11:55→21:12)
[2021-05-28] MEDS: SALINE NASAL GEL 14.1 GM TUBE NASAL PRN ×2 (11:55→21:13)
[2021-05-28] MEDS: PALIPERIDONE 6 MG TAB.ER.24 PO SCH (21:13)
[2021-05-29] MEDS: LORazepam 1 MG TAB PO PRN (01:02)
[2021-05-29 01:05] VITALS: PULSE 72; RESP 14
[2021-05-29] MEDS: THIAMINE 100 MG TAB PO SCH (08:20)
[2021-05-29] MEDS: ETODOLAC 400 MG TAB PO SCH ×2 (08:20→20:52)
[2021-05-29] MEDS: NICOTINE 14MG/24HR PATCH TRANSDERM SCH (08:20)
[2021-05-29] MEDS: GABAPENTIN 400 MG CAP PO SCH ×3 (08:20→20:52)
[2021-05-29] MEDS: ESCITALOPRAM 20 MG TAB PO SCH (08:20)
--- NOTE | 2021-05-29 10:38 | P.PN ---
Progress Note - Text Progress Note Date: 05/29/21 Interval History: Patient was seen laying in her bed this morning and was agreeable to speak to selling underwriter.. Patient appears to have mild improvement in her overall symptoms. She coninues to complain of having congestion and is requesting to be placed on an antibiotic and to see her primary care doctor today. She continues to focus on her living situation and claims that [facility] is not helping her enough. She states that the shelters are not accepting her at this time and she does not want to be homeless any longer. She claims that her mood is "fine" and is denying any depression today. She claims that she did not sleep well last night due to her sinuses. She claims that the auditory hallucinations have been improving. She claims that her appetite has been fair. At this time patient denies any suicidal or homical ideations, intent or plan. Patient denies any auditory, visual hallucinations and denies any paranoia or delusions. Patient denies any side effects from the medications and has been compliant with meds. Mental Status Exam: General Appearance: Patient appears to be overweight, stated older than age is alert, directable, and attempts to cooperate. Patient appears to have improving hygiene and grooming. Behavior: Patient is seated without any agitated behavior. Eye contact is appropriate. Speech: Patient's speech is fluent and nonpressured. Mood/Affect: Patient reports their mood is improving mildly, affect is congruent and constricted Suicidality/Homicidality: Patient denies any current homicidal ideation, intention, and/or plan. She denies any current suicidal ideations however no intent or plan. Perceptions: Patient denies any visual hallucinations and does endorse auditory hallucinations. Though content/process: Patient does not endorse delusions or paranoia. goal oriented. focused on her congestion and feeling ill. exaggerating her sx. Memory and concentration: AOX3, grossly intact for the purposes of this session. Judgment and insight: chronically poor, improving mildly Assessment Major Depressive disorder, recurrent, severe with psychotic features. history of alcohol use disorder Methamphetamine use disorder severe. Post traumatic stress disorder. nicotine dependence. homelessness. Plan: -Patient continues to meet criteria for inpatient psychiatric admission for symptom stabilization and safety. Patient has signed adult voluntary form and medication consent and was placed in patient's chart. -Medications: continue with Lexapro 20 mg daily for PTSD/depression, Invega 6 mg qhs for psychosis/mood stabilizaiton. -added pseudophed and nasal saline gel prn for congestion and dry nose. -When necessary Ativan and Haldol for agitation/aggression. -NRT - nicotine patch -SW on board for discharge planning. Encouraged the patient to participate in milieu. likely discharge tomorrow. Will check in with [facility] and SW about the housing situation. Patient is refusing substance rehab at this time.
[2021-05-29] MEDS: guaiFENesin SYRUP 100MG/5ML 200 MG/10 ML CUP PO PRN (11:02)
[2021-05-29] MEDS: PSEUDOEPHEDRINE 30 MG TAB PO PRN ×2 (11:02→23:22)
[2021-05-29] MEDS: DOXYCYCLINE 100 MG CAP PO SCH ×2 (15:05→23:21)
[2021-05-29] MEDS: ACETAMINOPHEN TAB 325 MG TAB PO PRN (15:06)
[2021-05-29] MEDS: PALIPERIDONE 6 MG TAB.ER.24 PO SCH (20:52)
[2021-05-30] MEDS: LORazepam 1 MG TAB PO PRN ×2 (00:59→09:34)
[2021-05-30 01:03] VITALS: BP 125/76; TEMP 97.5
[2021-05-30] MEDS: ESCITALOPRAM 20 MG TAB PO SCH (08:17)
[2021-05-30] MEDS: THIAMINE 100 MG TAB PO SCH (08:17)
[2021-05-30] MEDS: DOXYCYCLINE 100 MG CAP PO SCH (08:17)
[2021-05-30] MEDS: ETODOLAC 400 MG TAB PO SCH (08:17)
[2021-05-30] MEDS: GABAPENTIN 400 MG CAP PO SCH (08:18)
[2021-05-30] MEDS: NICOTINE 14MG/24HR PATCH TRANSDERM SCH (08:19)
--- NOTE | 2021-05-30 10:25 | P.DS ---
Providers Date of admission: 05/25/21 00:18 Expected date of discharge: 05/30/21 Attending physician: Chauncey Chen MD Consults: 05/25/21 00:51 Consult Physician Routine Consulting Provider: Raya Trujillo Consult Reason/Comments: h and p Do you want consulting provider notified?: Yes, Notify in am Primary care physician: Daisy Dos Santos - Discharge Diagnosis(es) (1) Major depressive disorder, recurrent severe without psychotic features Current Visit: Yes Status: Acute Priority: High (2) History of alcohol use disorder Current Visit: Yes Status: Acute Priority: Medium (3) Methamphetamine abuse Current Visit: Yes Status: Acute Priority: High (4) Post traumatic stress disorder Current Visit: Yes Status: Acute Priority: High (5) Nicotine dependence Current Visit: Yes Status: Acute Priority: Low (6) Homelessness Current Visit: Yes Status: Acute Priority: High Hospital Course: Admission HPI: Admission note was completed by teletypewriter operator "Patient is a 60-year-old female , who presented to the emergency department for psychiatric evaluation. chronically homeless. Patient presented to the hospital initially yesterday at nighttime complaining of depression and suicidal thoughts. Patient has a long history of repeated psychiatric hospitalizations for PTSD, depression and anxiety and polysubstance abuse. Patient was found to have a UDS which was positive for amphetamines, methamphetamine, benzodiazepines and cocaine. Patient was seen today by teletypewriter operator and agreeable to speak. She appears to be disheveled and rambled about several different stressors in her life. She spoke about having depression and stopping her psychiatric medications several months ago. She states that she did not follow-up at [facility] and does not know why. She was fairly vague and evasive during the conversation. She spoke about her having anger and irritability and "harmful thoughts". She also states that she has been hearing voices which are negative towards her. She spoke about being chronically homeless and not feeling well. She also spoke about a boyfriend that she had that she caught cheating on him. She claims that she has been using methamphetamine several times a day for the past several weeks now and also abusing adipex. She does endorse a history of speed, methamphetamine, crack cocaine use. Patient has been to rehabilitation numerous times and is unable to recall how many times exactly. She claims that she has been having poor sleep lately. She reports the longest that she has ever been sober was for 1 year, during which time she was attending meetings regularly. She is admitting to ongoing SI however no plan or intent. She denies any HI. She denies any VH." Hospital course: Upon admission to the unit patient was directable and agreeable to commence neyda tment and signed adult voluntary form. Patient got along well with other patients on the unit and followed unit protocol. Patient was compliant with the medications and denied any side effects throughout hospital course. Patient was started on Lexapro and titrated up to dose of 20 mg daily for mood/anxiety, paliperidone titrated up to a dose of 6 mg daily at bedtime for psychosis/mood stabilization. Patient spoke of her stressors and engaged in therapy both group and individual. Patient was also seen by medical team for history and physical exam. Patient was started on prn cold medications and also doxycycline abx for her cold by internal medicine. Throughout the course of the hospitalization patient gradually improved with regards to mood, anxiety, sleep and returned back to their baseline level of functioning. On the day of discharge patient denied any suicidal or homicidal ideations intent or plan denied any auditory or visual hallucinations. Patient endorsed wanting to live for her health and her future. The patient denied any access to guns or weapons. Patient denied any paranoia and did not endorse any delusions. Patient does have a significant history of substance abuse and was counseled on abstaining from all substances including alcohol and marijuana. Patient was offered however declined inpatient substance-abuse rehab. Patient was also counseled on the medications and need for regular compliance and was encouraged to follow-up with their outpatient appointment for mental health and also for primary care. Patient was offered to go to rehab and also different shelters however patients payee will be giving patient money to stay at a motel. Mental status exam: General Appearance: Patient appears to be overweight, stated age is alert, pleasant, and cooperative. Patient is in no acute distress and has improved hygiene and grooming Behavior: Patient is calmly seated without any agitated behavior. Speech: Patient's speech is fluent and nonpressured. Mood/Affect: Patient reports their mood is "better", affect is congruent and euthymic. Suicidality/Homicidality: Patient denies having any suicidal or homicidal ideation intent or plan. Perceptions: Patient denies any auditory or visual hallucinations. Though content/process: There is no evidence of any delusional thought content and thought process is linear and goal-directed. Memory and concentration: AOX3, grossly intact for the purposes of this session. Can spell "WORLD" backwards correctly. Judgment and insight: chronically poor, however has improved with guarded prognosis Impression: Major depressive disorder, recurrent, severe with psychotic features History of alcohol use disorder Methamphetamine abuse Posttraumatic stress disorder Homelessness Nicotine dependence Plan: -Continue with discharge today as patient has improved and stabilized psychiatrically and is not currently an imminent threat to herself and/or others. Patient will remain at chronically elevated risk for harm to self and/or others due to her impulsivity and polysubstance abuse. -Continue medications: Paliperidone 6 mg daily at bedtime for mood stabilization/psychosis, Lexapro 20 mg daily for depression/anxiety -Patient was counseled on the need for medication compliance and appropriate follow-up at mental health and also primary care for medical issues. Patient verbalized understanding and agreed. -Social work to arrange for and conduct family meeting to ensure safety upon discharge and answer any questions/concerns. Social work also to arrange for patients follow up appointments with [facility] for psychiatric care along with follow up with primary care provider. -Patient counseled on abstaining from recreational drugs and marijuana and alcohol. Was informed/educated on the adverse effects on their physical and mental health. Patient verbally agreed and understood. Patient was offered substance abuse treatment however declined at this time. -Patient was instructed to return to the hospital or seek immediate medical care if their psychiatric or medical symptoms do worsen or reoccur. Allergies Allergy/AdvReac Type Severity Reaction Status Date / Time ketorolac [From Toradol] Allergy Unknown Verified 05/25/21 12:50 latex Allergy Itching Verified 05/25/21 12:50 Laboratory Results WBC 13.5 k/uL (3.8-10.6) H 05/26/21 06:49 RBC 4.82 m/uL (3.80-5.40) 05/26/21 06:49 Hgb 14.3 gm/dL (11.4-16.0) 05/26/21 06:49 Hct 44.1 % (34.0-46.0) 05/26/21 06:49 MCV 91.6 fL (80.0-100.0) 05/26/21 06:49 MCH 29.7 pg (25.0-35.0) 05/26/21 06:49 MCHC 32.5 g/dL (31.0-37.0) 05/26/21 06:49 RDW 11.8 % (11.5-15.5) 05/26/21 06:49 Plt Count 284 k/uL (150-450) 05/26/21 06:49 MPV 7.4 05/26/21 06:49 Neutrophils % 80 % 05/26/21 06:49 Lymphocytes % 11 % 05/26/21 06:49 Monocytes % 5 % 05/26/21 06:49 Eosinophils % 3 % 05/26/21 06:49 Basophils % 0 % 05/26/21 06:49 Neutrophils # 10.8 k/uL (1.3-7.7) H 05/26/21 06:49 Lymphocytes # 1.5 k/uL (1.0-4.8) 05/26/21 06:49 Monocytes # 0.7 k/uL (0-1.0) 05/26/21 06:49 Eosinophils # 0.4 k/uL (0-0.7) 05/26/21 06:49 Basophils # 0.0 k/uL (0-0.2) 05/26/21 06:49 Sodium 140 mmol/L (137-145) 05/26/21 06:49 Potassium 4.6 mmol/L (3.5-5.1) 05/26/21 06:49 Chloride 105 mmol/L (98-107) 05/26/21 06:49 Carbon Dioxide 26 mmol/L (22-30) 05/26/21 06:49 Anion Gap 9 mmol/L 05/26/21 06:49 BUN 14 mg/dL (7-17) 05/26/21 06:49 Creatinine 0.83 mg/dL (0.52-1.04) 05/26/21 06:49 Est GFR (CKD-EPI)AfAm 90 (>60 ml/min/1.73 sqM) 05/26/21 06:49 Est GFR (CKD-EPI)NonAf 78 (>60 ml/min/1.73 sqM) 05/26/21 06:49 Glucose 99 mg/dL (74-99) 05/26/21 06:[address] Glu mg/dL 105 05/26/21 06:49 Hemoglobin A1c 5.3 % (4.0-6.0) 05/26/21 06:49 Calcium 9.2 mg/dL (8.4-10.2) 05/26/21 06:49 Total Bilirubin 0.5 mg/dL (0.2-1.3) 05/26/21 06:49 AST 21 U/L (14-36) 05/26/21 06:49 ALT 19 U/L (4-34) 05/26/21 06:49 Alkaline Phosphatase 108 U/L (38-126) 05/26/21 06:49 Total Protein 7.1 g/dL (6.3-8.2) 05/26/21 06:49 Albumin 4.1 g/dL (3.5-5.0) 05/26/21 06:49 Triglycerides 100.00 mg/dL (0.00-149.00) 05/26/21 06:49 Cholesterol 173.00 mg/dL (0.00-200.00) 05/26/21 06:49 LDL Cholesterol, Calc 100.4 mg/dL (0.0-131.0) 05/26/21 06:49 VLDL Cholesterol, Calc 20.00 mg/dL (5.00-40.00) 05/26/21 06:49 HDL Cholesterol 52.60 mg/dL (40.00-60.00) 05/26/21 06:49 Cholesterol/HDL Ratio 3.29 Ratio 05/26/21 06:49 TSH 0.917 mIU/L (0.465-4.680) 05/26/21 06:49 Urine Opiates Screen Not Detected (NotDetected) 05/24/21 22:12 Ur Oxycodone Screen Not Detected (NotDetected) 05/24/21 22:12 Urine Methadone Screen Not Detected (NotDetected) 05/24/21 22:12 Ur Propoxyphene Screen Not Detected (NotDetected) 05/24/21 22:12 Ur Barbiturates Screen Not Detected (NotDetected) 05/24/21 22:12 U Tricyclic Antidepress Not Detected (NotDetected) 05/24/21 22:12 Ur Phencyclidine Scrn Not Detected (NotDetected) 05/24/21 22:12 Ur Amphetamines Screen Detected (NotDetected) H 05/24/21 22:12 U Methamphetamines Scrn Detected (NotDetected) H 05/24/21 22:12 U Benzodiazepines Scrn Detected (NotDetected) H 05/24/21 22:12 Urine Cocaine Screen Detected (NotDetected) H 05/24/21 22:12 U Marijuana (THC) Screen Not Detected (NotDetected) 05/24/21 22:12 Coronavirus (PCR) Not Detected (Not Detectd) 05/24/21 23:18 Vital Signs Temp 97.5 F L 05/30/21 01:01 Pulse 72 05/30/21 01:01 Resp 14 05/30/21 01:01 BP 125/76 05/30/21 01:01 Pulse Ox 95 05/26/21 06:58 Patient Condition at Discharge: Stable Plan - Discharge Summary Discharge Rx Participant: No New Discharge Prescriptions: New Saline Nasal Gel [[place] Nasal Gel] 1 applic NASAL Q6HR PRN #1 gm PRN Reason: Dry Nasal Passages Paliperidone [Invega] 6 mg PO HS 30 Days tablet Escitalopram [Lexapro] 20 mg PO DAILY 30 Days tab Nicotine 14Mg/24Hr Patch [Habitrol] 1 patch TRANSDERM DAILY 14 Days patch guaiFENesin SYRUP 100MG/5ML [Robitussin] 200 mg PO Q6HR PRN #1 ml PRN Reason: Cough Pseudoephedrine [Sudafed] 30 mg PO Q6HR PRN 7 Days tab PRN Reason: Nasal Congestion Doxycycline [Vibramycin] 100 mg PO BID 5 Days cap Thiamine [Vitamin B-1] 100 mg PO DAILY 30 Days tab Continue Gabapentin [Neurontin] 400 mg PO TID 10 Days #30 cap Acetaminophen [Tylenol 8 Hour] 650 mg PO Q8H PRN 7 Days tab PRN Reason: Pain Albuterol Sulfate [Ventolin HFA] 2 puff INHALATION RT-Q4H PRN #1 each PRN Reason: Shortness Of Breath Diclofenac Sodium [Voltaren] 75 mg PO BID 30 Days tab Discontinued Nystatin 100,000 Unit/gm Powd [Mycostatin Powder] 1 applic TOPICAL BID PRN PRN Reason: Rash Escitalopram [Lexapro] 10 mg PO DAILY Phentermine HCl [Adipex-P] 37.5 mg PO DAILY Discharge Medication List Acetaminophen [Tylenol 8 Hour] 650 mg PO Q8H PRN 7 Days tab 05/30/21 [Rx] Albuterol Sulfate [Ventolin HFA] 2 puff INHALATION RT-Q4H PRN #1 each 05/30/21 [Rx] Diclofenac Sodium [Voltaren] 75 mg PO BID 30 Days tab 05/30/21 [Rx] Doxycycline [Vibramycin] 100 mg PO BID 5 Days cap 05/30/21 [Rx] Escitalopram [Lexapro] 20 mg PO DAILY 30 Days tab 05/30/21 [Rx] Gabapentin [Neurontin] 400 mg PO TID 10 Days #30 cap 05/30/21 [Rx] Nicotine 14Mg/24Hr Patch [Habitrol] 1 patch TRANSDERM DAILY 14 Days patch 05/30/21 [Rx] Paliperidone [Invega] 6 mg PO HS 30 Days tablet 05/30/21 [Rx] Pseudoephedrine [Sudafed] 30 mg PO Q6HR PRN 7 Days tab 05/30/21 [Rx] Saline Nasal Gel [[place] Nasal Gel] 1 applic NASAL Q6HR PRN #1 gm 05/30/21 [Rx] Thiamine [Vitamin B-1] 100 mg PO DAILY 30 Days tab 05/30/21 [Rx] guaiFENesin SYRUP 100MG/5ML [Robitussin] 200 mg PO Q6HR PRN #1 ml 05/30/21 [Rx] Follow up Appointment(s)/Referral(s): Daisy Dos Santos MD [Primary Care Provider] - 1-2 days Patient Instructions/Handouts: How to Stop Smoking (DC), Cocaine Abuse (DC), Depression (DC), Methamphetamine Abuse (DC) Activity/Diet/Wound Care/Special Instructions: Activity and diet as tolerated. Avoid the use of street drugs and alcohol. Take all medications as prescribed. When you are in need of refills on your medications please contact your medical provider and/or outpatient psychiatrist to have this done. Please go to scheduled outpatient appointment for aftercare treatment. If symptoms return or become worse, call the crisis line at and/or go to the nearest emergency room for evaluation Discharge Disposition: OTHER INSTITUTION NOT DEFINED
== END 2021-05-30 12:26 | disposition home or self-care (01) | DRG 885 ==
LOC: EC 18:20 → 3MHU 05-25 00:18
PROVIDERS: ADMIT Psychiatry & Neurology Psychiatry; ATTEND Psychiatry & Neurology Psychiatry
DX: F33.2 Major depressive disorder, recurrent severe without psychotic features (principal); R45.851 Suicidal ideations; F15.20 Other stimulant dependence, uncomplicated; F14.10 Cocaine abuse, uncomplicated; Z20.822 Contact with and (suspected) exposure to COVID-19; F10.10 Alcohol abuse, uncomplicated; F43.10 Post-traumatic stress disorder, unspecified; F41.9 Anxiety disorder, unspecified; B19.20 Unspecified viral hepatitis C without hepatic coma; J30.9 Allergic rhinitis, unspecified; I10 Essential (primary) hypertension; G89.29 Other chronic pain; M54.30 Sciatica, unspecified side; M54.9 Dorsalgia, unspecified; G62.9 Polyneuropathy, unspecified; F12.10 Cannabis abuse, uncomplicated; E66.3 Overweight; Z68.33 Body mass index [BMI] 33.0-33.9, adult; F17.210 Nicotine dependence, cigarettes, uncomplicated; Z71.6 Tobacco abuse counseling; Z79.1 Long term (current) use of non-steroidal anti-inflammatories (NSAID); Z79.899 Other long term (current) drug therapy; Z86.14 Personal history of Methicillin resistant Staphylococcus aureus infection; Z56.0 Unemployment, unspecified; Z59.00 Homelessness unspecified; Z86.19 Personal history of other infectious and parasitic diseases; Z87.39 Personal history of other diseases of the musculoskeletal system and connective tissue; Z98.890 Other specified postprocedural states; Z71.51 Drug abuse counseling and surveillance of drug abuser; Z88.6 Allergy status to analgesic agent; Z91.040 Latex allergy status; Z81.1 Family history of alcohol abuse and dependence; Z81.8 Family history of other mental and behavioral disorders
CPT/HCPCS: 80053; 80061; 80306; 82075; 83036; 84443; 85025; 87635; 99285

== ENCOUNTER 2021-08-03 18:40 | Emergency (ER) | payer MEDICARE, OTHER ==
[2021-08-03 18:46] VITALS: RESP 18
[2021-08-03] MEDS ORDERED: SODIUM CHLORIDE 0.9% 1,000 ML IV ONE (19:18)
[2021-08-03] MEDS ORDERED: ACETAMINOPHEN TAB 325 MG TAB PO STA (19:19)
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
[2021-08-04 05:54] VITALS: BP 151/81; PULSE 74; TEMP 98.3
== END 2021-08-03 22:55 | disposition home or self-care (01) ==
LOC: EC 18:40
DX: R42 Dizziness and giddiness (principal); Z59.00 Homelessness unspecified; I10 Essential (primary) hypertension; F17.200 Nicotine dependence, unspecified, uncomplicated; F31.9 Bipolar disorder, unspecified; F25.9 Schizoaffective disorder, unspecified; F41.9 Anxiety disorder, unspecified; Z79.899 Other long term (current) drug therapy
CPT/HCPCS: 99283

== ENCOUNTER 2021-08-30 05:35 | Emergency (ER) | payer MEDICARE, OTHER ==
[2021-08-30 05:54] VITALS: RESP 18
--- NOTE | 2021-08-30 06:43 | ED ---
General Adult HPI - General Chief complaint: Recheck/Abnormal Lab/Rx Stated complaint: Cold Exposure Time Seen by Provider: 08/30/21 05:57 Source: patient, EMS, RN notes reviewed Mode of arrival: EMS Limitations: no limitations - History of Present Illness Initial comments: This a 61-year-old female presents emergency Department with complaints of being homeless. Patient states that she used methamphetamines and was sitting outside so she was concerned that she was exposed to cold. Patient does have complaint of some urinary symptoms and which she was placed on Flagyl for states she was on another antibiotic discontinue them because of making her nauseated. Patient denies any fevers chills she does complain of pain which is chronic in nature no localized pain. Patient denies any acute injuries. Patient is requesting a cart payment for her chronic pain. Patient denies any suicidal or homicidal. Patient does admit to multiple drug abuse. - Related Data Previous Rx's Medication Instructions Recorded Acetaminophen [Tylenol 8 Hour] 650 mg PO Q8H PRN 7 Days tab 05/30/21 Albuterol Sulfate [Ventolin HFA] 2 puff INHALATION RT-Q4H PRN #1 05/30/21 each Diclofenac Sodium [Voltaren] 75 mg PO BID 30 Days tab 05/30/21 Doxycycline [Vibramycin] 100 mg PO BID 5 Days cap 05/30/21 Escitalopram [Lexapro] 20 mg PO DAILY 30 Days tab 05/30/21 Gabapentin [Neurontin] 400 mg PO TID 10 Days #30 cap 05/30/21 Nicotine 14Mg/24Hr Patch [Habitrol] 1 patch TRANSDERM DAILY 14 Days 05/30/21 patch Paliperidone [Invega] 6 mg PO HS 30 Days tablet 05/30/21 Pseudoephedrine [Sudafed] 30 mg PO Q6HR PRN 7 Days tab 05/30/21 Saline Nasal Gel [[place] Nasal Gel] 1 applic NASAL Q6HR PRN #1 gm 05/30/21 Thiamine [Vitamin B-1] 100 mg PO DAILY 30 Days tab 05/30/21 guaiFENesin SYRUP 100MG/5ML 200 mg PO Q6HR PRN #1 ml 05/30/21 [Robitussin] Allergies Allergy/AdvReac Type Severity Reaction Status Date / Time ketorolac [From Toradol] Allergy Unknown Verified 08/30/21 05:54 latex Allergy Itching Verified 08/30/21 05:54 Review of Systems ROS Statement: Those systems with pertinent positive or pertinent negative responses have been documented in the HPI. ROS Other: All systems not noted in ROS Statement are negative. Past Medical History Past Medical History: Hypertension, Liver Disease, Musculoskeletal Disorder, Neurologic Disorder Additional Past Medical History / Comment(s): hep c, back pain, sciatica, neuropathy, History of Any Multi-Drug Resistant Organisms: MRSA Date of last positivie culture/infection: 2006 MDRO Source:: face Past Surgical History: Orthopedic Surgery Additional Past Surgical History / Comment(s): lt ankle, D&C Past Anesthesia/Blood Transfusion Reactions: No Reported Reaction Past Psychological History: Anxiety, Bipolar, Depression, Schizoaffective Disorder, Schizophrenia Smoking Status: Current every day smoker Past Alcohol Use History: Daily Past Drug Use History: None Reported, Methamphetamine General Exam Limitations: no limitations General appearance: alert, in no apparent distress Head exam: Present: atraumatic, normocephalic, normal inspection Eye exam: Present: normal appearance, PERRL, EOMI. Absent: scleral icterus, conjunctival injection, periorbital swelling ENT exam: Present: normal exam, normal oropharynx, mucous membranes moist Neck exam: Present: normal inspection, full ROM. Absent: tenderness, meningismus, lymphadenopathy Respiratory exam: Present: normal lung sounds bilaterally. Absent: respiratory distress, wheezes, rales, rhonchi, stridor Cardiovascular Exam: Present: regular rate, normal rhythm, normal heart sounds. Absent: systolic murmur, diastolic murmur, rubs, gallop, clicks GI/Abdominal exam: Present: soft, normal bowel sounds. Absent: distended, tenderness, guarding, rebound, rigid Neurological exam: Present: alert, oriented X3 Skin exam: Present: warm, dry, intact, normal color. Absent: rash Course Vital Signs 08/30/21 08/30/21 05:40 05:54 Temperature 97.6 F Pulse Rate 69 70 Respiratory 18 18 Rate Blood Pressure 146/114 101/67 O2 Sat by Pulse 100 Oximetry Medical Decision Making - Medical Decision Making Urinalysis does not reveal any concerning symptoms for urinary tract infection. Patient is currently homeless she is provided [place] [facility] information. Patient doesn't abuse drugs and recently abuse methamphetamine. Patient be discharged in stable condition return parameters were discussed. - Lab Data Lab Results 08/30/21 Range/Units 06:20 Urine Color Yellow Urine Appearance Slightly Cloudy H (Clear) Urine pH 6.0 (5.0-8.0) Ur Specific Theodore >1.030 (1.001-1.035) Urine Protein Trace (Negative) Urine Glucose (UA) Negative (Negative) Urine Ketones 1+ H (Negative) Urine Blood Negative (Negative) Urine Nitrite Negative (Negative) Urine Bilirubin Negative (Negative) Urine Urobilinogen <2.0 (<2.0) mg/dL Ur Leukocyte Esterase Moderate (Negative) Urine WBC 4 (0-5) /hpf Ur Squamous Epith Cells 3 (0-4) /hpf Urine Bacteria Occasional H (None) /hpf Urine Mucus Moderate H (None) /hpf Disposition Clinical Impression: Methamphetamine abuse, Homelessness Disposition: HOME SELF-CARE Condition: Stable Instructions (If sedation given, give patient instructions): Methamphetamine Abuse (ED) Additional Instructions: Please return to the Emergency Department if symptoms worsen or any other concerns. Is patient prescribed a controlled substance at d/c from ED?: No Referrals: Daisy Dos Santos MD [Primary Care Provider] - 1-2 days Time of Disposition: 09:36
[2021-08-30 09:26] LABS: Appearance,Urine Slightly Cloudy (Clear); Color,Urine Yellow; Specific Gravity,Urine >1.030 (1.001-1.035)
[2021-08-30 09:27] LABS: Bilirubin,Urine Negative (Negative); Blood,Urine Negative (Negative); Glucose,Urine (UA) Negative (Negative); Ketones,Urine 1+ (Negative); Leukocyte Esterase,Urine Moderate (Negative); Nitrite,Urine Negative (Negative); Protein,Urine Trace (Negative); Urobilinogen,Urine <2.0 mg/dL (<2.0)
[2021-08-30 09:30] LABS: WBC,Urine 4 /hpf (0-5)
[2021-08-30 09:31] LABS: Squamous Epithelial Cell,Urine 3 /hpf (0-4)
[2021-08-30 09:32] LABS: Bacteria,Urine Occasional /hpf
[2021-08-30 09:33] LABS: Mucus,Urine Moderate /hpf
[2021-08-30 09:54] VITALS: BP 103/55; PULSE 71; TEMP 97.9
== END 2021-08-30 09:53 | disposition home or self-care (01) ==
LOC: EC 05:35
DX: F15.10 Other stimulant abuse, uncomplicated (principal); Z59.00 Homelessness unspecified; X31.XXXA Exposure to excessive natural cold, initial encounter; I10 Essential (primary) hypertension; F41.9 Anxiety disorder, unspecified; F31.9 Bipolar disorder, unspecified; F25.9 Schizoaffective disorder, unspecified; F17.200 Nicotine dependence, unspecified, uncomplicated; Z88.1 Allergy status to other antibiotic agents; Z91.040 Latex allergy status
CPT/HCPCS: 81001; 99284

== ENCOUNTER 2021-09-23 11:10 | Emergency (ER) | payer MEDICARE, OTHER ==
[2021-09-23 11:39] VITALS: BP 120/79; PULSE 66; TEMP 98.3
[2021-09-23 12:53] VITALS: RESP 16
--- NOTE | 2021-09-23 13:40 | ED ---
Psych HPI - General Chief Complaint: Psychiatric Symptoms Stated Complaint: Body Pain, Bladder infection, Mental health Time Seen by Provider: 09/23/21 12:15 Source: patient, RN notes reviewed Mode of arrival: ambulatory Limitations: no limitations - History of Present Illness Initial Comments: This a 61-year-old female presents emergency Department with multiple complaints. Patient's primary complaint that she has been abusing methamphetamines, requesting psychiatric evaluation, she has body pain, sinus issues. She states this this all started after increasing of methamphetamine abuse. She states she does not have any narcotic pain meds to help with arthritic pain. Patient's denies and suicidal or homicidal she is supposed to go to [facility] but states that she is waiting for her appointment for that. Patient also states that she has some recent urinary tract infections and she may have another one. Patient denies chest pain shortness breath she states she has cough, nasal drainage, sinus pressure but states that this usually happens after she uses methamphetamines. - Related Data Previous Rx's Medication Instructions Recorded Acetaminophen [Tylenol 8 Hour] 650 mg PO Q8H PRN 7 Days tab 05/30/21 Albuterol Sulfate [Ventolin HFA] 2 puff INHALATION RT-Q4H PRN #1 05/30/21 each Diclofenac Sodium [Voltaren] 75 mg PO BID 30 Days tab 05/30/21 Doxycycline [Vibramycin] 100 mg PO BID 5 Days cap 05/30/21 Escitalopram [Lexapro] 20 mg PO DAILY 30 Days tab 05/30/21 Gabapentin [Neurontin] 400 mg PO TID 10 Days #30 cap 05/30/21 Nicotine 14Mg/24Hr Patch [Habitrol] 1 patch TRANSDERM DAILY 14 Days 05/30/21 patch Paliperidone [Invega] 6 mg PO HS 30 Days tablet 05/30/21 Pseudoephedrine [Sudafed] 30 mg PO Q6HR PRN 7 Days tab 05/30/21 Saline Nasal Gel [[place] Nasal Gel] 1 applic NASAL Q6HR PRN #1 gm 05/30/21 Thiamine [Vitamin B-1] 100 mg PO DAILY 30 Days tab 05/30/21 guaiFENesin SYRUP 100MG/5ML 200 mg PO Q6HR PRN #1 ml 05/30/21 [Robitussin] Allergies Allergy/AdvReac Type Severity Reaction Status Date / Time ketorolac [From Toradol] Allergy Unknown Verified 09/23/21 11:39 latex Allergy Itching Verified 09/23/21 11:39 Review of Systems ROS Statement: Those systems with pertinent positive or pertinent negative responses have been documented in the HPI. ROS Other: All systems not noted in ROS Statement are negative. Past Medical History Past Medical History: Hypertension, Liver Disease, Musculoskeletal Disorder, Neurologic Disorder Additional Past Medical History / Comment(s): hep c, back pain, sciatica, neuropathy, History of Any Multi-Drug Resistant Organisms: MRSA Date of last positivie culture/infection: 2006 MDRO Source:: face Past Surgical History: Orthopedic Surgery Additional Past Surgical History / Comment(s): lt ankle, D&C Past Anesthesia/Blood Transfusion Reactions: No Reported Reaction Past Psychological History: Anxiety, Bipolar, Depression, Schizoaffective Disorder, Schizophrenia Smoking Status: Current every day smoker Past Alcohol Use History: Daily Past Drug Use History: None Reported, Methamphetamine General Exam Limitations: no limitations General appearance: alert, in no apparent distress Head exam: Present: atraumatic, normocephalic, normal inspection Eye exam: Present: normal appearance, PERRL, EOMI. Absent: scleral icterus, conjunctival injection, periorbital swelling ENT exam: Present: mucous membranes moist, TM's normal bilaterally, normal external ear exam. Absent: normal oropharynx (No dentition) Neck exam: Present: normal inspection, full ROM. Absent: tenderness, meningismus, lymphadenopathy Respiratory exam: Present: normal lung sounds bilaterally. Absent: respiratory distress, wheezes, rales, rhonchi, stridor Cardiovascular Exam: Present: regular rate, normal rhythm, normal heart sounds. Absent: systolic murmur, diastolic murmur, rubs, gallop, clicks Neurological exam: Present: alert, oriented X3, CN II-XII intact Psychiatric exam: Present: normal affect, normal mood Skin exam: Present: warm, dry, intact, normal color. Absent: rash Course Vital Signs 09/23/21 09/23/21 11:32 12:52 Temperature 98.3 F Pulse Rate 66 Respiratory 18 16 Rate Blood Pressure 120/79 O2 Sat by Pulse 100 Oximetry Medical Decision Making - Medical Decision Making Patient's was evaluated by EPS case discussed with psychiatrist does not recommend patient be admitted for psychiatric treatment she is advised to call her [facility] worker for housing, close follow-up she is scheduled to see [facility] for drug abuse. Patient's symptoms are most related to her drug abuse, patient is requesting narcotics though she was informed she'll not receive narcotic pain meds. Patient offered Tylenol or Motrin Disposition Clinical Impression: Methamphetamine abuse Disposition: HOME SELF-CARE Condition: Stable Instructions (If sedation given, give patient instructions): Methamphetamine Abuse (ED) Additional Instructions: Please return to the Emergency Department if symptoms worsen or any other concerns. Is patient prescribed a controlled substance at d/c from ED?: No Referrals: Daisy Dos Santos MD [Primary Care Provider] - 1-2 days Time of Disposition: 13:40
[2021-09-23 14:45] LABS: Appearance,Urine Cloudy (Clear); Bilirubin,Urine Negative (Negative); Blood,Urine Negative (Negative); Color,Urine Light Yellow; Glucose,Urine (UA) Negative (Negative); Hyaline Casts,Urine 1 /lpf (0-2); Ketones,Urine Negative (Negative); Leukocyte Esterase,Urine Large (Negative); Mucus,Urine Rare /hpf; Nitrite,Urine Negative (Negative); PH, Urine 5.5 (5.0-8.0); Protein,Urine Negative (Negative); RBC,Urine 2 /hpf (0-5); Specific Gravity,Urine 1.013 (1.001-1.035); Squamous Epithelial Cell,Urine 8 /hpf (0-4); Urobilinogen,Urine <2.0 mg/dL (<2.0); WBC,Urine 8 /hpf (0-5)
[2021-09-23 15:02] LABS: Urn Cannabinoid Scrn Not Detected (NotDetected)
[2021-09-23 15:03] LABS: Amphetamine Screen,Urine Detected (NotDetected); Barbiturate Screen,Urine Not Detected (NotDetected); Benzodiazepines Screen,Urine Not Detected (NotDetected); Cocaine Screen,Urine Not Detected (NotDetected); Methadone Screen, Urine Not Detected (NotDetected); Opiate Screen,Urine Detected (NotDetected); Oxycodone Screen, Urine Not Detected (NotDetected); Phencyclidine Screen,Urine Not Detected (NotDetected); Tricyclic Antidepressant,Urine Not Detected (NotDetected)
== END 2021-09-23 14:09 | disposition home or self-care (01) ==
LOC: EC 11:10
DX: F15.10 Other stimulant abuse, uncomplicated (principal); I10 Essential (primary) hypertension; F41.9 Anxiety disorder, unspecified; F31.9 Bipolar disorder, unspecified; F25.9 Schizoaffective disorder, unspecified; F17.200 Nicotine dependence, unspecified, uncomplicated; Z88.1 Allergy status to other antibiotic agents; Z91.040 Latex allergy status
CPT/HCPCS: 80306; 81001; 82075; 99284

== ENCOUNTER 2021-12-06 21:02 | Emergency (ER) | payer MEDICARE, OTHER ==
[2021-12-06 21:22] VITALS: TEMP 98.6
--- NOTE | 2021-12-06 21:55 | ED ---
Psych HPI - General Chief Complaint: Alcohol Stated Complaint: Mental Health Time Seen by Provider: 12/06/21 21:23 Source: EMS, RN notes reviewed, old records reviewed Mode of arrival: EMS Limitations: no limitations - History of Present Illness Initial Comments: This is a 7-year-old female to the emergency department for evaluation patient Dese for evaluation regards to psychiatric illness patient states she has both homicidal and suicidal with history of drug. Abuse MD Complaint: suicidal ideation, feels depressed, altered mental status -: unknown Associated Psychiatric Symptoms: depression, suicidal ideation, homicidal ideation Quality: constant, intermittent Worsens With: none Context: not taking psychiatric medications, significant life stressor Associated Symptoms: denies other symptoms Treatments Prior to Arrival: placed on mental health hold - Related Data Home Medications Medication Instructions Recorded Confirmed Diclofenac Sodium Gel [Voltaren 4 gm TOPICAL QID 12/06/21 12/06/21 Gel] Nicotine 21Mg/24Hr Patch [Habitrol] 1 patch TRANSDERM DAILY 12/06/21 12/06/21 Pantoprazole Sodium [Protonix] 40 mg PO DAILY 12/06/21 12/06/21 Phentermine HCl [Adipex-P] 37.5 mg PO DAILY 12/06/21 12/06/21 traMADol HCl [Ultram] 50 mg PO BID PRN 12/06/21 12/06/21 Previous Rx's Medication Instructions Recorded Acetaminophen [Tylenol 8 Hour] 650 mg PO Q8H PRN 7 Days tab 05/30/21 Albuterol Sulfate [Ventolin HFA] 2 puff INHALATION RT-Q4H PRN #1 05/30/21 each Gabapentin [Neurontin] 400 mg PO TID 10 Days #30 cap 05/30/21 Paliperidone [Invega] 6 mg PO HS 30 Days tablet 05/30/21 Allergies Allergy/AdvReac Type Severity Reaction Status Date / Time ketorolac [From Toradol] Allergy Unknown Verified 12/06/21 21:22 latex Allergy Itching Verified 12/06/21 21:22 Review of Systems ROS Statement: Those systems with pertinent positive or pertinent negative responses have been documented in the HPI. ROS Other: All systems not noted in ROS Statement are negative. Past Medical History Past Medical History: Hypertension, Liver Disease, Musculoskeletal Disorder, Neurologic Disorder Additional Past Medical History / Comment(s): hep c, back pain, sciatica, neuropathy, History of Any Multi-Drug Resistant Organisms: MRSA Date of last positivie culture/infection: 2006 MDRO Source:: face Past Surgical History: Orthopedic Surgery Additional Past Surgical History / Comment(s): lt ankle, D&C Past Anesthesia/Blood Transfusion Reactions: No Reported Reaction Past Psychological History: Anxiety, Bipolar, Depression, Schizoaffective Disorder, Schizophrenia Smoking Status: Current every day smoker Past Alcohol Use History: Daily Past Drug Use History: None Reported, Methamphetamine General Exam Limitations: no limitations General appearance: alert, in no apparent distress Head exam: Present: atraumatic, normocephalic, normal inspection Eye exam: Present: normal appearance, PERRL, EOMI. Absent: scleral icterus, conjunctival injection, periorbital swelling ENT exam: Present: normal exam, mucous membranes moist Neck exam: Present: normal inspection. Absent: tenderness, meningismus, lymphadenopathy Respiratory exam: Present: normal lung sounds bilaterally. Absent: respiratory distress, wheezes, rales, rhonchi, stridor Cardiovascular Exam: Present: regular rate, normal rhythm, normal heart sounds. Absent: systolic murmur, diastolic murmur, rubs, gallop, clicks GI/Abdominal exam: Present: soft, normal bowel sounds. Absent: distended, tenderness, guarding, rebound, rigid Extremities exam: Present: normal inspection, full ROM, normal capillary refill. Absent: tenderness, pedal edema, joint swelling, calf tenderness Back exam: Present: normal inspection Neurological exam: Present: alert, oriented X3, CN II-XII intact Psychiatric exam: Present: normal affect, normal mood Skin exam: Present: warm, dry, intact, normal color. Absent: rash Course Vital Signs 12/06/21 12/06/21 21:15 21:23 Temperature 98.6 F Pulse Rate 85 Pulse Rate [ 81 [employer] ] Respiratory 18 Rate Blood Pressure 132/85 O2 Sat by Pulse 100 Oximetry - Reevaluation(s) Reevaluation #1: 12/06/21 23:52 Medical record is reviewed 12/06/21 23:52 Adequate clear for psychiatric evaluation Medical Decision Making - Medical Decision Making 61 female to the emergency department for evaluation patient presents today for evaluation of drug abuse without is a place to go, patient given shelters with the patient, agrees not to be homicidal or suicidal and can be discharged home Disposition Clinical Impression: Drug-seeking behavior, Methamphetamine use disorder, severe, dependence, Major depressive disorder, recurrent, severe with psychotic features, Lack of housing Disposition: HOME SELF-CARE Condition: Fair Instructions (If sedation given, give patient instructions): Polysubstance Abuse (ED) Is patient prescribed a controlled substance at d/c from ED?: No Referrals: Daisy Dos Santos MD [Primary Care Provider] - 1-2 days
[2021-12-07 03:24] VITALS: BP 93/59; PULSE 63; RESP 20
== END 2021-12-07 03:35 | disposition home or self-care (01) ==
LOC: EC 21:02
DX: F15.20 Other stimulant dependence, uncomplicated (principal); F33.3 Major depressive disorder, recurrent, severe with psychotic symptoms; I10 Essential (primary) hypertension; R45.850 Homicidal ideations; R45.851 Suicidal ideations; F17.200 Nicotine dependence, unspecified, uncomplicated; Z76.5 Malingerer [conscious simulation]; Z59.00 Homelessness unspecified; Z91.040 Latex allergy status
CPT/HCPCS: 82075; 99284

== ENCOUNTER 2022-01-20 18:24 | Inpatient (IN) | payer MEDICARE, MEDICAID ==
--- NOTE | 2022-01-20 20:37 | ED ---
Psych HPI - General Chief Complaint: Psychiatric Symptoms Stated Complaint: Mental Health Time Seen by Provider: 01/20/22 19:02 Source: patient Mode of arrival: ambulatory - History of Present Illness Initial Comments: Patient is a 61-year-old female who presents to the emergency room with complaints of worsening anxiety, depression and suicidal thoughts. She is complaining of racing thoughts and low mood improving tearful at times. She reports that she feels often that her life would be better if she was however denies any suicidal plan. She does speak of recent dictations with both strangers and friends but she denies any homicidal ideation. She states that she was previously seeing [facility] however she is no longer seeing them and she [facility] psychiatric medications filled by [facility] approximately one month ago. She states over the last month that she has been taking her medications sporadically prior to running out of them completely. She states that prior to running out of the medication she did not feel like they were working. She is reporting occasional panic attacks with associated racing thoughts and feeling her skin crawl at times. He states that she was being treated for a urinary tract infection by her primary care provider with multiple different antibiotics however she states that these medications did not work because she "knows her body" and now she has a urinary tract infection and is complaining of perineal odor. She denies any dysuria, hematuria, urinary frequency, fevers or chills. She is complaining of chronic arthritic pain without any acute flares in any location. She is a smoker and has occasional shortness of breath with activity but denies any shortness of breath at rest or changes in her baseline mobility status. She denies any fevers or chills. - Related Data Home Medications Medication Instructions Recorded Confirmed Diclofenac Sodium Gel [Voltaren 4 gm TOPICAL QID 12/06/21 01/20/22 Gel] Pantoprazole Sodium [Protonix] 40 mg PO DAILY 12/06/21 01/20/22 Phentermine HCl [Adipex-P] 37.5 mg PO DAILY 12/06/21 01/20/22 traMADol HCl [Ultram] 50 mg PO BID PRN 12/06/21 01/20/22 Previous Rx's Medication Instructions Recorded Acetaminophen [Tylenol 8 Hour] 650 mg PO Q8H PRN 7 Days tab 05/30/21 Albuterol Sulfate [Ventolin HFA] 2 puff INHALATION RT-Q4H PRN #1 05/30/21 each Gabapentin [Neurontin] 400 mg PO TID 10 Days #30 cap 05/30/21 Paliperidone [Invega] 6 mg PO HS 30 Days tablet 05/30/21 Allergies Allergy/AdvReac Type Severity Reaction Status Date / Time ketorolac [From Toradol] Allergy Unknown Verified 01/20/22 18:54 latex Allergy Itching Verified 01/20/22 18:54 Review of Systems ROS Statement: Those systems with pertinent positive or pertinent negative responses have been documented in the HPI. ROS Other: All systems not noted in ROS Statement are negative. Past Medical History Past Medical History: Hypertension, Liver Disease, Musculoskeletal Disorder, Neurologic Disorder Additional Past Medical History / Comment(s): hep c, back pain, sciatica, neuropathy, History of Any Multi-Drug Resistant Organisms: MRSA Date of last positivie culture/infection: 2006 MDRO Source:: face Past Surgical History: Orthopedic Surgery Additional Past Surgical History / Comment(s): lt ankle, D&C Past Anesthesia/Blood Transfusion Reactions: No Reported Reaction Past Psychological History: Anxiety, Bipolar, Depression, Schizoaffective Disorder, Schizophrenia Smoking Status: Current every day smoker Past Alcohol Use History: Daily Past Drug Use History: None Reported, Methamphetamine General Exam Limitations: no limitations General appearance: alert, in no apparent distress Head exam: Present: atraumatic, normocephalic, normal inspection Eye exam: Present: normal appearance, PERRL, EOMI. Absent: scleral icterus, conjunctival injection, periorbital swelling ENT exam: Present: normal exam, mucous membranes moist Neck exam: Present: normal inspection. Absent: tenderness, meningismus, lymphadenopathy Respiratory exam: Present: normal lung sounds bilaterally. Absent: respiratory distress, wheezes, rales, rhonchi, stridor, accessory muscle use Cardiovascular Exam: Present: regular rate, normal rhythm, normal heart sounds. Absent: systolic murmur, diastolic murmur, rubs, gallop, clicks GI/Abdominal exam: Present: soft, normal bowel sounds. Absent: distended, tenderness, guarding, rebound, rigid Rectal exam: Present: deferred Extremities exam: Present: normal inspection, full ROM, normal capillary refill. Absent: tenderness, pedal edema, joint swelling, calf tenderness Back exam: Present: normal inspection Neurological exam: Present: alert, oriented X3, CN II-XII intact Psychiatric exam: Present: depressed, anxious, suicidal ideation Expanded Focused psych exam: Present: flight of ideas Skin exam: Present: warm, dry, intact, normal color. Absent: rash Course Vital Signs 01/20/22 18:49 Temperature 98.2 F Pulse Rate 69 Respiratory 18 Rate Blood Pressure 158/86 O2 Sat by Pulse 99 Oximetry Medical Decision Making - Medical Decision Making No indication for diagnostic imaging. Will check urinalysis in the setting of concerns regarding UTI per patient. No indication for further laboratory studies. Will consult EPS and obtain blood alcohol testing per protocol. Urinalysis pending however Patient medically stable for psychiatric evaluation as there is no indication for IV antibiotic need and she may take oral antibiotics if inpatient psychiatric visit is needed. Psychiatric evaluation completed and patient to be admitted to inpatient psych for evaluation and treatment; unable to obtain urine sample due to lack of frequency during ER stay. No need to hold admission for psychiatric treatment for urinalysis will cancel order. Will proceed with planned admission for evaluation and treatment for depression and anxiety. Case discussed with Dr. Warner. Disposition Clinical Impression: Bipolar disorder Disposition: TRANSFER TO PSYCH HOSP/UNIT Condition: Stable Is patient prescribed a controlled substance at d/c from ED?: No Referrals: Daisy Dos Santos MD [Primary Care Provider] - 1-2 days Time of Disposition: 23:46
[2022-01-21 00:52] LABS: Amphetamine Screen,Urine Detected (NotDetected); Barbiturate Screen,Urine Not Detected (NotDetected); Benzodiazepines Screen,Urine Not Detected (NotDetected); Cocaine Screen,Urine Not Detected (NotDetected); Methadone Screen, Urine Not Detected (NotDetected); Opiate Screen,Urine Not Detected (NotDetected); Oxycodone Screen, Urine Not Detected (NotDetected); Phencyclidine Screen,Urine Not Detected (NotDetected); Tricyclic Antidepressant,Urine Not Detected (NotDetected); Urn Cannabinoid Scrn Not Detected (NotDetected)
[2022-01-21] MEDS ORDERED: MAG HYDROX/AL HYDROX/SIMETH 30 ML CUP PO PRN (01:31)
[2022-01-21] MEDS ORDERED: HALOPERIDOL LACTATE 5 MG/ML 1 ML VIAL IM PRN (01:31)
[2022-01-21] MEDS ORDERED: LORazepam 1 MG TAB PO PRN (01:31)
[2022-01-21] MEDS ORDERED: MAGNESIUM HYDROXIDE 2,400 MG/10 ML CUP PO PRN (01:31)
[2022-01-21] MEDS ORDERED: ALBUTEROL INHALER 60 PUFF/8 GM INHALER (MHU) INHALATION PRN (01:33)
[2022-01-21] MEDS ORDERED: LORazepam 2 MG/ML INJ IM PRN (01:35)
[2022-01-21] MEDS ORDERED: haloperidoL 5 MG TAB PO PRN (01:38)
[2022-01-21 01:46] LABS: Appearance,Urine Clear (Clear); Bilirubin,Urine Negative (Negative); Blood,Urine Negative (Negative); Color,Urine Light Yellow; Glucose,Urine (UA) Negative (Negative); Hyaline Casts,Urine 1 /lpf (0-2); Ketones,Urine Negative (Negative); Leukocyte Esterase,Urine Moderate (Negative); Mucus,Urine Rare /hpf; Nitrite,Urine Negative (Negative); PH, Urine 6.5 (5.0-8.0); Protein,Urine Negative (Negative); RBC,Urine <1 /hpf (0-5); Specific Gravity,Urine 1.011 (1.001-1.035); Squamous Epithelial Cell,Urine 2 /hpf (0-4); Urobilinogen,Urine <2.0 mg/dL (<2.0); WBC,Urine 4 /hpf (0-5)
[2022-01-21] MEDS: ACETAMINOPHEN TAB 325 MG TAB PO PRN ×2 (08:36→21:04)
[2022-01-21] MEDS ORDERED: NICOTINE 14MG/24HR PATCH TRANSDERM SCH (09:00)
[2022-01-21 10:40] LABS: Basophils # (A) 0.1 k/uL (0-0.2); Basophils % (A) 1 %; Eosinophils # (A) 0.4 k/uL (0-0.7); Eosinophils % (A) 5 %; HCT 47.2 % (34.0-46.0); Lymphocytes # (A) 2.2 k/uL (1.0-4.8); Lymphocytes % (A) 26 %; MCH 29.3 pg (25.0-35.0); MCHC 31.8 g/dL (31.0-37.0); Mean Platelet Volume 7.4; Monocytes # (A) 0.5 k/uL (0-1.0); Monocytes % (A) 6 %; Neutrophils # (A) 5.1 k/uL (1.3-7.7); Neutrophils % (A) 61 %; Platelet Count 327 k/uL (150-450); RBC 5.13 m/uL (3.80-5.40); WBC 8.3 k/uL (3.8-10.6)
[2022-01-21 11:02] LABS: ALT 16 U/L (4-34); AST 25 U/L (14-36); African American GFR (CKD) >90 (>60 ml/min/1.73 sqM); Albumin 4.4 g/dL (3.5-5.0); Alkaline Phosphatase 85 U/L (38-126); Anion Gap 4 mmol/L; Blood Urea Nitrogen 12 mg/dL (7-17); Calcium 9.3 mg/dL (8.4-10.2); Carbon Dioxide 30 mmol/L (22-30); Chloride 106 mmol/L (98-107); Glucose 74 mg/dL (74-99); Non-African American GFR(CKD) 86 (>60 ml/min/1.73 sqM); Potassium 4.8 mmol/L (3.5-5.1); Sodium 140 mmol/L (137-145); Total Bilirubin 0.4 mg/dL (0.2-1.3); Total Protein 7.3 g/dL (6.3-8.2)
--- NOTE | 2022-01-21 12:13 | P.HP ---
Psychiatric H&P - . H&P Date: 01/21/22 History & Physical: Allergies Allergy/AdvReac Type Severity Reaction Status Date / Time ketorolac [From Toradol] Allergy Unknown Verified 01/20/22 18:54 latex Allergy Itching Verified 01/20/22 18:54 Vital Signs Temp 98.1 F 01/21/22 02:57 Pulse 60 01/21/22 02:57 Resp 18 01/21/22 02:57 BP 133/80 01/21/22 02:57 Pulse Ox 95 01/21/22 02:57 FiO2 Intake & Output 01/20/22 01/21/22 01/21/22 18:59 06:59 18:59 Weight 86.183 kg 80.938 kg Laboratory Last Values WBC 8.3 k/uL (3.8-10.6) 01/21/22 09:49 RBC 5.13 m/uL (3.80-5.40) 01/21/22 09:49 Hgb 15.0 gm/dL (11.4-16.0) 01/21/22 09:49 Hct 47.2 % (34.0-46.0) H 01/21/22 09:49 MCV 92.0 fL (80.0-100.0) 01/21/22 09:49 MCH 29.3 pg (25.0-35.0) 01/21/22 09:49 MCHC 31.8 g/dL (31.0-37.0) 01/21/22 09:49 RDW 12.0 % (11.5-15.5) 01/21/22 09:49 Plt Count 327 k/uL (150-450) 01/21/22 09:49 MPV 7.4 01/21/22 09:49 Neutrophils % 61 % 01/21/22 09:49 Lymphocytes % 26 % 01/21/22 09:49 Monocytes % 6 % 01/21/22 09:49 Eosinophils % 5 % 01/21/22 09:49 Basophils % 1 % 01/21/22 09:49 Neutrophils # 5.1 k/uL (1.3-7.7) 01/21/22 09:49 Lymphocytes # 2.2 k/uL (1.0-4.8) 01/21/22 09:49 Monocytes # 0.5 k/uL (0-1.0) 01/21/22 09:49 Eosinophils # 0.4 k/uL (0-0.7) 01/21/22 09:49 Basophils # 0.1 k/uL (0-0.2) 01/21/22 09:49 Sodium 140 mmol/L (137-145) 01/21/22 09:49 Potassium 4.8 mmol/L (3.5-5.1) 01/21/22 09:49 Chloride 106 mmol/L (98-107) 01/21/22 09:49 Carbon Dioxide 30 mmol/L (22-30) 01/21/22 09:49 Anion Gap 4 mmol/L 01/21/22 09:49 BUN 12 mg/dL (7-17) 01/21/22 09:49 Creatinine 0.76 mg/dL (0.52-1.04) 01/21/22 09:49 Est GFR (CKD-EPI)AfAm >90 (>60 ml/min/1.73 sqM) 01/21/22 09:49 Est GFR (CKD-EPI)NonAf 86 (>60 ml/min/1.73 sqM) 01/21/22 09:49 Glucose 74 mg/dL (74-99) 01/21/22 09:49 Calcium 9.3 mg/dL (8.4-10.2) 01/21/22 09:49 Total Bilirubin 0.4 mg/dL (0.2-1.3) 01/21/22 09:49 AST 25 U/L (14-36) 01/21/22 09:49 ALT 16 U/L (4-34) 01/21/22 09:49 Alkaline Phosphatase 85 U/L (38-126) 01/21/22 09:49 Total Protein 7.3 g/dL (6.3-8.2) 01/21/22 09:49 Albumin 4.4 g/dL (3.5-5.0) 01/21/22 09:49 TSH 1.480 mIU/L (0.465-4.680) 01/21/22 09:49 Urine Color Light Yellow 01/21/22 00:28 Urine Appearance Clear (Clear) 01/21/22 00:28 Urine pH 6.5 (5.0-8.0) 01/21/22 00:28 Ur Specific [place] 1.011 (1.001-1.035) 01/21/22:28 Urine Protein Negative (Negative) 01/21/22: Urine Glucose (UA) Negative (Negative) 01/21/22: Urine Ketones Negative (Negative) 01/21/22: Urine Blood Negative (Negative) 01/21/22 Urine Nitrite Negative (Negative) 01/21/22 Urine Bilirubin Negative (Negative) 01/21/22 Urine Urobilinogen <2.0 mg/dL (<2.0) 01/21/22: Ur Leukocyte Esterase Moderate (Negative) H 01/21/22: Urine RBC <1 /hpf (0-5) 01/21/22 Urine WBC 4 /hpf (0-5) 01/21/22: Ur Squamous Epith Cells 2 /hpf (0-4) 01/21/22 Hyaline Casts 1 /lpf (0-2) 01/21/22: Urine Mucus Rare /hpf (None) H 01/21/22 00:28 Urine Opiates Screen Not Detected (NotDetected) 01/21/22:28 Ur Oxycodone Screen Not Detected (NotDetected) 01/21/22:28 Urine Methadone Screen Not Detected (NotDetected) 01/21/22:28 Ur Propoxyphene Screen Not Detected (NotDetected) 01/21/22:28 Ur Barbiturates Screen Not Detected (NotDetected) 01/21/22:28 U Tricyclic Antidepress Not Detected (NotDetected) 01/21/22:28 Ur Phencyclidine Scrn Not Detected (NotDetected) 01/21/22:28 Ur Amphetamines Screen Detected (NotDetected) H 01/21/22:28 U Methamphetamines Scrn Detected (NotDetected) H 01/21/22:28 U Benzodiazepines Scrn Not Detected (NotDetected) 01/21/22:28 Urine Cocaine Screen Not Detected (NotDetected) 01/21/22: U Marijuana (THC) Screen Not Detected (NotDetected) 01/21/22:28 Coronavirus (PCR) Not Detected (Not Detectd) 01/20/22 23:42 01/21/22 11:27 IDENTIFYING DATA: Patient is a 61-year-old female , who presented to the emergency department for psychiatric evaluation. chronically homeless. HPI: Patient presented to the hospital initially yesterday at nighttime complaining of depression and suicidal thoughts. Patient has a long history of repeated psychiatric hospitalizations for PTSD, depression and anxiety and polysubstance abuse and her last psychiatric admission was in May 2021. Patient was found to have a UDS which was positive for amphetamines, methamphetamine however she does have a history of polysubstance abuse. Patient was seen today by va underwriter and agreeable to speak. She appears to be disheveled and rambled about several different stressors in her life and states that she recently lost her brother. She claims that she is in pain and reported some vague urinary symptoms including pain. She states that she wants to "soother doctor for putting me on the wrong antibiotic". She states that she doesn't get along with another patient on the unit and was upset about that. She claims that she is irritable angry and feeling depressed today. She was also tearful at times during the interview. she states that she did not follow-up at [facility] and does not know why. She was fairly vague and evasive during the conversation. She spoke about her having anger and irritability and "harmful thoughts to other people that have stole from me ". She also states that she has been hearing voices which are negative towards her. She spoke about being chronically homeless and not feeling well. She claims that she has been having poor sleep lately.She is admitting to ongoing SI however no plan or intent. She denies any HI. She denies any VH. PAST PSYCHIATRIC HISTORY: Patient states that she has been intrusive diagnosed with schizoaffective disorder and polysubstance abuse. Patient has been on several different psych meds including lexapro, melatonin, Zyprexa, Prozac, and trazodone, risperal. PAtient has had several psych admissions and last admit was in 06/18. The patient follows with [facility] however has not been going to her appointments. Does report numerous times at suicide by overdose in the past. She claims that she has been off her medications for about a month now. PMH: Past Medical History: Hypertension, Liver Disease, Musculoskeletal Disorder, N eurologic Disorder Additional Past Medical History / Comment(s): hep c, back pain, sciatica, neuropathy, ALLERGIES: Ketorolac, latex CHEMICAL DEPENDENCY HISTORY: as per HPI FAMILY PSYCHIATRIC/SUBSTANCE USE HISTORY: The patient reports that her sister has been diagnosed with bipolar disorder. She states both her parents were alcoholic. She reports that her older sister attempted suicide but did not complete once. SOCIAL HISTORY: Patient was born and raised in [place], [place]. The patient is currently homeless, unemployed, and on Social Security. She completed her GED. She states that she is but has one grown up child. The patient was raised by her sister as her parents are alcoholic and did not have the ability to care for. The patient does report a history of incarceration for domestic violence. She states that she is also violated probation multiple times. She reports no current legal problems. MENTAL STATUS EXAM: General Appearance: Patient appears to be overweight, stated older than age is alert, directable, and attempts to cooperate. Patient appears to have poor hygiene and grooming. Behavior: Patient is seated without any agitated behavior. Eye contact is appropriate. Psychomotor activity slightly elevated. Speech: Patient's speech is fluent and nonpressured. Mood/Affect: Patient reports their mood is depressed, affect is congruent Suicidality/Homicidality: Patient denies any current homicidal ideation, intention, and/or plan. She admits to current suicidal ideations however no intent or plan. Perceptions: Patient denies any visual hallucinations and does endorse auditory hallucinations. Though content/process: Patient does endorse elevated paranoia. Rambling, tangential. Depressive content and stressors. Memory and concentration: AOX3, grossly intact for the purposes of this session. Can spell "WORLD" backwards Judgment and insight: poor STRENGTHS/WEAKNESSES: Strength is that patient is resilient. Weakness is that patient engages in heavy substance abuse and does not adhere with treatment. INTELLECT: Average to below average IMPRESSIONS: Major Depressive disorder, recurrent, severe with psychotic features. history of alcohol use disorder Methamphetamine use disorder severe. Post traumatic stress disorder. nicotine dependence. homelessness. PLAN: -Patient is admitted under voluntary status to [facility] for stabilization of psychiatric symptoms and safety. Patient signed adult voluntary form and medication consent and is placed in patient's chart. -Medications : Will start patient on Lexapro 10 mg daily for PTSD/D epression/anxiety. Invega 3 mg qhs for psychosis/mood stabilizaiton. -Ativan and Haldol PRN for agitation/aggression -UA is positive for moderate LE, awaiting medicine recommendations for abx to treat uti. Ordered gonorrhea and chlamydia test as patient raised suspicion about this. -Patient was counselled on substance abuse and desired to cut back on use -Patient was informed of the risks, benefits and side effects of the medication and patient verbally consented to taking the medications. Patient signed med consent form and was placed in chart. -Internal Medicine consult to perform medical evaluation and physical. -NRT - nicotine patch -SW on board for discharge planning. Encourage patient to participate in groups to work on coping skills. 01/21/22 12:08
[2022-01-21] MEDS: diphenhydrAMINE 25 MG CAP PO PRN (12:20)
[2022-01-21] MEDS: ESCITALOPRAM 10 MG TAB PO SCH (12:23)
[2022-01-21] MEDS: NICOTINE GUM (POLACRILEX) 2 MG GUM BUCCAL PRN (15:52)
[2022-01-21] MEDS: IBUPROFEN 600 MG TAB PO PRN (15:52)
--- NOTE | 2022-01-21 17:42 | P.HPIM ---
History of Present Illness H&P Date: 01/21/22 Rachel Keller, he is a 61-year-old female who presented to [facility] emergency room with a chief complaint of worsening anxiety depression and suicidal thoughts She was evaluated in the emergency room vital examination on presentation revealed a temperature of 98.2 pulse 69 respiration 18 blood pressure 158/86 pulse ox 99% on room air Laboratory data revealed a white blood count of 8.3 hemoglobin 15.0 platelet count 327 sodium 140 potassium 4.8 chloride 106 CO2 30 BUN 12 creatinine 0.76 urine analysis revealed moderate leukocyte esterase Testing in the emergency room revealed toxicology screen was positive for amphetamine and methamphetamine Patient was admitted to the psychiatry floor for further evaluation and treatment, medical consultation was requested for management while hospitalized Past Medical History Past Medical History: Hypertension, Liver Disease, Musculoskeletal Disorder, Neurologic Disorder Additional Past Medical History / Comment(s): hep c, back pain, sciatica, neuropathy, History of Any Multi-Drug Resistant Organisms: MRSA Date of last positivie culture/infection: 2006 MDRO Source:: face Past Surgical History: Orthopedic Surgery Additional Past Surgical History / Comment(s): lt ankle, D&C Past Anesthesia/Blood Transfusion Reactions: No Reported Reaction Past Psychological History: Anxiety, Bipolar, Depression, Schizoaffective Disorder, Schizophrenia Smoking Status: Current every day smoker Past Alcohol Use History: Daily Additional Past Alcohol Use History / Comment(s): quit drinking due to new meds for Hep C Past Drug Use History: None Reported, Methamphetamine Medications and Allergies Home Medications Medication Instructions Recorded Confirmed Type Acetaminophen [Tylenol 8 Hour] 650 mg PO Q8H PRN 7 Days tab 05/30/21 01/20/22 Rx Albuterol Sulfate [Ventolin HFA] 2 puff INHALATION RT-Q4H PRN #1 05/30/21 01/20/22 Rx each Gabapentin [Neurontin] 400 mg PO TID 10 Days #30 cap 05/30/21 01/20/22 Rx Paliperidone [Invega] 6 mg PO HS 30 Days tablet 05/30/21 01/20/22 Rx Diclofenac Sodium Gel [Voltaren 4 gm TOPICAL QID 12/06/21 01/20/22 History Gel] Pantoprazole Sodium [Protonix] 40 mg PO DAILY 12/06/21 01/20/22 History Phentermine HCl [Adipex-P] 37.5 mg PO DAILY 12/06/21 01/20/22 History traMADol HCl [Ultram] 50 mg PO BID PRN 12/06/21 01/20/22 History Allergies Allergy/AdvReac Type Severity Reaction Status Date / Time ketorolac [From Toradol] Allergy Unknown Verified 01/20/22 18:54 latex Allergy Itching Verified 01/20/22 18:54 adhesive AdvReac Swelling Verified 01/21/22 12:19 Physical Exam Vitals: Vital Signs Temp Pulse Pulse Resp BP BP Pulse Ox 01/21/22 02:57 98.1 F 60 18 133/80 95 01/20/22 18:49 98.2 F 69 18 158/86 99 Intake and Output 01/21/22 01/21/22 01/21/22 06:59 14:59 22:59 Other: Weight 80.938 kg In general patient is alert and oriented x 3 in no distress HEENT head normocephalic and atraumatic Neck is supple no JVD no goiter no lymphadenopathy no carotid bruit Chest examination is clear to auscultation no crackles no wheezing Cardiac exam reveals regular heart sounds S1 and S2 no gallops no murmurs Abdomen is soft nontender no organomegaly with normal bowel sounds Extremity exam reveals no edema no cyanosis or clubbing Neurological examination reveals no gross focal deficits Results CBC & Chem 7: 01/21/22 09:49 01/21/22 09:49 Labs: Abnormal Lab Results - Last 24 Hours (Table) 01/21/22 01/21/22 01/21/22 Range/Units 00:28 00:28 09:49 Hct 47.2 H (34.0-46.0) % Ur Leukocyte Esterase Moderate H (Negative) Urine Mucus Rare H (None) /hpf Ur Amphetamines Screen Detected H (NotDetected) U Methamphetamines Scrn Detected H (NotDetected) Thrombosis Risk Factor Assmnt - Choose All That Apply Any of the Below Risk Factors Present?: Yes Each Factor Represents 1 point: Obesity (BMI >25) Each Risk Factor Represents 2 Points: Age 61-74 years Thrombosis Risk Factor Assessment Total Risk Factor Score: 3 Thrombosis Risk Factor Assessment Level: Moderate Risk Assessment and Plan Plan: Depression with suicidal ideation Recent methamphetamine use Previous history of alcohol use disorder Underlying history of nicotine dependence History of posttraumatic stress disorder Evidence of urinary tract infection Hypertension patient stopped taking her medications At this time patient is admitted to the psychiatry floor management per psychiatry for elevated blood pressure will restart Norvasc 5 mg by mouth daily for urinary tract infection Will obtain culture and start Cipro 250 mg twice d aily Patient is describing symptoms of Maureen vaginitis will also start Diflucan Will follow during this admission for medical management
[2022-01-21] MEDS: amLODIPine 5 MG TAB PO SCH (19:19)
[2022-01-21] MEDS: PALIPERIDONE 3 MG TAB.ER.24 PO SCH (21:03)
[2022-01-22] MEDS: diphenhydrAMINE 25 MG CAP PO PRN ×2 (08:38→20:44)
[2022-01-22] MEDS: IBUPROFEN 600 MG TAB PO PRN (08:38)
[2022-01-22] MEDS: amLODIPine 5 MG TAB PO SCH (08:38)
[2022-01-22] MEDS: ESCITALOPRAM 10 MG TAB PO SCH (08:38)
--- NOTE | 2022-01-22 13:05 | P.PN ---
Progress Note - Text Progress Note Date: 01/22/22 Interval History: Patient was seen wandering the hallways and was directable and agreeable to sp marisa with insurance underwriter sales in the office. Patient was noted to be more visible on the unit speaking with other patients. She states that she is doing a bit better today in terms of her mood and anxiety. She continues to complain of some vaginal discomfort and states that she took Diflucan which made her feel nausea. She states that today she is doing a bit better with this. She states that she is very concerned about her vaginal health. She also states that she is having dry nasal passages. She states that she was having suicidal thoughts earlier today however not at this moment. She claims that she was able to sleep better last night and took a shower today. Improving appetite. At this time patient denies any current suicidal or homical ideations, intent or plan. Patient denies any auditory, visual hallucinations and denies any paranoia or delusions. Patient denies any side effects from the medications and has been compliant with meds. Mental Status Exam: General Appearance: Patient appears to be overweight, stated older than age is alert, directable, and attempts to cooperate. Patient appears to have improving hygiene and grooming. Behavior: Patient is seated without any agitated behavior. Eye contact is appropriate. Somatically preoccupied Speech: Patient's speech is fluent and nonpressured. Mood/Affect: Patient reports their mood is depressed, improving mildly, affect i s congruent Suicidality/Homicidality: Patient denies any current homicidal ideation, intention, and/or plan. Denies any current suicidal ideations however no intent or plan. Perceptions: Patient denies any visual hallucinations and does endorse auditory hallucinations. Though content/process: Patient does endorse elevated paranoia. Rambling, tangential. Depressive content and stressors\, improving Memory and concentration: AOX3, grossly intact for the purposes of this session. Judgment and insight: poor, improving mildly IMPRESSIONS: Major Depressive disorder, recurrent, severe with psychotic features. history of alcohol use disorder Methamphetamine use disorder severe. Post traumatic stress disorder. nicotine dependence. homelessness. Plan: -Patient continues to meet criteria for inpatient psychiatric admission for symptom stabilization and safety. Patient has signed adult voluntary form and medication consent and was placed in patient's chart. -Medications: Continue Lexapro 10 mg daily for PTSD/depression/anxiety, paliperidone 3 mg daily at bedtime for psychosis/mood stabilization. -abx cipro for uti. recieved diflucan dose. awaiting chlamydia and gonorrhea test. -When necessary Ativan and Haldol for agitation/aggression. -NRT - nicotine patch -SW on board for discharge planning. Encouraged the patient to participate in milieu.
[2022-01-22] MEDS: CIPROFLOXACIN HCL 250 MG TAB PO SCH ×2 (13:38→20:44)
[2022-01-22] MEDS: PALIPERIDONE 3 MG TAB.ER.24 PO SCH (20:44)
[2022-01-23] MEDS: ESCITALOPRAM 10 MG TAB PO SCH (08:31)
[2022-01-23] MEDS: amLODIPine 5 MG TAB PO SCH (08:31)
[2022-01-23] MEDS: CIPROFLOXACIN HCL 250 MG TAB PO SCH ×2 (08:31→20:56)
[2022-01-23] MEDS: IBUPROFEN 600 MG TAB PO PRN ×2 (08:33→20:57)
[2022-01-23] MEDS: diphenhydrAMINE 25 MG CAP PO PRN ×2 (08:33→20:57)
--- NOTE | 2022-01-23 09:48 | P.PN ---
Progress Note - Text Progress Note Date: 01/23/22 Interval History: Patient was seen wandering the hallways and was directable and agreeable to sp naveenk with teletypewriter operator. She states that she was feeling tired this morning and did not want to get up out of bed. She claims that she is having some itchiness on her scalp and asked teletypewriter operator to look at it. Minor bumps and scratches were never seen and patient states that he was feeling itchy. We spoke about the link between the tactile sensations, scratching and possibly infection on her skin while doi ng methamphetamine and also crack cocaine. Patient states that she would like to take Benadryl for it and keep an eye on it. She states that the urinary symptoms have been mildly improving with the medication so far. She states that her mood and anxiety of been gradually improving. She states that she receives the phone number to call for rehab from the social contact worker and asked questions if she could go to [facility] if they had beds. She claims that she had a positive experience with them last time. She states that she was able to sleep fairly last night, has a fair appetite. At this time patient denies any current suicidal or homical ideations, intent or plan. Patient denies any auditory, visual hallucinations and denies any paranoia or delusions. Patient denies any side effects from the medications and has been compliant with meds. Mental Status Exam: General Appearance: Patient appears to be overweight, stated older than age is alert, directable, and attempts to cooperate. Patient appears to have improving hygiene and grooming. Behavior: Patient is seated without any agitated behavior. Eye contact is appropriate. Somatically preoccupied Speech: Patient's speech is fluent and nonpressured. Mood/Affect: Patient reports their mood is improving mildly, affect is congruent Suicidality/Homicidality: Patient denies any current homicidal ideation, intention, and/or plan. Denies any current suicidal ideations however no intent or plan. Perceptions: Patient denies any visual hallucinations and does endorse auditory hallucinations. Though content/process: Patient is more logical and goal oriented. Rambles at times, improving mildly. Somatically preoccupied. Memory and concentration: AOX3, grossly intact for the purposes of this session. Judgment and insight: improving mildly IMPRESSIONS: Major Depressive disorder, recurrent, severe with psychotic features. history of alcohol use disorder Methamphetamine use disorder severe. Post traumatic stress disorder. nicotine dependence. homelessness. Plan: -Patient continues to meet criteria for inpatient psychiatric admission for symptom stabilization and safety. Patient has signed adult voluntary form and m edication consent and was placed in patient's chart. -Medications: Continue Lexapro 10 mg daily for PTSD/depression/anxiety, paliperidone 3 mg daily at bedtime for psychosis/mood stabilization. -abx cipro for uti. recieved diflucan dose. awaiting chlamydia and gonorrhea test. -When necessary Ativan and Haldol for agitation/aggression. -NRT - nicotine patch -SW on board for discharge planning. Encouraged the patient to participate in milieu. Likely discharge in 1-2 days. Patient will make the call to [facility] today to set up an intake appointment.
[2022-01-23] MEDS: MULTIVITAMINS, THERA 1 EACH TAB PO SCH (09:49)
[2022-01-23 14:53] LABS: C. trachomatis,PCR Negative (Neg,Equiv); Chlamydia trachomatis Source Urine; N. gonorrhoeae,PCR Negative (Neg,Equiv); Neisseria Source Urine
[2022-01-23] MEDS: PALIPERIDONE 3 MG TAB.ER.24 PO SCH (20:57)
[2022-01-23] MEDS: NICOTINE GUM (POLACRILEX) 2 MG GUM BUCCAL PRN (20:57)
[2022-01-24 07:05] VITALS: BP 132/63; PULSE 54; RESP 16; TEMP 97.4
[2022-01-24] MEDS: ESCITALOPRAM 10 MG TAB PO SCH (08:26)
[2022-01-24] MEDS: amLODIPine 5 MG TAB PO SCH (08:26)
[2022-01-24] MEDS: CIPROFLOXACIN HCL 250 MG TAB PO SCH (08:27)
[2022-01-24] MEDS: MULTIVITAMINS, THERA 1 EACH TAB PO SCH (08:27)
[2022-01-24] MEDS: GABAPENTIN 400 MG CAP PO SCH ×2 (09:18→15:56)
--- NOTE | 2022-01-24 09:41 | P.DS ---
Providers Date of admission: 01/21/22 01:17 Expected date of discharge: 01/24/22 Attending physician: Chauncey Chen MD Consults: 01/21/22 01:31 Consult Physician Routine Consulting Provider: Daisy Dos Santos Consult Reason/Comments: For H & P for Medical Follow Up Do you want consulting provider notified?: Yes, Notify in am Primary care physician: Daisy Dos Santos - Discharge Diagnosis(es) (1) Major depressive disorder, recurrent, severe with psychotic features Current Visit: Yes Status: Acute Priority: High (2) History of alcohol use disorder Current Visit: Yes Status: Acute Priority: Low (3) Methamphetamine use disorder, severe Current Visit: Yes Status: Acute Priority: High (4) PTSD (post-traumatic stress disorder) Current Visit: Yes Status: Acute Priority: Medium (5) Nicotine dependence Current Visit: Yes Status: Acute Priority: Low (6) Homelessness Current Visit: Yes Status: Acute Priority: High Hospital Course: Admission HPI: Admission note was completed by editorial writer "Patient is a 61-year-old female , who presented to the emergency department for psychiatric evaluation. chronically homeless. Patient presented to the hospital initially yesterday at nighttime complaining of depression and suicidal thoughts. Patient has a long history of repeated psychiatric hospitalizations for PTSD, depression and anxiety and polysubstance abuse and her last psychiatric admission was in May 2021. Patient was found to have a UDS which was positive for amphetamines, methamphetamine however she does have a history of polysubstance abuse. Patient was seen today by editorial writer and agreeable to speak. She appears to be disheveled and rambled about several different stressors in her life and states that she recently lost her brother. She claims that she is in pain and reported some vague urinary symptoms including pain. She states that she wants to "soother doctor for putting me on the wrong antibiotic". She states that she doesn't get along with another patient on the unit and was upset about that. She claims that she is irritable angry and feeling depressed today. She was also tearful at times during the interview. she states that she did not follow- up at [facility] and does not know why. She was fairly vague and evasive during the conversation. She spoke about her having anger and irritability and "harmful thoughts to other people that have stole from me ". She also states that she has been hearing voices which are negative towards her. She spoke about being chronically homeless and not feeling well. She claims that she has been having poor sleep lately.She is admitting to ongoing SI however no plan or intent. She denies any HI. She denies any VH." Hospital course: Upon admission to the unit patient was directable and agreeable to commence tr eatment and signed adult voluntary form . Patient got along well with other patients on the unit and followed unit protocol. Patient was compliant with the medications and denied any side effects throughout hospital course. Patient was started on her home dose of Lexapro 10 mg daily for anxiety/depression, paliperidone by mouth 3 mg daily at bedtime for psychosis/mood stabilization. Patient spoke of her stressors and engaged in therapy both group and individual. Patient was also seen by medical team for history and physical exam. Throughout the course of the hospitalization patient gradually improved with regards to mood, anxiety, sleep and returned back to their baseline level of functioning. On the day of discharge patient denied any suicidal or homicidal ideations intent or plan denied any auditory or visual hallucinations. Patient endorsed wanting to live for her health and her future. The patient denied any access to guns or weapons. Patient denied any paranoia and did not endorse any delusions. Patient does have a significant history of substance abuse and was counseled on abstaining from all substances including alcohol and marijuana. Patient was given the number for access line and called yesterday because she wanted to get into [place]. Currently awaiting intake date however patient can be discharged today to prison. Patient was also counseled on the med ications and need for regular compliance and was encouraged to follow-up with their outpatient appointment for mental health and also for primary care. Mental status exam: General Appearance: Patient appears to be overweight, short hair, stated age is alert, pleasant, and cooperative. Patient is in no acute distress and has improved hygiene and grooming Behavior: Patient is calmly seated without any agitated behavior. Speech: Patient's speech is fluent and nonpressured. Mood/Affect: Patient reports their mood is "good", affect is congruent and euthymic. Suicidality/Homicidality: Patient denies having any suicidal or homicidal ideation intent or plan. Perceptions: Patient denies any auditory or visual hallucinations. Though content/process: There is no evidence of any delusional thought content and thought process is linear and goal-directed. more future oriented Memory and concentration: AOX3, grossly intact for the purposes of this session. Can spell "WORLD" backwards correctly. Judgment and insight: chronically poor, however has improved with guarded prognosis Impression: Major depressive disorder, recurrent, severe with psychotic features History of alcohol use disorder Methamphetamine use disorder severe PTSD Homelessness Nicotine dependence Plan: -Continue with discharge today as patient has improved and stabilized psychiatrically and is not currently an imminent threat to herself and/or others. Patient will remain at chronically elevated risk for harm to self and/or others due to her impulsivity and substance abuse. -Continue medications: Lexapro 10 mg daily for depression/anxiety, paliperidone by mouth 3 mg daily at bedtime for psychosis/mood stabilization. -Patient was counseled on the need for medication compliance and appropriate follow-up at mental health and also primary care for medical issues. Patient verbalized understanding and agreed. -Social work to help arrange patient's discharge today to a prison. Still awaiting patient's intake date for /[facility]. Social work also to arrange for patients follow up appointments with [facility] for psychiatric care along with follow up with primary care provider. -Patient counseled on abstaining from recreational drugs and marijuana and alcohol. Was informed/educated on the adverse effects on their physical and mental health. Patient verbally agreed and understood. -Patient was instructed to return to the hospital or seek immediate medical care if their psychiatric or medical symptoms do worsen or reoccur. Allergies Allergy/AdvReac Type Severity Reaction Status Date / Time ketorolac [From Toradol] Allergy Unknown Verified 01/20/22 18:54 latex Allergy Itching Verified 01/20/22 18:54 adhesive AdvReac Swelling Verified 01/21/22 12:19 Laboratory Results WBC 8.3 k/uL (3.8-10.6) 01/21/22 09:49 RBC 5.13 m/uL (3.80-5.40) 01/21/22 09:49 Hgb 15.0 gm/dL (11.4-16.0) 01/21/22 09:49 Hct 47.2 % (34.0-46.0) H 01/21/22 09:49 MCV 92.0 fL (80.0-100.0) 01/21/22 09:49 MCH 29.3 pg (25.0-35.0) 01/21/22 09:49 MCHC 31.8 g/dL (31.0-37.0) 01/21/22 09:49 RDW 12.0 % (11.5-15.5) 01/21/22 09:49 Plt Count 327 k/uL (150-450) 01/21/22 09:49 MPV 7.4 01/21/22 09:49 Neutrophils % 61 % 01/21/22 09:49 Lymphocytes % 26 % 01/21/22 09:49 Monocytes % 6 % 01/21/22 09:49 Eosinophils % 5 % 01/21/22 09:49 Basophils % 1 % 01/21/22 09:49 Neutrophils # 5.1 k/uL (1.3-7.7) 01/21/22 09:49 Lymphocytes # 2.2 k/uL (1.0-4.8) 01/21/22 09:49 Monocytes # 0.5 k/uL (0-1.0) 01/21/22 09:49 Eosinophils # 0.4 k/uL (0-0.7) 01/21/22 09:49 Basophils # 0.1 k/uL (0-0.2) 01/21/22 09:49 Sodium 140 mmol/L (137-145) 01/21/22 09:49 Potassium 4.8 mmol/L (3.5-5.1) 01/21/22 09:49 Chloride 106 mmol/L (98-107) 01/21/22 09:49 Carbon Dioxide 30 mmol/L (22-30) 01/21/22 09:49 Anion Gap 4 mmol/L 01/21/22 09:49 BUN 12 mg/dL (7-17) 01/21/22 09:49 Creatinine 0.76 mg/dL (0.52-1.04) 01/21/22 09:49 Est GFR (CKD-EPI)AfAm >90 (>60 ml/min/1.73 sqM) 01/21/22 09:49 Est GFR (CKD-EPI)NonAf 86 (>60 ml/min/1.73 sqM) 01/21/22 09:49 Glucose 74 mg/dL (74-99) 01/21/22 09:[address] Glu mg/dL 114 01/21/22 09:49 Hemoglobin A1c 5.6 % (0.0-6.0) 01/21/22 09:49 Calcium 9.3 mg/dL (8.4-10.2) 01/21/22 09:49 Total Bilirubin 0.4 mg/dL (0.2-1.3) 01/21/22 09:49 AST 25 U/L (14-36) 01/21/22 09:49 ALT 16 U/L (4-34) 01/21/22 09:49 Alkaline Phosphatase 85 U/L (38-126) 01/21/22 09:49 Total Protein 7.3 g/dL (6.3-8.2) 01/21/22 09:49 Albumin 4.4 g/dL (3.5-5.0) 01/21/22 09:49 TSH 1.480 mIU/L (0.465-4.680) 01/21/22 09:49 Urine Color Light Yellow 01/21/22 00:28 Urine Appearance Clear (Clear) 01/21/22 00:28 Urine pH 6.5 (5.0-8.0) 01/21/22 00:28 Ur Specific [place] 1.011 (1.001-1.035) 01/21/22 00:28 Urine Protein Negative (Negative) 01/21/22 00:28 Urine Glucose (UA) Negative (Negative) 01/21/22 00:28 Urine Ketones Negative (Negative) 01/21/22 00:28 Urine Blood Negative (Negative) 01/21/22: Urine Nitrite Negative (Negative) 01/21/22 00:28 Urine Bilirubin Negative (Negative) 01/21/22 00:28 Urine Urobilinogen <2.0 mg/dL (<2.0) 01/21/22 00:28 Ur Leukocyte Esterase Moderate (Negative) H 01/21/22 00:28 Urine RBC <1 /hpf (0-5) 01/21/22 00:28 Urine WBC 4 /hpf (0-5) 01/21/22 00:28 Ur Squamous Epith Cells 2 /hpf (0-4) 01/21/22 00:28 Hyaline Casts 1 /lpf (0-2) 01/21/22 00:28 Urine Mucus Rare /hpf (None) H 01/21/22 00:28 Urine Opiates Screen Not Detected (NotDetected) 01/21/22 00:28 Ur Oxycodone Screen Not Detected (NotDetected) 01/21/22 00:28 Urine Methadone Screen Not Detected (NotDetected) 01/21/22 00:28 Ur Propoxyphene Screen Not Detected (NotDetected) 01/21/22 00:28 Ur Barbiturates Screen Not Detected (NotDetected) 01/21/22 00:28 U Tricyclic Antidepress Not Detected (NotDetected) 01/21/22 00:28 Ur Phencyclidine Scrn Not Detected (NotDetected) 01/21/22 00:28 Ur Amphetamines Screen Detected (NotDetected) H 01/21/22 00:28 U Methamphetamines Scrn Detected (NotDetected) H 01/21/22 00:28 U Benzodiazepines Scrn Not Detected (NotDetected) 01/21/22 00:28 Urine Cocaine Screen Not Detected (NotDetected) 01/21/22 00:28 U Marijuana (THC) Screen Not Detected (NotDetected) 01/21/22 00:28 Chlamydia Source Urine 01/21/22 19:48 Chlamydia DNA (PCR) Negative (Neg,Equiv) 01/21/22 19:48 Coronavirus (PCR) Not Detected (Not Detectd) 01/20/22 23:42 N. gonorrhoeae Source Urine 01/21/22 19:48 N.gonorrhoeae DNA Probe Negative (Neg,Equiv) 01/21/22 19:48 Vital Signs Temp 97.4 F L 01/24/22 06:40 Pulse 54 L 01/24/22 06:40 Resp 16 01/24/22 06:40 BP 132/63 01/24/22 06:40 Pulse Ox 97 01/23/22 20:54 FiO2 Patient Condition at Discharge: Stable Plan - Discharge Summary New Discharge Prescriptions: New Nicotine Gum (Polacrilex) [Nicorette] 2 mg BUCCAL Q4HR PRN 28 Days pieceofgum PRN Reason: Nicotine Cravings amLODIPine [Norvasc] 5 mg PO DAILY 30 Days tab Ciprofloxacin HCl [Cipro] 250 mg PO BID 4 Days tab Paliperidone [Invega] 3 mg PO HS 30 Days tab Escitalopram [Lexapro] 10 mg PO DAILY 30 Days tab Ibuprofen [Motrin] 600 mg PO Q8H PRN 30 Days tab PRN Reason: Moderate To Severe Pain Multivitamins, Thera [Multivitamin (formulary)] 1 each PO DAILY 30 Days tab Gabapentin [Neurontin] 400 mg PO TID 3 Days cap Albuterol Inhaler [Ventolin Hfa Inhaler] 2 puff INHALATION RT-Q4H PRN #1 each PRN Reason: Shortness Of Breath Discontinued Paliperidone [Invega] 6 mg PO HS 30 Days tablet Gabapentin [Neurontin] 400 mg PO TID 10 Days #30 cap Acetaminophen [Tylenol 8 Hour] 650 mg PO Q8H PRN 7 Days tab PRN Reason: Pain Pantoprazole Sodium [Protonix] 40 mg PO DAILY Albuterol Sulfate [Ventolin HFA] 2 puff INHALATION RT-Q4H PRN #1 each PRN Reason: Shortness Of Breath traMADol HCl [Ultram] 50 mg PO BID PRN PRN Reason: Pain Phentermine HCl [Adipex-P] 37.5 mg PO DAILY Diclofenac Sodium Gel [Voltaren Gel] 4 gm TOPICAL QID Discharge Medication List Albuterol Inhaler [Ventolin Hfa Inhaler] 2 puff INHALATION RT-Q4H PRN #1 each 01/24/22 [Rx] Ciprofloxacin HCl [Cipro] 250 mg PO BID 4 Days tab 01/24/22 [Rx] Escitalopram [Lexapro] 10 mg PO DAILY 30 Days tab 01/24/22 [Rx] Gabapentin [Neurontin] 400 mg PO TID 3 Days cap 01/24/22 [Rx] Ibuprofen [Motrin] 600 mg PO Q8H PRN 30 Days tab 01/24/22 [Rx] Multivitamins, Thera [Multivitamin (formulary)] 1 each PO DAILY 30 Days tab 01/24/22 [Rx] Nicotine Gum (Polacrilex) [Nicorette] 2 mg BUCCAL Q4HR PRN 28 Days pieceofgum 01/24/22 [Rx] Paliperidone [Invega] 3 mg PO HS 30 Days tab 01/24/22 [Rx] amLODIPine [Norvasc] 5 mg PO DAILY 30 Days tab 01/24/22 [Rx] Follow up Appointment(s)/Referral(s): Daisy Dos Santos MD [Primary Care Provider] - 1-2 days Activity/Diet/Wound Care/Special Instructions: Avoid the use of street drugs and alcohol. Take all prescriptions as prescribed. When you are in need of refills on your medications, please contact your medical provider and/or outpatient psychiatrist to have this done. Please go to scheduled outpatient appointment for aftercare treatment. If symptoms return or become worse, call the crisis line at and/or go to the nearest emergency room for evaluation. Discharge Disposition: OTHER INSTITUTION NOT DEFINED
== END 2022-01-24 16:45 | disposition home or self-care (01) | DRG 885 ==
LOC: EC 18:24 → 3MHU 01-21 01:17
PROVIDERS: ADMIT Psychiatry & Neurology Psychiatry; ATTEND Psychiatry & Neurology Psychiatry
DX: F33.3 Major depressive disorder, recurrent, severe with psychotic symptoms (principal); N39.0 Urinary tract infection, site not specified; R45.851 Suicidal ideations; F17.210 Nicotine dependence, cigarettes, uncomplicated; B19.20 Unspecified viral hepatitis C without hepatic coma; F15.10 Other stimulant abuse, uncomplicated; F10.10 Alcohol abuse, uncomplicated; Z71.51 Drug abuse counseling and surveillance of drug abuser; F41.0 Panic disorder [episodic paroxysmal anxiety]; F43.10 Post-traumatic stress disorder, unspecified; I10 Essential (primary) hypertension; Z59.00 Homelessness unspecified; Z63.72 Alcoholism and drug addiction in family; Z79.899 Other long term (current) drug therapy; Z81.1 Family history of alcohol abuse and dependence; E66.3 Overweight; Z68.34 Body mass index [BMI] 34.0-34.9, adult; G62.9 Polyneuropathy, unspecified; M54.30 Sciatica, unspecified side; F19.11 Other psychoactive substance abuse, in remission; Z20.828 Contact with and (suspected) exposure to other viral communicable diseases; Z88.5 Allergy status to narcotic agent; Z91.040 Latex allergy status; Z63.4 Disappearance and death of family member
CPT/HCPCS: 80053; 80306; 81001; 82075; 83036; 84443; 85025; 87086; 87491; 87591; 87635; 99285